=== PATIENT | female | born 1935 | race Caucasian/White ===

== ENCOUNTER 2016-05-15 14:28 | Inpatient (IN) | payer MEDICARE, BC ==
[~2016-05-15] VITALS: Ht 160 cm; Wt 133.5 kg
[~2016-05-15 14:28] MED LIST: APIX5 PO; BIOTCAP PO; BLAC20TA PO; CHRO1000 PO; CO Q200C3 PO; CRAN250T PO; DICL1GEL TOP; ISOS60TA PO; LEVO75TA3 PO; LORA0.5T PO; LUTE6TAB PO; MAGN400C2 PO; MONT10 PO; NITR0.4S SL; OCUVTAB4 PO; OMEP20TA39 PO; PLAV75TA PO; QUIN20TA22 PO; ROPI1TAB72 PO; ROSU40 PO; SELE200T18 PO; SPIR25 PO; SPIRCAP INH; TOPR50TA PO; TORS20 PO; TRAM50 PO; TURM500C3 PO; VENTAER INH; VITA-13 PO
[2016-05-15 14:29] VITALS: BP 123/58; PULSE 76; RESP 17; TEMP 97.6; O2SAT 94
[2016-05-15] MEDS ORDERED: VANCOMYCIN INJ 1,250 MG in SODIUM CHLOR 0.9% 250 ML INJ 250 ML IV ONE (18:00)
[2016-05-15] MEDS ORDERED: BACT2OIN2 TOP (18:07)
[2016-05-15] MEDS ORDERED: CURCPOW PO (18:07)
[2016-05-15] MEDS ORDERED: TRAM50TA PO (18:07)
[2016-05-15] MEDS ORDERED: AMIO200T PO (18:07)
[2016-05-15] MEDS ORDERED: VIBR100C PO (18:07)
[2016-05-15] MEDS ORDERED: TORS100T2 PO (18:12)
[2016-05-15] MEDS ORDERED: SPIRCAP INH (18:12)
[2016-05-15] MEDS ORDERED: SPIR50TA PO (18:12)
[2016-05-15] MEDS ORDERED: SELE1TAB PO (18:12)
[2016-05-15] MEDS ORDERED: ROSU20 PO (18:12)
[2016-05-15] MEDS ORDERED: ROPI1TAB72 PO (18:12)
[2016-05-15] MEDS ORDERED: MAGN400T2 PO (18:16)
[2016-05-15] MEDS ORDERED: TOPR50TA PO (18:16)
[2016-05-15] MEDS ORDERED: LUTE25CA PO (18:16)
[2016-05-15] MEDS ORDERED: NITR400A5 SL (18:16)
[2016-05-15] MEDS ORDERED: QUIN1TAB11 PO (18:16)
[2016-05-15] MEDS ORDERED: PRESCAP5 PO (18:16)
[2016-05-15] MEDS ORDERED: MONT10TA4 PO (18:16)
[2016-05-15] MEDS ORDERED: DICL1GEL7 TOPICAL (18:21)
[2016-05-15] MEDS ORDERED: PLAV75TA29 PO (18:21)
[2016-05-15] MEDS ORDERED: CRAN500C2 PO (18:21)
[2016-05-15] MEDS ORDERED: LORA-373 PO (18:21)
[2016-05-15] MEDS ORDERED: LEVO100T5 PO (18:21)
[2016-05-15] MEDS ORDERED: APIX5TAB PO (18:21)
[2016-05-15] MEDS ORDERED: ISOS60TA PO (18:21)
[2016-05-15] MEDS ORDERED: CO Q100C9 PO (18:21)
[2016-05-15] MEDS ORDERED: CHOL1TAB42 PO (18:25)
[2016-05-15] MEDS ORDERED: VENTAER INH (18:25)
[2016-05-15] MEDS ORDERED: CHRO1000 PO (18:25)
[2016-05-15] MEDS ORDERED: BIOT1CHW CHEW (18:25)
[2016-05-15] MEDS ORDERED: ESTRTAB12 PO (18:25)
[2016-05-15 18:48] LABS: AUTOMATED NEUTROPHIL # 4.7 TH/MM3 (1.8-7.7); BASOPHIL # 0.1 TH/MM3 (0-0.2); BASOPHIL % 0.7 % (0.0-2.0); EOSINOPHIL # 0.1 TH/MM3 (0-0.4); EOSINOPHIL % 1.7 % (0.0-4.0); HEMATOCRIT 42.3 % (35.0-46.0); HEMO FLAGS DIFF FINAL; LYMPH % 23.3 % (9.0-44.0); LYMPHOCYTE # 1.9 TH/MM3 (1.0-4.8); MEAN CELL VOLUME 90.6 FL (80.0-100.0); MEAN CORPUSCULAR HEMOGLOBIN 30.2 PG (27.0-34.0); MEAN CORPUSCULAR HGB CONC 33.4 % (32.0-36.0); MONO % 14.9 % (0.0-8.0); NEUT % 59.4 % (16.0-70.0); PLATELET COUNT 200 TH/MM3 (150-450); RED BLOOD COUNT 4.67 MIL/MM3 (4.00-5.30); RED CELL DISTRIBUTION WIDTH 16.4 % (11.6-17.2); WHITE BLOOD COUNT 7.9 TH/MM3 (4.0-11.0)
[2016-05-15 19:10] LABS: BICARBONATE 31.2 MEQ/L (21.0-32.0)
--- NOTE | 2016-05-15 19:26 | PD ---
HPI Chief Complaint: Edema Time Seen by Provider: 17:14 Travel History International Travel<30 days: No Contact w/Intl Traveler<30days: No Traveled to known affect area: No History of Present Illness HPI 80yo F with PMH of CHF presents with c/o worsening cellulitis of right lower extremity. Pt was prescribed doxycycline by PMD and has been taking it for 3 days. Pt states the redness is getting worst and there is clear drainage. Denies any fever, chest pain, sob, n/v, abdominal pain, weakness or numbness. Pt had recent bilateral US of bilateral lower ext that was negative for DVT at [facility]. PFSH Past Medical History Hx Anticoagulant Therapy: Yes Arthritis: Yes (idiopathic skeletal hyperostosis/ osteoarthris) Asthma: No Anxiety: Yes Cancer: Yes Cardiovascular Problems: Yes (A-FIB/CHF/3 STENTS) High Cholesterol: Yes Chemotherapy: No Chest Pain: No COPD: Yes Diabetes: Yes ("PRE DIABETES") Patient Takes Glucophage: No Diminished Hearing: No Endocrine: No Gastrointestinal Disorders: Yes (GERD; FRAGA'S ESOPHAGITIS; DIVERTICULOSIS; HX H PYLORI) Genitourinary: No Hepatitis: No Hiatal Hernia: Yes (SCHATZIKIS RING) Hypertension: Yes Immune Disorder: No Implanted Vascular Access Dvce: No Medical other: Yes (HX STOMACH ULCER;COPD) Musculoskeletal: Yes Neurologic: No Psychiatric: Yes Reproductive: No Respiratory: Yes (copd) Radiation Therapy: No Sleep Apnea: Yes Thyroid Disease: Yes Ulcer: Yes Tetanus Vaccination: Unknown Influenza Vaccination: Yes Menopausal: Yes Dilation and Curettage (D&C): Yes Past Surgical History Abdominal Surgery: No AICD: No Body Medical Devices: CARDIAC STENTS X 3; STERNAL WIRE; TOE PINS RIGHT FOOT, RIGHT ACHIL PIN Cardiac Surgery: No Coronary Stent: Yes (x3 OM, LAD, L MAIN) Ear Surgery: No Endocrine Surgery: No Eye Surgery: Yes Genitourinary Surgery: Yes Gynecologic Surgery: Yes Hysterectomy: Yes Joint Replacement: Yes (BILAT KNEES; PINS LEFT HEEL /ANKLE) Neurologic Surgery: No Oral Surgery: No Pacemaker: No Thoracic Surgery: No Other Surgery: Yes (MULTIPLE COLONOSCOPIES AND ENDOSOPIES) Social History Alcohol Use: No Tobacco Use: No Substance Use: No Allergies-Medications (Allergen,Severity, Reaction): Coded Allergies: Adhesives (Verified Allergy, Severe, steri strips causes severe skin irritation, 05/15/16) Cleocin (Verified Allergy, Severe, THRUSH, 05/15/16) ORAL THRUSH Keflex (Verified Allergy, Severe, 05/15/16) FULL BODY RASH Verapamil (Verified Allergy, Severe, SWELLING, 05/15/16) SEVERE EDEMA IN LEGS Amlodipine (Verified Allergy, Intermediate, GENERALIZED EDEMA, 05/15/16) Nonsteroidal Anti-Inflammatory Agts (Verified Allergy, Intermediate, GI , 05/15/16) Norvasc (Verified Allergy, Intermediate, EDEMA, 05/15/16) Cymbalta (Verified Allergy, Unknown, 05/15/16) Dolobid (Verified Allergy, Unknown, 05/15/16) Lexapro (Verified Allergy, Unknown, 05/15/16) Lipitor (Verified Allergy, Unknown, 05/15/16) Naprosyn (Verified Allergy, Unknown, 05/15/16) Prozac (Verified Allergy, Unknown, 05/15/16) Voltaren (Verified Allergy, Unknown, 05/15/16) Xarelto (Verified Allergy, Unknown, 05/15/16) rectal bleeding Zetia (Verified Allergy, Unknown, 05/15/16) Zocor (Verified Allergy, Unknown, 05/15/16) Uncoded Allergies: vytorin (Allergy, Unknown, 10/07/15) Reported Meds & Prescriptions Reported Meds & Active Scripts Active Reported Ventolin Hfa 18 GM Inh (Albuterol Sulfate) 90 Mcg/Act Aer 2 Puff INH BID Hair Skin & Nails (Biotin W/ Vitamins C & E) 1,250-7.5-7.5 Mcg-Mg-Unit Chew 1 Chew CHEW DAILY Estroven + Energy Maximum ([facility] Natural Products) 1 Tab Tab 1 Tab PO DAILY Vitamin D-3 (Cholecalciferol) 2,000 Unit Tab 2,000 Units PO BID Chromium Picolinate 1,000 Mcg Tab 1,000 Mcg PO DAILY Plavix (Clopidogrel Bisulfate) 75 Mg Tab 75 Mg PO DAILY Co Q 10 (Coenzyme Q10 (Ubidecarenone)) 100 Mg Cap 100 Mg PO DAILY Cranberry (Cranberry (Vaccinium Macrocarpon)) 500 Mg Cap 500 Mg PO HS Diclofenac Topical 1% Gel 1 Applic TOPICAL DIRECTED PRN Eliquis (Apixaban) 5 Mg Tab 5 Mg PO BID Isosorbide Mononitrate ER (Isosorbide Mononitrate) 60 Mg Tab 180 Mg PO DAILY Levothyroxine (Levothyroxine Sodium) 100 Mcg Tab 100 Mcg PO DAILY Lorazepam 0.5 Mg Tab 0.5 Mg PO DAILY PRN Lutein-Zeaxanthin Unknown Strength Cap Unknown Dose PO DAILY Magnesium Oxide 400 Mg Tab 400 Mg PO DAILY Toprol XL (Metoprolol Succinate) 50 Mg Tab 50 Mg PO DAILY Montelukast (Montelukast Sodium) 10 Mg Tab 10 Mg PO HS Nitroglycerin Lingual [place] (Nitroglycerin) 400 Mcg/Act [place] 1 [place] SL DIRECTED PRN ONE SPRAY NEEDED FOR CHEST PAIN, MAY REPEAT EVERY FIVE MINUTES FOR A TOTAL OF 3 DOSES OR CALL 911 IF NO RELIEF Preservision Areds 2 (Multiple Vitamins W/ Minerals) 1 Cap 1 Cap PO BID Quinapril (Quinapril HCl) 10 Mg Tab 10 Mg PO BID Requip (Ropinirole) 1 Mg Tab 1 Mg PO BID Crestor (Rosuvastatin Calcium) 20 Mg Tab 20 Mg PO HS Selenium 200 Mcg Tab 200 Mg PO DAILY Spironolactone 50 Mg Tab 50 Mg PO DAILY Spiriva [place]haler (Tiotropium Inh) 18 Mcg Cap 18 Mcg INH DAILY 1 capsule = 18 mcg Torsemide 100 Mg Tab 50 Mg PO BID Tramadol (Tramadol HCl) 50 Mg Tab 150 Mg PO BID Curcumin (Turmeric (Curcuma Longa) (Bulk) 1 Pow Pow 1,000 Mg PO DAILY Vibramycin (Doxycycline Hyclate) 100 Mg Cap 100 Mg PO BID Bactroban (Mupirocin) 2 % Oin 1 Applic TOP TID Amiodarone (Amiodarone HCl) 200 Mg Tab 200 Mg PO DAILY Review of Systems Except as stated in HPI: all other systems reviewed are Neg Physical Exam Narrative GENERAL: 80yo F not in distress. SKIN: Warm and dry. HEAD: Atraumatic. Normocephalic. EYES: Pupils equal and round. No scleral icterus. No injection or drainage. ENT: No nasal bleeding or discharge. Mucous membranes pink and moist. NECK: Trachea midline. No JVD. CARDIOVASCULAR: Regular rate and rhythm. No murmur appreciated. RESPIRATORY: No accessory muscle use. Clear to auscultation. Breath sounds equal bilaterally. GASTROINTESTINAL: Abdomen soft, non-tender, nondistended. MUSCULOSKELETAL: RLE: +Erythema right lower extremity tib/fib with erythema streaking right inner thigh. Area of small superficial ulcer with clear drainage. Left lower ext: pitting edema. DP 2+ bilaterally. NEUROLOGICAL: Awake and alert. No obvious cranial nerve deficits. Motor grossly within normal limits. Normal speech. PSYCHIATRIC: Appropriate mood and affect; insight and judgment normal. Data Data Last Documented VS Vital Signs Date Time Temp Pulse Resp B/P Pulse Ox O2 Delivery O2 Flow Rate FiO2 05/15/16 14:29 97.6 76 17 123/58 94 Orders Basic Metabolic Panel (Bmp) (05/15/16 17:48) Complete Blood Count With Diff (05/15/16 17:48) Blood Culture (05/15/16 17:48) Iv Access Insert/Monitor (05/15/16 17:48) Vancomycin Inj (Vancomycin Inj) (05/15/16 18:00) Admit Order (Ed Use Only) (05/15/16 19:42) Labs Laboratory Tests Test 05/15/16 18:25 White Blood Count 7.9 TH/MM3 Red Blood Count 4.67 MIL/MM3 Hemoglobin 14.1 GM/DL Hematocrit 42.3 % Mean Corpuscular Volume 90.6 FL Mean Corpuscular Hemoglobin 30.2 PG Mean Corpuscular Hemoglobin 33.4 % Concent Red Cell Distribution Width 16.4 % Platelet Count 200 TH/MM3 Mean Platelet Volume 7.9 FL Neutrophils (%) (Auto) 59.4 % Lymphocytes (%) (Auto) 23.3 % Monocytes (%) (Auto) 14.9 % Eosinophils (%) (Auto) 1.7 % Basophils (%) (Auto) 0.7 % Neutrophils # (Auto) 4.7 TH/MM3 Lymphocytes # (Auto) 1.9 TH/MM3 Monocytes # (Auto) 1.2 TH/MM3 Eosinophils # (Auto) 0.1 TH/MM3 Basophils # (Auto) 0.1 TH/MM3 CBC Comment DIFF FINAL Differential Comment Sodium Level 131 MEQ/L Potassium Level 4.0 MEQ/L Chloride Level 90 MEQ/L Carbon Dioxide Level 31.2 MEQ/L Anion Gap 10 MEQ/L Blood Urea Nitrogen 43 MG/DL Creatinine 1.77 MG/DL Estimat Glomerular Filtration 28 ML/MIN Rate Random Glucose 103 MG/DL Calcium Level 8.5 MG/DL [facility] Medical Decision Making Medical Screen Exam Complete: Yes Emergency Medical Condition: Yes Differential Diagnosis Cellulitis that failed outpatient treatment vs. felix vs. skin irritation Narrative Course 80yo F well appearing with bilateral lower ext edema and right lower ext erythema. States she is compliant with doxycycline but erythema worsening. Pt given vancomycin IV and labs reviewed. No leukocytosis. Mild hyponatremia and elevation in creatinine that is at baseline. Discussed with Dr. Guy for admission for observation for IV antibiotics for cellulitis that failed outpatient treatment. Pt agrees with plan. Diagnosis Primary Impression: Cellulitis Qualified Code: L03.115 - Cellulitis of right lower extremity Admitting Information Admitting Physician Requests: Eli Azar DO May 15, 2016 19:26
[2016-05-15] MEDS ORDERED: PILL SPLITTER OTHER PRN (20:30)
[2016-05-15 20:44] VITALS: BP 135/72; PULSE 65; RESP 20; O2SAT 96
[2016-05-15] MEDS ORDERED: NON-FORMULARY DRUG (Cranberry (Vaccinium Macrocarpon) (Cranberry) 500 MG) PO SCH (21:00)
[2016-05-15] MEDS: TORSEMIDE 20 MG TAB PO SCH (21:55)
[2016-05-15] MEDS: MONTELUKAST SODIUM 10 MG TAB PO SCH (21:55)
[2016-05-15] MEDS: LISINOPRIL 10 MG TAB PO SCH (21:55)
[2016-05-15] MEDS: ALBUTEROL SULFATE 90 MCG/ACT HFA 8 GM INHALER INH SCH (21:55)
[2016-05-15] MEDS: APIXABAN 5 MG TABLET PO SCH (21:55)
[2016-05-15 22:00] VITALS: BP 137/62; PULSE 68; RESP 20; O2SAT 96
--- NOTE | 2016-05-15 23:20 | HHI.HP ---
[facility] Ruba Jesus DO Admission Diagnosis Cellulitis that failed outpatient follow up Diagnoses: Chief Complaint: Bilateral lower extremity redness Travel History International Travel<30 Days: No Contact w/Intl Traveler <30 Da: No Traveled to Known Affected Are: No History of Present Illness The patient is a 80-year-old female with multiple medical problems including coronary artery disease status post CABG, COPD, anxiety, sleep apnea, obesity, diet-controlled diabetes, hypertension, hyperlipidemia. She presented to the emergency room with complaint of worsening cellulitis of the right lower extremity. She reports that she had increased swelling of the bilateral extremities that started about 3 weeks ago. The swelling has been improving. However 2 weeks ago she noticed some blisters on her bilateral lower extremities. They started draining associated redness that extend up to her thighs. The left side has improved. However the right side has been getting worse. The patient was seen by her primary care doctor and has been on doxycycline for the past 3 days but she believes does redness is getting worse on the right. She did have bilateral lower extremity ultrasound recently that was negative for DVT. She denies any fevers or chills. Review of Systems Constitutional: DENIES: Fever, Chills Respiratory: DENIES: Cough, Shortness of breath Cardiovascular: COMPLAINS OF: Lower Extremity Edema Gastrointestinal: DENIES: Nausea, Vomiting Integumentary: COMPLAINS OF: Rash Psychiatric: DENIES: Mood changes Other All other systems reviewed and are negative. Past Family Social History Past Surgical History Heart catheterization with stent placement Bilateral knee replacement Hysterectomy Multiple upper and lower endoscopy Rotator cuff surgery Allergies: Coded Allergies: Adhesives (Verified Allergy, Severe, steri strips causes severe skin irritation, 05/15/16) Cleocin (Verified Allergy, Severe, THRUSH, 05/15/16) ORAL THRUSH Keflex (Verified Allergy, Severe, 05/15/16) FULL BODY RASH Verapamil (Verified Allergy, Severe, SWELLING, 05/15/16) SEVERE EDEMA IN LEGS Amlodipine (Verified Allergy, Intermediate, GENERALIZED EDEMA, 05/15/16) Nonsteroidal Anti-Inflammatory Agts (Verified Allergy, Intermediate, GI , 05/15/16) Norvasc (Verified Allergy, Intermediate, EDEMA, 05/15/16) Cymbalta (Verified Allergy, Unknown, 05/15/16) Dolobid (Verified Allergy, Unknown, 05/15/16) Lexapro (Verified Allergy, Unknown, 05/15/16) Lipitor (Verified Allergy, Unknown, 05/15/16) Naprosyn (Verified Allergy, Unknown, 05/15/16) Prozac (Verified Allergy, Unknown, 05/15/16) Voltaren (Verified Allergy, Unknown, 05/15/16) Xarelto (Verified Allergy, Unknown, 05/15/16) rectal bleeding Zetia (Verified Allergy, Unknown, 05/15/16) Zocor (Verified Allergy, Unknown, 05/15/16) Uncoded Allergies: vytorin (Allergy, Unknown, 10/07/15) Family History Reviewed and noncontributory. Social History No alcohol, tobacco, or illicit drugs. Patient lives in an [place]. Physical Exam Vital Signs Vital Signs Date Time Temp Pulse Resp B/P Pulse Ox O2 Delivery O2 Flow Rate FiO2 05/15/16 22:00 68 20 137/62 96 Room Air 05/15/16 20:44 65 20 135/72 96 Room Air 05/15/16 14:29 97.6 76 17 123/58 94 Physical Exam GENERAL: Morbidly obese female in no acute distress. SKIN: Bilateral lower extremity with some weeping and cellulitis extended up to the knees. The right side is worse and extended up to the time. HEAD: Atraumatic. Normocephalic. EYES: Pupils equal round and reactive. Extraocular motions intact. No scleral icterus. No injection or drainage. ENT: Nose without drainage. Airway patent. NECK: Trachea midline. No JVD or lymphadenopathy. CARDIOVASCULAR: Regular rate and rhythm without murmurs, gallops, or rubs. RESPIRATORY: Clear to auscultation. Breath sounds equal bilaterally. No wheezes , rales, or rhonchi. GASTROINTESTINAL: Abdomen soft, non-tender, nondistended. MUSCULOSKELETAL: There is 2+ bilateral lower extremity edema. Per patient this has significantly improved over the past couple of weeks with torsemide. NEUROLOGICAL: Awake and alert. Five out of 5 muscle strength in all muscle groups. Normal speech. Laboratory Laboratory Tests Test 05/15/16 18:25 White Blood Count 7.9 Red Blood Count 4.67 Hemoglobin 14.1 Hematocrit 42.3 Mean Corpuscular Volume 90.6 Mean Corpuscular Hemoglobin 30.2 Mean Corpuscular Hemoglobin 33.4 Concent Red Cell Distribution Width 16.4 Platelet Count 200 Mean Platelet Volume 7.9 Neutrophils (%) (Auto) 59.4 Lymphocytes (%) (Auto) 23.3 Monocytes (%) (Auto) 14.9 Eosinophils (%) (Auto) 1.7 Basophils (%) (Auto) 0.7 Neutrophils # (Auto) 4.7 Lymphocytes # (Auto) 1.9 Monocytes # (Auto) 1.2 Eosinophils # (Auto) 0.1 Basophils # (Auto) 0.1 CBC Comment DIFF FINAL Differential Comment Sodium Level 131 Potassium Level 4.0 Chloride Level 90 Carbon Dioxide Level 31.2 Anion Gap 10 Blood Urea Nitrogen 43 Creatinine 1.77 Estimat Glomerular Filtration 28 Rate Random Glucose 103 Calcium Level 8.5 Date/Time Procedure Status Source Growth 05/15/16 18:35 Aerobic Blood Culture Received Blood Peripheral Pending 05/15/16 18:35 Anaerobic Blood Culture Received Blood Peripheral Pending Result Diagram: 05/15/16182405/15/161824 Assessment and Plan Problem List: (1) Cellulitis ICD Code: L03.90 Status: Acute (2) HTN (hypertension) ICD Code: I10 Status: Chronic (3) GERD (gastroesophageal reflux disease) ICD Code: K21.9 Status: Chronic (4) CAD (coronary artery disease) ICD Code: I25.10 Status: Chronic (5) CHF (congestive heart failure) ICD Code: I50.9 Status: Acute (6) Afib ICD Code: I48.91 Status: Acute Assessment and Plan 80-year-old female admitted with cellulitis after failing outpatient therapy. Bilateral lower extremity cellulitis: Patient failed outpatient treatment. She has been given vancomycin in the emergency room. - Continue vancomycin. Follow blood cultures. - Clean small weeping wounds. - Keep legs elevated CHF: Not in exacerbation. She does have significant lower extremity edema but this has improved over the past 2 weeks per the patient. - Continue torsemide, Aldactone, lisinopril Coronary artery disease: Continue home dose Plavix, tramadol, metoprolol Atrial fibrillation: Continue amiodarone, metoprolol, and Eliquis. The patient has many other chronic conditions listed above. Her chronic home medications has been continued. GI prophylaxis: Stool softener PRN constipation. DVT PPx: On Eliquis. Physician Certification 2 Midnight Certification Type: Admission for Inpatient Services Order for Inpatient Services The services are ordered in accordance with Medicare regulations or non- Medicare payer requirements, as applicable. In the case of services not specified as inpatient-only, they are appropriately provided as inpatient services in accordance with the 2-midnight benchmark. Estimated LOS (days): 3 days is the estimated time the patient will need to remain in the hospital, assuming treatment plan goals are met and no additional complications. Post-Hospital Plan: Not yet determined Problem Qualifiers (1) Cellulitis: Qualified Code: L03.115 - Cellulitis of right lower extremity Mana Guy MD May 15, 2016 23:20
[2016-05-15] MEDS ORDERED: Vancomycin Consult Pharmacy 1 EA XX SCH (23:45)
[2016-05-15] MEDS ORDERED: SODIUM CHLORIDE 0.9% FLUSH 5 ML FLUSH IV PRN (23:45)
[2016-05-15] MEDS ORDERED: ACETAMINOPHEN/HYDROcodone 325 MG/5 MG TAB PO PRN (23:45)
[2016-05-16] MEDS ORDERED: VANCOMYCIN INJ 1,000 MG in SODIUM CHLOR 0.9% 250 ML INJ 250 ML IV SCH ×2
[2016-05-16] MEDS: LEVOTHYROXINE SODIUM 100 MCG TAB PO SCH (05:23)
[2016-05-16 05:47] LABS: AUTOMATED NEUTROPHIL # 4.3 TH/MM3 (1.8-7.7); BASOPHIL % 0.6 % (0.0-2.0); EOSINOPHIL # 0.2 TH/MM3 (0-0.4); EOSINOPHIL % 2.6 % (0.0-4.0); HEMATOCRIT 39.6 % (35.0-46.0); HEMO FLAGS DIFF FINAL; LYMPHOCYTE # 1.5 TH/MM3 (1.0-4.8); MEAN CELL VOLUME 88.9 FL (80.0-100.0); MEAN CORPUSCULAR HEMOGLOBIN 30.2 PG (27.0-34.0); MEAN CORPUSCULAR HGB CONC 33.9 % (32.0-36.0); MONO % 16.2 % (0.0-8.0); NEUT % 59.6 % (16.0-70.0); PLATELET COUNT 168 TH/MM3 (150-450); RED BLOOD COUNT 4.45 MIL/MM3 (4.00-5.30); WHITE BLOOD COUNT 7.2 TH/MM3 (4.0-11.0)
[2016-05-16 05:48] LABS: BICARBONATE 35.3 MEQ/L (21.0-32.0); POTASSIUM 3.2 MEQ/L (3.5-5.1)
[2016-05-16 08:00] VITALS: BP 122/62; PULSE 70; RESP 20; TEMP 97.8; O2SAT 95
[2016-05-16] MEDS: APIXABAN 5 MG TABLET PO SCH ×2 (08:53→21:15)
[2016-05-16] MEDS: MAGNESIUM OXIDE 400 MG TAB PO SCH (08:53)
[2016-05-16] MEDS: METOPROLOL SUCCINATE 50 MG EXTENDED RELEASE TAB PO SCH (08:54)
[2016-05-16] MEDS: SPIRONOLACTONE 50 MG TAB PO SCH (08:55)
[2016-05-16] MEDS: TORSEMIDE 20 MG TAB PO SCH ×2 (08:55→16:27)
[2016-05-16] MEDS: ISOSORBIDE MONONITRATE 60 MG TAB PO SCH (08:55)
[2016-05-16] MEDS: AMIODARONE 200 MG TAB PO SCH (08:56)
[2016-05-16] MEDS: CLOPIDOGREL 75 MG TAB PO SCH (08:56)
[2016-05-16] MEDS: LISINOPRIL 10 MG TAB PO SCH ×2 (08:56→21:14)
[2016-05-16] MEDS: SODIUM CHLORIDE 0.9% FLUSH 5 ML FLUSH IV SCH ×2 (08:56→21:15)
[2016-05-16] MEDS: MUPIROCIN 2% OINT 22 GM TUBE TOP SCH ×4 (09:00→17:15)
--- NOTE | 2016-05-16 09:26 | HHI.PR ---
Subjective Remarks resting comfortably with no distress. afebrile and pain is controlled. says that the right leg ' looks better ' today. Objective Vitals Vital Signs Date Time Temp Pulse Resp B/P Pulse Ox O2 Delivery O2 Flow Rate FiO2 05/16/16 08:00 97.8 70 20 122/62 95 05/15/16 22:00 68 20 137/62 96 Room Air 05/15/16 20:44 65 20 135/72 96 Room Air 05/15/16 14:29 97.6 76 17 123/58 94 I/O 05/15/16 05/15/16 05/15/16 05/16/16 05/16/16 05/16/16 07:00 15:00 23:00 07:00 15:00 23:00 Intake Total 80 ml 240 ml 120 ml Output Total 700 ml Balance 80 ml -460 ml 120 ml Intake Oral 80 ml 240 ml 120 ml IV Total 0 ml Output Urine Total 700 ml # Voids 1 Result Diagram: 05/16/16 0428 05/16/168 Objective Remarks GENERAL: This is a well-nourished, well-developed patient, in no apparent distress. CARDIOVASCULAR: Regular rate and regular rhythm without murmurs, gallops, or rubs. RESPIRATORY: Clear to auscultation. Breath sounds equal bilaterally. No wheezes , rales, or rhonchi. GASTROINTESTINAL: Abdomen soft, non-tender, nondistended. Normal, active bowel sounds MUSCULOSKELETAL: erythema, warmth and swelling of the right leg. NEURO: Alert & Oriented x4 to person, place, time, situation. Moves all ext x4 Procedures none Medications and IVs Current Medications Vancomycin HCl/ Sodium Chloride (Vancomycin Inj/ NS 250 ml Inj) 262.5 ml @ 250 mls/hr ONCE ONCE IV Last administered on 05/15/16 18:47; Start 05/15/16 at 18 :00; Stop 05/15/16 at 19:02; Status DC Albuterol Sulfate (Proair Hfa Inh) 2 puff BID INH Last administered on 21:55; Start 05/15/16 at 21:00 Amiodarone HCl (Cordarone) 200 mg DAILY PO Last administered on 05/16/16 08:56 ; Start 05/16/16 at 09:00 Apixaban (Eliquis) 5 mg BID PO Last administered on 05/16/16 08:53; Start at 21:00 Clopidogrel Bisulfate (Plavix) 75 mg DAILY PO Last administered on 05/16/16 08 :56; Start 05/16/16 at 09:00 Isosorbide Mononitrate (Imdur) 180 mg DAILY PO Last administered on 05/16/16 08:55; Start 05/16/16 at 09:00 Levothyroxine Sodium (Synthroid) 100 mcg DAILY@06 PO Last administered on 05:23; Start 05/16/16 at 06:00 Lorazepam (Ativan) 0.5 mg DAILY PRN PO ANXIETY; Start 05/15/16 at 20:00 Magnesium Oxide (Mag-Ox) 400 mg DAILY PO Last administered on 05/16/16 08:53; Start 05/16/16 at 09:00 Metoprolol Succinate (Toprol Xl) 50 mg DAILY PO Last administered on 05/16/16 08:54; Start 05/16/16 at 09:00 Montelukast Sodium (Singulair) 10 mg HS PO Last administered on 05/15/16 21:55 ; Start 05/15/16 at 21:00 Mupirocin (Bactroban 2% Oint) 1 applic TID TOP ; Start 05/16/16 at 09:00 Lisinopril (Prinivil) 10 mg BID PO Last administered on 05/16/16 08:56; Start 05/15/16 at 21:00 Ropinirole HCl (Requip) 1 mg BID PO Last administered on 05/16/16 08:55; Start 05/15/16 at 21:00 Spironolactone (Aldactone) 50 mg DAILY PO Last administered on 05/16/16 08:55 ; Start 05/16/16 at 09:00 Tiotropium [place] (Spiriva Inh) 18 mcg DAILY INH ; Start 05/16/16 at 09:00 Torsemide (Demadex) 50 mg BID PO Last administered on 05/16/16 08:55; Start at 21:00 Non-Formulary Medication 500 mg HS PO ; Start 05/15/16 at 21:00; Status UNV Patient Own Medication PT OWN MED: CRESTOR... HS PO ; Start 05/15/16 at 21:00; Status Hold Miscellaneous (Pill Splitter) 1 ea UNSCH PRN OTHER SEE LABEL COMMENTS; Start at 20:30 IV Flush (NS Flush) 2 ml BID IV Last administered on 05/16/16 08:56; Start at 09:00 IV Flush 2 ml 2 ml UNSCH PRN IV FLUSH AFTER USING IV ACCESS; Start 05/15/16 at 23:45 Pharmacy Profile Note (Vancomycin Consult Pharmacy) 0 ml @ 0 mls/hr UNSCH XX ; Start 05/15/16 at 23:45 Acetaminophen/ Hydrocodone Bitart 1 tab 1 tab Q4H PRN PO PAIN GREATER THAN 5; Start 05/15/16 at 23:45 Vancomycin HCl/ Sodium Chloride (Vancomycin Inj/ NS 250 ml Inj) 250 ml @ 250 mls/hr Q12H IV Last administered on 05/16/16 01:24; Start 05/16/16 at 00:00; Stop 05/16/16 at 03:00; Status DC A/P Assessment and Plan A/P Bilateral lower extremity cellulitis: Patient failed outpatient treatment. - Continue vancomycin. Follow blood cultures. -will monitor the response - Clean small weeping wounds. - Keep legs elevated CHF ( chronic diastolic) :compensated. - Continue torsemide, Aldactone, lisinopril Coronary artery disease: Continue home dose Plavix, tramadol, metoprolol Atrial fibrillation: Continue amiodarone, metoprolol, and Eliquis. chronic renal insufficiency; will monitor hypokalemia; will replace DVT PPx: On Eliquis. Lit Davis MD May 16, 2016 09:26
[2016-05-16] MEDS ORDERED: POTASSIUM CHLORIDE 20 MEQ CONTROLLED RELEASE TAB PO ONE (10:00)
[2016-05-16 11:44] VITALS: BP 119/52; PULSE 68; RESP 20; TEMP 97.7; O2SAT 97
[2016-05-16 16:02] VITALS: BP 118/57; PULSE 69; RESP 20; TEMP 97.5; O2SAT 97
[2016-05-16] MEDS: ALBUTEROL SULFATE 90 MCG/ACT HFA 8 GM INHALER INH SCH ×2 (16:09→21:00)
[2016-05-16] MEDS: TIOTROPIUM BROMIDE 18 MCG INH INH SCH (16:09)
[2016-05-16 20:00] VITALS: BP 140/56; PULSE 66; RESP 18; TEMP 97.6; O2SAT 95
[2016-05-16] MEDS: MONTELUKAST SODIUM 10 MG TAB PO SCH (21:15)
[2016-05-16] MEDS ORDERED: traMADol HCL 50 MG TAB PO SCH ×2 (21:45→22:30)
[2016-05-17] VITALS: BP 134/60; PULSE 66; RESP 18; TEMP 98.7; O2SAT 97
[2016-05-17] MEDS ORDERED: traMADol HCL 50 MG TAB PO ONE (02:00)
[2016-05-17 05:49] LABS: BICARBONATE 33.3 MEQ/L (21.0-32.0); POTASSIUM 3.4 MEQ/L (3.5-5.1)
[2016-05-17] MEDS: LEVOTHYROXINE SODIUM 100 MCG TAB PO SCH (06:08)
[2016-05-17 08:00] VITALS: BP 135/59; PULSE 69; RESP 18; TEMP 98.8; O2SAT 95
[2016-05-17] MEDS: LISINOPRIL 10 MG TAB PO SCH ×2 (09:21→20:45)
[2016-05-17] MEDS: SPIRONOLACTONE 50 MG TAB PO SCH (09:21)
[2016-05-17] MEDS: APIXABAN 5 MG TABLET PO SCH ×2 (09:21→20:45)
[2016-05-17] MEDS: ISOSORBIDE MONONITRATE 60 MG TAB PO SCH (09:21)
[2016-05-17] MEDS: TORSEMIDE 20 MG TAB PO SCH ×2 (09:22→16:50)
[2016-05-17] MEDS: CLOPIDOGREL 75 MG TAB PO SCH (09:23)
[2016-05-17] MEDS: traMADol HCL 50 MG TAB PO SCH ×3 (09:23→16:52)
[2016-05-17] MEDS: AMIODARONE 200 MG TAB PO SCH (09:23)
[2016-05-17] MEDS: MAGNESIUM OXIDE 400 MG TAB PO SCH (09:23)
[2016-05-17] MEDS: MUPIROCIN 2% OINT 22 GM TUBE TOP SCH ×3 (09:23→16:53)
[2016-05-17] MEDS: METOPROLOL SUCCINATE 50 MG EXTENDED RELEASE TAB PO SCH (09:23)
[2016-05-17] MEDS: ALBUTEROL SULFATE 90 MCG/ACT HFA 8 GM INHALER INH SCH ×2 (09:24→20:45)
[2016-05-17] MEDS: TIOTROPIUM BROMIDE 18 MCG INH INH SCH (09:24)
[2016-05-17] MEDS: SODIUM CHLORIDE 0.9% FLUSH 5 ML FLUSH IV SCH ×2 (09:24→20:44)
--- NOTE | 2016-05-17 10:03 | HHI.PR ---
Subjective Remarks resting comfortably with no distress. no fever. pain to the right leg hasn't improved as much. Objective Vitals Vital Signs Date Time Temp Pulse Resp B/P Pulse Ox O2 Delivery O2 Flow Rate FiO2 05/17/16 08:00 98.8 69 18 135/59 95 05/17/16 00:00 98.7 66 18 134/60 97 05/16/16 20:00 97.6 66 18 140/56 95 05/16/16 16:02 97.5 69 20 118/57 97 05/16/16 11:44 97.7 68 20 119/52 97 I/O 05/16/16 05/16/16 05/16/16 05/17/16 05/17/16 05/17/16 07:00 15:00 23:00 07:00 15:00 23:00 Intake Total 240 ml 1080 ml 240 ml 480 ml Output Total 700 ml 1000 ml 350 ml 1800 ml Balance -460 ml 80 ml -110 ml -1320 ml Intake Oral 240 ml 1080 ml 240 ml 480 ml IV Total 0 ml 0 ml 0 ml Output Urine Total 700 ml 1000 ml 350 ml 1800 ml # Voids 1 # Bowel Movements 1 1 Result Diagram: 05/16/16 0428 05/17/16 0402 Objective Remarks GENERAL: This is a well-nourished, well-developed patient, in no apparent distress. CARDIOVASCULAR: Regular rate and regular rhythm without murmurs, gallops, or rubs. RESPIRATORY: Clear to auscultation. Breath sounds equal bilaterally. No wheezes , rales, or rhonchi. GASTROINTESTINAL: Abdomen soft, non-tender, nondistended. Normal, active bowel sounds MUSCULOSKELETAL: erythema, warmth and swelling of the right leg. NEURO: Alert & Oriented x4 to person, place, time, situation. Moves all ext x4 Procedures none Medications and IVs Current Medications Vancomycin HCl/ Sodium Chloride (Vancomycin Inj/ NS 250 ml Inj) 262.5 ml @ 250 mls/hr ONCE ONCE IV Last administered on 05/15/16 18:47; Start 05/15/16 at 18 :00; Stop 05/15/16 at 19:02; Status DC Albuterol Sulfate (Proair Hfa Inh) 2 puff BID INH Last administered on 09:24; Start 05/15/16 at 21:00 Amiodarone HCl (Cordarone) 200 mg DAILY PO Last administered on 05/17/16 09:23 ; Start 05/16/16 at 09:00 Apixaban (Eliquis) 5 mg BID PO Last administered on 05/17/16 09:21; Start at 21:00 Clopidogrel Bisulfate (Plavix) 75 mg DAILY PO Last administered on 05/17/16 09 :23; Start 05/16/16 at 09:00 Isosorbide Mononitrate (Imdur) 180 mg DAILY PO Last administered on 05/17/16 09:21; Start 05/16/16 at 09:00 Levothyroxine Sodium (Synthroid) 100 mcg DAILY@06 PO Last administered on 06:08; Start 05/16/16 at 06:00 Lorazepam (Ativan) 0.5 mg DAILY PRN PO ANXIETY; Start 05/15/16 at 20:00 Magnesium Oxide (Mag-Ox) 400 mg DAILY PO Last administered on 05/17/16 09:23; Start 05/16/16 at 09:00 Metoprolol Succinate (Toprol Xl) 50 mg DAILY PO Last administered on 05/17/16 09:23; Start 05/16/16 at 09:00 Montelukast Sodium (Singulair) 10 mg HS PO Last administered on 05/16/16 21:15 ; Start 05/15/16 at 21:00 Mupirocin (Bactroban 2% Oint) 1 applic TID TOP Last administered on 05/17/16 09:23; Start 05/16/16 at 09:00 Lisinopril (Prinivil) 10 mg BID PO Last administered on 05/17/16 09:21; Start 05/15/16 at 21:00 Ropinirole HCl (Requip) 1 mg BID PO Last administered on 05/17/16 09:23; Start 05/15/16 at 21:00 Spironolactone (Aldactone) 50 mg DAILY PO Last administered on 05/17/16 09:21 ; Start 05/16/16 at 09:00 Tiotropium [place] (Spiriva Inh) 18 mcg DAILY INH Last administered on 09:24; Start 05/16/16 at 09:00 Torsemide (Demadex) 50 mg BID PO Last administered on 05/16/16 16:27; Start at 21:00; Stop 05/16/16 at 16:43; Status DC Non-Formulary Medication 500 mg HS PO ; Start 05/15/16 at 21:00; Status UNV Patient Own Medication PT OWN MED: CRESTOR... HS PO ; Start 05/15/16 at 21:00; Status Hold Miscellaneous (Pill Splitter) 1 ea UNSCH PRN OTHER SEE LABEL COMMENTS; Start at 20:30 IV Flush (NS Flush) 2 ml BID IV Last administered on 05/17/16 09:24; Start at 09:00 IV Flush 2 ml 2 ml UNSCH PRN IV FLUSH AFTER USING IV ACCESS; Start 05/15/16 at 23:45 Pharmacy Profile Note (Vancomycin Consult Pharmacy) 0 ml @ 0 mls/hr UNSCH XX ; Start 05/15/16 at 23:45 Acetaminophen/ Hydrocodone Bitart 1 tab 1 tab Q4H PRN PO PAIN GREATER THAN 5; Start 05/15/16 at 23:45 Vancomycin HCl/ Sodium Chloride (Vancomycin Inj/ NS 250 ml Inj) 250 ml @ 250 mls/hr Q12H IV Last administered on 05/16/16 01:24; Start 05/16/16 at 00:00; Stop 05/16/16 at 03:00; Status DC Potassium Chloride (KCl) 20 meq ONCE ONCE PO Last administered on 05/16/16 10 :30; Start 05/16/16 at 10:00; Stop 05/16/16 at 10:01; Status DC Torsemide (Demadex) 50 mg BID@09,16 PO Last administered on 05/17/16 09:22; Start 05/17/16 at 09:00 Tramadol HCl (Ultram) 150 mg BID PO ; Start 05/16/16 at 21:45; Stop 05/16/16 at 22:30; Status DC Tramadol HCl (Ultram) 150 mg TID PO ; Start 05/16/16 at 22:30; Stop 05/17/16 at 00:06; Status DC Tramadol HCl (Ultram) 50 mg TID PO Last administered on 05/17/16 09:23; Start 05/17/16 at 09:00 Tramadol HCl (Ultram) 50 mg ONCE ONCE PO Last administered on 05/17/16t 01:53 ; Start 05/17/16 at 02:00; Stop 05/17/16 at 02:01; Status DC A/P Assessment and Plan A/P Bilateral lower extremity cellulitis: Patient failed outpatient treatment. - Continue vancomycin. blood cultures negative so far. -will monitor the response - Clean small weeping wounds. - Keep legs elevated -will consider ID evaluation if no improvement. CHF ( chronic diastolic) :compensated. - Continue torsemide, Aldactone, lisinopril Coronary artery disease: Continue home dose Plavix, tramadol, metoprolol Atrial fibrillation: Continue amiodarone, metoprolol, and Eliquis. chronic renal insufficiency; will monitor hypokalemia; replaced as needed. DVT PPx: On Eliquis. Lit Davis MD May 17, 2016 10:03
[2016-05-17 12:00] VITALS: BP 151/70; PULSE 68; RESP 17; TEMP 96.7; O2SAT 94
[2016-05-17 13:45] LABS: INDIRECT BILIRUBIN 0.5 MG/DL (0.0-0.8); TOTAL BILIRUBIN ADULT 0.7 MG/DL (0.2-1.0)
[2016-05-17] MEDS ORDERED: VANCOMYCIN INJ 1,750 MG in SODIUM CHLORID 0.9% 500 ML INJ 500 ML IV ONE (14:00)
[2016-05-17 16:00] VITALS: BP 108/46; PULSE 54; RESP 17; TEMP 96.4; O2SAT 93
[2016-05-17 20:00] VITALS: BP 106/52; PULSE 55; RESP 20; TEMP 97.5; O2SAT 94
[2016-05-17] MEDS: MONTELUKAST SODIUM 10 MG TAB PO SCH (20:45)
[2016-05-17] MEDS: CRESTOR 20 MG PO SCH (21:00)
[2016-05-18] VITALS: BP 109/38; PULSE 59; RESP 20; TEMP 98; O2SAT 94
[2016-05-18] MEDS: LEVOTHYROXINE SODIUM 100 MCG TAB PO SCH (05:17)
[2016-05-18 08:00] VITALS: BP 119/56; PULSE 57; RESP 17; TEMP 96.6; O2SAT 95
--- NOTE | 2016-05-18 08:33 | HHI.PR ---
Subjective Remarks resting comfortably with no distress. swelling and erythema over the right leg seems to be improving slowly. no fever. d/w the RN. Objective Vitals Vital Signs Date Time Temp Pulse Resp B/P Pulse Ox O2 Delivery O2 Flow Rate FiO2 05/18/16 00:00 98.0 59 20 109/38 94 05/17/16 20:00 97.5 55 20 106/52 94 05/17/16 16:00 96.4 54 17 108/46 93 05/17/16 13:36 16 05/17/16 12:00 96.7 68 17 151/70 94 I/O 05/17/16 05/17/16 05/17/16 05/18/16 05/18/16 05/18/16 07:00 15:00 23:00 07:00 15:00 23:00 Intake Total 480 ml 1800 ml 720 ml 240 ml Output Total 1800 ml 1350 ml 800 ml 400 ml Balance -1320 ml 450 ml -80 ml -160 ml Intake Oral 480 ml 1800 ml 720 ml 240 ml IV Total 0 ml Output Urine Total 1800 ml 1350 ml 800 ml 400 ml # Bowel Movements 0 1 Result Diagram: 05/16/16 0428 05/17/16 0402 Objective Remarks GENERAL: This is a well-nourished, well-developed patient, in no apparent distress. CARDIOVASCULAR: Regular rate and regular rhythm without murmurs, gallops, or rubs. RESPIRATORY: Clear to auscultation. Breath sounds equal bilaterally. No wheezes , rales, or rhonchi. GASTROINTESTINAL: Abdomen soft, non-tender, nondistended. Normal, active bowel sounds MUSCULOSKELETAL: erythema, warmth and swelling of the right leg seems to be improving slowly. NEURO: Alert & Oriented x4 to person, place, time, situation. Moves all ext x4 Procedures none Medications and IVs Current Medications Vancomycin HCl/ Sodium Chloride (Vancomycin Inj/ NS 250 ml Inj) 262.5 ml @ 250 mls/hr ONCE ONCE IV Last administered on 05/15/16 18:47; Start 05/15/16 at 18 :00; Stop 05/15/16 at 19:02; Status DC Albuterol Sulfate (Proair Hfa Inh) 2 puff BID INH Last administered on 20:45; Start 05/15/16 at 21:00 Amiodarone HCl (Cordarone) 200 mg DAILY PO Last administered on 05/17/16 09:23 ; Start 05/16/16 at 09:00 Apixaban (Eliquis) 5 mg BID PO Last administered on 05/17/16 20:45; Start at 21:00 Clopidogrel Bisulfate (Plavix) 75 mg DAILY PO Last administered on 05/17/16 09 :23; Start 05/16/16 at 09:00 Isosorbide Mononitrate (Imdur) 180 mg DAILY PO Last administered on 05/17/16 09:21; Start 05/16/16 at 09:00 Levothyroxine Sodium (Synthroid) 100 mcg DAILY@06 PO Last administered on 05:17; Start 05/16/16 at 06:00 Lorazepam (Ativan) 0.5 mg DAILY PRN PO ANXIETY; Start 05/15/16 at 20:00 Magnesium Oxide (Mag-Ox) 400 mg DAILY PO Last administered on 05/17/16 09:23; Start 05/16/16 at 09:00 Metoprolol Succinate (Toprol Xl) 50 mg DAILY PO Last administered on 05/17/16 09:23; Start 05/16/16 at 09:00 Montelukast Sodium (Singulair) 10 mg HS PO Last administered on 05/17/16 20:45 ; Start 05/15/16 at 21:00 Mupirocin (Bactroban 2% Oint) 1 applic TID TOP Last administered on 05/17/16 16:53; Start 05/16/16 at 09:00 Lisinopril (Prinivil) 10 mg BID PO Last administered on 05/17/16 20:45; Start 05/15/16 at 21:00 Ropinirole HCl (Requip) 1 mg BID PO Last administered on 05/17/16 20:45; Start 05/15/16 at 21:00 Spironolactone (Aldactone) 50 mg DAILY PO Last administered on 05/17/16 09:21 ; Start 05/16/16 at 09:00 Tiotropium [place] (Spiriva Inh) 18 mcg DAILY INH Last administered on 09:24; Start 05/16/16 at 09:00 Torsemide (Demadex) 50 mg BID PO Last administered on 05/16/16 16:27; Start at 21:00; Stop 05/16/16 at 16:43; Status DC Non-Formulary Medication 500 mg HS PO ; Start 05/15/16 at 21:00; Status UNV Patient Own Medication PT OWN MED: CRESTOR... HS PO ; Start 05/15/16 at 21:00 Miscellaneous (Pill Splitter) 1 ea UNSCH PRN OTHER SEE LABEL COMMENTS; Start at 20:30 IV Flush (NS Flush) 2 ml BID IV Last administered on 05/17/16 20:44; Start at 09:00 IV Flush 2 ml 2 ml UNSCH PRN IV FLUSH AFTER USING IV ACCESS; Start 05/15/16 at 23:45 Pharmacy Profile Note (Vancomycin Consult Pharmacy) 0 ml @ 0 mls/hr UNSCH XX ; Start 05/15/16 at 23:45 Acetaminophen/ Hydrocodone Bitart 1 tab 1 tab Q4H PRN PO PAIN GREATER THAN 5; Start 05/15/16 at 23:45 Vancomycin HCl/ Sodium Chloride (Vancomycin Inj/ NS 250 ml Inj) 250 ml @ 250 mls/hr Q12H IV Last administered on 05/16/16 01:24; Start 05/16/16 at 00:00; Stop 05/16/16 at 03:00; Status DC Potassium Chloride (KCl) 20 meq ONCE ONCE PO Last administered on 05/16/16 10 :30; Start 05/16/16 at 10:00; Stop 05/16/16 at 10:01; Status DC Torsemide (Demadex) 50 mg BID@09,16 PO Last administered on 05/17/16 16:50; Start 05/17/16 at 09:00 Tramadol HCl (Ultram) 150 mg BID PO ; Start 05/16/16 at 21:45; Stop 05/16/16 at 22:30; Status DC Tramadol HCl (Ultram) 150 mg TID PO ; Start 05/16/16 at 22:30; Stop 05/17/16 at 00:06; Status DC Tramadol HCl (Ultram) 50 mg TID PO Last administered on 05/17/16 16:52; Start 05/17/16 at 09:00; Stop 05/17/16 at 21:06; Status DC Tramadol HCl 50 mg 50 mg ONCE ONCE PO Last administered on 05/17/16 01:53; Start 05/17/16 at 02:00; Stop 05/17/16 at 02:01; Status DC Vancomycin HCl/ Sodium Chloride (Vancomycin Inj/ NS 500 ml Inj) 517.5 ml @ 258.75 mls/ hr ONCE@1400 ONCE IV Last administered on 05/17/16 14:39; Start 05/17/16 at 14:00; Stop 05/17/16 at 15:59; Status DC Tramadol HCl (Ultram) 50 mg DAILY@09,17,21 PO ; Start 05/18/16 at 09:00 A/P Assessment and Plan A/P Bilateral lower extremity cellulitis: Patient failed outpatient treatment. - Continue vancomycin. blood cultures negative so far. -will monitor the response - Clean small weeping wounds. - Keep legs elevated/ apply cami-wrap. -had venous doppler of the lower extremity as outpatient which was reportedly negative. -will consider ID evaluation if no improvement. CHF ( chronic diastolic) :compensated. - Continue torsemide, Aldactone, lisinopril Coronary artery disease: Continue home dose Plavix, tramadol, metoprolol Atrial fibrillation: Continue amiodarone, metoprolol, and Eliquis. chronic renal insufficiency; will monitor hypokalemia; replaced as needed. DVT PPx: On Eliquis. Discharge Planning case management for [facility]. Lit Davis MD May 18, 2016 08:33
--- NOTE | 2016-05-18 08:34 | HHI.FF ---
Face to Face Verification Diagnosis: (1) Cellulitis Home Health Nursing Order: Medical education Signs/symptoms of disease process Medication education-adverse effect Wound care and dressing changes I have seen patient Chelsey Goss on 05/18/16. My clinical findings support the need for the requested home health care services because: Ltd mobility - disease progression I certify that my clinical findings support that this patient is homebound because: Poor cardiac reserve Lit Davis MD May 18, 2016 08:34
[2016-05-18] MEDS: SPIRONOLACTONE 50 MG TAB PO SCH (08:36)
[2016-05-18] MEDS: CLOPIDOGREL 75 MG TAB PO SCH (08:36)
[2016-05-18] MEDS: APIXABAN 5 MG TABLET PO SCH ×2 (08:36→20:43)
[2016-05-18] MEDS: AMIODARONE 200 MG TAB PO SCH (08:36)
[2016-05-18] MEDS: ISOSORBIDE MONONITRATE 60 MG TAB PO SCH (08:37)
[2016-05-18] MEDS: MAGNESIUM OXIDE 400 MG TAB PO SCH (08:37)
[2016-05-18] MEDS: traMADol HCL 50 MG TAB PO SCH ×3 (08:37→20:43)
[2016-05-18] MEDS: LISINOPRIL 10 MG TAB PO SCH ×2 (08:37→20:43)
[2016-05-18] MEDS: METOPROLOL SUCCINATE 50 MG EXTENDED RELEASE TAB PO SCH (08:41)
[2016-05-18] MEDS: TORSEMIDE 20 MG TAB PO SCH ×2 (08:41→15:55)
[2016-05-18] MEDS: MUPIROCIN 2% OINT 22 GM TUBE TOP SCH ×3 (08:45→15:57)
[2016-05-18] MEDS: TIOTROPIUM BROMIDE 18 MCG INH INH SCH (08:45)
[2016-05-18] MEDS: ALBUTEROL SULFATE 90 MCG/ACT HFA 8 GM INHALER INH SCH ×2 (08:45→20:43)
[2016-05-18] MEDS: SODIUM CHLORIDE 0.9% FLUSH 5 ML FLUSH IV SCH ×2 (08:46→20:45)
[2016-05-18 12:00] VITALS: BP 117/57; PULSE 52; RESP 17; TEMP 97.1; O2SAT 64
[2016-05-18] MEDS: MONTELUKAST SODIUM 10 MG TAB PO SCH (20:43)
[2016-05-18] MEDS: CRESTOR 20 MG PO SCH (20:44)
[2016-05-19] VITALS: BP 111/53; PULSE 59; RESP 20; TEMP 97.8; O2SAT 94
[2016-05-19] MEDS: LORazepam 0.5 MG TAB PO PRN ×2 (03:17→21:44)
[2016-05-19 04:00] VITALS: BP 128/57; PULSE 55; RESP 20; TEMP 97.3; O2SAT 98
[2016-05-19] MEDS: LEVOTHYROXINE SODIUM 100 MCG TAB PO SCH (06:10)
[2016-05-19 08:00] VITALS: BP 112/54; PULSE 51; RESP 16; TEMP 98.1; O2SAT 97
--- NOTE | 2016-05-19 08:32 | HHI.PR ---
Subjective Remarks resting comfortably with no distress. says that had some pain of the right leg last night. remains afebrile. Objective Vitals Vital Signs Date Time Temp Pulse Resp B/P Pulse Ox O2 Delivery O2 Flow Rate FiO2 05/19/16 04:00 97.3 55 20 128/57 98 05/19/16 00:00 97.8 59 20 111/53 94 05/18/16 17:00 18 05/18/16 12:00 97.1 52 17 117/57 64 I/O 05/18/16 05/18/16 05/18/16 05/19/16 05/19/16 05/19/16 07:00 15:00 23:00 07:00 15:00 23:00 Intake Total 240 ml 900 ml 960 ml 240 ml Output Total 400 ml 900 ml 900 ml 700 ml Balance -160 ml 0 ml 60 ml -460 ml Intake Oral 240 ml 900 ml 960 ml 240 ml IV Total 0 ml Output Urine Total 400 ml 900 ml 900 ml 700 ml # Bowel Movements 1 Result Diagram: 05/16/16 0428 05/17/16 0402 Objective Remarks GENERAL: This is a well-nourished, well-developed patient, in no apparent distress. CARDIOVASCULAR: Regular rate and regular rhythm without murmurs, gallops, or rubs. RESPIRATORY: Clear to auscultation. Breath sounds equal bilaterally. No wheezes , rales, or rhonchi. GASTROINTESTINAL: Abdomen soft, non-tender, nondistended. Normal, active bowel sounds MUSCULOSKELETAL: erythema, warmth and swelling of the right leg seems to be improving slowly. NEURO: Alert & Oriented x4 to person, place, time, situation. Moves all ext x4 Procedures none Medications and IVs Current Medications Vancomycin HCl/ Sodium Chloride (Vancomycin Inj/ NS 250 ml Inj) 262.5 ml @ 250 mls/hr ONCE ONCE IV Last administered on 05/15/16 18:47; Start 05/15/16 at 18 :00; Stop 05/15/16 at 19:02; Status DC Albuterol Sulfate (Proair Hfa Inh) 2 puff BID INH Last administered on 08:45; Start 05/15/16 at 21:00 Amiodarone HCl (Cordarone) 200 mg DAILY PO Last administered on 05/18/16 08:36 ; Start 05/16/16 at 09:00 Apixaban (Eliquis) 5 mg BID PO Last administered on 05/18/16 20:43; Start at 21:00 Clopidogrel Bisulfate (Plavix) 75 mg DAILY PO Last administered on 05/18/16 08 :36; Start 05/16/16 at 09:00 Isosorbide Mononitrate (Imdur) 180 mg DAILY PO Last administered on 05/18/16 08:37; Start 05/16/16 at 09:00 Levothyroxine Sodium (Synthroid) 100 mcg DAILY@06 PO Last administered on 06:10; Start 05/16/16 at 06:00 Lorazepam (Ativan) 0.5 mg DAILY PRN PO ANXIETY Last administered on 05/19/16 03:17; Start 05/15/16 at 20:00 Magnesium Oxide (Mag-Ox) 400 mg DAILY PO Last administered on 05/18/16 08:37; Start 05/16/16 at 09:00 Metoprolol Succinate (Toprol Xl) 50 mg DAILY PO Last administered on 05/18/16 08:41; Start 05/16/16 at 09:00 Montelukast Sodium (Singulair) 10 mg HS PO Last administered on 05/18/16 20:43 ; Start 05/15/16 at 21:00 Mupirocin (Bactroban 2% Oint) 1 applic TID TOP Last administered on 05/18/16 08:45; Start 05/16/16 at 09:00 Lisinopril (Prinivil) 10 mg BID PO Last administered on 05/18/16 20:43; Start 05/15/16 at 21:00 Ropinirole HCl (Requip) 1 mg BID PO Last administered on 05/18/16 20:43; Start 05/15/16 at 21:00 Spironolactone (Aldactone) 50 mg DAILY PO Last administered on 05/18/16 08:36 ; Start 05/16/16 at 09:00 Tiotropium [place] (Spiriva Inh) 18 mcg DAILY INH Last administered on 08:45; Start 05/16/16 at 09:00 Torsemide (Demadex) 50 mg BID PO Last administered on 05/16/16 16:27; Start at 21:00; Stop 05/16/16 at 16:43; Status DC Non-Formulary Medication 500 mg HS PO ; Start 05/15/16 at 21:00; Status UNV Patient Own Medication PT OWN MED: CRESTOR... HS PO Last administered on 20:44; Start 05/15/16 at 21:00 Miscellaneous (Pill Splitter) 1 ea UNSCH PRN OTHER SEE LABEL COMMENTS; Start at 20:30 IV Flush (NS Flush) 2 ml BID IV Last administered on 05/18/16 20:45; Start at 09:00 IV Flush 2 ml 2 ml UNSCH PRN IV FLUSH AFTER USING IV ACCESS; Start 05/15/16 at 23:45 Pharmacy Profile Note (Vancomycin Consult Pharmacy) 0 ml @ 0 mls/hr UNSCH XX ; Start 05/15/16 at 23:45 Acetaminophen/ Hydrocodone Bitart 1 tab 1 tab Q4H PRN PO PAIN GREATER THAN 5; Start 05/15/16 at 23:45 Vancomycin HCl/ Sodium Chloride (Vancomycin Inj/ NS 250 ml Inj) 250 ml @ 250 mls/hr Q12H IV Last administered on 05/16/16 01:24; Start 05/16/16 at 00:00; Stop 05/16/16 at 03:00; Status DC Potassium Chloride (KCl) 20 meq ONCE ONCE PO Last administered on 05/16/16 10 :30; Start 05/16/16 at 10:00; Stop 05/16/16 at 10:01; Status DC Torsemide (Demadex) 50 mg BID@09,16 PO Last administered on 05/18/16 15:55; Start 05/17/16 at 09:00 Tramadol HCl (Ultram) 150 mg BID PO ; Start 05/16/16 at 21:45; Stop 05/16/16 at 22:30; Status DC Tramadol HCl (Ultram) 150 mg TID PO ; Start 05/16/16 at 22:30; Stop 05/17/16 at 00:06; Status DC Tramadol HCl (Ultram) 50 mg TID PO Last administered on 05/17/16 16:52; Start 05/17/16 at 09:00; Stop 05/17/16 at 21:06; Status DC Tramadol HCl 50 mg 50 mg ONCE ONCE PO Last administered on 05/17/16 01:53; Start 05/17/16 at 02:00; Stop 05/17/16 at 02:01; Status DC Vancomycin HCl/ Sodium Chloride (Vancomycin Inj/ NS 500 ml Inj) 517.5 ml @ 258.75 mls/ hr ONCE@1400 ONCE IV Last administered on 05/17/16 14:39; Start 05/17/16 at 14:00; Stop 05/17/16 at 15:59; Status DC Tramadol HCl (Ultram) 50 mg DAILY@,,21 PO Last administered on 05/18/16 20 :43; Start 05/18/16 at 09:00 A/P Assessment and Plan A/P Bilateral lower extremity cellulitis: Patient failed outpatient treatment.improving slowly - Continue vancomycin. blood cultures negative so far. -will monitor the response - Clean small weeping wounds. - Keep legs elevated/ apply cami-wrap. -had venous doppler of the lower extremity as outpatient which was reportedly negative. CHF ( chronic diastolic) :compensated. - Continue torsemide, Aldactone, lisinopril Coronary artery disease: Continue home dose Plavix, tramadol, metoprolol Atrial fibrillation: Continue amiodarone, metoprolol, and Eliquis. chronic renal insufficiency; will monitor hypokalemia; replaced as needed. DVT PPx: On Eliquis. Discharge Planning case management for [facility]. dc home within the next 24-48 hrs if continues to improve. Lit Davis MD May 19, 2016 08:32
[2016-05-19] MEDS: AMIODARONE 200 MG TAB PO SCH (09:00)
[2016-05-19] MEDS: LISINOPRIL 10 MG TAB PO SCH ×2 (09:05→21:38)
[2016-05-19] MEDS: SPIRONOLACTONE 50 MG TAB PO SCH (09:05)
[2016-05-19] MEDS: traMADol HCL 50 MG TAB PO SCH ×3 (09:05→21:38)
[2016-05-19] MEDS: METOPROLOL SUCCINATE 50 MG EXTENDED RELEASE TAB PO SCH (09:06)
[2016-05-19] MEDS: ISOSORBIDE MONONITRATE 60 MG TAB PO SCH (09:06)
[2016-05-19] MEDS: APIXABAN 5 MG TABLET PO SCH ×2 (09:06→21:38)
[2016-05-19] MEDS: MAGNESIUM OXIDE 400 MG TAB PO SCH (09:06)
[2016-05-19] MEDS: CLOPIDOGREL 75 MG TAB PO SCH (09:06)
[2016-05-19] MEDS: SODIUM CHLORIDE 0.9% FLUSH 5 ML FLUSH IV SCH ×2 (09:07→21:37)
[2016-05-19] MEDS: MUPIROCIN 2% OINT 22 GM TUBE TOP SCH ×2 (09:07→14:19)
[2016-05-19] MEDS: ALBUTEROL SULFATE 90 MCG/ACT HFA 8 GM INHALER INH SCH ×2 (09:07→21:00)
[2016-05-19] MEDS: TIOTROPIUM BROMIDE 18 MCG INH INH SCH (09:07)
[2016-05-19 12:00] VITALS: BP 100/45; PULSE 54; RESP 14; TEMP 96; O2SAT 94
[2016-05-19] MEDS: TORSEMIDE 20 MG TAB PO SCH (14:18)
[2016-05-19 16:00] VITALS: BP 110/46; PULSE 56; RESP 16; TEMP 97.1; O2SAT 95
[2016-05-19] MEDS ORDERED: VANCOMYCIN INJ 1,750 MG in SODIUM CHLORID 0.9% 500 ML INJ 500 ML IV ONE (19:00)
[2016-05-19 20:00] VITALS: BP 103/50; PULSE 52; RESP 21; TEMP 96; O2SAT 95
[2016-05-19] MEDS: MONTELUKAST SODIUM 10 MG TAB PO SCH (21:38)
[2016-05-19] MEDS: CRESTOR 20 MG PO SCH (21:39)
[2016-05-20] VITALS: BP_SYST 107; BP_SYST 111; BP_DIAS 52; BP_DIAS 59; PULSE 59; PULSE 69; RESP 18; RESP 19; TEMP 96; TEMP 96.2; O2SAT 97
[2016-05-20] MEDS: LEVOTHYROXINE SODIUM 100 MCG TAB PO SCH (05:12)
[2016-05-20 05:36] LABS: BASOPHIL % 0.6 % (0.0-2.0); EOSINOPHIL # 0.2 TH/MM3 (0-0.4); EOSINOPHIL % 2.9 % (0.0-4.0); HEMATOCRIT 38.7 % (35.0-46.0); HEMO FLAGS DIFF FINAL; LYMPH % 28.3 % (9.0-44.0); LYMPHOCYTE # 1.6 TH/MM3 (1.0-4.8); MEAN CELL VOLUME 89.3 FL (80.0-100.0); MEAN CORPUSCULAR HEMOGLOBIN 30.3 PG (27.0-34.0); MEAN CORPUSCULAR HGB CONC 33.9 % (32.0-36.0); MONO % 16.2 % (0.0-8.0); PLATELET COUNT 157 TH/MM3 (150-450); RED BLOOD COUNT 4.33 MIL/MM3 (4.00-5.30); RED CELL DISTRIBUTION WIDTH 15.6 % (11.6-17.2); WHITE BLOOD COUNT 5.8 TH/MM3 (4.0-11.0)
[2016-05-20 05:51] LABS: BICARBONATE 32.9 MEQ/L (21.0-32.0); POTASSIUM 3.8 MEQ/L (3.5-5.1)
[2016-05-20 08:00] VITALS: BP 128/62; PULSE 68; RESP 17; TEMP 98.8; O2SAT 97
[2016-05-20] MEDS: ALBUTEROL SULFATE 90 MCG/ACT HFA 8 GM INHALER INH SCH ×2 (09:09→21:00)
[2016-05-20] MEDS: TIOTROPIUM BROMIDE 18 MCG INH INH SCH (09:09)
[2016-05-20] MEDS: MUPIROCIN 2% OINT 22 GM TUBE TOP SCH (09:10)
[2016-05-20] MEDS: TORSEMIDE 20 MG TAB PO SCH ×2 (09:13→16:21)
[2016-05-20] MEDS: LISINOPRIL 10 MG TAB PO SCH ×2 (09:13→21:50)
[2016-05-20] MEDS: APIXABAN 5 MG TABLET PO SCH ×2 (09:13→21:50)
[2016-05-20] MEDS: traMADol HCL 50 MG TAB PO SCH ×3 (09:13→21:50)
[2016-05-20] MEDS: CLOPIDOGREL 75 MG TAB PO SCH (09:14)
[2016-05-20] MEDS: SPIRONOLACTONE 50 MG TAB PO SCH (09:14)
[2016-05-20] MEDS: METOPROLOL SUCCINATE 50 MG EXTENDED RELEASE TAB PO SCH (09:14)
[2016-05-20] MEDS: MAGNESIUM OXIDE 400 MG TAB PO SCH (09:14)
[2016-05-20] MEDS: ISOSORBIDE MONONITRATE 60 MG TAB PO SCH (09:14)
[2016-05-20] MEDS: AMIODARONE 200 MG TAB PO SCH (09:14)
[2016-05-20] MEDS: SODIUM CHLORIDE 0.9% FLUSH 5 ML FLUSH IV SCH ×2 (09:21→21:50)
--- NOTE | 2016-05-20 10:02 | HHI.PR ---
Subjective Remarks sitting with no distress. afebrile. pain to the right leg improved. no new complaints. Objective Vitals Vital Signs Date Time Temp Pulse Resp B/P Pulse Ox O2 Delivery O2 Flow Rate FiO2 05/20/16 08:00 98.8 68 17 128/62 97 05/20/16 00:00 96.0 59 19 111/59 97 05/19/16 20:00 96.0 52 21 103/50 95 05/19/16 16:00 97.1 56 16 110/46 95 05/19/16 12:00 96.0 54 14 100/45 94 I/O 05/19/16 05/19/16 05/19/16 05/20/16 05/20/16 05/20/16 07:00 15:00 23:00 07:00 15:00 23:00 Intake Total 240 ml 480 ml 240 ml 740 ml Output Total 700 ml 800 ml 1200 ml 1500 ml Balance -460 ml -320 ml -960 ml -760 ml Intake Oral 240 ml 480 ml 240 ml 240 ml IV Total 500 ml Output Urine Total 700 ml 800 ml 1200 ml 1500 ml # Bowel Movements 0 0 0 Result Diagram: 05/20/16 0504 05/20/16 0504 Objective Remarks GENERAL: This is a well-nourished, well-developed patient, in no apparent distress. CARDIOVASCULAR: Regular rate and regular rhythm without murmurs, gallops, or rubs. RESPIRATORY: Clear to auscultation. Breath sounds equal bilaterally. No wheezes , rales, or rhonchi. GASTROINTESTINAL: Abdomen soft, non-tender, nondistended. Normal, active bowel sounds MUSCULOSKELETAL: erythema, warmth and swelling of the right leg seems to be improving slowly. NEURO: Alert & Oriented x4 to person, place, time, situation. Moves all ext x4 Procedures none Medications and IVs Current Medications Vancomycin HCl/ Sodium Chloride (Vancomycin Inj/ NS 250 ml Inj) 262.5 ml @ 250 mls/hr ONCE ONCE IV Last administered on 05/15/16 18:47; Start 05/15/16 at 18 :00; Stop 05/15/16 at 19:02; Status DC Albuterol Sulfate (Proair Hfa Inh) 2 puff BID INH Last administered on 09:09; Start 05/15/16 at 21:00 Amiodarone HCl (Cordarone) 200 mg DAILY PO Last administered on 05/20/16 09:14 ; Start 05/16/16 at 09:00 Apixaban (Eliquis) 5 mg BID PO Last administered on 05/20/16 09:13; Start at 21:00 Clopidogrel Bisulfate (Plavix) 75 mg DAILY PO Last administered on 05/20/16 09 :14; Start 05/16/16 at 09:00 Isosorbide Mononitrate (Imdur) 180 mg DAILY PO Last administered on 05/20/16 09:14; Start 05/16/16 at 09:00 Levothyroxine Sodium (Synthroid) 100 mcg DAILY@06 PO Last administered on 05:12; Start 05/16/16 at 06:00 Lorazepam (Ativan) 0.5 mg DAILY PRN PO ANXIETY Last administered on 05/19/16 21:44; Start 05/15/16 at 20:00 Magnesium Oxide (Mag-Ox) 400 mg DAILY PO Last administered on 05/20/16 09:14; Start 05/16/16 at 09:00 Metoprolol Succinate (Toprol Xl) 50 mg DAILY PO Last administered on 05/20/16 09:14; Start 05/16/16 at 09:00 Montelukast Sodium (Singulair) 10 mg HS PO Last administered on 05/19/16 21:38 ; Start 05/15/16 at 21:00 Mupirocin (Bactroban 2% Oint) 1 applic TID TOP Last administered on 05/20/16 09:10; Start 05/16/16 at 09:00 Lisinopril (Prinivil) 10 mg BID PO Last administered on 05/20/16 09:13; Start 05/15/16 at 21:00 Ropinirole HCl (Requip) 1 mg BID PO Last administered on 05/20/16 09:12; Start 05/15/16 at 21:00 Spironolactone (Aldactone) 50 mg DAILY PO Last administered on 05/20/16 09:14 ; Start 05/16/16 at 09:00 Tiotropium [place] (Spiriva Inh) 18 mcg DAILY INH Last administered on 09:09; Start 05/16/16 at 09:00 Torsemide (Demadex) 50 mg BID PO Last administered on 05/16/16 16:27; Start at 21:00; Stop 05/16/16 at 16:43; Status DC Non-Formulary Medication 500 mg HS PO ; Start 05/15/16 at 21:00; Status UNV Patient Own Medication PT OWN MED: CRESTOR... HS PO Last administered on 21:39; Start 05/15/16 at 21:00 Miscellaneous (Pill Splitter) 1 ea UNSCH PRN OTHER SEE LABEL COMMENTS; Start at 20:30 IV Flush (NS Flush) 2 ml BID IV Last administered on 05/20/16 09:21; Start at 09:00 IV Flush 2 ml 2 ml UNSCH PRN IV FLUSH AFTER USING IV ACCESS; Start 05/15/16 at 23:45 Pharmacy Profile Note (Vancomycin Consult Pharmacy) 0 ml @ 0 mls/hr UNSCH XX ; Start 05/15/16 at 23:45 Acetaminophen/ Hydrocodone Bitart 1 tab 1 tab Q4H PRN PO PAIN GREATER THAN 5; Start 05/15/16 at 23:45 Vancomycin HCl/ Sodium Chloride (Vancomycin Inj/ NS 250 ml Inj) 250 ml @ 250 mls/hr Q12H IV Last administered on 05/16/16 01:24; Start 05/16/16 at 00:00; Stop 05/16/16 at 03:00; Status DC Potassium Chloride (KCl) 20 meq ONCE ONCE PO Last administered on 05/16/16 10 :30; Start 05/16/16 at 10:00; Stop 05/16/16 at 10:01; Status DC Torsemide (Demadex) 50 mg BID@09,16 PO Last administered on 05/20/16 09:13; Start 05/17/16 at 09:00 Tramadol HCl (Ultram) 150 mg BID PO ; Start 05/16/16 at 21:45; Stop 05/16/16 at 22:30; Status DC Tramadol HCl (Ultram) 150 mg TID PO ; Start 05/16/16 at 22:30; Stop 05/17/16 at 00:06; Status DC Tramadol HCl (Ultram) 50 mg TID PO Last administered on 05/17/16 16:52; Start 05/17/16 at 09:00; Stop 05/17/16 at 21:06; Status DC Tramadol HCl 50 mg 50 mg ONCE ONCE PO Last administered on 05/17/16 01:53; Start 05/17/16 at 02:00; Stop 05/17/16 at 02:01; Status DC Vancomycin HCl/ Sodium Chloride (Vancomycin Inj/ NS 500 ml Inj) 517.5 ml @ 258.75 mls/ hr ONCE@1400 ONCE IV Last administered on 05/17/16 14:39; Start 05/17/16 at 14:00; Stop 05/17/16 at 15:59; Status DC Tramadol HCl 50 mg 50 mg DAILY@,, PO Last administered on 05/20/16 09:13 ; Start 05/18/16 at 09:00 Vancomycin HCl/ Sodium Chloride (Vancomycin Inj/ NS 500 ml Inj) 517.5 ml @ 250 mls/hr ONCE ONCE IV Last administered on 05/19/16 21:40; Start 05/19/16 at 19 :00; Stop 05/19/16 at 21:04; Status DC A/P Assessment and Plan A/P Bilateral lower extremity cellulitis: Patient failed outpatient treatment.improving slowly - Continue vancomycin. blood cultures negative so far. - Clean small weeping wounds. - Keep legs elevated/ apply cami-wrap. -had venous doppler of the lower extremity as outpatient which was reportedly negative. CHF ( chronic diastolic) :compensated. - Continue torsemide, Aldactone, lisinopril Coronary artery disease: Continue home dose Plavix, tramadol, metoprolol Atrial fibrillation: Continue amiodarone, metoprolol, and Eliquis. chronic renal insufficiency; will monitor hypokalemia; replaced as needed. DVT PPx: On Eliquis. Discharge Planning case management for [facility]. dc home tomorrow if stable. Lit Davis MD May 20, 2016 10:02
[2016-05-20 12:00] VITALS: BP 126/68; PULSE 66; RESP 18; TEMP 98.5; O2SAT 98
[2016-05-20 20:00] VITALS: BP 109/54; PULSE 56; RESP 19; TEMP 96; O2SAT 96
[2016-05-20] MEDS: MONTELUKAST SODIUM 10 MG TAB PO SCH (21:50)
[2016-05-20] MEDS: LORazepam 0.5 MG TAB PO PRN (21:50)
[2016-05-20] MEDS: CRESTOR 20 MG PO SCH (21:50)
[2016-05-21] MEDS: LEVOTHYROXINE SODIUM 100 MCG TAB PO SCH (04:48)
[2016-05-21 08:00] VITALS: BP 109/54; PULSE 55; RESP 17; TEMP 98.3; O2SAT 97
[2016-05-21] MEDS: APIXABAN 5 MG TABLET PO SCH ×2 (08:55→21:01)
[2016-05-21] MEDS: MAGNESIUM OXIDE 400 MG TAB PO SCH (08:57)
[2016-05-21] MEDS: TORSEMIDE 20 MG TAB PO SCH ×2 (08:57→15:58)
[2016-05-21] MEDS: SPIRONOLACTONE 50 MG TAB PO SCH (08:57)
[2016-05-21] MEDS: CLOPIDOGREL 75 MG TAB PO SCH (08:57)
[2016-05-21] MEDS: TIOTROPIUM BROMIDE 18 MCG INH INH SCH (08:58)
[2016-05-21] MEDS: ALBUTEROL SULFATE 90 MCG/ACT HFA 8 GM INHALER INH SCH ×2 (08:58→21:03)
[2016-05-21] MEDS: AMIODARONE 200 MG TAB PO SCH (08:59)
[2016-05-21] MEDS: SODIUM CHLORIDE 0.9% FLUSH 5 ML FLUSH IV SCH ×2 (08:59→21:02)
[2016-05-21] MEDS: METOPROLOL SUCCINATE 50 MG EXTENDED RELEASE TAB PO SCH (09:00)
[2016-05-21] MEDS: traMADol HCL 50 MG TAB PO SCH ×4 (09:00→21:02)
[2016-05-21] MEDS: ISOSORBIDE MONONITRATE 60 MG TAB PO SCH (09:00)
[2016-05-21] MEDS: MUPIROCIN 2% OINT 22 GM TUBE TOP SCH ×3 (09:00→16:00)
[2016-05-21] MEDS: LISINOPRIL 10 MG TAB PO SCH (09:00)
--- NOTE | 2016-05-21 09:27 | HHI.PR ---
Subjective Remarks resting comfortably with no distress. afebrile. slightly lightheaded today. d/w the RN. Objective Vitals Vital Signs Date Time Temp Pulse Resp B/P Pulse Ox O2 Delivery O2 Flow Rate FiO2 05/21/16 08:00 98.3 55 17 109/54 97 05/20/16 20:00 96.0 56 19 109/54 96 05/20/16 12:00 98.5 66 18 126/68 98 I/O 05/20/16 05/20/16 05/20/16 05/21/16 05/21/16 05/21/16 07:00 15:00 23:00 07:00 15:00 23:00 Intake Total 740 ml 480 ml 240 ml 240 ml Output Total 1500 ml 1325 ml 800 ml 1750 ml Balance -760 ml -845 ml -560 ml -1510 ml Intake Oral 240 ml 480 ml 240 ml 240 ml IV Total 500 ml Output Urine Total 1500 ml 1325 ml 800 ml 1750 ml # Bowel Movements 0 1 1 0 Result Diagram: 05/20/16 0504 05/20/16 0504 Objective Remarks GENERAL: This is a well-nourished, well-developed patient, in no apparent distress. CARDIOVASCULAR: Regular rate and regular rhythm without murmurs, gallops, or rubs. RESPIRATORY: Clear to auscultation. Breath sounds equal bilaterally. No wheezes , rales, or rhonchi. GASTROINTESTINAL: Abdomen soft, non-tender, nondistended. Normal, active bowel sounds MUSCULOSKELETAL: erythema, warmth and swelling of the right leg seems to be improving slowly. NEURO: Alert & Oriented x4 to person, place, time, situation. Moves all ext x4 Procedures none Medications and IVs Current Medications Vancomycin HCl/ Sodium Chloride (Vancomycin Inj/ NS 250 ml Inj) 262.5 ml @ 250 mls/hr ONCE ONCE IV Last administered on 05/15/16 18:47; Start 05/15/16 at 18 :00; Stop 05/15/16 at 19:02; Status DC Albuterol Sulfate (Proair Hfa Inh) 2 puff BID INH Last administered on 08:58; Start 05/15/16 at 21:00 Amiodarone HCl (Cordarone) 200 mg DAILY PO Last administered on 05/20/16 09:14 ; Start 05/16/16 at 09:00 Apixaban (Eliquis) 5 mg BID PO Last administered on 05/21/16 08:55; Start at 21:00 Clopidogrel Bisulfate (Plavix) 75 mg DAILY PO Last administered on 05/21/16 08 :57; Start 05/16/16 at 09:00 Isosorbide Mononitrate (Imdur) 180 mg DAILY PO Last administered on 05/21/16 09:00; Start 05/16/16 at 09:00 Levothyroxine Sodium (Synthroid) 100 mcg DAILY@06 PO Last administered on 04:48; Start 05/16/16 at 06:00 Lorazepam (Ativan) 0.5 mg DAILY PRN PO ANXIETY Last administered on 05/20/16 21:50; Start 05/15/16 at 20:00 Magnesium Oxide (Mag-Ox) 400 mg DAILY PO Last administered on 05/21/16 08:57; Start 05/16/16 at 09:00 Metoprolol Succinate (Toprol Xl) 50 mg DAILY PO Last administered on 05/20/16 09:14; Start 05/16/16 at 09:00 Montelukast Sodium (Singulair) 10 mg HS PO Last administered on 05/20/16 21:50 ; Start 05/15/16 at 21:00 Mupirocin (Bactroban 2% Oint) 1 applic TID TOP Last administered on 05/20/16 09:10; Start 05/16/16 at 09:00 Lisinopril (Prinivil) 10 mg BID PO Last administered on 05/20/16 21:50; Start 05/15/16 at 21:00 Ropinirole HCl (Requip) 1 mg BID PO Last administered on 05/21/16 08:54; Start 05/15/16 at 21:00 Spironolactone (Aldactone) 50 mg DAILY PO Last administered on 05/21/16 08:57 ; Start 05/16/16 at 09:00 Tiotropium [place] (Spiriva Inh) 18 mcg DAILY INH Last administered on 08:58; Start 05/16/16 at 09:00 Torsemide (Demadex) 50 mg BID PO Last administered on 05/16/16 16:27; Start at 21:00; Stop 05/16/16 at 16:43; Status DC Non-Formulary Medication 500 mg HS PO ; Start 05/15/16 at 21:00; Status UNV Patient Own Medication PT OWN MED: CRESTOR... HS PO Last administered on 21:50; Start 05/15/16 at 21:00 Miscellaneous (Pill Splitter) 1 ea UNSCH PRN OTHER SEE LABEL COMMENTS; Start at 20:30 IV Flush (NS Flush) 2 ml BID IV Last administered on 05/20/16 21:50; Start at 09:00 IV Flush 2 ml 2 ml UNSCH PRN IV FLUSH AFTER USING IV ACCESS; Start 05/15/16 at 23:45 Pharmacy Profile Note (Vancomycin Consult Pharmacy) 0 ml @ 0 mls/hr UNSCH XX ; Start 05/15/16 at 23:45 Acetaminophen/ Hydrocodone Bitart 1 tab 1 tab Q4H PRN PO PAIN GREATER THAN 5; Start 05/15/16 at 23:45 Vancomycin HCl/ Sodium Chloride (Vancomycin Inj/ NS 250 ml Inj) 250 ml @ 250 mls/hr Q12H IV Last administered on 05/16/16 01:24; Start 05/16/16 at 00:00; Stop 05/16/16 at 03:00; Status DC Potassium Chloride (KCl) 20 meq ONCE ONCE PO Last administered on 05/16/16 10 :30; Start 05/16/16 at 10:00; Stop 05/16/16 at 10:01; Status DC Torsemide (Demadex) 50 mg BID@09,16 PO Last administered on 05/21/16 08:57; Start 05/17/16 at 09:00 Tramadol HCl (Ultram) 150 mg BID PO ; Start 05/16/16 at 21:45; Stop 05/16/16 at 22:30; Status DC Tramadol HCl (Ultram) 150 mg TID PO ; Start 05/16/16 at 22:30; Stop 05/17/16 at 00:06; Status DC Tramadol HCl (Ultram) 50 mg TID PO Last administered on 05/17/16 16:52; Start 05/17/16 at 09:00; Stop 05/17/16 at 21:06; Status DC Tramadol HCl 50 mg 50 mg ONCE ONCE PO Last administered on 05/17/16 01:53; Start 05/17/16 at 02:00; Stop 05/17/16 at 02:01; Status DC Vancomycin HCl/ Sodium Chloride (Vancomycin Inj/ NS 500 ml Inj) 517.5 ml @ 258.75 mls/ hr ONCE@1400 ONCE IV Last administered on 05/17/16 14:39; Start 05/17/16 at 14:00; Stop 05/17/16 at 15:59; Status DC Tramadol HCl 50 mg 50 mg DAILY@09,17,21 PO Last administered on 05/20/16 21:50 ; Start 05/18/16 at 09:00 Vancomycin HCl/ Sodium Chloride (Vancomycin Inj/ NS 500 ml Inj) 517.5 ml @ 250 mls/hr ONCE ONCE IV Last administered on 05/19/16 21:40; Start 05/19/16 at 19 :00; Stop 05/19/16 at 21:04; Status DC A/P Assessment and Plan A/P Bilateral lower extremity cellulitis: Patient failed outpatient treatment.improving slowly - Continue vancomycin. blood cultures negative so far. - Keep legs elevated/ apply cami-wrap. -had venous doppler of the lower extremity as outpatient which was reportedly negative. -will consult ID as per patient's request and in light of her multiple medication allergies. CHF ( chronic diastolic) :compensated. - Continue torsemide, Aldactone. hold lisinopril due to low-normal BP's Coronary artery disease: Continue home dose Plavix, tramadol. decrease metoprolol due to low-normal BP's Atrial fibrillation: Continue amiodarone, metoprolol, and Eliquis. chronic renal insufficiency; will monitor DVT PPx: On Eliquis. Discharge Planning case management for C. dc home- pending ID evaluation. Lit Davis MD May 21, 2016 09:27
[2016-05-21 12:00] VITALS: BP 113/68; PULSE 59; RESP 17; TEMP 98.8; O2SAT 98
[2016-05-21] MEDS ORDERED: VANCOMYCIN INJ 1,750 MG in SODIUM CHLORID 0.9% 500 ML INJ 500 ML IV ONE (12:00)
[2016-05-21 12:16] VITALS: BP 115/54; PULSE 60; RESP 18; TEMP 98.8; O2SAT 95
[2016-05-21 16:00] VITALS: BP 111/63; PULSE 63; RESP 18; TEMP 98.4; O2SAT 98
[2016-05-21] MEDS: DAPTOmycin INJ 400 MG in SODIUM CHLORIDE 0.9% INJ 100 ML IV SCH (17:25)
[2016-05-21 20:00] VITALS: BP 128/61; PULSE 73; RESP 18; TEMP 96.8; O2SAT 94
[2016-05-21] MEDS: MONTELUKAST SODIUM 10 MG TAB PO SCH (21:02)
[2016-05-21] MEDS: CRESTOR 20 MG PO SCH (21:03)
[2016-05-22] VITALS: BP 129/57; PULSE 90; RESP 20; TEMP 97.1; O2SAT 95
[2016-05-22] MEDS: LEVOTHYROXINE SODIUM 100 MCG TAB PO SCH (06:19)
[2016-05-22 08:00] VITALS: BP 131/61; PULSE 70; RESP 17; TEMP 97.7; O2SAT 96
[2016-05-22] MEDS: ISOSORBIDE MONONITRATE 60 MG TAB PO SCH (08:57)
[2016-05-22] MEDS: MAGNESIUM OXIDE 400 MG TAB PO SCH (08:57)
[2016-05-22] MEDS: MUPIROCIN 2% OINT 22 GM TUBE TOP SCH ×3 (08:57→18:00)
[2016-05-22] MEDS: ALBUTEROL SULFATE 90 MCG/ACT HFA 8 GM INHALER INH SCH ×2 (08:57→21:18)
[2016-05-22] MEDS: CLOPIDOGREL 75 MG TAB PO SCH (08:58)
[2016-05-22] MEDS: METOPROLOL SUCCINATE 25 MG EXTENDED RELEASE TAB PO SCH (08:58)
[2016-05-22] MEDS: AMIODARONE 200 MG TAB PO SCH (08:58)
[2016-05-22] MEDS: SODIUM CHLORIDE 0.9% FLUSH 5 ML FLUSH IV SCH ×2 (08:58→21:19)
[2016-05-22] MEDS: SPIRONOLACTONE 50 MG TAB PO SCH (08:58)
[2016-05-22] MEDS: APIXABAN 5 MG TABLET PO SCH ×2 (08:58→21:17)
[2016-05-22] MEDS: TORSEMIDE 20 MG TAB PO SCH ×2 (08:58→15:12)
[2016-05-22] MEDS: traMADol HCL 50 MG TAB PO SCH ×3 (08:59→21:18)
--- NOTE | 2016-05-22 09:31 | MB ---
cc: RODRIGO FRANCISCO MD DATE OF CONSULTATION 05/21/[address] Davis REASON FOR CONSULTATION Cellulitis of the left leg. Multiple antibiotic allergies. HISTORY OF PRESENT ILLNESS This is an 80-year-old white female who was evaluated in the emergency department on 05/15/2016 for edema of the legs. The patient was noted to have worsening cellulitis of the right lower extremity with erythema. She reports to me that she was having clear drainage coming from her legs. She was put on doxycycline by her primary medical doctor and took it for three days but it was not leading to improvement and therefore, she showed up for evaluation at the emergency department. She denies fever or chills. She was admitted to the hospital and has been receiving intravenous vancomycin. Because she still continues to have some erythema of the legs, this consultation is requested for infectious disease antibiotic management. The patient has no fever or chills. She has kidney disease and her estimated GFR is 27. The patient has antibiotic allergies as well. PAST MEDICAL HISTORY 1. COPD 2. Sleep apnea 3. Anxiety 4. Hypertension 5. Hyperlipidemia 6. Coronary artery disease 7. Coronary stents 8. Coronary bypass graft surgery which failed. 9. Bilateral knee replacement which was redone in 2014. 10. Hysterectomy 11. Rotator cuff surgery 12. Multiple foot surgeries on both feet. ALLERGIES VYTORIN, ZOCOR, ZETIA, XARELTO, VOLTAREN, VERAPAMIL, PROZAC, NORVASC, NONSTEROIDAL ANTI-INFLAMMATORY AGENTS, NAPROSYN, LIPITOR, LEXAPRO, DOLOBID, CYMBALTA, AMLODIPINE, CLEOCIN WHICH CAUSED BLISTERING SORES IN THE MOUTH, AND KEFLEX WHICH CAUSED RASH. SOCIAL HISTORY No alcohol. No tobacco. No illicit drugs. FAMILY HISTORY Noncontributory REVIEW OF SYSTEMS GENERAL: No weakness or fever. HEAD, EYES, EARS, NOSE, AND THROAT: No visual blurring. No diplopia. No nasal bleeding. No difficulty swallowing or soreness of the throat. NECK: No swelling or pain. CARDIOVASCULAR: No palpitations or chest pain. RESPIRATORY: No cough or shortness of breath. GASTROINTESTINAL: No nausea, vomiting. No abdominal pain. GENITOURINARY: No urgency or frequency. HEMATOLOGIC: No easy bruising or bleeding. ENDOCRINE: No polyuria or polydipsia. INTEGUMENTARY: Redness of the lower extremities and mild pain at the lower extremities. PSYCHIATRIC: No mood changes or problems with coordination. PHYSICAL EXAMINATION GENERAL: This is a morbidly obese female who is in no acute distress. She is awake and alert and oriented. VITAL SIGNS: Include a temperature of 98.8, BP 115/54, respirations 18, heart rate 60. HEENT: Head is atraumatic. Extraocular movements grossly intact. No icterus. Oropharynx moist mucosa without lesions. NECK: Supple without adenopathy or swelling. LUNGS: Clear breath sounds which are diminished at the bases. HEART: Irregular rate and rhythm. No audible murmurs. No rubs or gallops. ABDOMEN: Bowel sounds present, soft, no tenderness appreciated. Abdomen is obese. RECTAL: Not performed. EXTREMITIES: Both lower extremities have mild increased warmth and there is swelling. There is blanching erythema at the lateral aspects of both lower tibia more so on the right side. There is mild edema at the ankle which is about 1+. There are no breaks in the skin and no visible drainage. SKIN: No diffuse rash. NEUROLOGICAL: Nonfocal. PSYCHIATRIC: Patient pleasant, calm and cooperative. LABORATORY DATA WBC 5.8, platelets 157, hemoglobin 13.1. Creatinine 1.82, BUN 60, sodium 137, estimated GFR 27. Blood cultures from 05/15 showed no growth. IMPRESSION 1. Bilateral lower extremity cellulitis which is slow to respond to antibiotic treatment. However, the patient thinks that she has had some improvement. She still does have blanching erythema of both legs and there is warmth at both tibia's. 2. Multiple drug allergies including allergies to antibiotics Keflex and Cleocin. The patient also did not respond to treatment with oral tetracycline prior to admission. 3. Chronic kidney disease. RECOMMENDATIONS 1. Discontinue vancomycin and would avoid additional vancomycin given her chronic kidney disease. 2. Begin daptomycin intravenous with q48h dosing because of the patient's kidney function. 3. Monitor response to antibiotic treatment with the daptomycin. If she tolerates the daptomycin, we can opt for treating her with a course of the IV daptomycin as an outpatient. She probably will need another seven days which would be approximately three doses more of that antibiotic. 4. The patient has history of bilateral knee replacements and we should definitely try to eradicate this infection to avoid potential involvement of the knee hardware with infection. Thank you for this consultation. I will monitor her progress along with you and we will make further recommendations on followup. Rodrigo Francisco MD FD/SIDNEY /4:02 PM /9:13 AM JACKIE
[2016-05-22] MEDS: TIOTROPIUM BROMIDE 18 MCG INH INH SCH (11:05)
[2016-05-22 12:00] VITALS: BP 118/55; PULSE 68; RESP 16; TEMP 96.8; O2SAT 94
--- NOTE | 2016-05-22 12:47 | HHI.IDPN ---
Note Infectious Disease Note Patient seen for LE cellulitis 05/21/16. Feels okay. Notes that she has lesions on the tongue. Non tender. Notes that she had drainage from the right side of her back. Describes wetness which she touched and had a foul smell. No fever. No difficulty swallowing. No SOB Mild pain in legs. PAST MEDICAL HISTORY 1. COPD 2. Sleep apnea 3. Anxiety 4. Hypertension 5. Hyperlipidemia 6. Coronary artery disease 7. Coronary stents 8. Coronary bypass graft surgery which failed. 9. Bilateral knee replacement which was redone in 2014. 10. Hysterectomy 11. Rotator cuff surgery 12. Multiple foot surgeries on both feet. ALLERGIES VYTORIN, ZOCOR, ZETIA, XARELTO, VOLTAREN, VERAPAMIL, PROZAC, NORVASC, NONSTEROIDAL ANTI-INFLAMMATORY AGENTS, NAPROSYN, LIPITOR, LEXAPRO, DOLOBID, CYMBALTA, AMLODIPINE, CLEOCIN WHICH CAUSED BLISTERING SORES IN THE MOUTH, AND KEFLEX WHICH CAUSED RASH. SOCIAL HISTORY No alcohol. No tobacco. No illicit drugs. PHYSICAL EXAMINATION GENERAL: No acute distress. She is awake and alert and oriented. HEENT: Head is atraumatic. Extraocular movements grossly intact. No icterus. Oropharynx moist mucosa . No visible lesions. Mild redness of the tongue. NECK: Supple without adenopathy or swelling. LUNGS: Clear breath sounds which are diminished at the bases. HEART: Irregular rate and rhythm. No audible murmurs. No rubs or gallops. ABDOMEN: Bowel sounds present, soft, non tender. BACK - No visible lesions or break in the skin. EXTREMITIES: Both lower extremities have mild increased warmth and there is swelling. There is blanching erythema at the lateral aspects of both lower tibia but it appears decreased. There is mild edema at the ankle which is 1+. There are no breaks in the skin and no visible drainage. SKIN: No diffuse rash. NEUROLOGICAL: Nonfocal. PSYCHIATRIC: Patient pleasant, calm and cooperative. IMPRESSION 1. Bilateral lower extremity cellulitis which is slow to respond to antibiotic treatment. Looks a little better. 2. Multiple drug allergies including allergies to antibiotics Keflex and Cleocin. The patient also did not respond to treatment with oral tetracycline prior to admission. 3. Chronic kidney disease. RECOMMENDATIONS Continue Daptomycin intravenous with q48h dosing because of the patient's kidney function. PIC line or Mid line if okay with renal give her renal function. Can be arranged outpatient until 05/30/16. Case management to arrange outpatient treatment. Kameron Devlin MD May 22, 2016 12:47
--- NOTE | 2016-05-22 12:51 | HHI.FF ---
Infusion Therapy Location of Infusion Therapy: [facility] IV Infusion Order Patient Information Patient Weight 137 kg Diagnosis: (1) Cellulitis Coded Allergies: Adhesives (Verified Allergy, Severe, steri strips causes severe skin irritation, 05/15/16) Cleocin (Verified Allergy, Severe, THRUSH, 05/15/16) ORAL THRUSH Keflex (Verified Allergy, Severe, 05/15/16) FULL BODY RASH Verapamil (Verified Allergy, Severe, SWELLING, 05/15/16) SEVERE EDEMA IN LEGS Amlodipine (Verified Allergy, Intermediate, GENERALIZED EDEMA, 05/15/16) Nonsteroidal Anti-Inflammatory Agts (Verified Allergy, Intermediate, GI , 05/15/16) Norvasc (Verified Allergy, Intermediate, EDEMA, 05/15/16) Cymbalta (Verified Allergy, Unknown, 05/15/16) Dolobid (Verified Allergy, Unknown, 05/15/16) Lexapro (Verified Allergy, Unknown, 05/15/16) Lipitor (Verified Allergy, Unknown, 05/15/16) Naprosyn (Verified Allergy, Unknown, 05/15/16) Prozac (Verified Allergy, Unknown, 05/15/16) Voltaren (Verified Allergy, Unknown, 05/15/16) Xarelto (Verified Allergy, Unknown, 05/15/16) rectal bleeding Zetia (Verified Allergy, Unknown, 05/15/16) Zocor (Verified Allergy, Unknown, 05/15/16) Uncoded Allergies: vytorin (Allergy, Unknown, 10/07/15) Administer Medication Daptomycin 400 mg IV q 48 hours Start Treatment: May 23, 2016 Stop Treatment: May 30, 2016 Additional Information Venous access: Other Additional Instructions [x] Peripheral flush and dressing changes per protocol [x] Implanted port and central slack line yarder: * Implanted port: 10 ml Normal Saline followed by 5 ml Heparin 100 units/ml Heparin flush after each use and monthly to maintain. [] May leave port accessed during therapy. [] May leave peripheral site accessed for duration of therapy. [x] If patient has SOB or respiratory distress, check oxygen saturation. If less than 90% or clinical signs of respiratory distress, administer oxygen at 2 L/min. via nasal cannula and notify physician. [x] Anaphylaxis/Reaction orders: * Stop infusion. * Keep IV line open with saline flush. * Notify physician. * Monitor vital signs every 15 minutes until symptoms resolve. * Check Oxygen saturation; Oxygen at 2 L/min. via nasal cannula if less than 90% or clinical signs of respiratory distress. * Administer diphenhydramine (Benadryl) 25 mg IV STAT, (unless patient has received as pre-med). May repeat once, if necessary. * Solu-Cortef 250 mg IVP over 30-60 seconds, use 100 mg vials for each dissolution. * Epinephrine (1mg/1 ml) 0.3 mg subcutaneously or IVP now with any signs of respiratory distress. * Check with physician for new additional pre-med orders if patient is re- challenged or re-treated. [x] May remove PICC line when treatment complete, after confirming with Physician. [x] If the patient is admitted to the hospital, the ED, or transferred via [facility] , complete transfer form including medication reconciliation order sheet. Laboratory Tests Weekly Labs: BMP, Serum CK Levels Kameron Devlin MD May 22, 2016 12:51
--- NOTE | 2016-05-22 13:03 | HHI.PR ---
Subjective Remarks resting comfortably with no distress. pain is controlled. no fever. Objective Vitals Vital Signs Date Time Temp Pulse Resp B/P Pulse Ox O2 Delivery O2 Flow Rate FiO2 05/22/16 08:00 97.7 70 17 131/61 96 05/22/16 00:00 97.1 90 20 129/57 95 05/21/16 20:00 96.8 73 18 128/61 94 05/21/16 18:31 20 05/21/16 16:00 98.4 63 18 111/63 98 I/O 05/21/16 05/21/16 05/21/16 05/22/16 05/22/16 05/22/16 07:00 15:00 23:00 07:00 15:00 23:00 Intake Total 240 ml 240 ml 240 ml 240 ml Output Total 1750 ml 900 ml 3600 ml 800 ml Balance -1510 ml -660 ml -3360 ml -560 ml Intake Oral 240 ml 240 ml 240 ml 240 ml IV Total 0 ml 0 ml Output Urine Total 1750 ml 900 ml 3600 ml 800 ml # Bowel Movements 0 0 1 0 Result Diagram: 05/20/16 0504 05/22/16 0420 Objective Remarks GENERAL: This is a well-nourished, well-developed patient, in no apparent distress. CARDIOVASCULAR: Regular rate and regular rhythm without murmurs, gallops, or rubs. RESPIRATORY: Clear to auscultation. Breath sounds equal bilaterally. No wheezes , rales, or rhonchi. GASTROINTESTINAL: Abdomen soft, non-tender, nondistended. Normal, active bowel sounds MUSCULOSKELETAL: erythema, warmth and swelling of the right leg seems to be improving slowly. NEURO: Alert & Oriented x4 to person, place, time, situation. Moves all ext x4 Procedures none Medications and IVs Current Medications Vancomycin HCl/ Sodium Chloride (Vancomycin Inj/ NS 250 ml Inj) 262.5 ml @ 250 mls/hr ONCE ONCE IV Last administered on 05/15/16 18:47; Start 05/15/16 at 18 :00; Stop 05/15/16 at 19:02; Status DC Albuterol Sulfate (Proair Hfa Inh) 2 puff BID INH Last administered on 08:57; Start 05/15/16 at 21:00 Amiodarone HCl (Cordarone) 200 mg DAILY PO Last administered on 05/22/16 08:58 ; Start 05/16/16 at 09:00 Apixaban (Eliquis) 5 mg BID PO Last administered on 05/22/16 08:58; Start at 21:00 Clopidogrel Bisulfate (Plavix) 75 mg DAILY PO Last administered on 05/22/16 08 :58; Start 05/16/16 at 09:00 Isosorbide Mononitrate (Imdur) 180 mg DAILY PO Last administered on 05/22/16 08:57; Start 05/16/16 at 09:00 Levothyroxine Sodium (Synthroid) 100 mcg DAILY@06 PO Last administered on 06:19; Start 05/16/16 at 06:00 Lorazepam (Ativan) 0.5 mg DAILY PRN PO ANXIETY Last administered on 05/20/16 21:50; Start 05/15/16 at 20:00 Magnesium Oxide (Mag-Ox) 400 mg DAILY PO Last administered on 05/22/16 08:57; Start 05/16/16 at 09:00 Metoprolol Succinate (Toprol Xl) 50 mg DAILY PO Last administered on 05/20/16 09:14; Start 05/16/16 at 09:00; Stop 05/21/16 at 09:26; Status DC Montelukast Sodium (Singulair) 10 mg HS PO Last administered on 05/21/16 21:02 ; Start 05/15/16 at 21:00 Mupirocin (Bactroban 2% Oint) 1 applic TID TOP Last administered on 05/22/16 08:57; Start 05/16/16 at 09:00 Lisinopril (Prinivil) 10 mg BID PO Last administered on 05/20/16 21:50; Start 05/15/16 at 21:00; Status Hold Ropinirole HCl (Requip) 1 mg BID PO Last administered on 05/22/16 08:58; Start 05/15/16 at 21:00 Spironolactone (Aldactone) 50 mg DAILY PO Last administered on 05/22/16 08:58 ; Start 05/16/16 at 09:00 Tiotropium [place] (Spiriva Inh) 18 mcg DAILY INH Last administered on 11:05; Start 05/16/16 at 09:00 Torsemide (Demadex) 50 mg BID PO Last administered on 05/16/16 16:27; Start at 21:00; Stop 05/16/16 at 16:43; Status DC Non-Formulary Medication 500 mg HS PO ; Start 05/15/16 at 21:00; Status UNV Patient Own Medication PT OWN MED: CRESTOR... HS PO Last administered on 21:03; Start 05/15/16 at 21:00 Miscellaneous (Pill Splitter) 1 ea UNSCH PRN OTHER SEE LABEL COMMENTS; Start at 20:30 IV Flush (NS Flush) 2 ml BID IV Last administered on 05/21/16 21:02; Start at 09:00 IV Flush 2 ml 2 ml UNSCH PRN IV FLUSH AFTER USING IV ACCESS; Start 05/15/16 at 23:45 Pharmacy Profile Note (Vancomycin Consult Pharmacy) 0 ml @ 0 mls/hr UNSCH XX ; Start 05/15/16 at 23:45; Stop 05/21/16 at 15:58; Status DC Acetaminophen/ Hydrocodone Bitart 1 tab 1 tab Q4H PRN PO PAIN GREATER THAN 5; Start 05/15/16 at 23:45 Vancomycin HCl/ Sodium Chloride (Vancomycin Inj/ NS 250 ml Inj) 250 ml @ 250 mls/hr Q12H IV Last administered on 05/16/16 01:24; Start 05/16/16 at 00:00; Stop 05/16/16 at 03:00; Status DC Potassium Chloride (KCl) 20 meq ONCE ONCE PO Last administered on 05/16/16 10 :30; Start 05/16/16 at 10:00; Stop 05/16/16 at 10:01; Status DC Torsemide (Demadex) 50 mg BID@09,16 PO Last administered on 05/22/16 08:58; Start 05/17/16 at 09:00 Tramadol HCl (Ultram) 150 mg BID PO ; Start 05/16/16 at 21:45; Stop 05/16/16 at 22:30; Status DC Tramadol HCl (Ultram) 150 mg TID PO ; Start 05/16/16 at 22:30; Stop 05/17/16 at 00:06; Status DC Tramadol HCl (Ultram) 50 mg TID PO Last administered on 05/17/16 16:52; Start 05/17/16 at 09:00; Stop 05/17/16 at 21:06; Status DC Tramadol HCl 50 mg 50 mg ONCE ONCE PO Last administered on 05/17/16 01:53; Start 05/17/16 at 02:00; Stop 05/17/16 at 02:01; Status DC Vancomycin HCl/ Sodium Chloride (Vancomycin Inj/ NS 500 ml Inj) 517.5 ml @ 258.75 mls/ hr ONCE@1400 ONCE IV Last administered on 05/17/16 14:39; Start 05/17/16 at 14:00; Stop 05/17/16 at 15:59; Status DC Tramadol HCl 50 mg 50 mg DAILY@,,21 PO Last administered on 05/21/16 21:02 ; Start 05/18/16 at 09:00 Vancomycin HCl/ Sodium Chloride (Vancomycin Inj/ NS 500 ml Inj) 517.5 ml @ 250 mls/hr ONCE ONCE IV Last administered on 05/19/16 21:40; Start 05/19/16 at 19 :00; Stop 05/19/16 at 21:04; Status DC Metoprolol Succinate 25 mg 25 mg DAILY PO Last administered on 05/22/16 08:58 ; Start 05/22/16 at 09:00 Vancomycin HCl 1750 mg/Sodium Chloride 517.5 ml @ 250 mls/hr ONCE ONCE IV Last administered on 05/21/16 12:59; Start 05/21/16 at 12:00; Stop 05/21/16 at 14:04; Status DC Daptomycin/Sodium Chloride (Cubicin Inj/NS Inj) 100 ml @ 200 mls/hr Q48H IV Last administered on 05/21/16 17:25; Start 05/21/16 at 17:00 Fluconazole (Diflucan) 100 mg DAILY PO ; Start 05/22/16 at 13:00; Stop 05/27/16 at 12:59; Status UNV A/P Assessment and Plan A/P Bilateral lower extremity cellulitis: Patient failed outpatient treatment.improving slowly -had venous doppler of the lower extremity as outpatient which was reportedly negative. - ID consult appreciated; recommended IV Daptomycin- as outpatient -needs PICC line CHF ( chronic diastolic) :compensated. - Continue torsemide, Aldactone. hold lisinopril due to low-normal BP's Coronary artery disease: Continue home dose Plavix, tramadol. decrease metoprolol due to low-normal BP's Atrial fibrillation: Continue amiodarone, metoprolol, and Eliquis. chronic renal insufficiency; will consult nephrology in light of her need for PICC line DVT PPx: On Eliquis. Discharge Planning case management for C. dc home when PICC line is in place- IV antibiotic as outpatient. d/w . Lit Davis MD May 22, 2016 13:03
[2016-05-22] MEDS: FLUCONAZOLE 100 MG TAB PO SCH (15:12)
--- NOTE | 2016-05-22 15:24 | PD.CONS ---
HPI Service Nephrology Consult Requested By Primary Care Physician Ruba Jesus DO History of Present Illness Ms. Goss is an 80 year old lady with history of multiple medical problems who was admitted with bilateral lower extremity edema and cellulitis. She had failed outpatient antibiotic therapy with doxycycline. She has multiple medication allergies. She was placed on IV Vancomycin and ID was consulted. Plan is to place her on Daptomycin q48 hours. 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 UA is not available from this admission, but in 2014, UA did not reveal proteinuria or hematuria. Patient has diet controlled diabetes, and CAD. Has chronic lower extremity edema. She is on high doses of diuretics including Torsemide and Spironolactone. Review of Systems Constitutional: COMPLAINS OF: Fatigue, DENIES: Fever Respiratory: COMPLAINS OF: Snoring, DENIES: Wheezing Cardiovascular: COMPLAINS OF: Lower Extremity Edema, DENIES: Chest pain, Palpitations Gastrointestinal: DENIES: Abdominal pain, Black stools Past Family Social History Allergies: Coded Allergies: Adhesives (Verified Allergy, Severe, steri strips causes severe skin irritation, 05/15/16) Cleocin (Verified Allergy, Severe, THRUSH, 05/15/16) ORAL THRUSH Keflex (Verified Allergy, Severe, 05/15/16) FULL BODY RASH Verapamil (Verified Allergy, Severe, SWELLING, 05/15/16) SEVERE EDEMA IN LEGS Amlodipine (Verified Allergy, Intermediate, GENERALIZED EDEMA, 05/15/16) Nonsteroidal Anti-Inflammatory Agts (Verified Allergy, Intermediate, GI , 05/15/16) Norvasc (Verified Allergy, Intermediate, EDEMA, 05/15/16) Cymbalta (Verified Allergy, Unknown, 05/15/16) Dolobid (Verified Allergy, Unknown, 05/15/16) Lexapro (Verified Allergy, Unknown, 05/15/16) Lipitor (Verified Allergy, Unknown, 05/15/16) Naprosyn (Verified Allergy, Unknown, 05/15/16) Prozac (Verified Allergy, Unknown, 05/15/16) Voltaren (Verified Allergy, Unknown, 05/15/16) Xarelto (Verified Allergy, Unknown, 05/15/16) rectal bleeding Zetia (Verified Allergy, Unknown, 05/15/16) Zocor (Verified Allergy, Unknown, 05/15/16) Uncoded Allergies: vytorin (Allergy, Unknown, 10/07/15) Past Medical History Heart catheterization with stent placement x 3 Sleep apnea Diet controlled diabetes mellitus Obesity. Bilateral knee replacement Hysterectomy Multiple upper and lower endoscopy Rotator cuff surgery COPD Past Surgical History CABG that apparently failed. 3 coronary stents. Reported Medications Ventolin Hfa 18 GM Inh (Albuterol Sulfate) 90 Mcg/Act Aer 2 Puff INH BID Hair Skin & Nails (Biotin W/ Vitamins C & E) 1,250-7.5-7.5 Mcg-Mg-Unit Chew 1 Chew CHEW DAILY Estroven + Energy Maximum ([employer] Natural Products) 1 Tab Tab 1 Tab PO DAILY Vitamin D-3 (Cholecalciferol) 2,000 Unit Tab 2,000 Units PO BID Chromium Picolinate 1,000 Mcg Tab 1,000 Mcg PO DAILY Plavix (Clopidogrel Bisulfate) 75 Mg Tab 75 Mg PO DAILY Co Q 10 (Coenzyme Q10 (Ubidecarenone)) 100 Mg Cap 100 Mg PO DAILY Cranberry (Cranberry (Vaccinium Macrocarpon)) 500 Mg Cap 500 Mg PO HS Diclofenac Topical 1% Gel 1 Applic TOPICAL DIRECTED PRN Eliquis (Apixaban) 5 Mg Tab 5 Mg PO BID Isosorbide Mononitrate ER (Isosorbide Mononitrate) 60 Mg Tab 180 Mg PO DAILY Levothyroxine (Levothyroxine Sodium) 100 Mcg Tab 100 Mcg PO DAILY Lorazepam 0.5 Mg Tab 0.5 Mg PO DAILY PRN Lutein-Zeaxanthin Unknown Strength Cap Unknown Dose PO DAILY Magnesium Oxide 400 Mg Tab 400 Mg PO DAILY Toprol XL (Metoprolol Succinate) 50 Mg Tab 50 Mg PO DAILY Montelukast (Montelukast Sodium) 10 Mg Tab 10 Mg PO HS Nitroglycerin Lingual [place] (Nitroglycerin) 400 Mcg/Act [place] 1 [place] SL DIRECTED PRN ONE SPRAY NEEDED FOR CHEST PAIN, MAY REPEAT EVERY FIVE MINUTES FOR A TOTAL OF 3 DOSES OR CALL 911 IF NO RELIEF Preservision Areds 2 (Multiple Vitamins W/ Minerals) 1 Cap 1 Cap PO BID Quinapril (Quinapril HCl) 10 Mg Tab 10 Mg PO BID Requip (Ropinirole) 1 Mg Tab 1 Mg PO BID Crestor (Rosuvastatin Calcium) 20 Mg Tab 20 Mg PO HS Selenium 200 Mcg Tab 200 Mg PO DAILY Spironolactone 50 Mg Tab 50 Mg PO DAILY Spiriva Handihaler (Tiotropium Inh) 18 Mcg Cap 18 Mcg INH DAILY 1 capsule = 18 mcg Torsemide 100 Mg Tab 50 Mg PO BID Tramadol (Tramadol HCl) 50 Mg Tab 150 Mg PO BID Curcumin (Turmeric (Curcuma Longa) (Bulk) 1 Pow Pow 1,000 Mg PO DAILY Vibramycin (Doxycycline Hyclate) 100 Mg Cap 100 Mg PO BID Bactroban (Mupirocin) 2 % Oin 1 Applic TOP TID Amiodarone (Amiodarone HCl) 200 Mg Tab 200 Mg PO DAILY Active Ordered Medications Current Medications Medications (Trade) Dose Ordered Sig/Lee Route Start Time Stop Time Status Last Admin (Proair Hfa Inh) 2 puff BID INH 05/15/16 21:00 05/22/16 08:57 (Cordarone) 200 mg DAILY PO 05/16/16 09:00 05/22/16 08:58 (Eliquis) 5 mg BID PO 05/15/16 21:00 05/22/16 08:58 (Plavix) 75 mg DAILY PO 05/16/16 09:00 05/22/16 08:58 (Imdur) 180 mg DAILY PO 05/16/16 09:00 05/22/16 08:57 (Synthroid) 100 mcg DAILY@06 PO 05/16/16 06:00 05/22/16 06:19 (Ativan) 0.5 mg DAILY PRN PO 05/15/16 20:00 05/20/16 21:50 (Mag-Ox) 400 mg DAILY PO 05/16/16 09:00 05/22/16 08:57 (Singulair) 10 mg HS PO 05/15/16 21:00 05/21/16 21:02 (Bactroban 2% Oint) 1 applic TID TOP 05/16/16 09:00 05/22/16 08:57 (Prinivil) 10 mg BID PO 05/15/16 21:00 Hold 05/20/16 21:50 (Requip) 1 mg BID PO 05/15/16 21:00 05/22/16 08:58 (Aldactone) 50 mg DAILY PO 05/16/16 09:00 05/22/16 08:58 (Spiriva Inh) 18 mcg DAILY INH 05/16/16 09:00 05/22/16 11:05 Patient Own Medication PT OWN MED: CRESTOR... HS PO 05/15/16 21:00 05/21/16 21:03 (Pill Splitter) 1 ea UNSCH PRN OTHER 05/15/16 20:30 (NS Flush) 2 ml BID IV 05/16/16 09:00 05/21/16 21:02 (NS Flush) 2 ml UNSCH PRN IV 05/15/16 23:45 ([place] 5-325 Mg) 1 tab Q4H PRN PO 05/15/16 23:45 (Demadex) 50 mg BID@,16 PO 05/17/16 09:00 05/22/16 15:12 (Ultram) 50 mg DAILY@,, PO 05/18/16 09:00 05/21/16 21:02 Metoprolol Succinate 25 mg 25 mg DAILY PO 05/22/16 09:00 05/22/16 08:58 (Cubicin Inj/NS Inj) 100 ml @ 200 mls/hr Q48H IV 05/21/16 17:00 05/21/16 17:25 (Diflucan) 100 mg DAILY PO 05/22/16 13:15 05/27/16 13:14 05/22/16 15:12 Family History non contributory Social History Lives in [facility]. No tobacco, no ETOH Physical Exam Vital Signs Vital Signs Date Time Temp Pulse Resp B/P Pulse Ox O2 Delivery O2 Flow Rate FiO2 05/22/16 12:00 96.8 68 16 118/55 94 05/22/16 08:00 97.7 70 17 131/61 96 05/22/16 00:00 97.1 90 20 129/57 95 05/21/16 20:00 96.8 73 18 128/61 94 05/21/16 18:31 20 05/21/16 16:00 98.4 63 18 111/63 98 Physical Exam GENERAL: Obese, elderly, alert and oriented. SKIN: Warm and dry. HEAD: Normocephalic. EYES: No scleral icterus. No injection or drainage. NECK: Supple, trachea midline. No JVD or lymphadenopathy. CARDIOVASCULAR: Regular rate and rhythm without murmurs, gallops, or rubs. RESPIRATORY: Breath sounds equal bilaterally. No accessory muscle use. GASTROINTESTINAL: Abdomen soft, non-tender, nondistended. MUSCULOSKELETAL: No cyanosis,Bilateral knee replacements. 1 + lower extremity edema. BACK: Nontender without obvious deformity. No CVA tenderness. Laboratory Laboratory Tests Test 05/22/16 04:20 Creatinine 1.54 Estimat Glomerular Filtration 32 Rate Result Diagram: 05/20/16 0504 05/22/16 0420 Assessment and Plan Problem List: (1) Chronic kidney disease, stage III (moderate) Plan: Her GFR is low, sometimes she is in stage IV and sometimes in stage III CKD. UA in the past did not reveal proteinuria. May have nephrosclerosis from microvascular disease. Repeat UA. Also obtain renal US. Avoid nephrotoxic agents, such as NSAIDs. Dietary management discussed: modest restriction of dietary protein, low phosphorus diet. Repeat labs. Agree with avoiding Vancomycin. I would recommend to avoid piccline. Midline or tunneled Wilson in the IJ would be better options. Discussed with ID. (2) Cellulitis Plan: she is going to be on Daptomycin. (3) CHF (congestive heart failure) Plan: May have diastolic dysfunction. Echo in 10/10 revealed EF of 50-55%. She is on Spironolactone and Torsemide, apparently due to presence of edema. (4) HTN (hypertension) Plan: BP is under control. (5) Afib Plan: rate controlled. On Apixaban. (6) Diet-controlled diabetes mellitus Plan: Maintain blood glucose between 140 and 180 while hospitalized. Assessment and Plan Thanks for the consult. She can be discharged from renal standpoint. Problem Qualifiers (1) Cellulitis: Qualified Code: L03.115 - Cellulitis of right lower extremity Ned Singer MD May 22, 2016 15:24
[2016-05-22 16:00] VITALS: BP 143/65; PULSE 72; RESP 17; TEMP 96.3; O2SAT 96
[2016-05-22 18:40] LABS: BLOOD, URINE NEG (NEG); COMMENT (UR) CULT NOT INDICATED; CULTURE IF INDICATED CULT NOT INDICATED; GLUCOSE,URINE NEG (NEG); KETONE, URINE NEG (NEG); NITRITE,URINE NEG (NEG); SQUAMOUS EPITHELIAL CELL URINE <1 /hpf (0-5); URINE COLOR LIGHT-YELLOW (YELLW/STRAW)
[2016-05-22 20:00] VITALS: BP 133/60; PULSE 79; RESP 22; TEMP 98.2; O2SAT 98
[2016-05-22] MEDS: MONTELUKAST SODIUM 10 MG TAB PO SCH (21:17)
[2016-05-22] MEDS: CRESTOR 20 MG PO SCH (21:19)
--- NOTE | 2016-05-22 23:42 | RADRPT ---
EXAM DATE/TIME: 05/22/2016 22:13 CORRECTION Corrected on: June 23, 2016; Corrected spelling in INDICATIONS. [facility] COMPARISON: CT ABDOMEN & PELVIS W CONTRAST, January 04, 2015, 1:20. INDICATIONS : Increased BUN/creatinine. MEDICAL HISTORY : Congestive heart failure. Hypercholesterolemia. Emphysema. Thyroid disease. Afib. COPD. HTN. Sleep ap cisco. GERD. Garcia's esophagitis. Diverticulosis. Ulcer. Hiatal hernia. osteoarthritis. Cancer. Anti coagulant therapy. PTSD. Depression. Anxiety. SURGICAL HISTORY : Coronary artery stent. Hysterectomy. D&C. Bilateral knee replacements. Pins left heel/ankle. Colono scopies. Endoscopies. Blood transfusions. ENCOUNTER: Initial ACUITY: 1 day PAIN SCORE: 0/10 LOCATION: Bilateral flank MEASUREMENTS: RIGHT KIDNEY: 10.3 x 5.7 x 5.1 cm LEFT KIDNEY: 11.8 x 4.6 x 5.3 cm FINDINGS: RIGHT KIDNEY: Renal cortex is normal in thickness and echotexture. No hydronephrosis, stone, or mass. LEFT KIDNEY: Renal cortex is normal in thickness and echotexture. No hydronephrosis, stone, or mass. BLADDER: Not well distended and therefore not well evaluated. CONCLUSION: 1. Normal appearance of the kidneys. Bladder not well visualized. Gilberto Gamboa MD on May 22, 2016 at 23:40 Board Certified Radiologist. This report was verified electronically. DR Tee on June 23, 2016 at 8:52 Board Certified Radiologist. This report was verified electronically.
[2016-05-23] VITALS: BP 129/60; PULSE 67; RESP 20; TEMP 97.8; O2SAT 95
[2016-05-23] MEDS: LEVOTHYROXINE SODIUM 100 MCG TAB PO SCH (05:05)
[2016-05-23 08:00] VITALS: BP 133/62; PULSE 71; RESP 17; TEMP 96.8; O2SAT 93
--- NOTE | 2016-05-23 08:24 | HHI.PR ---
Subjective Remarks resting comfortably with no distress. denies pain. no fever. no new complaints. Objective Vitals Vital Signs Date Time Temp Pulse Resp B/P Pulse Ox O2 Delivery O2 Flow Rate FiO2 05/23/16 00:00 97.8 67 20 129/60 95 05/22/16 20:00 98.2 79 22 133/60 98 05/22/16 17:43 20 05/22/16 16:00 96.3 72 17 143/65 96 05/22/16 12:00 96.8 68 16 118/55 94 I/O 05/22/16 05/22/16 05/22/16 05/23/16 05/23/16 05/23/16 07:00 15:00 23:00 07:00 15:00 23:00 Intake Total 240 ml 960 ml 480 ml 480 ml Output Total 800 ml 2400 ml 1250 ml 2300 ml Balance -560 ml -1440 ml -770 ml -1820 ml Intake Oral 240 ml 960 ml 480 ml 480 ml IV Total 0 ml Output Urine Total 800 ml 2400 ml 1250 ml 2300 ml # Bowel Movements 0 1 0 0 Result Diagram: 05/20/16 0504 05/22/16 0420 Imaging Last Impressions Renal Ultrasound 05/22/16 0000 Signed Impressions: Service Date/Time: April 22:13 - CONCLUSION: 1. Normal appearance of the kidneys. Bladder not well visualized. Gilberto Gamboa MD Objective Remarks GENERAL: This is a well-nourished, well-developed patient, in no apparent distress. CARDIOVASCULAR: Regular rate and regular rhythm without murmurs, gallops, or rubs. RESPIRATORY: Clear to auscultation. Breath sounds equal bilaterally. No wheezes , rales, or rhonchi. GASTROINTESTINAL: Abdomen soft, non-tender, nondistended. Normal, active bowel sounds MUSCULOSKELETAL: erythema, warmth and swelling of the right leg seems to be improving slowly. NEURO: Alert & Oriented x4 to person, place, time, situation. Moves all ext x4 Procedures midline insertion Medications and IVs Current Medications Vancomycin HCl/ Sodium Chloride (Vancomycin Inj/ NS 250 ml Inj) 262.5 ml @ 250 mls/hr ONCE ONCE IV Last administered on 05/15/16t 18:47; Start 05/15/16 at 18 :00; Stop 05/15/16 at 19:02; Status DC Albuterol Sulfate (Proair Hfa Inh) 2 puff BID INH Last administered on 21:18; Start 05/15/16 at 21:00 Amiodarone HCl (Cordarone) 200 mg DAILY PO Last administered on 05/22/16 08:58 ; Start 05/16/16 at 09:00 Apixaban (Eliquis) 5 mg BID PO Last administered on 05/22/16 21:17; Start at 21:00 Clopidogrel Bisulfate (Plavix) 75 mg DAILY PO Last administered on 05/22/16 08 :58; Start 05/16/16 at 09:00 Isosorbide Mononitrate (Imdur) 180 mg DAILY PO Last administered on 05/22/16 08:57; Start 05/16/16 at 09:00 Levothyroxine Sodium (Synthroid) 100 mcg DAILY@06 PO Last administered on 05:05; Start 05/16/16 at 06:00 Lorazepam (Ativan) 0.5 mg DAILY PRN PO ANXIETY Last administered on 05/20/16 21:50; Start 05/15/16 at 20:00 Magnesium Oxide (Mag-Ox) 400 mg DAILY PO Last administered on 05/22/16 08:57; Start 05/16/16 at 09:00 Metoprolol Succinate (Toprol Xl) 50 mg DAILY PO Last administered on 05/20/16 09:14; Start 05/16/16 at 09:00; Stop 05/21/16 at 09:26; Status DC Montelukast Sodium (Singulair) 10 mg HS PO Last administered on 05/22/16 21:17 ; Start 05/15/16 at 21:00 Mupirocin (Bactroban 2% Oint) 1 applic TID TOP Last administered on 05/22/16 08:57; Start 05/16/16 at 09:00 Lisinopril (Prinivil) 10 mg BID PO Last administered on 05/20/16 21:50; Start 05/15/16 at 21:00; Status Hold Ropinirole HCl (Requip) 1 mg BID PO Last administered on 05/22/16 21:17; Start 05/15/16 at 21:00 Spironolactone (Aldactone) 50 mg DAILY PO Last administered on 05/22/16 08:58 ; Start 05/16/16 at 09:00 Tiotropium [place] (Spiriva Inh) 18 mcg DAILY INH Last administered on 11:05; Start 05/16/16 at 09:00 Torsemide (Demadex) 50 mg BID PO Last administered on 05/16/16 16:27; Start at 21:00; Stop 05/16/16 at 16:43; Status DC Non-Formulary Medication 500 mg HS PO ; Start 05/15/16 at 21:00; Status UNV Patient Own Medication PT OWN MED: CRESTOR... HS PO Last administered on 21:19; Start 05/15/16 at 21:00 Miscellaneous (Pill Splitter) 1 ea UNSCH PRN OTHER SEE LABEL COMMENTS; Start at 20:30 IV Flush (NS Flush) 2 ml BID IV Last administered on 05/22/16 21:19; Start at 09:00 IV Flush 2 ml 2 ml UNSCH PRN IV FLUSH AFTER USING IV ACCESS; Start 05/15/16 at 23:45 Pharmacy Profile Note (Vancomycin Consult Pharmacy) 0 ml @ 0 mls/hr UNSCH XX ; Start 05/15/16 at 23:45; Stop 05/21/16 at 15:58; Status DC Acetaminophen/ Hydrocodone Bitart 1 tab 1 tab Q4H PRN PO PAIN GREATER THAN 5; Start 05/15/16 at 23:45 Vancomycin HCl/ Sodium Chloride (Vancomycin Inj/ NS 250 ml Inj) 250 ml @ 250 mls/hr Q12H IV Last administered on 05/16/16 01:24; Start 05/16/16 at 00:00; Stop 05/16/16 at 03:00; Status DC Potassium Chloride (KCl) 20 meq ONCE ONCE PO Last administered on 05/16/16 10 :30; Start 05/16/16 at 10:00; Stop 05/16/16 at 10:01; Status DC Torsemide (Demadex) 50 mg BID@09,16 PO Last administered on 05/22/16 15:12; Start 05/17/16 at 09:00 Tramadol HCl (Ultram) 150 mg BID PO ; Start 05/16/16 at 21:45; Stop 05/16/16 at 22:30; Status DC Tramadol HCl (Ultram) 150 mg TID PO ; Start 05/16/16 at 22:30; Stop 05/17/16 at 00:06; Status DC Tramadol HCl (Ultram) 50 mg TID PO Last administered on 05/17/16 16:52; Start 05/17/16 at 09:00; Stop 05/17/16 at 21:06; Status DC Tramadol HCl 50 mg 50 mg ONCE ONCE PO Last administered on 05/17/16 01:53; Start 05/17/16 at 02:00; Stop 05/17/16 at 02:01; Status DC Vancomycin HCl/ Sodium Chloride (Vancomycin Inj/ NS 500 ml Inj) 517.5 ml @ 258.75 mls/ hr ONCE@1400 ONCE IV Last administered on 05/17/16 14:39; Start 05/17/16 at 14:00; Stop 05/17/16 at 15:59; Status DC Tramadol HCl 50 mg 50 mg DAILY@,, PO Last administered on 05/22/16 21:18 ; Start 05/18/16 at 09:00 Vancomycin HCl/ Sodium Chloride (Vancomycin Inj/ NS 500 ml Inj) 517.5 ml @ 250 mls/hr ONCE ONCE IV Last administered on 05/19/16 21:40; Start 05/19/16 at 19 :00; Stop 05/19/16 at 21:04; Status DC Metoprolol Succinate 25 mg 25 mg DAILY PO Last administered on 05/22/16 08:58 ; Start 05/22/16 at 09:00 Vancomycin HCl 1750 mg/Sodium Chloride 517.5 ml @ 250 mls/hr ONCE ONCE IV Last administered on 05/21/16 12:59; Start 05/21/16 at 12:00; Stop 05/21/16 at 14:04; Status DC Daptomycin/Sodium Chloride (Cubicin Inj/NS Inj) 100 ml @ 200 mls/hr Q48H IV Last administered on 05/21/16 17:25; Start 05/21/16 at 17:00 Fluconazole (Diflucan) 100 mg DAILY PO Last administered on 1/26/17at 15:12; Start 05/22/16 at 13:15; Stop 05/27/16 at 13:14 A/P Assessment and Plan A/P Bilateral lower extremity cellulitis: Patient failed outpatient treatment.improving slowly -had venous doppler of the lower extremity as outpatient which was reportedly negative. - ID consult appreciated; recommended IV Daptomycin- as outpatient -needs Midline for outpatient IV antibiotic therapy CHF ( chronic diastolic) :compensated. - Continue torsemide, Aldactone. hold lisinopril due to low-normal BP's Coronary artery disease: Continue home dose Plavix, tramadol. decrease metoprolol due to low-normal BP's Atrial fibrillation: Continue amiodarone, metoprolol, and Eliquis. chronic renal insufficiency; nephrology consult appreciated; ok for Midline- f/ u as outpatient. DVT PPx: On Eliquis. Discharge Planning dc home later today after Midline is in place. see med list. IV antibiotic therapy as outpatient. f/u; pcp and nephrology. d/w the patient. d/w the case management. d/w the patient. previously d/w . time spent 35 min. Lit Davis MD May 23, 2016 08:24
[2016-05-23] MEDS ORDERED: METO25TA6 PO (08:27)
--- NOTE | 2016-05-23 08:27 | HHI.DCPOC ---
Discharge Care Plan Diagnosis: (1) Cellulitis Your Health Problems Are: Inflammation Swelling Goals to Promote Your Health * To prevent worsening of your condition and complications * To maintain your health at the optimal level Directions to Meet Your Goals Take your medications as prescribed Follow your dietary instruction Follow activity as directed Keep your appointments as scheduled Take your immunizations and boosters as scheduled If your symptoms worsen call your PCP, if no PCP go to Urgent Care Center or Emergency Room Smoking is Dangerous to Your Health. Avoid second hand smoke Call the 24-hour hour crisis hotline for domestic abuse at Lit Davis MD May 23, 2016 08:27
--- NOTE | 2016-05-23 08:28 | HHI.DS ---
Discharge Summary Admission Date May 15, 2016 at 19:43 Discharge Date: May 23, 2016 Admitting Diagnosis Cellulitis that failed outpatient follow up (1) Cellulitis ICD Code: L03.90 Diagnosis: Principal Procedures midline insertion Brief History - From Admission The patient is a 80-year-old female with multiple medical problems including coronary artery disease status post CABG, COPD, anxiety, sleep apnea, obesity, diet-controlled diabetes, hypertension, hyperlipidemia. She presented to the emergency room with complaint of worsening cellulitis of the right lower extremity. She reports that she had increased swelling of the bilateral extremities that started about 3 weeks ago. The swelling has been improving. However 2 weeks ago she noticed some blisters on her bilateral lower extremities. They started draining associated redness that extend up to her thighs. The left side has improved. However the right side has been getting worse. The patient was seen by her primary care doctor and has been on doxycycline for the past 3 days but she believes does redness is getting worse on the right. She did have bilateral lower extremity ultrasound recently that was negative for DVT. She denies any fevers or chills. CBC/BMP: 05/20/16 0504 05/22/16 0420 Significant Findings Laboratory Tests Test 05/22/16 05/22/16 04:20 18:30 Creatinine 1.54 MG/DL (0.50-1.00) Estimat Glomerular Filtration 32 ML/MIN (>89) Rate Urine Turbidity HAZY (CLEAR) Imaging Last Impressions Renal Ultrasound 05/22/16 0000 Signed Impressions: Service Date/Time: April 22:13 - CONCLUSION: 1. Normal appearance of the kidneys. Bladder not well visualized. Gilberto Gamboa MD PE at Discharge GENERAL: This is a well-nourished, well-developed patient, in no apparent distress. CARDIOVASCULAR: Regular rate and regular rhythm without murmurs, gallops, or rubs. RESPIRATORY: Clear to auscultation. Breath sounds equal bilaterally. No wheezes , rales, or rhonchi. GASTROINTESTINAL: Abdomen soft, non-tender, nondistended. Normal, active bowel sounds MUSCULOSKELETAL: erythema, warmth and swelling of the right leg seems to be improving slowly. NEURO: Alert & Oriented x4 to person, place, time, situation. Moves all ext x4 Hospital Course Bilateral lower extremity cellulitis: Patient failed outpatient treatment.improving slowly -had venous doppler of the lower extremity as outpatient which was reportedly negative. - ID consult appreciated; recommended IV Daptomycin- as outpatient -needs Midline for outpatient IV antibiotic therapy CHF ( chronic diastolic) :compensated. - Continue torsemide, Aldactone. hold lisinopril due to low-normal BP's Coronary artery disease: Continue home dose Plavix, tramadol. decrease metoprolol due to low-normal BP's Atrial fibrillation: Continue amiodarone, metoprolol, and Eliquis. chronic renal insufficiency; nephrology consult appreciated; ok for Midline- f/ u as outpatient. DVT PPx: On Eliquis. Pt Condition on Discharge: Good Discharge Disposition: Disch w/ Home Health Serv Discharge Time: > 30 minutes Discharge Instructions DIET: Follow Instructions for: Heart Healthy Diet Activities you can perform: Regular-No Restrictions Follow up Referrals: Nephrology PCP Follow-up New Medications: Fluconazole (Diflucan) 100 Mg Tab 100 MG PO DAILY infection Days 5 Ref 0 TAB Metoprolol Succinate ER 24 HR (Metoprolol Succinate ER 24 HR) 25 Mg Tab 25 MG PO DAILY hypertension Days 30 Ref 0 TAB Continued Medications: Albuterol 18 GM Inh (Ventolin Hfa 18 GM Inh) 90 Mcg/Act Aer 2 PUFF INH BID Shortness of Breath #1 Ref 0 INHALER Amiodarone (Amiodarone) 200 Mg Tab 200 MG PO DAILY Regulate Heart Beat #30 Ref 0 TAB Apixaban (Eliquis) 5 Mg Tab 5 MG PO BID Blood Clot Prevention #60 Ref 0 TAB Biotin W/ Vitamins C & E (Hair Skin & Nails) 1,250-7.5-7.5 Mcg-Mg-Unit Chew 1 CHEW CHEW DAILY Cholecalciferol (Vitamin D-3) 2,000 Unit Tab 2000 UNITS PO BID Chromium Picolinate (Chromium Picolinate) 1,000 Mcg Tab 1000 MCG PO DAILY Clopidogrel (Plavix) 75 Mg Tab 75 MG PO DAILY Blood Clot Prevention #30 Ref 0 TAB Coenzyme Q10 (Ubidecarenone) (Co Q 10) 100 Mg Cap 100 MG PO DAILY Cranberry (Vaccinium Macrocarpon) (Cranberry) 500 Mg Cap 500 MG PO HS Isosorbide Mononitrate ER (Isosorbide Mononitrate ER) 60 Mg Tab 180 MG PO DAILY Prevent Chest Pain #30 Ref 0 TAB Levothyroxine (Levothyroxine) 100 Mcg Tab 100 MCG PO DAILY Thyroid #30 Ref 0 TAB Lorazepam (Lorazepam) 0.5 Mg Tab 0.5 MG PO DAILY PRN ANXIETY Ref 0 TAB Lutein-Zeaxanthin (Lutein-Zeaxanthin) Unknown Strength Cap Unknown Dose PO DAILY Magnesium Oxide (Magnesium Oxide) 400 Mg Tab 400 MG PO DAILY Nutritional Supplement Ref 0 TAB Misc Natural Products (Estroven + Energy Maximum) 1 Tab Tab 1 TAB PO DAILY Montelukast (Montelukast) 10 Mg Tab 10 MG PO HS #30 Ref 0 TAB Multiple Vitamins W/ Minerals (Preservision Areds 2) 1 Cap 1 CAP PO BID Nutritional Supplement Ref 0 CAP Mupirocin (Bactroban) 2 % Oin 1 APPLIC TOP TID TO LEGS Nitroglycerin Lingual [place] (Nitroglycerin Lingual [place]) 400 Mcg/Act [place] 1 SPRAY SL DIRECTED ONE SPRAY NEEDED FOR CHEST PAIN, MAY REPEAT EVERY FIVE MINUTES FOR A TOTAL OF 3 DOSES OR CALL 911 IF NO RELIEF PRN CHEST PAIN #1 Ref 0 CONTAINER Ropinirole (Requip) 1 Mg Tab 1 MG PO BID RLS #30 Ref 0 TAB Rosuvastatin (Crestor) 20 Mg Tab 20 MG PO HS Cholesterol Management #30 Ref 0 TAB Selenium (Selenium) 200 Mcg Tab 200 MG PO DAILY Nutritional Supplement Ref 0 TAB Spironolactone (Spironolactone) 50 Mg Tab 50 MG PO DAILY #30 Ref 0 TAB Tiotropium Inh (Spiriva Handihaler) 18 Mcg Cap 18 MCG INH DAILY 1 capsule = 18 mcg COPD #30 Ref 0 CAP Torsemide (Torsemide) 100 Mg Tab 50 MG PO BID #30 Ref 0 TAB Tramadol (Tramadol) 50 Mg Tab 50 MG PO TID Pain Management Ref 0 TAB Turmeric (Curcuma Longa) (Bulk (Curcumin) 1 Pow Pow 1000 MG PO DAILY Discontinued Medications: Diclofenac Topical (Diclofenac Topical) 1% Gel 1 APPLIC TOPICAL DIRECTED PRN PAIN #100 Ref 0 GM Doxycycline Hyclate (Vibramycin) 100 Mg Cap 100 MG PO BID Infection Ref 0 CAP Metoprolol Succinate ER 24 HR (Toprol XL) 50 Mg Tab 50 MG PO DAILY #30 Ref 0 TAB Quinapril (Quinapril) 10 Mg Tab 10 MG PO BID #60 Ref 0 TAB Lit Davis MD May 23, 2016 08:28
[2016-05-23] MEDS ORDERED: DIFL100T PO (08:31)
--- NOTE | 2016-05-23 08:35 | HHI.FF ---
Face to Face Verification Diagnosis: (1) Cellulitis Physical Therapy Order: Evaluate and Treat Home Health Nursing Order: Medical education Signs/symptoms of disease process Medication education-adverse effect Wound care and dressing changes I have seen patient Chelsey Goss on 05/23/16. My clinical findings support the need for the requested home health care services because: Ltd mobility - disease progression I certify that my clinical findings support that this patient is homebound because: Unsteady gait/balance Lit Davis MD May 23, 2016 08:35
[2016-05-23] MEDS: MUPIROCIN 2% OINT 22 GM TUBE TOP SCH ×2 (09:00→17:05)
[2016-05-23] MEDS: traMADol HCL 50 MG TAB PO SCH ×2 (09:00→17:05)
[2016-05-23] MEDS: SODIUM CHLORIDE 0.9% FLUSH 5 ML FLUSH IV SCH (09:24)
[2016-05-23] MEDS: TORSEMIDE 20 MG TAB PO SCH ×2 (09:25→17:06)
[2016-05-23] MEDS: MAGNESIUM OXIDE 400 MG TAB PO SCH (09:26)
[2016-05-23] MEDS: METOPROLOL SUCCINATE 25 MG EXTENDED RELEASE TAB PO SCH (09:26)
[2016-05-23] MEDS: AMIODARONE 200 MG TAB PO SCH (09:26)
[2016-05-23] MEDS: CLOPIDOGREL 75 MG TAB PO SCH (09:26)
[2016-05-23] MEDS: ISOSORBIDE MONONITRATE 60 MG TAB PO SCH (09:26)
[2016-05-23] MEDS: APIXABAN 5 MG TABLET PO SCH (09:27)
[2016-05-23] MEDS: SPIRONOLACTONE 50 MG TAB PO SCH (09:27)
[2016-05-23] MEDS: FLUCONAZOLE 100 MG TAB PO SCH (09:27)
[2016-05-23] MEDS: ALBUTEROL SULFATE 90 MCG/ACT HFA 8 GM INHALER INH SCH (09:30)
[2016-05-23] MEDS: TIOTROPIUM BROMIDE 18 MCG INH INH SCH (09:30)
[2016-05-23 12:00] VITALS: BP 119/86; PULSE 77; RESP 14; TEMP 97.1; O2SAT 95
--- NOTE | 2016-05-23 12:46 | HHI.FF ---
Face to Face Verification Diagnosis: (1) Cellulitis Physical Therapy Order: Evaluate and Treat Home Health Nursing Order: Medical education Signs/symptoms of disease process Medication education-adverse effect Wound care and dressing changes IV medication administration Instructions: may keep the peripheral line for five days. I have seen patient Chelsey Goss on 05/23/16. My clinical findings support the need for the requested home health care services because: Ltd mobility - disease progression I certify that my clinical findings support that this patient is homebound because: Unsteady gait/balance Lit Davis MD May 23, 2016 12:46
--- NOTE | 2016-05-23 13:15 | HHI.FF ---
Face to Face Verification Diagnosis: (1) Cellulitis Physical Therapy Order: Evaluate and Treat Home Health Nursing Order: Medical education Signs/symptoms of disease process Medication education-adverse effect Wound care and dressing changes IV medication administration Instructions: please establish a peripheral IV access for IV antibiotic administration and may keep it for five days. I have seen patient Chelsey Goss on 05/23/16. My clinical findings support the need for the requested home health care services because: Ltd mobility - disease progression I certify that my clinical findings support that this patient is homebound because: Unsteady gait/balance Lit Davis MD May 23, 2016 13:15
[2016-05-23 16:00] VITALS: BP 128/59; PULSE 69; RESP 17; TEMP 97.4; O2SAT 94
--- NOTE | 2016-05-23 16:10 | HHI.NPPN ---
Subjective Interval History patient was seen and examined. Renal function has improved. She is cleared for discharge from renal standpoint. Objective Data Data 05/22/16 05/23/16 19:00 07:00 Intake Total 960 ml 960 ml Output Total 2400 ml 3550 ml Balance -1440 ml -2590 ml Intake Oral 960 ml 960 ml Output Urine Total 2400 ml 3550 ml # Bowel Movements 1 0 Vital Signs Date Time Temp Pulse Resp B/P Pulse Ox O2 Delivery O2 Flow Rate FiO2 05/23/16 12:00 97.1 77 14 119/86 95 05/23/16 08:00 96.8 71 17 133/62 93 05/23/16 00:00 97.8 67 20 129/60 95 05/22/16 20:00 98.2 79 22 133/60 98 05/22/16 17:43 20 -: 05/20/16 0504 05/22/16 0420 Physical Exam General Appearance: Well Developed, No Acute Distress Neck Neck Exam: Neck Supple Cardiology CV Exam: Regular, Normal Sinus Rhythm Gastrointestinal/Abdomen GI Exam: Soft, Non-Tender, Bowel Sounds Present Genitourinary Exam: Clear Urine Musculoskeletal MS Exam: Joints Intact Integumentary Skin Exam: Intact Extremeties Extremities Exam: No Edema Assessment/Plan Problem List: (1) Chronic kidney disease, stage III (moderate) Plan: Likely has underlying stage III CKD. Renal function has improved. UA in the past did not reveal proteinuria. May have nephrosclerosis from microvascular disease. Renal US is unremarkable. Avoid nephrotoxic agents, such as NSAIDs. Dietary management discussed: modest restriction of dietary protein, low phosphorus diet. Agree with avoiding Vancomycin. I would recommend to avoid piccline. (2) Cellulitis Plan: she is going to be on Daptomycin. (3) CHF (congestive heart failure) Plan: May have diastolic dysfunction. Echo in 10/10 revealed EF of 50-55%. She is on Spironolactone and Torsemide, apparently due to presence of edema. (4) HTN (hypertension) Plan: BP is under control. (5) Afib Plan: rate controlled. On Apixaban. (6) Diet-controlled diabetes mellitus Plan: Maintain blood glucose between 140 and 180 while hospitalized. Plan patient can be discharged from renal standpoint. We will follow up in our office. Problem Qualifiers (1) Cellulitis: Qualified Code: L03.115 - Cellulitis of right lower extremity Ned Singer MD May 23, 2016 16:09
[2016-05-23] MEDS: DAPTOmycin INJ 400 MG in SODIUM CHLORIDE 0.9% INJ 100 ML IV SCH (17:06)
== END 2016-05-23 19:26 | disposition home health service (06) | DRG 603 ==
LOC: NEPC 14:28 → NEDA 19:43 → OBSVTOIN 19:43 → NEDA 23:44 → NEDH 05-16 00:24 → N07B 05-16 02:09
PROVIDERS: ADMIT Internal Medicine; ATTEND Internal Medicine
DX: L03.115 Cellulitis of right lower limb (principal); N18.4 Chronic kidney disease, stage 4 (severe); E11.22 Type 2 diabetes mellitus with diabetic chronic kidney disease; I13.0 Hypertensive heart and chronic kidney disease with heart failure and stage 1 through stage 4 chronic kidney disease, or unspecified chronic kidney disease; I50.32 Chronic diastolic (congestive) heart failure; I25.810 Atherosclerosis of coronary artery bypass graft(s) without angina pectoris; E87.1 Hypo-osmolality and hyponatremia; L03.116 Cellulitis of left lower limb; E78.5 Hyperlipidemia, unspecified; E87.6 Hypokalemia; G47.30 Sleep apnea, unspecified; Z95.1 Presence of aortocoronary bypass graft; I48.91 Unspecified atrial fibrillation; J44.9 Chronic obstructive pulmonary disease, unspecified; K21.9 Gastro-esophageal reflux disease without esophagitis; K22.70 Barrett's esophagus without dysplasia; M19.90 Unspecified osteoarthritis, unspecified site; Z87.11 Personal history of peptic ulcer disease; Z95.5 Presence of coronary angioplasty implant and graft; Z96.653 Presence of artificial knee joint, bilateral
CPT/HCPCS: 76775; 76937; 80048; 80076; 80202; 81001; 82565; 85025; 87040; 96365; J0878; J3370; J7040; J7050

== ENCOUNTER 2016-11-05 09:44 | Inpatient (IN) | payer MEDICARE, BC ==
[~2016-11-05] VITALS: Ht 160 cm; Wt 127.5 kg
[2016-11-05] VITALS (7 sets, daily range): BP systolic 92–110; BP diastolic 39–52; PULSE 59–80; RESP 16–26; TEMP 96.8–97.9; O2SAT 92–100
[~2016-11-05 09:44] MED LIST changes: +AMIO200T PO; -APIX5 PO; +APIX5TAB PO; +BACT2OIN2 TOP; +BIOT1CHW CHEW; -BIOTCAP PO; -BLAC20TA PO; +CHOL1TAB42 PO; +CO Q100C9 PO; -CO Q200C3 PO; -CRAN250T PO; +CRAN500C2 PO; +CURCPOW PO; -DICL1GEL TOP; +DIFL100T PO; +ESTRTAB12 PO; +LEVO100T5 PO; -LEVO75TA3 PO; +LORA-373 PO; -LORA0.5T PO; +LUTE25CA PO; -LUTE6TAB PO; -MAGN400C2 PO; +MAGN400T2 PO; +METO25TA6 PO; -MONT10 PO; +MONT10TA4 PO; -NITR0.4S SL; +NITR400A5 SL; -OCUVTAB4 PO; -OMEP20TA39 PO; -PLAV75TA PO; +PLAV75TA29 PO; +PRESCAP5 PO; -QUIN20TA22 PO; +ROSU20 PO; -ROSU40 PO; +SELE1TAB PO; -SELE200T18 PO; -SPIR25 PO; +SPIR50TA PO; -TOPR50TA PO; +TORS100T2 PO; -TORS20 PO; -TRAM50 PO; +TRAM50TA PO; -TURM500C3 PO; -VITA-13 PO
--- NOTE | 2016-11-05 10:10 | PD ---
HPI Chief Complaint: General Weakness Time Seen by Provider: 10:04 Travel History International Travel<30 days: No Contact w/Intl Traveler<30days: No Traveled to known affect area: No History of Present Illness HPI Patient is an 80-year-old female presents emergency department after her legs give out today and she lowered herself down to the ground. Patient states been feeling weak for the past week. She also relates a history that she inadvertently tripled up on her water pills last week for chronic lymphedema. She denies any chest pain shortness breath abdominal pain. States she just feels somewhat weak currently and wanted to be seen for. Denies any muscle aches denies working out in the heat. PFSH Past Medical History Hx Anticoagulant Therapy: Yes Arthritis: Yes (idiopathic skeletal hyperostosis/ osteoarthris) Asthma: No Anxiety: Yes Depression: Yes (pt states "on and off sometimes" ) Cancer: Yes (SKIN CANCER TO SCALP) Cardiovascular Problems: Yes High Cholesterol: Yes Chemotherapy: No Chest Pain: No COPD: Yes Diabetes: Yes Patient Takes Glucophage: Yes Diminished Hearing: No Endocrine: No Gastrointestinal Disorders: Yes (GERD; FRAGA'S ESOPHAGITIS; DIVERTICULOSIS; HX H PYLORI) Genitourinary: No Hepatitis: No Hiatal Hernia: Yes (SCHATZIKIS RING) Hypertension: Yes Immune Disorder: No Implanted Vascular Access Dvce: No Medical other: Yes (HX STOMACH ULCER;COPD) Musculoskeletal: Yes Neurologic: No Psychiatric: Yes Reproductive: No Respiratory: Yes Radiation Therapy: No Sleep Apnea: Yes Thyroid Disease: Yes Ulcer: Yes Tetanus Vaccination: < 5 Years ?: Not Menopausal: Yes Dilation and Curettage (D&C): Yes Past Surgical History Abdominal Surgery: No AICD: No Body Medical Devices: CARDIAC STENTS X 3; STERNAL WIRE; TOE PINS RIGHT FOOT, RIGHT ACHIL PIN Cardiac Surgery: No Coronary Stent: Yes (x3 OM, LAD, L MAIN) Ear Surgery: No Endocrine Surgery: No Eye Surgery: Yes Genitourinary Surgery: Yes Gynecologic Surgery: Yes Hysterectomy: Yes Joint Replacement: Yes (BILAT KNEES; PINS LEFT HEEL /ANKLE) Neurologic Surgery: No Oral Surgery: No Pacemaker: No Thoracic Surgery: No Other Surgery: Yes (MULTIPLE COLONOSCOPIES AND ENDOSOPIES) Social History Alcohol Use: No Tobacco Use: No Substance Use: No Allergies-Medications (Allergen,Severity, Reaction): Coded Allergies: Adhesives (Verified Allergy, Severe, steri strips causes severe skin irritation, 11/05/16) Cleocin (Verified Allergy, Severe, THRUSH, 11/05/16) ORAL THRUSH Keflex (Verified Allergy, Severe, 11/05/16) FULL BODY RASH Verapamil (Verified Allergy, Severe, SWELLING, 11/05/16) SEVERE EDEMA IN LEGS Amlodipine (Verified Allergy, Intermediate, GENERALIZED EDEMA, 11/05/16) Nonsteroidal Anti-Inflammatory Agts (Verified Allergy, Intermediate, GI , 11/05/16) Norvasc (Verified Allergy, Intermediate, EDEMA, 11/05/16) Cymbalta (Verified Allergy, Unknown, 11/05/16) Dolobid (Verified Allergy, Unknown, 11/05/16) Lexapro (Verified Allergy, Unknown, 11/05/16) Lipitor (Verified Allergy, Unknown, 11/05/16) Naprosyn (Verified Allergy, Unknown, 11/05/16) Prozac (Verified Allergy, Unknown, 11/05/16) Voltaren (Verified Allergy, Unknown, 11/05/16) Xarelto (Verified Allergy, Unknown, 11/05/16) rectal bleeding Zetia (Verified Allergy, Unknown, 11/05/16) Zocor (Verified Allergy, Unknown, 11/05/16) Uncoded Allergies: vytorin (Allergy, Unknown, 10/07/15) Reported Meds & Prescriptions Reported Meds & Active Scripts Active Metoprolol Succinate ER 24 HR (Metoprolol Succinate) 25 Mg Tab 25 Mg PO DAILY 30 Days Reported Ventolin Hfa 18 GM Inh (Albuterol Sulfate) 90 Mcg/Act Aer 2 Puff INH BID Hair Skin & Nails (Biotin W/ Vitamins C & E) 1,250-7.5-7.5 Mcg-Mg-Unit Chew 1 Chew CHEW DAILY Estroven + Energy Maximum ([facility] [place] Natural Products) 1 Tab Tab 1 Tab PO DAILY Vitamin D-3 (Cholecalciferol) 2,000 Unit Tab 2,000 Units PO BID Chromium Picolinate 1,000 Mcg Tab 1,000 Mcg PO DAILY Plavix (Clopidogrel Bisulfate) 75 Mg Tab 75 Mg PO DAILY Co Q 10 (Coenzyme Q10 (Ubidecarenone)) 100 Mg Cap 100 Mg PO DAILY Cranberry (Cranberry (Vaccinium Macrocarpon)) 500 Mg Cap 500 Mg PO HS Eliquis (Apixaban) 5 Mg Tab 5 Mg PO BID Isosorbide Mononitrate ER (Isosorbide Mononitrate) 60 Mg Tab 180 Mg PO DAILY Levothyroxine (Levothyroxine Sodium) 100 Mcg Tab 100 Mcg PO DAILY Lorazepam 0.5 Mg Tab 0.5 Mg PO DAILY PRN Lutein-Zeaxanthin Unknown Strength Cap Unknown Dose PO DAILY Montelukast (Montelukast Sodium) 10 Mg Tab 10 Mg PO HS Nitroglycerin Lingual [place] (Nitroglycerin) 400 Mcg/Act Jerome 1 Jerome SL DIRECTED PRN ONE SPRAY NEEDED FOR CHEST PAIN, MAY REPEAT EVERY FIVE MINUTES FOR A TOTAL OF 3 DOSES OR CALL 911 IF NO RELIEF Requip (Ropinirole) 1 Mg Tab 1 Mg PO BID Crestor (Rosuvastatin Calcium) 20 Mg Tab 20 Mg PO HS Spironolactone 50 Mg Tab 50 Mg PO DAILY Spiriva Handihaler (Tiotropium Inh) 18 Mcg Cap 18 Mcg INH DAILY 1 capsule = 18 mcg Torsemide 100 Mg Tab 50 Mg PO BID Amiodarone (Amiodarone HCl) 200 Mg Tab 200 Mg PO DAILY Review of Systems Except as stated in HPI: all other systems reviewed are Neg Physical Exam Narrative GENERAL: Well-developed morbidly obese in no obvious distress. SKIN: Focused skin assessment warm/dry. HEAD: Atraumatic. Normocephalic. EYES: Pupils equal and round. No scleral icterus. No injection or drainage. ENT: No nasal bleeding or discharge. Mucous membranes pink and moist. NECK: Trachea midline. No JVD. CARDIOVASCULAR: Regular rate and rhythm. No murmur appreciated. RESPIRATORY: No accessory muscle use. Clear to auscultation. Breath sounds equal bilaterally. GASTROINTESTINAL: Abdomen soft, non-tender, nondistended. Hepatic and splenic margins not palpable. MUSCULOSKELETAL: No obvious deformities. No clubbing. No cyanosis. Pitting edema bilateral lower extremities which patient states chronic. NEUROLOGICAL: Awake and alert. No obvious cranial nerve deficits. Motor grossly within normal limits. Normal speech. PSYCHIATRIC: Appropriate mood and affect; insight and judgment normal. Data Data Last Documented VS Vital Signs Date Time Temp Pulse Resp B/P Pulse Ox O2 Delivery O2 Flow Rate FiO2 11/05/16 10:13 92 Room Air 11/05/16 09:49 97.9 80 97/46 Orders Electrocardiogram (11/05/16 10:04) Ckmb (Isoenzyme) Profile (11/05/16 10:04) Complete Blood Count With Diff (11/05/16 10:04) Comprehensive Metabolic Panel (11/05/16 10:04) Magnesium (Mg) (11/05/16 10:04) Prothrombin Time / Inr (Pt) (11/05/16 10:04) Act Partial Throm Time (Ptt) (11/05/16 10:04) Troponin I (11/05/16 10:04) Chest, Single Ap (11/05/16 10:04) Ecg Monitoring (11/05/16 10:04) Iv Access Insert/Monitor (11/05/16 10:04) Oximetry (11/05/16 10:04) Oxygen Administration (11/05/16 10:04) Sodium Chloride 0.9% Flush (Ns Flush) (11/05/16 10:15) Knee, Complete (4vws) (11/05/16 ) CKMB (11/05/16 10:10) CKMB% (11/05/16 10:10) Sodium Chlorid 0.9% 500 Ml Inj (Ns 500 M (11/05/16 11:45) Admit Order (Ed Use Only) (11/05/16 ) Labs Laboratory Tests Test 11/05/16 10:10 White Blood Count 11.1 TH/MM3 Red Blood Count 4.02 MIL/MM3 Hemoglobin 12.3 GM/DL Hematocrit 36.5 % Mean Corpuscular Volume 90.7 FL Mean Corpuscular Hemoglobin 30.7 PG Mean Corpuscular Hemoglobin 33.8 % Concent Red Cell Distribution Width 14.2 % Platelet Count 237 TH/MM3 Mean Platelet Volume 9.3 FL Neutrophils (%) (Auto) 78.9 % Lymphocytes (%) (Auto) 14.1 % Monocytes (%) (Auto) 6.0 % Eosinophils (%) (Auto) 0.7 % Basophils (%) (Auto) 0.3 % Neutrophils # (Auto) 8.8 TH/MM3 Lymphocytes # (Auto) 1.6 TH/MM3 Monocytes # (Auto) 0.7 TH/MM3 Eosinophils # (Auto) 0.1 TH/MM3 Basophils # (Auto) 0.0 TH/MM3 CBC Comment AUTO DIFF Differential Total Cells 100 Counted Neutrophils % (Manual) 70 % Band Neutrophils % 1 % Lymphocytes % 20 % Monocytes % 5 % Basophils % 1 % Neutrophils # (Manual) 8.2 TH/MM3 Metamyelocytes 3 % Differential Comment FINAL DIFF MANUAL Platelet Estimate NORMAL Platelet Morphology Comment NORMAL Red Cell Morphology Comment NORMAL Prothrombin Time 13.4 SEC Prothromb Time International 1.2 RATIO Ratio Activated Partial 34.8 SEC Thromboplast Time Sodium Level 125 MEQ/L Potassium Level 4.5 MEQ/L Chloride Level 81 MEQ/L Carbon Dioxide Level 21.1 MEQ/L Anion Gap 23 MEQ/L Blood Urea Nitrogen 111 MG/DL Creatinine 8.73 MG/DL Estimat Glomerular Filtration 4 ML/MIN Rate Random Glucose 104 MG/DL Calcium Level 8.1 MG/DL Magnesium Level 2.2 MG/DL Total Bilirubin 0.7 MG/DL Aspartate Amino Transf 95 U/L (AST/SGOT) Alanine Aminotransferase 97 U/L (ALT/SGPT) Alkaline Phosphatase 180 U/L Total Creatine Kinase 1298 U/L Creatine Kinase MB 29.6 NG/ML Creatine Kinase MB % 2.3 % Troponin I 0.14 NG/ML Total Protein 6.7 GM/DL Albumin 2.6 GM/DL MDM Medical Decision Making Medical Screen Exam Complete: Yes Emergency Medical Condition: Yes Differential Diagnosis Dehydration, ACS, AMI, electro-light abnormality, rhabdomyolysis. Narrative Course Patient was roomed emergency department, initial EKG negative, the patient's CK significant elevated and she has an acute kidney injury creatinine in excess of 8. Quite well other than her obesity, she is cleared need for admission to the hospital at this time, she was discussed with the hospitalist on-call who is agreeable. We'll be consult to nephrology. Diagnosis Primary Impression: Acute kidney failure Additional Impressions: Rhabdomyolysis Uremia Admitting Information Admitting Physician Requests: Admit Condition: Stable Marcio De Leon MD Nov 05, 2016 10:09
[2016-11-05] MEDS ORDERED: SODIUM CHLORIDE 0.9% FLUSH 10 ML FLUSH IVF PRN (10:15)
[2016-11-05 10:27] LABS: AUTOMATED NEUTROPHIL # 8.8 TH/MM3 (1.8-7.7); BASOPHIL % 0.3 % (0.0-2.0); EOSINOPHIL # 0.1 TH/MM3 (0-0.4); EOSINOPHIL % 0.7 % (0.0-4.0); HEMATOCRIT 36.5 % (35.0-46.0); HEMO FLAGS AUTO DIFF; LYMPH % 14.1 % (9.0-44.0); LYMPHOCYTE # 1.6 TH/MM3 (1.0-4.8); MEAN CELL VOLUME 90.7 FL (80.0-100.0); MEAN CORPUSCULAR HEMOGLOBIN 30.7 PG (27.0-34.0); MEAN CORPUSCULAR HGB CONC 33.8 % (32.0-36.0); NEUT % 78.9 % (16.0-70.0); PLATELET COUNT 237 TH/MM3 (150-450); RED BLOOD COUNT 4.02 MIL/MM3 (4.00-5.30); RED CELL DISTRIBUTION WIDTH 14.2 % (11.6-17.2); WHITE BLOOD COUNT 11.1 TH/MM3 (4.0-11.0)
[2016-11-05 10:33] LABS: APTT (PATIENT) 34.8 SEC (24.3-30.1); INTERNATIONAL NORMALIZED RATIO 1.2 RATIO; PROTHROMBIN TIME - PATIENT 13.4 SEC (9.8-11.6)
[2016-11-05 10:56] LABS: ALKALINE PHOSPHATASE 180 U/L (45-117); ALT (GPT) 97 U/L (10-53); ANION GAP 23 MEQ/L (5-15); AST (GOT) 95 U/L (15-37); BICARBONATE 21.1 MEQ/L (21.0-32.0); BLOOD UREA NITROGEN 111 MG/DL (7-18); CHLORIDE 81 MEQ/L (98-107); CREATINE KINASE 1298 U/L (26-192); GLOMERULAR FILTRATION RATE 4 ML/MIN (>89); MAGNESIUM 2.2 MG/DL (1.5-2.5); SODIUM (NA) 125 MEQ/L (136-145); TOTAL BILIRUBIN ADULT 0.7 MG/DL (0.2-1.0)
[2016-11-05 10:57] LABS: POTASSIUM 4.5 MEQ/L (3.5-5.1)
[2016-11-05 11:10] LABS: CKMB 29.6 NG/ML (0.5-3.6)
[2016-11-05 11:21] LABS: BANDS 1 % (0-6); BASOPHILS 1 % (0-2); METAMYELOCYTES 3 % (0-1); NEUTROPHIL # MANUAL DIFF 8.2 TH/MM3 (1.8-7.7); POLYS (SEG NEUTROPHILS) 70 % (16-70); WBC DIFF SAMPLE 100
[2016-11-05 11:22] LABS: PLATELET ESTIMATE SMEAR NORMAL (NORMAL); PLATELET MORPHOLOGY NORMAL (NORMAL); SCAN/DIFF FINAL DIFF MANUAL
--- NOTE | 2016-11-05 11:27 | RADRPT ---
EXAM DATE/TIME: 11/05/2016 11:01 [facility] COMPARISON: CHEST SINGLE AP, November 05, 2016, 10:57. INDICATIONS : Weakness and fall - right knee pain. MEDICAL HISTORY : None. SURGICAL HISTORY : Total knee replacement, right. ENCOUNTER: Initial ACUITY: 1 day PAIN SCORE: 5/10 LOCATION: Right knee FINDINGS: The patient is post right knee arthroplasty. The orthopedic hardware is well-positioned. There is no evidence of acute fracture. There is swelling of the prepatellar fat. CONCLUSION: Post surgical changes. No acute fracture is identified. Sylvester Seaman MD on November 05, 2016 at 11:24 Board Certified Radiologist. This report was verified electronically.
--- NOTE | 2016-11-05 11:42 | RADRPT ---
EXAM DATE/TIME: 11/05/2016 10:57 [facility] COMPARISON: CHEST SINGLE AP, October 06, 2015, 21:00. INDICATIONS : Fall - chest pain. MEDICAL HISTORY : None. SURGICAL HISTORY : None. ENCOUNTER: Initial ACUITY: 1 day PAIN SCORE: 10 LOCATION: Bilateral chest FINDINGS: A single portable frontal view of the chest shows mild cardiomegaly. Pulmonary vascular engorgement o bserved. No infiltrate or effusion. Median sternotomy wires. Anchoring device overlies the right liset ral neck. CONCLUSION: Cardiomegaly with pulmonary vascular engorgement. No pulmonary edema appreciated. Kevin Sinclair Jr., MD on November 05, 2016 at 11:32 Board Certified Radiologist. This report was verified electronically.
[2016-11-05] MEDS ORDERED: SODIUM CHLORID 0.9% 500 ML INJ 500 ML IV ONE (11:45)
--- NOTE | 2016-11-05 13:05 | HHI.HP ---
[facility] Service [place] Primary Care Physician Ruba Jesus DO Admission Diagnosis Rhabdomyolysis, Acute Kidney Injury. Diagnoses: Chief Complaint: weakness, fall Travel History International Travel<30 Days: No Contact w/Intl Traveler <30 Da: No Traveled to Known Affected Are: No History of Present Illness Written by Ashley Page, acting as scribe for Dr. Estrada on 11/05/16 at 13: 20. 80-year-old female with history of CKD stage III, CAD s/p CABG, COPD, anxiety, CASSIE, Obesity, Diet-controlled diabetes, Hypertension, Hyperlipidemia presents with a 2 week history of bilateral leg weakness. The patient reports she has become more fatigued and weak in the legs over the past 2 weeks. She normally is able to ambulate well with a walker. This morning the patient was trying to ambulate from the bathroom and her legs became weak and she fell to the floor. She was not able to get herself off the floor. She denies loss of consciousness or hitting her head. She reports last week a similar episode occurred however not this bad and she was able to get up. The patient also reports 1 week ago she had a fever of 103 and cough/congestion. She was placed on Robitussin with codeine and azithromycin, and her symptoms have resolved. The patient reports lately she has been more confused and has accidently been taking torsemide 150mg and spironolactone 100mg. She states last week her PCP told her to discontinue her statin however she forgot to discontinue and has still been taking this. The patient states she previously urinates normally however over the past week she has had very minimal urine output. She reports decreased oral intake recently. Denies any recent vomiting or diarrhea. She follows with refrigerating oiler Dr. Singer and Joellen LAROSE. Of note, the patient reports sacral wound that is being followed by wound care as outpatient. Past Family Social History Past Medical History Atrial fibrillation CHF CKD stage III CAD s/p CABG COPD anxiety CASSIE Obesity Diet-controlled diabetes Hypertension Hyperlipidemia Past Surgical History Heart catheterization with stent placement Bilateral knee replacement Hysterectomy Multiple upper and lower endoscopy Rotator cuff surgery Left foot reconstruction, 5 foot surgeries total Reported Medications Reported Meds & Active Scripts Active Metoprolol Succinate ER 24 HR (Metoprolol Succinate) 25 Mg Tab 25 Mg PO DAILY 30 Days Reported Ventolin Hfa 18 GM Inh (Albuterol Sulfate) 90 Mcg/Act Aer 2 Puff INH BID Hair Skin & Nails (Biotin W/ Vitamins C & E) 1,250-7.5-7.5 Mcg-Mg-Unit Chew 1 Chew CHEW DAILY Estroven + Energy Maximum ([employer] Natural Products) 1 Tab Tab 1 Tab PO DAILY Vitamin D-3 (Cholecalciferol) 2,000 Unit Tab 2,000 Units PO BID Chromium Picolinate 1,000 Mcg Tab 1,000 Mcg PO DAILY Plavix (Clopidogrel Bisulfate) 75 Mg Tab 75 Mg PO DAILY Co Q 10 (Coenzyme Q10 (Ubidecarenone)) 100 Mg Cap 100 Mg PO DAILY Cranberry (Cranberry (Vaccinium Macrocarpon)) 500 Mg Cap 500 Mg PO HS Eliquis (Apixaban) 5 Mg Tab 5 Mg PO BID Isosorbide Mononitrate ER (Isosorbide Mononitrate) 60 Mg Tab 180 Mg PO DAILY Levothyroxine (Levothyroxine Sodium) 100 Mcg Tab 100 Mcg PO DAILY Lorazepam 0.5 Mg Tab 0.5 Mg PO DAILY PRN Lutein-Zeaxanthin Unknown Strength Cap Unknown Dose PO DAILY Montelukast (Montelukast Sodium) 10 Mg Tab 10 Mg PO HS Nitroglycerin Lingual [place] (Nitroglycerin) 400 Mcg/Act [place] 1 [place] SL DIRECTED PRN ONE SPRAY NEEDED FOR CHEST PAIN, MAY REPEAT EVERY FIVE MINUTES FOR A TOTAL OF 3 DOSES OR CALL 911 IF NO RELIEF Requip (Ropinirole) 1 Mg Tab 1 Mg PO BID Crestor (Rosuvastatin Calcium) 20 Mg Tab 20 Mg PO HS Spironolactone 50 Mg Tab 50 Mg PO DAILY Spiriva Handihaler (Tiotropium Inh) 18 Mcg Cap 18 Mcg INH DAILY 1 capsule = 18 mcg Torsemide 100 Mg Tab 50 Mg PO BID Amiodarone (Amiodarone HCl) 200 Mg Tab 200 Mg PO DAILY Allergies: Coded Allergies: Adhesives (Verified Allergy, Severe, steri strips causes severe skin irritation, 11/05/16) Cleocin (Verified Allergy, Severe, THRUSH, 11/05/16) ORAL THRUSH Keflex (Verified Allergy, Severe, 11/05/16) FULL BODY RASH Verapamil (Verified Allergy, Severe, SWELLING, 11/05/16) SEVERE EDEMA IN LEGS Amlodipine (Verified Allergy, Intermediate, GENERALIZED EDEMA, 11/05/16) Nonsteroidal Anti-Inflammatory Agts (Verified Allergy, Intermediate, GI , 11/05/16) Norvasc (Verified Allergy, Intermediate, EDEMA, 11/05/16) Cymbalta (Verified Allergy, Unknown, 11/05/16) Dolobid (Verified Allergy, Unknown, 11/05/16) Lexapro (Verified Allergy, Unknown, 11/05/16) Lipitor (Verified Allergy, Unknown, 11/05/16) Naprosyn (Verified Allergy, Unknown, 11/05/16) Prozac (Verified Allergy, Unknown, 11/05/16) Voltaren (Verified Allergy, Unknown, 11/05/16) Xarelto (Verified Allergy, Unknown, 11/05/16) rectal bleeding Zetia (Verified Allergy, Unknown, 11/05/16) Zocor (Verified Allergy, Unknown, 11/05/16) Uncoded Allergies: vytorin (Allergy, Unknown, 10/07/15) Active Ordered Medications Current Medications Medications (Trade) Dose Ordered Sig/Lee Route Start Time Stop Time Status Last Admin (NS Flush) 2 ml UNSCH PRN IVF 11/05/16 10:15 Family History Mother age 89, with vascular dementia, atrial fibrillation, hypertension, diabetes Father age 52, unknown cancer, possibly lung or prostate Social History Smoked tobacco 4PPD for 22years from age 14 to age 36 Denies alcohol, tobacco, or illicit drug use Lives in independent living facility at [place] Physical Exam Vital Signs Vital Signs Date Time Temp Pulse Resp B/P Pulse Ox O2 Delivery O2 Flow Rate FiO2 11/05/16 10:13 92 Room Air 11/05/16 10:13 92 Room Air 11/05/16 09:49 97.9 80 97/46 92 Laboratory Laboratory Tests Test 11/05/16 10:10 White Blood Count 11.1 Red Blood Count 4.02 Hemoglobin 12.3 Hematocrit 36.5 Mean Corpuscular Volume 90.7 Mean Corpuscular Hemoglobin 30.7 Mean Corpuscular Hemoglobin 33.8 Concent Red Cell Distribution Width 14.2 Platelet Count 237 Mean Platelet Volume 9.3 Neutrophils (%) (Auto) 78.9 Lymphocytes (%) (Auto) 14.1 Monocytes (%) (Auto) 6.0 Eosinophils (%) (Auto) 0.7 Basophils (%) (Auto) 0.3 Neutrophils # (Auto) 8.8 Lymphocytes # (Auto) 1.6 Monocytes # (Auto) 0.7 Eosinophils # (Auto) 0.1 Basophils # (Auto) 0.0 CBC Comment AUTO DIFF Differential Total Cells 100 Counted Neutrophils % (Manual) 70 Band Neutrophils % 1 Lymphocytes % 20 Monocytes % 5 Basophils % 1 Neutrophils # (Manual) 8.2 Metamyelocytes 3 Differential Comment FINAL DIFF MANUAL Platelet Estimate NORMAL Platelet Morphology Comment NORMAL Red Cell Morphology Comment NORMAL Prothrombin Time 13.4 Prothromb Time International 1.2 Ratio Activated Partial 34.8 Thromboplast Time Sodium Level 125 Potassium Level 4.5 Chloride Level 81 Carbon Dioxide Level 21.1 Anion Gap 23 Blood Urea Nitrogen 111 Creatinine 8.73 Estimat Glomerular Filtration 4 Rate Random Glucose 104 Calcium Level 8.1 Magnesium Level 2.2 Total Bilirubin 0.7 Aspartate Amino Transf 95 (AST/SGOT) Alanine Aminotransferase 97 (ALT/SGPT) Alkaline Phosphatase 180 Total Creatine Kinase 1298 Creatine Kinase MB 29.6 Creatine Kinase MB % 2.3 Troponin I 0.14 Total Protein 6.7 Albumin 2.6 Result Diagram: 11/05/16 1010 11/05/16 1010 Physician Certification Order for Inpatient Services The services are ordered in accordance with Medicare regulations or non- Medicare payer requirements, as applicable. In the case of services not specified as inpatient-only, they are appropriately provided as inpatient services in accordance with the 2-midnight benchmark. days is the estimated time the patient will need to remain in the hospital, assuming treatment plan goals are met and no additional complications. Ashley Page PA-C Nov 05, 2016 1:05 pm Result Diagram: 11/05/16 1010 11/05/16 1010 Assessment and Plan Assessment and Plan Acute Renal Failure Moderate Rhabdomyolysis Hyponatremia Elevated Troponin Code Status Full Code Physician Certification Order for Inpatient Services The services are ordered in accordance with Medicare regulations or non- Medicare payer requirements, as applicable. In the case of services not specified as inpatient-only, they are appropriately provided as inpatient services in accordance with the 2-midnight benchmark. days is the estimated time the patient will need to remain in the hospital, assuming treatment plan goals are met and no additional complications. Ashley Page PA-C Nov 05, 2016 1:05 pm
[2016-11-05] MEDS ORDERED: SODIUM CHLORIDE 0.9% FLUSH 10 ML FLUSH IV FLUSH PRN (13:15)
[2016-11-05] MEDS ORDERED: NALOXONE HCL 0.4 MG/ML AMP IV PRN (13:15)
[2016-11-05] MEDS ORDERED: LORazepam 0.5 MG TAB PO PRN (13:15)
[2016-11-05] MEDS ORDERED: SODIUM CHLOR 0.9% 1000 ML INJ 1,000 ML IV SCH (14:00)
--- NOTE | 2016-11-05 16:07 | PD.CONS ---
[facility] Service Nephrology Consult Requested By Reason for Consult Acute Renal failure on CKD Primary Care Physician Ruba Jesus, DO History of Present Illness This is an 80 y/o female who came for evaluation of progressive generalized weakness. She was feeling her usual self until approximately 2 weeks ago. At that time she reports URI symptoms including a cough, fever/chills and her PCP prescribed a 5 day course of Zithromax, which finished a few days ago. During that time she had increased confusion and made some medication errors. PMH of A fib (on Eliquis), HTN, CASSIE on CPAP, hyperlipidemia, CAD with hx of stents, and CHF. She is maintained on high doses of torsemide and Spironolactone twice daily. For several days she was taking them three times per day. She was also advised to avoid statin while taking a Z-pack for which she forgot and began to take it again. For the past few days the patient has had weakness, nausea, decreased appetite/anorexia with minimal oral intake, and her urine output had slowed considerably. On arrival she is borderline hypotensive (90s/40s) with multiple lab abnormalities. Creatinine is 8.73, BUN 111, GFR 4, Na 125, CK 1298 , troponin 0.14. Her potassium is normal at 4.5. A stark catheter was placed and she is making urine. There is no evidence of fluid overload. Looking through her records, she was admitted in April and we had seen her for MERCEDEZ in the setting of cellulitis where it was thought antibiotics may have induced renal injury at that time. In August we saw her in outpatient setting, at that time her creatinine was 1.0, GFR 54, consistent with CKD 3. We were consulted for management. (Joellen Chacon) Review of Systems Constitutional: COMPLAINS OF: Fatigue, Change in appetite, DENIES: Weight gain Ears, nose, mouth, throat: COMPLAINS OF: Nasal discharge, Throat pain, Hoarseness Respiratory: COMPLAINS OF: Cough, Shortness of breath, DENIES: Wheezing, Sputum production Cardiovascular: DENIES: Chest pain, Palpitations, Lower Extremity Edema Neurologic: COMPLAINS OF: Localized weakness, Poor Balance, DENIES: Abnormal gait, Speech Problems (Joellen Chacon) Past Family Social History Allergies: Coded Allergies: Adhesives (Verified Allergy, Severe, steri strips causes severe skin irritation, 11/05/16) Cleocin (Verified Allergy, Severe, THRUSH, 11/05/16) ORAL THRUSH Keflex (Verified Allergy, Severe, 11/05/16) FULL BODY RASH Verapamil (Verified Allergy, Severe, SWELLING, 11/05/16) SEVERE EDEMA IN LEGS Amlodipine (Verified Allergy, Intermediate, GENERALIZED EDEMA, 11/05/16) Nonsteroidal Anti-Inflammatory Agts (Verified Allergy, Intermediate, GI , 11/05/16) Norvasc (Verified Allergy, Intermediate, EDEMA, 11/05/16) Cymbalta (Verified Allergy, Unknown, 11/05/16) Dolobid (Verified Allergy, Unknown, 11/05/16) Lexapro (Verified Allergy, Unknown, 11/05/16) Lipitor (Verified Allergy, Unknown, 11/05/16) Naprosyn (Verified Allergy, Unknown, 11/05/16) Prozac (Verified Allergy, Unknown, 11/05/16) Voltaren (Verified Allergy, Unknown, 11/05/16) Xarelto (Verified Allergy, Unknown, 11/05/16) rectal bleeding Zetia (Verified Allergy, Unknown, 11/05/16) Zocor (Verified Allergy, Unknown, 11/05/16) Uncoded Allergies: vytorin (Allergy, Unknown, 10/07/15) Past Medical History CKD 3, baseline from August creatinine 1.0, GFR 57 HTN CHF A fib on Eliquis Secondary hyperparathyroidism CAD with stents and bypass, see below CASSIE on CPAP Diet controlled DM II Obesity. COPD Past Surgical History CABG x 2, apparently failed PCI with 3 stents bladder tuck 5 foot surgeries right shoulder, rotator cuff x 2 Bilateral knee replacement with revision Hysterectomy Multiple upper and lower endoscopy Reported Medications Diflucan (Fluconazole) 100 Mg Tab 100 Mg PO DAILY 5 Days Metoprolol Succinate ER 24 HR (Metoprolol Succinate) 25 Mg Tab 25 Mg PO DAILY 30 Days Ventolin Hfa 18 GM Inh (Albuterol Sulfate) 90 Mcg/Act Aer 2 Puff INH BID Hair Skin & Nails (Biotin W/ Vitamins C & E) 1,250-7.5-7.5 Mcg-Mg-Unit Chew 1 Chew CHEW DAILY Estroven + Energy Maximum ([facility] Natural Products) 1 Tab Tab 1 Tab PO DAILY Vitamin D-3 (Cholecalciferol) 2,000 Unit Tab 2,000 Units PO BID Chromium Picolinate 1,000 Mcg Tab 1,000 Mcg PO DAILY Plavix (Clopidogrel Bisulfate) 75 Mg Tab 75 Mg PO DAILY Co Q 10 (Coenzyme Q10 (Ubidecarenone)) 100 Mg Cap 100 Mg PO DAILY Cranberry (Cranberry (Vaccinium Macrocarpon)) 500 Mg Cap 500 Mg PO HS Eliquis (Apixaban) 5 Mg Tab 5 Mg PO BID Isosorbide Mononitrate ER (Isosorbide Mononitrate) 60 Mg Tab 180 Mg PO DAILY Levothyroxine (Levothyroxine Sodium) 100 Mcg Tab 100 Mcg PO DAILY Lorazepam 0.5 Mg Tab 0.5 Mg PO DAILY PRN Lutein-Zeaxanthin Unknown Strength Cap Unknown Dose PO DAILY Magnesium Oxide 400 Mg Tab 400 Mg PO DAILY Montelukast (Montelukast Sodium) 10 Mg Tab 10 Mg PO HS Nitroglycerin Lingual [place] (Nitroglycerin) 400 Mcg/Act [place] 1 [place] SL DIRECTED PRN ONE SPRAY NEEDED FOR CHEST PAIN, MAY REPEAT EVERY FIVE MINUTES FOR A TOTAL OF 3 DOSES OR CALL 911 IF NO RELIEF Requip (Ropinirole) 1 Mg Tab 1 Mg PO BID Crestor (Rosuvastatin Calcium) 20 Mg Tab 20 Mg PO HS Selenium 200 Mcg Tab 200 Mg PO DAILY Spironolactone 50 Mg Tab 50 Mg PO DAILY Spiriva [place]hal[place] (Tiotropium Inh) 18 Mcg Cap 18 Mcg INH DAILY 1 capsule = 18 mcg Torsemide 100 Mg Tab 50 Mg PO BID Tramadol (Tramadol HCl) 50 Mg Tab 50 Mg PO TID Curcumin (Turmeric (Curcuma Longa) (Bulk) 1 Pow Pow 1,000 Mg PO DAILY Amiodarone (Amiodarone HCl) 200 Mg Tab 200 Mg PO DAILY Active Ordered Medications Current Medications Medications (Trade) Dose Ordered Sig/Lee Route Start Time Stop Time Status Last Admin (NS 1000 ml Inj) 1,000 ml @ 75 mls/hr [id number] IV 11/05/16 14:00 11/06/16 16:39 11/05/16 15:20 (Cordarone) 200 mg DAILY PO 11/06/16 09:00 (Eliquis) 2.5 mg BID PO 11/05/16 21:00 (Plavix) 75 mg DAILY PO 11/06/16 09:00 (Imdur) 180 mg DAILY PO 11/06/16 09:00 (Synthroid) 100 mcg DAILY@06 PO 11/06/16 06:00 (Ativan) 0.5 mg DAILY PRN PO 11/05/16 13:15 (Toprol Xl) 25 mg DAILY PO 11/06/16 09:00 (Singulair) 10 mg HS PO 11/05/16 21:00 (Requip) 1 mg BID PO 11/05/16 21:00 (Spiriva Inh) 18 mcg DAILY INH 11/06/16 09:00 (Vitamin D3) 2,000 units BID PO 11/05/16 21:00 (NS Flush) 2 ml UNSCH PRN IV FLUSH 11/05/16 13:15 (NS Flush) 2 ml BID IV FLUSH 11/05/16 21:00 (Tylenol) 650 mg Q4H PRN PO 11/05/16 13:15 (Tylenol) 650 mg Q6H PRN PO 11/05/16 13:15 (Narcan Inj) 0.4 mg UNSCH PRN IV 11/05/16 13:15 (Qian-Colace) 1 tab BID PO 11/05/16 21:00 Family History No hx of renal disorders Social History , lives with in independent living ambulatory with walker former smoker no ETOH full code retired (Joellen Chacon) Physical Exam Vital Signs Vital Signs Date Time Temp Pulse Resp B/P Pulse Ox O2 Delivery O2 Flow Rate FiO2 11/05/16 15:25 63 16 110/51 100 Room Air 11/05/16 14:43 97.5 62 26 97/52 96 Room Air 11/05/16 10:13 92 Room Air 11/05/16 10:13 92 Room Air 11/05/16 09:49 97.9 80 97/46 92 Physical Exam GENERAL: morbidly Obese, elderly, female, awake/alert and oriented. SKIN: Warm and dry. HEAD: Normocephalic. EYES: No scleral icterus. No injection or drainage. NECK: Supple, trachea midline. No JVD or lymphadenopathy. CARDIOVASCULAR: Regular rate and rhythm without murmurs, gallops, or rubs. Midsternal incision hx of CABG RESPIRATORY: Breath sounds equal bilaterally. No accessory muscle use. She is clearing her throat, has nasal congestion; oropharynx is dry GASTROINTESTINAL: Abdomen soft, non-tender, nondistended. MUSCULOSKELETAL: No cyanosis,Bilateral knee replacements. no lower extremity edema. BACK: Nontender without obvious deformity. No CVA tenderness. Laboratory Laboratory Tests Test 11/05/16 10:10 White Blood Count 11.1 Red Blood Count 4.02 Hemoglobin 12.3 Hematocrit 36.5 Mean Corpuscular Volume 90.7 Mean Corpuscular Hemoglobin 30.7 Mean Corpuscular Hemoglobin 33.8 Concent Red Cell Distribution Width 14.2 Platelet Count 237 Mean Platelet Volume 9.3 Neutrophils (%) (Auto) 78.9 Lymphocytes (%) (Auto) 14.1 Monocytes (%) (Auto) 6.0 Eosinophils (%) (Auto) 0.7 Basophils (%) (Auto) 0.3 Neutrophils # (Auto) 8.8 Lymphocytes # (Auto) 1.6 Monocytes # (Auto) 0.7 Eosinophils # (Auto) 0.1 Basophils # (Auto) 0.0 CBC Comment AUTO DIFF Differential Total Cells 100 Counted Neutrophils % (Manual) 70 Band Neutrophils % 1 Lymphocytes % 20 Monocytes % 5 Basophils % 1 Neutrophils # (Manual) 8.2 Metamyelocytes 3 Differential Comment FINAL DIFF MANUAL Platelet Estimate NORMAL Platelet Morphology Comment NORMAL Red Cell Morphology Comment NORMAL Prothrombin Time 13.4 Prothromb Time International 1.2 Ratio Activated Partial 34.8 Thromboplast Time Sodium Level 125 Potassium Level 4.5 Chloride Level 81 Carbon Dioxide Level 21.1 Anion Gap 23 Blood Urea Nitrogen 111 Creatinine 8.73 Estimat Glomerular Filtration 4 Rate Random Glucose 104 Calcium Level 8.1 Magnesium Level 2.2 Total Bilirubin 0.7 Aspartate Amino Transf 95 (AST/SGOT) Alanine Aminotransferase 97 (ALT/SGPT) Alkaline Phosphatase 180 Total Creatine Kinase 1298 Creatine Kinase MB 29.6 Creatine Kinase MB % 2.3 Troponin I 0.14 Total Protein 6.7 Albumin 2.6 (Joellen Chacon) Result Diagram: 11/05/16 1010 11/05/16 1010 Imaging Last 72 hours Impressions Chest X-Ray 11/05/16 1004 Signed Impressions: Service Date/Time: Saturday, November 05, 2016 10:57 - CONCLUSION: Cardiomegaly with pulmonary vascular engorgement. No pulmonary edema appreciated. Kevin Sinclair Jr., MD Knee X-Ray 11/05/16 0000 Signed Impressions: Service Date/Time: Saturday, November 05, 2016 11:01 - CONCLUSION: Post surgical changes. No acute fracture is identified. Sylvester Seaman MD (Joellen Chacon) Assessment and Plan Problem List: (1) MERCEDEZ (acute kidney injury) Plan: MERCEDEZ on CKD 3, baseline from August with creatinine 1.0, GFR 54 MERCEDEZ multifactorial, from overdiuresis and poor oral intake (from nausea associated with renal failure) leading to intravascular volume depletion also her CPK is high, possibly has rhabdomyolysis from drug interaction from statin use with Zithromax. she is also hypotensive which may have worsened renal failure May progress to ATN K is normal, she is making some urine she does not require dialysis support at this time I would hold diuretics, start IVF of 0.9% NS at 75 cc/hr check UA for infection, protein (she did not have proteinuria in the past), check urine electrolytes avoid nephrotoxic substances hold antihypertensives until needed repeat renal panel in am (2) CHF (congestive heart failure) Plan: monitor fluid status diuretics on hold (3) HTN (hypertension) Plan: monitor BP and resume medications when clinically appropriate (4) Afib Plan: rate controlled on amiodarone and Eliquis for anticoagulation (5) Diet-controlled diabetes mellitus Plan: follow glucose (Joellen Chacon) Assessment and Plan patient was seen and examined. MERCEDEZ could be pre-renal, but will also have to consider urinary retention as Stark insertion resulted in 700 ml of urine, she continues to have brisk urine output. It is unclear why she is on Spironolactone: EF was about 55%. She reports that she was taking Spironolactone several times a day due to confusion. Continue fluids. No immediate indication for dialysis. Suspend diuretics. Avoid nephrotoxins. (Ned Singer MD) Joellen Chacon Nov 05, 2016 16:07 Ned Singer MD Nov 05, 2016 20:17
--- NOTE | 2016-11-05 16:33 | HHI.PR ---
Objective Objective Results - Vital Signs Date Time Temp Pulse Resp B/P Pulse Ox O2 Delivery O2 Flow Rate FiO2 11/05/16 15:25 63 16 110/51 100 Room Air 11/05/16 14:43 97.5 62 26 97/52 96 Room Air 11/05/16 10:13 92 Room Air 11/05/16 10:13 92 Room Air 11/05/16 09:49 97.9 80 97/46 92 Result Diagram: 11/05/16 1010 11/05/16 1010 A/P Assessment and Plan [id number] Evelia Prince Nov 05, 2016 16:33
[2016-11-05] MEDS: SODIUM CHLOR 0.9% 1000 ML INJ 1,000 ML IV SCH (17:00)
--- NOTE | 2016-11-05 19:37 | EKG ---
Date Performed: 11/05/2016 Time Performed: 19:20:01 PTAGE: 80 years EKG: SINUS BRADYCARDIA WITH FIRST DEGREE AV BLOCK LEFT AXIS DEVIATION LOW QRS VOLTAGE IN PRECORD IAL LEADS PROLONGED QT INTERVAL ABNORMAL ECG PREVIOUS TRACING : 10/25/2015 17.44 Compared to previous tracing, Sinus rhythm has replaced possible ectopic atrial rhythm. DOCTOR: Howard Marr Interpretating Date/Time 11/05/2016 19:36:07
[2016-11-05] MEDS: APIXABAN 2.5 MG TABLET PO SCH (20:05)
[2016-11-05] MEDS: CHOLECALCIFEROL (VIT D3) 1000 UNIT TAB PO SCH (20:06)
[2016-11-05] MEDS: DOCUSATE SODIUM 50 MG/SENNA 8.6 MG TAB PO SCH (20:06)
[2016-11-05] MEDS: SODIUM CHLORIDE 0.9% FLUSH 10 ML FLUSH IV FLUSH SCH (20:06)
[2016-11-05] MEDS: MONTELUKAST SODIUM 10 MG TAB PO SCH (20:06)
[2016-11-05 21:58] LABS: BICARBONATE 25.7 MEQ/L (21.0-32.0); POTASSIUM 3.9 MEQ/L (3.5-5.1)
[2016-11-05 22:19] LABS: CKMB 23.5 NG/ML (0.5-3.6)
[2016-11-05] MEDS: ACETAMINOPHEN 325 MG TAB PO PRN (22:59)
--- NOTE | 2016-11-05 23:11 | RADRPT ---
EXAM DATE/TIME: 11/05/2016 21:53 [facility] COMPARISON: US KIDNEY/RENAL/BLADDER, May 22, 2016, 22:13. INDICATIONS : Increased BUN and creatine. MEDICAL HISTORY : Hypercholesterolemia. Hypertension. Chronic obstructive pulmonary disease. Thyroid disease. Emphysem a. Sleep apnea. Hernia, hiatal. Arthritis. Diabetes. SURGICAL HISTORY : Hysterectomy. Total knee replacement, left. Total knee replacement, right. Coronary artery stent. Mu ltiple colonoscopies. Multiple endoscopies. ENCOUNTER: Initial ACUITY: 1 day PAIN SCORE: 4/10 LOCATION: Bilateral flank MEASUREMENTS: RIGHT KIDNEY: 10.9 x 5.7 x 7.6 cm LEFT KIDNEY: 10.06 x 5.5 x 6.0 cm FINDINGS: RIGHT KIDNEY: Portions of the right kidney are obscured due to patient body habitus and overlying bowel gas. No monica dence hydronephrosis. Otherwise grossly unremarkable. LEFT KIDNEY: Portions of the right kidney are obscured due to patient body habitus and overlying bowel gas. No monica dence hydronephrosis. Otherwise grossly unremarkable. BLADDER: Collapse. Byers catheter in place.. CONCLUSION: Portions of the kidneys are obscured. No evidence of hydronephrosis. Tip Perez MD on November 05, 2016 at 23:08 Board Certified Radiologist. This report was verified electronically.
[2016-11-06] VITALS (8 sets, daily range): BP systolic 95–139; BP diastolic 44–91; PULSE 57–85; RESP 17–20; TEMP 96.2–97.1; O2SAT 94–99
[2016-11-06 02:30] LABS: CKMB 22.1 NG/ML (0.5-3.6)
[2016-11-06] MEDS: LEVOTHYROXINE SODIUM 100 MCG TAB PO SCH (05:55)
[2016-11-06 07:10] LABS: AUTOMATED NEUTROPHIL # 6.3 TH/MM3 (1.8-7.7); BASOPHIL % 0.2 % (0.0-2.0); EOSINOPHIL # 0.1 TH/MM3 (0-0.4); EOSINOPHIL % 1.4 % (0.0-4.0); HEMATOCRIT 34.8 % (35.0-46.0); HEMO FLAGS DIFF FINAL; LYMPH % 14.4 % (9.0-44.0); LYMPHOCYTE # 1.2 TH/MM3 (1.0-4.8); MEAN CELL VOLUME 90.7 FL (80.0-100.0); MEAN CORPUSCULAR HEMOGLOBIN 30.9 PG (27.0-34.0); PLATELET COUNT 209 TH/MM3 (150-450); RED BLOOD COUNT 3.84 MIL/MM3 (4.00-5.30); RED CELL DISTRIBUTION WIDTH 14.1 % (11.6-17.2); WHITE BLOOD COUNT 8.3 TH/MM3 (4.0-11.0)
[2016-11-06 07:44] LABS: ALKALINE PHOSPHATASE 156 U/L (45-117); ALT (GPT) 82 U/L (10-53); ANION GAP 15 MEQ/L (5-15); AST (GOT) 71 U/L (15-37); BICARBONATE 25.2 MEQ/L (21.0-32.0); BLOOD UREA NITROGEN 107 MG/DL (7-18); CHLORIDE 87 MEQ/L (98-107); CREATINE KINASE 774 U/L (26-192); GLOMERULAR FILTRATION RATE 6 ML/MIN (>89); POTASSIUM 3.5 MEQ/L (3.5-5.1); SODIUM (NA) 127 MEQ/L (136-145); TOTAL BILIRUBIN ADULT 0.5 MG/DL (0.2-1.0)
[2016-11-06 08:35] LABS: CKMB 18.5 NG/ML (0.5-3.6)
--- NOTE | 2016-11-06 08:38 | MH ---
cc: DOMINICK FALLON MD DATE OF ADMISSION 11/05/2016 DATE OF 1935 CHIEF COMPLAINT Unable to ambulate, bilateral leg weakness. HISTORY OF THE PRESENT ILLNESS This is a morbidly obese 80-year-old white female who had been in her usual state of health up until the past couple weeks. She has noticed some generalized weakness especially in her legs to the point that it has affected ambulation. Today the patient was unable to stand at home and fell onto her abdomen and was brought into the emergency room for further evaluation. She denies any loss of consciousness. No dizziness. No trauma to the head. She does have multiple comorbidities which include chronic kidney disease stage III with a creatinine that is usually around 1, morbid obesity, hypertension, hyperlipidemia, diet controlled diabetes and others. The patient also had an upper respiratory infection or bronchitis this past week. She had a fever of 103, cough and congestion and was treated with Robitussin with codeine and a Z-Chema. Her symptoms got better. Fever was controlled. The patient still has a hoarse cough, nonproductive. The patient also had a decreased appetite, decreased p.o. intake and states that she has had very minimal p.o. fluids to drink over the past couple of weeks. The patient normally urinates without difficulty but states that she has had minimal urine output over the past three days. Denies any vomiting. No diarrhea. No headache. No recent weight gain or weight loss. Her chief complaints are fatigue, muscular fatigue especially in her lower extremities, decreased appetite, decreased p.o. intake. It is noted in the record the patient has a sacral wound that has just opened with some drainage over the past few days. States that it is a serous, bloody drainage. The patient also notes some altered mental status and mild confusion over the past two weeks. She states that she cannot remember simple things and what medications she is taking. She has also noted to have been hospitalized back in April of 2016 for lymphedema and cellulitis. PAST MEDICAL HISTORY 1. Chronic obstructive pulmonary disease. 2. Coronary artery disease. 3. Chronic kidney disease stage III. 4. Congestive heart failure. 5. Atrial fibrillation. 6. Anxiety. 7. Morbid obesity. 8. Obstructive sleep apnea. 9. Garcia's esophagus. 10. Diverticulosis. 11. History of H. Pylori. 12. Schatzki's ring. 13. History of stomach ulcers. 14. Idiopathic skeletal hyperostosis and osteoarthritis. 15. Depression, labile. 16. Skin cancer to the scalp. 17. Hyperlipidemia. 18. Cardiovascular disease. 19. Hypertension. 20. Thyroid disease. PAST SURGICAL HISTORY 1. Cardiac stents times three. 2. Sternal wire. 3. ____ right foot. 4. Right Achilles pin. 5. CABG. 6. Joint replacement bilateral knees. 7. Pins in the left heel and ankle. 8. Multiple colonoscopies and endoscopies. 9. Dilation and curettage. 10. Some type of eye surgery. 11. Possibly some type of genitourinary surgery. ALLERGIES ADHESIVES, AMLODIPINE, CLEOCIN, CYMBALTA, DOLOBID, KEFLEX, LEXAPRO, LIPITOR, NAPROXEN, NONSTEROIDAL ANTI-INFLAMMATORY AGENTS, NORVASC, PROZAC, VERAPAMIL, VOLTAREN, XARELTO, ZETIA, ZOCOR. VYTORIN. MEDICATIONS Active medications: 1. Flagyl. 2. Metoprolol. 3. Ventolin. 4. Biotin with vitamin E and C. 5. Vitamin D. 6. Chromium. 7. Plavix. 8. Co-Q10. 9. Cranberry. 10. Eliquis. 11. Isosorbide. 12. Levothyroxine. 13. Ativan. 14. Lutein. 15. Magnesium. 16. Montelukast. 17. Nitroglycerine. 18. Requip. 19. Crestor. 20. Selenium. 21. Spironolactone. 22. Spiriva. 23. Lasix. 24. Tramadol. 25. Tumeric. 26. . REVIEW OF SYSTEMS Positives noted in the history of present illness which include her generalized weakness and fatigue and unable to ambulate today. Mild confusion. Mild cough. Fever over the past week. Diagnosis of bronchitis and Z-Chema given in the past week. Other systems negative or unremarkable unless listed in the history of present illness. PHYSICAL EXAMINATION VITAL SIGNS: Temperature is 97.5, pulse 62-80, respiratory rate 16-26, blood pressure 97/46 and 110/51. O2 saturation 100 currently on room air. Has been as low as 92%. GENERAL: Morbidly obese white female looks to be her stated age, resting on a stretcher. She is awake, answering most questions but does have some mild pleasant confusion. SKIN: [place] mucous membranes. Warm and dry. HEENT: Atraumatic, normocephalic. Pupils equal, round, reactive to light and accommodation at 2. Mucous membranes and tongue dry. Throat shows no exudate. No erythema. NECK: Thick. Obese. Supple. CARDIOVASCULAR: S1-S2. Rhythm is regular with no murmurs, rubs, or gallops. She does have 2+ edema in her lower extremities nonpitting. Both feet are warm to touch. LUNGS: Breath sounds are distant. Volumes are adequate with deep breath, otherwise low to normal air volumes noted. No wheezing. No rhonchi. She does have some mild diminished breath sounds in her mid to lower bases. ABDOMEN: Round, soft, obese. Nondistended. Nontender. Active bowel sounds. MUSCULOSKELETAL: Her hand signal circuit designer are equal. She does move all of her extremities but she does have generalized weakness especially in her lower extremities. No obvious deformities. NEUROLOGIC: Answers simple questions. Can give some information but does seem to be forgetful to some simple things and then will remember spontaneously. Tongue is dry, midline. Speech is clear. PSYCHOLOGIC: Appropriate mood and affect. Mild anxiety. LABORATORY DATA Diagnostic data, WBC 11.1, RBC 4.02, hemoglobin 12.3, hematocrit 36.5. Neutrophil percentage auto 78.9. PT INR 1.2. Chemistry, sodium 125, potassium 4.5, chloride 81, carbon dioxide 21. BUN 111, creatinine 8.73. Anion gap 23. GFR 4. Calcium 8.1. AST 95, ALT 97, alkaline phosphatase 180. Total creatine kinase 1298. CKMB 29.6. Troponin 0.14. Total protein 6.7. Albumin 2.6. IMAGING Show a chest x-ray to have cardiomegaly with pulmonary vascular engorgement but no pulmonary edema appreciated. Knee x-ray shows post surgical changes but no fracture identified. ASSESSMENT/PLAN 1. Acute renal failure with chronic kidney disease. 2. Rhabdomyolysis. 3. Hypertension. 4. Morbid obesity with BMI 50-59. 5. COPD with some recent acute bronchitis. 6. Obstructive sleep apnea. 7. Gastroesophageal reflux disease with Garcia's esophagus. 8. Diet controlled diabetes mellitus. 9. History of atrial fibrillation. Our plan is to admit inpatient status. We will monitor her intake and output. Byers catheter in to manage intensive ins and outs for the time being. We will draw labs and start her on IV fluids. She will be on a renal diet. Sequential compression devices and TEDs for deep venous thrombosis prophylaxis as well as peptic ulcer disease prophylaxis with Protonix. We will monitor her labs in the morning. Renal consultation has been done. We appreciate their input. Case management consultation. Reconcile medications. The patient in the emergency room received a normal saline bolus but we will keep her on IV fluids with caution and continuous monitoring for any shortness of breath. We will continue to follow. Dictated by: LACHELLE Dumont MD BRENDA Wheat/IQRA /4:19 PM /8:39 AM
[2016-11-06] MEDS: CHOLECALCIFEROL (VIT D3) 1000 UNIT TAB PO SCH ×2 (08:55→21:00)
[2016-11-06] MEDS: DOCUSATE SODIUM 50 MG/SENNA 8.6 MG TAB PO SCH ×2 (08:55→21:00)
[2016-11-06] MEDS: CLOPIDOGREL 75 MG TAB PO SCH (08:55)
[2016-11-06] MEDS: APIXABAN 2.5 MG TABLET PO SCH ×2 (08:55→21:54)
[2016-11-06] MEDS: SODIUM CHLORIDE 0.9% FLUSH 10 ML FLUSH IV FLUSH SCH ×2 (08:56→21:00)
[2016-11-06] MEDS: ISOSORBIDE MONONITRATE 60 MG TAB PO SCH ×2 (09:00→12:26)
[2016-11-06] MEDS: METOPROLOL SUCCINATE 25 MG EXTENDED RELEASE TAB PO SCH (09:00)
[2016-11-06] MEDS: TIOTROPIUM BROMIDE 18 MCG INH INH SCH (09:00)
--- NOTE | 2016-11-06 11:11 | HHI.NPPN ---
Subjective General Problems: Hypertension Renal Failure: Chronic, Acute, Stage III Interval History Sitting up in bed. On IVF. Renal function is better. (Joellen Chacon) Review of Systems General Constitutional: Fatigue (Joellen Chacon) Objective Data Data 11/05/16 11/06/16 19:00 07:00 Intake Total 1104 ml Output Total 1700 ml Balance -596 ml Intake Oral 600 ml IV Total 504 ml Output Urine Total 1700 ml Vital Signs Date Time Temp Pulse Resp B/P Pulse Ox O2 Delivery O2 Flow Rate FiO2 11/06/16 08:00 96.3 57 20 139/91 96 11/06/16 04:00 96.9 60 17 103/48 96 11/06/16 00:41 21 11/06/16 00:18 16 11/06/16 00:00 96.9 64 18 102/44 96 11/05/16 20:26 59 11/05/16 20:00 96.8 59 17 103/39 97 11/05/16 18:00 97.6 76 20 92/51 96 11/05/16 15:25 63 16 110/51 100 Room Air 11/05/16 14:43 97.5 62 26 97/52 96 Room Air (Joellen Chacon) -: 11/06/16 0646 11/06/16 0646 Imaging Last 72 hours Impressions Chest X-Ray 11/05/16 1004 Signed Impressions: Service Date/Time: Saturday, November 05, 2016 10:57 - CONCLUSION: Cardiomegaly with pulmonary vascular engorgement. No pulmonary edema appreciated. Kevin Sinclair Jr., MD Renal Ultrasound 11/05/16 0000 Signed Impressions: Service Date/Time: Saturday, November 05, 2016 21:53 - CONCLUSION: Portions of the kidneys are obscured. No evidence of hydronephrosis. Tip Perez MD Knee X-Ray 11/05/16 0000 Signed Impressions: Service Date/Time: Saturday, November 05, 2016 11:01 - CONCLUSION: Post surgical changes. No acute fracture is identified. Sylvester Seaman MD (Joellen Chacon) Physical Exam General Appearance: Well Developed, Well Nourished, Comfortable, Obese (Joellen Chacon) Throat Throat Exam: Oral Mucosa [place] & Moist (Joellen Chacon) Pulmonary Resp Exam: Clear Bilaterally, Breath Sounds Equal (Joellen Chacon) Cardiology CV Exam: Regular, Normal Sinus Rhythm, Good Perfusion (Joellen Chacon) Gastrointestinal/Abdomen GI Exam: Soft, Non-Tender, Bowel Sounds Present, Positive Bowel Movement ( Joellen Chacon) Musculoskeletal MS Exam: Joints Intact, Normal Tone, Good Strength (Joellen Chacon) Integumentary Skin Exam: Clear, Warm, Dry, Intact (Joellen Chacon) Extremeties Extremities Exam: Pedal Pulses Palpable, Trace Edema (Joellen Chacon) Neurologic Neuro Exam: Alert, Awake, Oriented, Speech Clear, Moving All Extremities ( Joellen Chacon) Psychiatric Psych Exam: Appropriate Responses (Joellen Chacon) VTE Prophylaxis Device: SCDs (Joellen Chacon) Assessment/Plan Discussed Condition With: Patient Assessment Summary: MERCEDEZ/Acute Renal Failure, CHF, Hypertension Electrolyte Assessment: Hyponatremia Problem List: (1) MERCEDEZ (acute kidney injury) Plan: MERCEDEZ on CKD 3, baseline from August with creatinine 1.0, GFR 54 renal function is better MERCEDEZ multifactorial: from overdiuresis, and she may have had urinary retention component; May have progressed to ATN also her CPK was high, possibly has rhabdomyolysis from drug interaction from statin use with Zithromax. she is non oliguric continue IVF awaiting urinalysis to look for protein and infection avoid nephrotoxic substances repeat renal panel in am (2) CHF (congestive heart failure) Plan: monitor fluid status her EF was 55% and therefore Spironolactone is not indicated, advised to stop this medication torsemide on hold (3) HTN (hypertension) Plan: home medications were resumed diuretics on hold (4) Afib Plan: in NSR this admission on amiodarone and Eliquis for anticoagulation (5) Diet-controlled diabetes mellitus Plan: follow blood sugar, not in insulin therapy (Joellen Chacon) Plan patient was seen and examined. Renal function has improved. She may not need large doses of diuretics. (Ned Singer MD) Joellen Chacon [facility] Nov 06, 2016 11:11 Ned Singer MD Nov 07, 2016 14:10
[2016-11-06] MEDS: AMIODARONE 200 MG TAB PO SCH (11:15)
[2016-11-06] MEDS: SODIUM CHLOR 0.9% 1000 ML INJ 1,000 ML IV SCH (16:49)
--- NOTE | 2016-11-06 18:06 | HHI.PR ---
Subjective Interval History Sleepy, arousable, feels better, pain much improved, she told the nurse that she gets chest tightness unless she uses her indoor however her blood pressure was relatively low Review of Systems Constitutional Constitutional Remarks 10 systems reviewed and otherwise negative Vitals/Results Intake & Output 11/05/16 11/05/16 11/06/16 15:00 23:00 07:00 Intake Total 1104 ml Output Total 700 ml 1000 ml Balance -700 ml 104 ml Intake Oral 600 ml IV Total 504 ml Output Urine Total 700 ml 1000 ml Vital Signs Vital Signs Date Time Temp Pulse Resp B/P Pulse Ox O2 Delivery O2 Flow Rate FiO2 11/06/16 16:00 96.8 64 20 112/50 99 11/06/16 12:00 96.2 85 20 117/66 94 11/06/16 11:58 98/58 11/06/16 08:00 96.3 57 20 139/91 96 11/06/16 04:00 96.9 60 17 103/48 96 11/06/16 00:41 21 11/06/16 00:18 16 11/06/16 00:00 96.9 64 18 102/44 96 11/05/16 20:26 59 11/05/16 20:00 96.8 59 17 103/39 97 CBC/BMP: 11/06/16 0646 11/06/16 0646 Lab Results Laboratory Tests Test 11/05/16 11/06/16 11/06/16 20:45 01:37 06:46 Sodium Level 126 MEQ/L 127 MEQ/L Potassium Level 3.9 MEQ/L 3.5 MEQ/L Chloride Level 85 MEQ/L 87 MEQ/L Carbon Dioxide Level 25.7 MEQ/L 25.2 MEQ/L Anion Gap 15 MEQ/L 15 MEQ/L Blood Urea Nitrogen 116 MG/DL 107 MG/DL Creatinine 7.61 MG/DL 6.25 MG/DL Estimat Glomerular Filtration 5 ML/MIN 6 ML/MIN Rate Random Glucose 95 MG/DL 106 MG/DL Calcium Level 7.6 MG/DL 7.6 MG/DL Total Creatine Kinase 1039 U/L 906 U/L 774 U/L Creatine Kinase MB 23.5 NG/ML 22.1 NG/ML 18.5 NG/ML Creatine Kinase MB % 2.3 % 2.4 % 2.4 % Troponin I 0.33 NG/ML 0.25 NG/ML 0.25 NG/ML White Blood Count 8.3 TH/MM3 Red Blood Count 3.84 MIL/MM3 Hemoglobin 11.9 GM/DL Hematocrit 34.8 % Mean Corpuscular Volume 90.7 FL Mean Corpuscular Hemoglobin 30.9 PG Mean Corpuscular Hemoglobin 34.0 % Concent Red Cell Distribution Width 14.1 % Platelet Count 209 TH/MM3 Mean Platelet Volume 9.0 FL Neutrophils (%) (Auto) 76.0 % Lymphocytes (%) (Auto) 14.4 % Monocytes (%) (Auto) 8.0 % Eosinophils (%) (Auto) 1.4 % Basophils (%) (Auto) 0.2 % Neutrophils # (Auto) 6.3 TH/MM3 Lymphocytes # (Auto) 1.2 TH/MM3 Monocytes # (Auto) 0.7 TH/MM3 Eosinophils # (Auto) 0.1 TH/MM3 Basophils # (Auto) 0.0 TH/MM3 CBC Comment DIFF FINAL Differential Comment Phosphorus Level 7.2 MG/DL Total Bilirubin 0.5 MG/DL Aspartate Amino Transf 71 U/L (AST/SGOT) Alanine Aminotransferase 82 U/L (ALT/SGPT) Alkaline Phosphatase 156 U/L Total Protein 6.0 GM/DL Albumin 2.4 GM/DL Physical Exam General General Appearance: Well Developed, Well Nourished, Comfortable, Obese Throat Throat Exam: Oral Mucosa [place] & Moist Pulmonary Resp Exam: Clear Bilaterally, Breath Sounds Equal Cardiology CV Exam: Regular, Normal Sinus Rhythm, Good Perfusion Gastrointestinal/Abdomen GI Exam: Soft, Non-Tender, Bowel Sounds Present Musculoskeletal MS Exam: Normal Tone, Good Strength Integumentary Skin Exam: Clear, Warm, Dry, Intact Extremeties Extremities Exam: Pedal Pulses Palpable, Trace Edema Neurologic Neuro Exam: Alert, Awake, Oriented, Speech Clear, Moving All Extremities Psychiatric Psych Exam: Appropriate Responses VTE Prophylaxis VTE Prophylaxis Device: SCDs VTE Remarks eliquis Assessment/Plan Assessment/Plan ASSESSMENT Acute kidney injury Renal ultrasound was unremarkable Rhabdomyolysis Angina better with imdur Hypernatremia Morbid obesity History of COPD, obstructive sleep apnea, reflux disease, diabetes, atrial fibrillation Management Continue IV fluids Monitor renal indices Monitor electrolytes and replace as needed Hold blood pressure medications for systolic below 100 as needed albumin for Pressure Continue imdur Nephrology following Discussed with patient Discussed with nurse 35 minutes Discussed Condition with: Patient Paulina Mcdermott MD Nov 06, 2016 18:06
[2016-11-06] MEDS: ALBUMIN HUMAN 25% 12.5 GM/50 ML BAGP IV SCH (20:00)
[2016-11-06 20:43] LABS: BACTERIA, URINE FEW /hpf; BLOOD, URINE SMALL (NEG); COMMENT (UR) CULTURE INDICATED; CULTURE IF INDICATED CULTURE INDICATED; GLUCOSE,URINE NEG (NEG); KETONE, URINE NEG (NEG); MUCUS URINE FEW /lpf (OCC); NITRITE,URINE NEG (NEG); PH, URINE 5.5 (5.0-8.5); URINE COLOR YELLOW (YELLW/STRAW)
[2016-11-06] MEDS: MONTELUKAST SODIUM 10 MG TAB PO SCH (21:00)
[2016-11-07] VITALS (18 sets, daily range): BP systolic 94–137; BP diastolic 41–56; PULSE 57–84; RESP 16–20; TEMP 96–98.3; O2SAT 92–97
[2016-11-07] MEDS ORDERED: SODIUM CHLOR 0.9% 250 ML INJ 250 ML IV ONE (00:15)
[2016-11-07] MEDS: ALBUMIN HUMAN 25% 12.5 GM/50 ML BAGP IV SCH ×2 (04:00→12:00)
[2016-11-07] MEDS: LEVOTHYROXINE SODIUM 100 MCG TAB PO SCH (05:29)
[2016-11-07] MEDS: AMIODARONE 200 MG TAB PO SCH (09:00)
[2016-11-07] MEDS: SODIUM CHLORIDE 0.9% FLUSH 10 ML FLUSH IV FLUSH SCH ×2 (09:00→21:25)
[2016-11-07] MEDS: TIOTROPIUM BROMIDE 18 MCG INH INH SCH (09:00)
[2016-11-07] MEDS: ISOSORBIDE MONONITRATE 60 MG TAB PO SCH (09:00)
[2016-11-07] MEDS: METOPROLOL SUCCINATE 25 MG EXTENDED RELEASE TAB PO SCH (09:00)
[2016-11-07] MEDS: APIXABAN 2.5 MG TABLET PO SCH ×2 (10:17→21:25)
[2016-11-07] MEDS: CHOLECALCIFEROL (VIT D3) 1000 UNIT TAB PO SCH ×2 (10:17→21:24)
[2016-11-07] MEDS: CLOPIDOGREL 75 MG TAB PO SCH (10:17)
[2016-11-07] MEDS: DOCUSATE SODIUM 50 MG/SENNA 8.6 MG TAB PO SCH ×3 (10:17→21:24)
--- NOTE | 2016-11-07 11:21 | HHI.NPPN ---
Subjective General Problems: Hypertension Renal Failure: Chronic, Acute, Stage III Interval History Labs in process. She is wanting her radiology receptionist to be called in. Renal function had been improving. She is non oliguric, has developed some edema. ( Joellen Chacon) Review of Systems General Constitutional: Fatigue (Joellen Chacon) Cardiovascular Cardiac: Edema (Joellen Chacon) Objective Data Data 11/06/16 11/07/16 19:00 07:00 Intake Total 800 ml 240 ml Output Total 2700 ml 1400 ml Balance -1900 ml -1160 ml Intake Oral 800 ml 240 ml Output Urine Total 2700 ml 1400 ml # Bowel Movements 2 Vital Signs Date Time Temp Pulse Resp B/P Pulse Ox O2 Delivery O2 Flow Rate FiO2 11/07/16 08:00 96.3 58 16 109/52 94 11/07/16 05:27 97.7 57 16 94/50 94 11/07/16 03:57 63 11/07/16 01:28 97 21 11/07/16 00:06 66 11/07/16 00:00 96.0 62 18 103/41 95 11/06/16 20:45 60 11/06/16 20:00 97.1 68 18 95/45 95 11/06/16 16:00 96.8 64 20 112/50 99 11/06/16 12:00 96.2 85 20 117/66 94 11/06/16 11:58 98/58 (Joellen Chacon) -: 11/06/16 0646 11/06/16 0646 Microbiology 11/06/16 Urine Culture, Received Pending Imaging Last Impressions Chest X-Ray 11/05/16 1004 Signed Impressions: Service Date/Time: Saturday, November 05, 2016 10:57 - CONCLUSION: Cardiomegaly with pulmonary vascular engorgement. No pulmonary edema appreciated. Kevin Sinclair Jr., MD Renal Ultrasound 11/05/16 0000 Signed Impressions: Service Date/Time: Saturday, November 05, 2016 21:53 - CONCLUSION: Portions of the kidneys are obscured. No evidence of hydronephrosis. Tip Perez MD Knee X-Ray 11/05/16 0000 Signed Impressions: Service Date/Time: Saturday, November 05, 2016 11:01 - CONCLUSION: Post surgical changes. No acute fracture is identified. Sylvester Seaman MD Tubes & Lines: [place] (Joellen Chacon B. COMMUNITY COORDINATOR) Physical Exam General Appearance: Well Developed, Well Nourished, Comfortable, Obese (Oswaldo, Joellen B. COMMUNITY COORDINATOR) Throat Throat Exam: Oral Mucosa [place] & Moist (Oswaldo,Joellen B. COMMUNITY COORDINATOR) Pulmonary Resp Exam: Clear Bilaterally, Breath Sounds Equal (Oswaldo,Joellen B. COMMUNITY COORDINATOR) Cardiology CV Exam: Regular, Normal Sinus Rhythm, Good Perfusion (Oswaldo,Joellen B. COMMUNITY COORDINATOR) Gastrointestinal/Abdomen GI Exam: Soft, Non-Tender, Bowel Sounds Present (Joellen Chacon B. COMMUNITY COORDINATOR) Musculoskeletal MS Exam: Normal Tone, Good Strength (OswaldoJoellen B. COMMUNITY COORDINATOR) Integumentary Skin Exam: Clear, Warm, Dry, Intact (OswaldoJoellen B. COMMUNITY COORDINATOR) Extremeties Extremities Exam: Pedal Pulses Palpable, Trace Edema (OswaldoJoellen B. COMMUNITY COORDINATOR) Neurologic Neuro Exam: Alert, Awake, Oriented, Speech Clear, Moving All Extremities ( Joellen Chacon B. COMMUNITY COORDINATOR) Psychiatric Psych Exam: Appropriate Responses (Joellen Chacon B. COMMUNITY COORDINATOR) VTE Prophylaxis Device: SCDs (OswaldoJoellen B. COMMUNITY COORDINATOR) Assessment/Plan Discussed Condition With: Patient Assessment Summary: MERCEDEZ/Acute Renal Failure, CHF, Hypertension, CKD Stage III Electrolyte Assessment: Hyponatremia Problem List: (1) MERCEDEZ (acute kidney injury) Plan: MERCEDEZ on CKD 3, baseline from August with creatinine 1.0, GFR 54 MERCEDEZ multifactorial: from overdiuresis, and she may have had urinary retention component; May have progressed to ATN she is non oliguric awaiting repeat renal panel, renal function had been improving continue IVF but may taper off today as she is tolerating po maintain MAP > 65mmHg UA without protein but may have infection, culture in process avoid nephrotoxic substances (2) CHF (congestive heart failure) Plan: monitor fluid status her EF was 55% and therefore Spironolactone is not indicated, it should not be continued torsemide likely will be resumed tomorrow she has developed edema , 50 mg po BID , first dose in AM she is requesting a cardiology consult (3) HTN (hypertension) Plan: home medications were resumed, blood pressure has been borderline low hold antihypertensives if systolic < 100 (4) Afib Plan: in NSR this admission on amiodarone and Eliquis for anticoagulation (5) Diet-controlled diabetes mellitus Plan: follow blood sugar, not in insulin therapy (Joellen Chacon) Problem List: (1) MERCEDEZ (acute kidney injury) Plan: MERCEDEZ on CKD 3, baseline from August with creatinine 1.0, GFR 54 MERCEDEZ multifactorial: from overdiuresis, and she may have had urinary retention component; May have progressed to ATN she is non oliguric awaiting repeat renal panel, renal function had been improving continue IVF but may taper off today as she is tolerating po maintain MAP > 65mmHg UA without protein but may have infection, culture in process avoid nephrotoxic substances (2) CHF (congestive heart failure) Plan: monitor fluid status her EF was 55% and therefore Spironolactone is not indicated, it should not be continued torsemide likely will be resumed tomorrow she has developed edema , 50 mg po BID , first dose in AM she is requesting a cardiology consult (3) HTN (hypertension) Plan: home medications were resumed, blood pressure has been borderline low hold antihypertensives if systolic < 100 (4) Afib Plan: in NSR this admission on amiodarone and Eliquis for anticoagulation (5) Diet-controlled diabetes mellitus Plan: follow blood sugar, not in insulin therapy Plan patient was seen and examined. Instead of restarting Torsemide, stop IVF, mobilize the patient and reevaluate. Avoid excessive use of diuretics which have caused MERCEDEZ on recurrent basis. (Ned Singer MD) Joellen Chacon Nov 07, 2016 11:21 Ned Singer MD Nov 07, 2016 14:30
[2016-11-07 11:25] LABS: BICARBONATE 24.4 MEQ/L (21.0-32.0); POTASSIUM 3.6 MEQ/L (3.5-5.1)
[2016-11-07] MEDS ORDERED: TORSEMIDE 20 MG TAB PO SCH (18:00)
--- NOTE | 2016-11-07 18:44 | HHI.PR ---
Subjective Interval History Alert, oriented, feels better, refused to take IV albumin yesterday, had a 3 second pause on telemetry in the early hours of this morning, paper strips in the chart, creatinine slowly improving, lower extremity swelling, intravenous fluids discontinued Review of Systems Constitutional Constitutional Remarks 10 systems reviewed and otherwise negative Vitals/Results Intake & Output 11/06/16 11/06/16 11/07/16 15:00 23:00 07:00 Intake Total 800 ml 240 ml Output Total 1500 ml 1850 ml 750 ml Balance -700 ml -1850 ml -510 ml Intake Oral 800 ml 240 ml Output Urine Total 1500 ml 1850 ml 750 ml # Bowel Movements 2 Vital Signs Vital Signs Date Time Temp Pulse Resp B/P Pulse Ox O2 Delivery O2 Flow Rate FiO2 11/07/16 18:11 71 11/07/16 17:00 67 11/07/16 16:00 72 11/07/16 15:04 73 11/07/16 15:04 98.1 75 20 121/45 93 11/07/16 12:54 68 11/07/16 12:00 96.3 71 16 114/56 92 11/07/16 08:44 71 11/07/16 08:00 96.3 58 16 109/52 94 11/07/16 05:27 97.7 57 16 94/50 94 11/07/16 03:57 63 11/07/16 01:28 97 21 11/07/16 00:06 66 11/07/16 00:00 96.0 62 18 103/41 95 11/06/16 20:45 60 11/06/16 20:00 97.1 68 18 95/45 95 CBC/BMP: 11/06/16 0646 11/07/16 1005 Lab Results Laboratory Tests Test 11/07/16 10:05 Sodium Level 131 MEQ/L Potassium Level 3.6 MEQ/L Chloride Level 94 MEQ/L Carbon Dioxide Level 24.4 MEQ/L Anion Gap 13 MEQ/L Blood Urea Nitrogen 100 MG/DL Creatinine 3.25 MG/DL Estimat Glomerular Filtration 14 ML/MIN Rate Random Glucose 91 MG/DL Calcium Level 8.3 MG/DL Phosphorus Level 4.9 MG/DL Albumin 2.4 GM/DL Physical Exam General General Appearance: Well Developed, Well Nourished, Comfortable, Obese Throat Throat Exam: Oral Mucosa [place] & Moist Pulmonary Resp Exam: Clear Bilaterally, Breath Sounds Equal Cardiology CV Exam: Good Perfusion, Irregular Gastrointestinal/Abdomen GI Exam: Soft, Non-Tender, Bowel Sounds Present Musculoskeletal MS Exam: Normal Tone, Good Strength Integumentary Skin Exam: Clear, Warm, Dry, Intact Extremeties Extremities Exam: Pedal Pulses Palpable, Trace Edema Neurologic Neuro Exam: Alert, Awake, Oriented, Speech Clear, Moving All Extremities Psychiatric Psych Exam: Appropriate Responses VTE Prophylaxis VTE Prophylaxis Device: SCDs VTE Remarks eliquis Assessment/Plan Assessment/Plan ASSESSMENT 3 second pause Acute kidney injury, improving Rhabdomyolysis, improving Angina better with imdur Hypernatremia Morbid obesity History of COPD, obstructive sleep apnea, reflux disease, diabetes, atrial fibrillation Management Transferred to [facility] Keep transcutaneous pacer pads on chest wall Hold off beta ayden and amiodarone Consult cardiology Discussed with Dr. MONTE by phone Continue IV fluids Monitor renal indices Monitor electrolytes and replace as needed Hold blood pressure medications for systolic below 100 as needed albumin for Pressure support Continue imdur , hold if systolic below 100 Nephrology following Discussed with patient Discussed with nurse 35 minutes Paulina Mcdermott MD Nov 07, 2016 18:44
[2016-11-07] MEDS: MONTELUKAST SODIUM 10 MG TAB PO SCH (21:24)
--- NOTE | 2016-11-07 23:34 | MB ---
cc: ARELI PATTERSON M.D., MARK B. M.D. DATE OF CONSULTATION 11/07/16 I am covering for Dr. Dick. REASON FOR CONSULTATION "Three-second pause." HISTORY OF PRESENT ILLNESS Ms. Goss is a morbidly obese 80-year-old lady with history of coronary artery disease status post coronary artery bypass graft surgery and PCI in the past. History of congestive heart failure. History of atrial fibrillation, maintained mostly in sinus rhythm on amiodarone. Obstructive sleep apnea on C-PAP therapy. Chronic obstructive pulmonary disease. She was progressively being weak and unable to stand and fell and was brought to the emergency room. She feels like to her "legs gave out" and there was no dizziness or syncope. There is no significant trauma noted. She was found to be with significant renal insufficiency with a BUN of 111 and creatinine of 8.73 and her baseline creatinine is around 1.0. She had a sodium 125 as well. She was admitted for further management. She has chronic dyspnea on minimal exertion, walking a few feet. Denies palpitations, dizziness or syncope. Sleeps on one pillow but she has the head elevated because of history of GERD. She also has sleep apnea and wears a C-PAP at night. Has chronic lower extremity edema over the past 7 months. ALLERGIES KEFLEX CAUSES RASH. CLEOCIN CAUSES A FLUSH, IT IS LIKELY A SIDE EFFECT. SHE LISTS XARELTO WITH ALLERGIES FOR BLEEDING, RECTAL BLEEDING, HOWEVER, THAT IS A SIDE EFFECT. MULTIPLE OTHER ALLERGIC MEDICATIONS WERE LISTED. PAST MEDICAL AND SURGICAL HISTORY Includes as mentioned above. History of chronic renal insufficiency. History of renal artery stenosis according to her. Anxiety. Morbid obesity. Garcia's esophagitis and history of diverticulosis. History of H. pylori. Schatzki's ring. A history of peptic ulcer disease. Osteoarthritis and depression. Cancer of the skin to the scalp. History of "thyroid disease." She has had right foot surgeries in the past and pains in the left heel and ankles. CABG. Coronary stents three times. D&C in the past. multiple other ALLERGIC MEDICATIONS WERE LISTED. SOCIAL HISTORY Used to smoke but stopped in 1971 and she smoked for about 22 years prior to that. Denies EtOH abuse, recreational drug use. She is and lives with her who is Dr. Dick's patient. FAMILY HISTORY Positive for diabetes, atrial fibrillation, congestive heart failure and hypertension. Negative for cancer. MEDICATIONS Home medications include: 1. Metoprolol succinate 25 milligrams daily. 2. Amiodarone 200 milligrams p.o. daily. 3. Eliquis 5 milligrams p.o. b.i.d. 4. Spiriva inhalers. 5. Lorazepam 0.5 p.o. daily p.r.n. 6. Albuterol inhalers. 7. Requip 1 milligram p.o. b.i.d. 8. Crestor 20 milligrams p.o. q. h.s. 9. Singular 10 milligrams p.o. q. h.s. 10. Torsemide 100 milligrams p.o. daily. She was taking it at 50 milligrams b.i.d. 11. Spironolactone 50 milligrams p.o. daily. 12. Imdur 180 milligrams p.o. daily. 13. COQ10 and Biotin, cranberry and other [id number]-phhiexi medications. 14. She is also on Plavix 75 milligrams p.o. daily. 15. Levothyroxine 0.1 milligrams p.o. 16. Vitamin D supplements. REVIEW OF SYSTEMS 10-point system review was discussed as above. Otherwise noncontributory. She was treated for upper respiratory infection by her primary physician with outpatient antibiotics recently. She also had bronchitis and temperature as high as 103. LABORATORY She came with a white count of 11.1 and repeat yesterday 8.3, hemoglobin 11.9 and a platelet count of 209, BUN of 100. She came with a BUN of 111, creatinine 8.73. BUN now is down to 100 and creatinine 3.25, sodium 131, potassium of 3.6 and a phosphorous level 4.9. Troponin I was 0.14, 0.26, 0.33 and then down to 0.25. CKMB percent is normal x3. Coags are within normal limits. ELECTROCARDIOGRAMS From November 07 showed sinus rhythm with sinus arrhythmia and occasional PVCs, poor R-wave progression, nonspecific intraventricular conduction defect and nonspecific ST changes with left axis deviation. PHYSICAL EXAMINATION GENERAL: An 80-year-old lady lying in bed in no apparent distress, morbidly obese, answers questions appropriately. VITAL SIGNS: Show blood pressure is 135/74 mmHg. Pulse of 68 beats per minute and regular, respirations 14 per minute, afebrile. HEENT: Shows head is normocephalic. Pupils equal, reactive. Throat is within normal limits. NECK: Supple and thick with no jugular venous distension noted. No thyromegaly. There is faint carotid bruit more on the left. LUNGS: Diminished air entry bilaterally with few rhonchi at the bases. CARDIOVASCULAR: S1-S2 are normal and distant with an S4 gallop and 1/6 systolic murmur at the left sternal border. ABDOMEN: Exam is lax, nontender. Normoactive bowel sounds. Obese. No organomegaly or masses felt. EXTREMITIES: No clubbing, cyanosis. No edema in the lower extremities. Pulses 2+ bilaterally with faint bruit in the carotids. The distal pulses 1+. NEUROLOGIC: Grossly intact with no focal deficits. ASSESSMENT/RECOMMENDATIONS "Three-second pauses" on telemetry. She does have history of paroxysmal atrial fibrillation for which she is maintained on amiodarone. Her underlying medical derangements and electrolytes abnormalities as well as renal insufficiency can be contributing to some of her rhythms. I did not see any 3-second pauses, the maximum I saw on telemetry strips were 2.1-second. She does have some degree of sick sinus syndrome at least on her current regimen. The telemetry strips have a lot of artifact and I have asked the unit to tap the electrodes in a better way so we can be able to see telemetry findings. At this point I agree with holding metoprolol. Amiodarone is at 200 milligrams daily and this will be cut down to 100 milligrams daily. Complete set of electrolytes will be checked and as well as a TSH and free T4 levels. She does not appear to be clinically in heart failure at the present time. No evidence of congestive heart failure at the present time. She had an echocardiogram last year that showed preserved LV systolic function with no significant valve pathology. Ejection fraction at that time was 50-55% and this was about a year ago from September 2015. I agree with cautious hydration to correct her kidney function which is improving. Would hold diuretics for now. Continue on the lower dose of amiodarone and hold the metoprolol as mentioned. Continue with lower adjusted low-doses of Eliquis. Watch on telemetry. Coronary artery disease status post CABG and PCI in the past. Currently denies chest pain and no signs either by EKG or any specific enzymes elevation. ___ she had mild nonspecific troponin elevation secondary likely to her underlying kidney function. Hyperlipidemia, wants to stay off Crestor for now which is acceptable with her at the moment and this can be reintroduced a different statin if she allows it. In the meantime she is to continue on the isosorbide and further recommendations will follow. Thank you for the consultation. MD NORRIS Lopez/NADER /10:37 PM /10:58 PM
[2016-11-08] VITALS (25 sets, daily range): BP systolic 113–149; BP diastolic 48–78; PULSE 58–99; RESP 18; TEMP 97.6–98.4; O2SAT 93–98
[2016-11-08] MEDS: ACETAMINOPHEN 325 MG TAB PO PRN ×4 (02:29→21:08)
[2016-11-08] MEDS: LEVOTHYROXINE SODIUM 100 MCG TAB PO SCH (06:38)
[2016-11-08 06:49] LABS: ALKALINE PHOSPHATASE 147 U/L (45-117); ALT (GPT) 75 U/L (10-53); ANION GAP 8 MEQ/L (5-15); AST (GOT) 54 U/L (15-37); BICARBONATE 29.5 MEQ/L (21.0-32.0); BLOOD UREA NITROGEN 73 MG/DL (7-18); CHLORIDE 103 MEQ/L (98-107); FREE T4 1.25 NG/DL (0.76-1.46); GLOMERULAR FILTRATION RATE 31 ML/MIN (>89); MAGNESIUM 1.7 MG/DL (1.5-2.5); POTASSIUM 3.4 MEQ/L (3.5-5.1); SODIUM (NA) 140 MEQ/L (136-145); TOTAL BILIRUBIN ADULT 0.7 MG/DL (0.2-1.0)
[2016-11-08] MEDS: CLOPIDOGREL 75 MG TAB PO SCH (07:58)
[2016-11-08] MEDS: ISOSORBIDE MONONITRATE 60 MG TAB PO SCH (07:58)
[2016-11-08] MEDS: DOCUSATE SODIUM 50 MG/SENNA 8.6 MG TAB PO SCH ×2 (07:59→20:55)
[2016-11-08] MEDS: APIXABAN 2.5 MG TABLET PO SCH ×2 (07:59→20:55)
[2016-11-08] MEDS: AMIODARONE 200 MG TAB PO SCH (07:59)
[2016-11-08] MEDS: SODIUM CHLORIDE 0.9% FLUSH 10 ML FLUSH IV FLUSH SCH ×2 (08:00→21:00)
[2016-11-08] MEDS: CHOLECALCIFEROL (VIT D3) 1000 UNIT TAB PO SCH ×2 (08:08→20:54)
[2016-11-08] MEDS: TIOTROPIUM BROMIDE 18 MCG INH INH SCH (09:54)
--- NOTE | 2016-11-08 12:42 | HHI.NPPN ---
Subjective General Problems: Hypertension Renal Failure: Chronic, Acute, Stage III Review of Systems General Constitutional: Fatigue Cardiovascular Cardiac: Edema Objective Data Data 11/07/16 11/08/16 19:00 07:00 Intake Total 120 ml 350 ml Output Total 2250 ml 2400 ml Balance -2130 ml -2050 ml Intake Oral 120 ml 350 ml Output Urine Total 2250 ml 2400 ml # Bowel Movements 1 Vital Signs Date Time Temp Pulse Resp B/P Pulse Ox O2 Delivery O2 Flow Rate FiO2 11/08/16 12:19 66 11/08/16 11:13 98.1 74 18 113/49 93 11/08/16 11:13 74 11/08/16 10:28 80 11/08/16 09:40 18 11/08/16 09:39 87 11/08/16 09:14 98 21 11/08/16 08:02 76 11/08/16 07:26 97.7 89 18 149/78 98 11/08/16 07:26 98 Room Air 11/08/16 07:26 89 11/08/16 06:00 72 11/08/16 05:00 72 11/08/16 04:00 98.4 67 18 131/54 97 11/08/16 04:00 68 11/08/16 04:00 Room Air 11/08/16 03:29 20 11/08/16 03:00 72 11/08/16 02:00 76 11/08/16 01:00 72 11/08/16 00:00 Venturi Mask 4.00 Nasal Cannula 11/08/16 00:00 97.6 72 18 137/54 97 11/08/16 00:00 Room Air 11/08/16 00:00 58 11/07/16 23:00 84 11/07/16 22:00 82 11/07/16 21:00 76 11/07/16 20:00 98.3 72 18 137/54 97 11/07/16 20:00 Room Air 11/07/16 20:00 73 11/07/16 19:00 78 11/07/16 18:11 71 11/07/16 17:00 67 11/07/16 16:00 72 11/07/16 15:04 73 11/07/16 15:04 98.1 75 20 121/45 93 11/07/16 12:54 68 -: 11/06/16 0646 11/08/16 0521 Tubes & Lines: [place] Physical Exam General Appearance: Well Developed, Well Nourished, Comfortable, Obese Throat Throat Exam: Oral Mucosa [place] & Moist Pulmonary Resp Exam: Clear Bilaterally, Breath Sounds Equal Cardiology CV Exam: Good Perfusion, Irregular Gastrointestinal/Abdomen GI Exam: Soft, Non-Tender, Bowel Sounds Present Musculoskeletal MS Exam: Normal Tone, Good Strength Integumentary Skin Exam: Clear, Warm, Dry, Intact Extremeties Extremities Exam: Pedal Pulses Palpable, Trace Edema Neurologic Neuro Exam: Alert, Awake, Oriented, Speech Clear, Moving All Extremities Psychiatric Psych Exam: Appropriate Responses VTE Prophylaxis Device: SCDs Assessment/Plan Discussed Condition With: Patient Assessment Summary: MERCEDEZ/Acute Renal Failure, CHF, Hypertension, CKD Stage III Electrolyte Assessment: Hypokalemia Problem List: (1) MERCEDEZ (acute kidney injury) Plan: MERCEDEZ on CKD 3, baseline from August with creatinine 1.0, GFR 54 MERCEDEZ multifactorial: from overdiuresis, and she may have had urinary retention component; improved Cr 1.6 K low replace (2) CHF (congestive heart failure) Plan: monitor fluid status her EF was 55% (3) HTN (hypertension) Plan: home medications were resumed, blood pressure has been borderline low hold antihypertensives if systolic < 100 (4) Afib Plan: in NSR this admission on amiodarone and Eliquis for anticoagulation (5) Diet-controlled diabetes mellitus Plan: follow blood sugar, not in insulin therapy Abad Arango MD Nov 08, 2016 12:42
[2016-11-08] MEDS ORDERED: POTASSIUM CHLORIDE 20 MEQ CONTROLLED RELEASE TAB PO ONE ×2 (13:00→17:00)
--- NOTE | 2016-11-08 13:25 | EKG ---
Date Performed: 11/07/2016 Time Performed: 13:55:12 PTAGE: 80 years EKG: Sinus rhythm WITH OCCASIONAL VENTRICULAR PREMATURE COMPLEXES WITH MARKED RHYTHM IRREGULARITY, POSSIBLE NON-CONDUC SHAHID PAC, SA BLOCK, AV BLOCK, OR SINUS PAUSE MARKED LEFT AXIS DEVIATION LOW QRS VOLTAGE IN PRECORDIAL LEADS POSSIBLE ANTERIOR MYOCARDIAL INFARCTION , PROBABLY OLD Short pause appears to be from a blocked PAC, though a very long second degree AV block is also possible with occasional PACs are also seen A BNORMAL ECG PREVIOUS TRACING : 11/05/2016 19.20 DOCTOR: Romaine De Leon Interpretating Date/Time 11/08/2016 13:24:49
--- NOTE | 2016-11-08 16:49 | HHI.PR ---
Subjective Interval History Alert, oriented, feels better, however still having musculoskeletal pain especially left upper extremity and left lower extremity, no evidence of any cardiac cause any more today Review of Systems Constitutional Constitutional Remarks 10 systems reviewed and otherwise negative Vitals/Results Intake & Output 11/07/16 11/07/16 11/08/16 15:00 23:00 07:00 Intake Total 120 ml 350 ml Output Total 1350 ml 900 ml 2400 ml Balance -1350 ml -780 ml -2050 ml Intake Oral 120 ml 350 ml Output Urine Total 1350 ml 900 ml 2400 ml # Bowel Movements 1 Vital Signs Vital Signs Date Time Temp Pulse Resp B/P Pulse Ox O2 Delivery O2 Flow Rate FiO2 11/08/16 16:07 83 11/08/16 15:27 70 11/08/16 15:27 98.2 99 18 116/49 93 11/08/16 14:05 86 11/08/16 13:57 78 11/08/16 12:19 66 11/08/16 11:13 98.1 74 18 113/49 93 11/08/16 11:13 74 11/08/16 10:28 80 11/08/16 09:40 18 11/08/16 09:39 87 11/08/16 09:14 98 21 11/08/16 08:02 76 11/08/16 07:26 97.7 89 18 149/78 98 11/08/16 07:26 98 Room Air 11/08/16 07:26 89 11/08/16 06:00 72 11/08/16 05:00 72 11/08/16 04:00 98.4 67 18 131/54 97 11/08/16 04:00 68 11/08/16 04:00 Room Air 11/08/16 03:29 20 11/08/16 03:00 72 11/08/16 02:00 76 11/08/16 01:00 72 11/08/16 00:00 Venturi Mask 4.00 Nasal Cannula 11/08/16 00:00 97.6 72 18 137/54 97 11/08/16 00:00 Room Air 11/08/16 00:00 58 11/07/16 23:00 84 11/07/16 22:00 82 11/07/16 21:00 76 11/07/16 20:00 98.3 72 18 137/54 97 11/07/16 20:00 Room Air 11/07/16 20:00 73 11/07/16 19:00 78 11/07/16 18:11 71 11/07/16 17:00 67 CBC/BMP: 11/06/16 0646 11/08/16 0521 Lab Results Laboratory Tests Test 11/08/16 05:21 Sodium Level 140 MEQ/L Potassium Level 3.4 MEQ/L Chloride Level 103 MEQ/L Carbon Dioxide Level 29.5 MEQ/L Anion Gap 8 MEQ/L Blood Urea Nitrogen 73 MG/DL Creatinine 1.60 MG/DL Estimat Glomerular Filtration 31 ML/MIN Rate Random Glucose 106 MG/DL Calcium Level 8.4 MG/DL Magnesium Level 1.7 MG/DL Total Bilirubin 0.7 MG/DL Aspartate Amino Transf 54 U/L (AST/SGOT) Alanine Aminotransferase 75 U/L (ALT/SGPT) Alkaline Phosphatase 147 U/L Total Protein 5.8 GM/DL Albumin 2.4 GM/DL Free Thyroxine 1.25 NG/DL Thyroid Stimulating Hormone 2.190 uIU/ML 3rd Gen Physical Exam General General Appearance: Well Developed, Well Nourished, Comfortable, Obese Throat Throat Exam: Oral Mucosa [place] & Moist Pulmonary Resp Exam: Clear Bilaterally, Breath Sounds Equal Cardiology CV Exam: Good Perfusion, Irregular Gastrointestinal/Abdomen GI Exam: Soft, Non-Tender, Bowel Sounds Present Musculoskeletal MS Exam: Normal Tone, Good Strength Integumentary Skin Exam: Clear, Warm, Dry, Intact Extremeties Extremities Exam: Pedal Pulses Palpable, Trace Edema Neurologic Neuro Exam: Alert, Awake, Oriented, Speech Clear, Moving All Extremities Psychiatric Psych Exam: Appropriate Responses VTE Prophylaxis VTE Prophylaxis Device: SCDs VTE Remarks eliquis Assessment/Plan Assessment/Plan ASSESSMENT 3 second pause occurred in the early hours of 11/07/16 Acute kidney injury, much improving Rhabdomyolysis, improving Angina better with imdur Hypernatremia, improved Hypokalemia Morbid obesity History of COPD, obstructive sleep apnea, reflux disease, diabetes, atrial fibrillation Management Continue telemetry Seen by cardiology Hold off beta ayden Continue low-dose amiodarone IV fluids on hold Monitor renal indices Monitor electrolytes and replace as needed Continue imdur , hold if systolic below 100 Nephrology following Discussed with patient Discussed with nurse 35 minutes Paulina Mcdermott MD Nov 08, 2016 16:49
[2016-11-08] MEDS: MONTELUKAST SODIUM 10 MG TAB PO SCH (20:54)
[2016-11-09] VITALS (24 sets, daily range): BP systolic 131–163; BP diastolic 54–73; PULSE 39–92; RESP 18–20; TEMP 98–98.6; O2SAT 92–95
[2016-11-09] MEDS: LEVOTHYROXINE SODIUM 100 MCG TAB PO SCH (06:44)
[2016-11-09 07:19] LABS: BICARBONATE 27.8 MEQ/L (21.0-32.0); POTASSIUM 3.6 MEQ/L (3.5-5.1)
[2016-11-09] MEDS: NITROFURANTOIN MONOHYD MACROCR 100 MG CAP PO SCH ×2 (08:11→17:21)
[2016-11-09] MEDS: ISOSORBIDE MONONITRATE 60 MG TAB PO SCH (08:11)
[2016-11-09] MEDS: APIXABAN 2.5 MG TABLET PO SCH ×2 (08:11→20:23)
[2016-11-09] MEDS: AMIODARONE 200 MG TAB PO SCH (08:11)
[2016-11-09] MEDS: CLOPIDOGREL 75 MG TAB PO SCH (08:11)
[2016-11-09] MEDS: CHOLECALCIFEROL (VIT D3) 1000 UNIT TAB PO SCH ×2 (08:11→20:22)
[2016-11-09] MEDS: ACETAMINOPHEN 325 MG TAB PO PRN ×2 (08:12→13:43)
[2016-11-09] MEDS: SODIUM CHLORIDE 0.9% FLUSH 10 ML FLUSH IV FLUSH SCH ×2 (08:12→20:23)
[2016-11-09] MEDS: TIOTROPIUM BROMIDE 18 MCG INH INH SCH (08:12)
[2016-11-09] MEDS: DOCUSATE SODIUM 50 MG/SENNA 8.6 MG TAB PO SCH ×2 (08:16→20:23)
--- NOTE | 2016-11-09 16:28 | HHI.PR ---
Subjective Interval History Alert, oriented, complaining of suprapubic pain with burning while urinating, [place] catheter is just taken out, complaining of cough especially at night, without sputum, no shortness of breath, Review of Systems Constitutional Constitutional Remarks 10 systems reviewed and otherwise negative Vitals/Results Intake & Output 11/08/16 11/08/16 11/09/16 15:00 23:00 07:00 Intake Total 960 ml Output Total 1700 ml Balance -740 ml Intake Oral 960 ml Output Urine Total 1700 ml # Bowel Movements 1 Vital Signs Vital Signs Date Time Temp Pulse Resp B/P Pulse Ox O2 Delivery O2 Flow Rate FiO2 11/09/16 16:00 81 11/09/16 15:27 85 11/09/16 15:27 98.0 85 18 131/66 92 11/09/16 14:46 20 11/09/16 14:04 80 11/09/16 13:20 79 11/09/16 12:55 21 11/09/16 12:14 72 11/09/16 11:09 78 11/09/16 11:09 98.6 75 20 148/73 95 11/09/16 10:07 79 11/09/16 09:22 92 11/09/16 08:24 78 11/09/16 07:48 98.5 70 18 133/54 94 11/09/16 07:48 70 11/09/16 07:48 94 Room Air 11/09/16 06:00 76 11/09/16 06:00 87 11/09/16 05:00 63 11/09/16 04:00 64 11/09/16 03:00 76 11/09/16 02:00 63 11/09/16 01:00 75 11/09/16 00:00 64 11/08/16 23:00 97.8 64 18 122/48 94 11/08/16 23:00 78 11/08/16 22:00 64 11/08/16 21:00 79 11/08/16 20:00 81 11/08/16 19:08 21 11/08/16 19:00 98.0 92 18 122/48 94 11/08/16 19:00 71 11/08/16 19:00 96 Room Air 11/08/16 18:21 86 11/08/16 17:13 73 CBC/BMP: 11/06/16 0646 11/09/16 0640 Lab Results Laboratory Tests Test 11/09/16 06:40 Sodium Level 141 MEQ/L Potassium Level 3.6 MEQ/L Chloride Level 106 MEQ/L Carbon Dioxide Level 27.8 MEQ/L Anion Gap 7 MEQ/L Blood Urea Nitrogen 37 MG/DL Creatinine 1.01 MG/DL Estimat Glomerular Filtration 53 ML/MIN Rate Random Glucose 98 MG/DL Calcium Level 8.7 MG/DL Physical Exam General General Appearance: Well Developed, Well Nourished, Comfortable, Obese Throat Throat Exam: Oral Mucosa [place] & Moist Pulmonary Resp Exam: Clear Bilaterally, Breath Sounds Equal Cardiology CV Exam: Good Perfusion, Irregular Gastrointestinal/Abdomen GI Exam: Soft, Non-Tender, Bowel Sounds Present Musculoskeletal MS Exam: Normal Tone, Good Strength Integumentary Skin Exam: Clear, Warm, Dry, Intact Extremeties Extremities Exam: Pedal Pulses Palpable, Trace Edema Neurologic Neuro Exam: Alert, Awake, Oriented, Speech Clear, Moving All Extremities Psychiatric Psych Exam: Appropriate Responses VTE Prophylaxis VTE Prophylaxis Device: SCDs VTE Remarks eliquis Assessment/Plan Assessment/Plan ASSESSMENT Cough 3 second pause occurred in the early hours of 11/07/16 Acute kidney injury, much improving Rhabdomyolysis, improving Angina better with imdur Hyperkalemia Morbid obesity History of COPD, obstructive sleep apnea, reflux disease, diabetes, atrial fibrillation Management Stop potassium replacement Stat potassium level Continue telemetry Seen by cardiology Hold off beta ayden Continue low-dose amiodarone Monitor renal indices Monitor electrolytes and replace as needed Robitussin as needed [place] as needed Continue imdur , hold if systolic below 100 Nephrology and cardiology following Discussed with patient Discussed with nurse 35 minutes Paulina Mcdermott MD Nov 09, 2016 16:28
--- NOTE | 2016-11-09 16:59 | HHI.NPPN ---
Subjective General Problems: Hypertension Renal Failure: Chronic, Acute, Stage III Review of Systems General Constitutional: Fatigue Cardiovascular Cardiac: Edema Objective Data Data 11/08/16 11/09/16 18:59 06:59 Intake Total 960 ml Output Total 1700 ml Balance -740 ml Intake Oral 960 ml Output Urine Total 1700 ml # Bowel Movements 1 Vital Signs Date Time Temp Pulse Resp B/P Pulse Ox O2 Delivery O2 Flow Rate FiO2 11/09/16 16:00 81 11/09/16 15:27 85 11/09/16 15:27 98.0 85 18 131/66 92 11/09/16 14:46 20 11/09/16 14:04 80 11/09/16 13:20 79 11/09/16 12:55 21 11/09/16 12:14 72 11/09/16 11:09 78 11/09/16 11:09 98.6 75 20 148/73 95 11/09/16 10:07 79 11/09/16 09:22 92 11/09/16 08:24 78 11/09/16 07:48 98.5 70 18 133/54 94 11/09/16 07:48 70 11/09/16 07:48 94 Room Air 11/09/16 06:00 76 11/09/16 06:00 87 11/09/16 05:00 63 11/09/16 04:00 64 11/09/16 03:00 76 11/09/16 02:00 63 11/09/16 01:00 75 11/09/16 00:00 64 11/08/16 23:00 97.8 64 18 122/48 94 11/08/16 23:00 78 11/08/16 22:00 64 11/08/16 21:00 79 11/08/16 20:00 81 11/08/16 19:08 21 11/08/16 19:00 98.0 92 18 122/48 94 11/08/16 19:00 71 11/08/16 19:00 96 Room Air 11/08/16 18:21 86 11/08/16 17:13 73 -: 11/06/16 0646 11/09/16 0640 Tubes & Lines: [place] Physical Exam General Appearance: Well Developed, Well Nourished, Comfortable, Obese Throat Throat Exam: Oral Mucosa [place] & Moist Pulmonary Resp Exam: Clear Bilaterally, Breath Sounds Equal Cardiology CV Exam: Good Perfusion, Irregular Gastrointestinal/Abdomen GI Exam: Soft, Non-Tender, Bowel Sounds Present Musculoskeletal MS Exam: Normal Tone, Good Strength Integumentary Skin Exam: Clear, Warm, Dry, Intact Extremeties Extremities Exam: Pedal Pulses Palpable, Trace Edema Neurologic Neuro Exam: Alert, Awake, Oriented, Speech Clear, Moving All Extremities Psychiatric Psych Exam: Appropriate Responses VTE Prophylaxis Device: SCDs Assessment/Plan Discussed Condition With: Patient Assessment Summary: MERCEDEZ/Acute Renal Failure, CHF, Hypertension, CKD Stage III Electrolyte Assessment: Hypokalemia Problem List: (1) MERCEDEZ (acute kidney injury) Plan: MERCEDEZ on CKD 3, baseline from August with creatinine 1.0, GFR 54 MERCEDEZ multifactorial: from overdiuresis, and she may have had urinary retention component; resolved cardiac issues been followed [address] Singer to follow (2) CHF (congestive heart failure) Plan: monitor fluid status her EF was 55% (3) HTN (hypertension) Plan: home medications were resumed, blood pressure has been borderline low hold antihypertensives if systolic < 100 (4) Afib Plan: in NSR this admission on amiodarone and Eliquis for anticoagulation (5) Diet-controlled diabetes mellitus Plan: follow blood sugar, not in insulin therapy Abad Arango MD Nov 09, 2016 16:59
[2016-11-09] MEDS ORDERED: guaiFENesin SOLUTION 200 MG/10 ML CUP PO PRN (18:00)
[2016-11-09] MEDS: MONTELUKAST SODIUM 10 MG TAB PO SCH (20:23)
[2016-11-10] VITALS (23 sets, daily range): BP systolic 127–160; BP diastolic 53–68; PULSE 57–94; RESP 16–20; TEMP 97.6–98.8; O2SAT 94–98
[2016-11-10] MEDS: LEVOTHYROXINE SODIUM 100 MCG TAB PO SCH (04:55)
[2016-11-10] MEDS: TIOTROPIUM BROMIDE 18 MCG INH INH SCH ×2 (08:57→10:23)
[2016-11-10] MEDS: SODIUM CHLORIDE 0.9% FLUSH 10 ML FLUSH IV FLUSH SCH ×2 (08:58→21:28)
[2016-11-10] MEDS: ROPINIROLE 2 MG PO SCH ×3 (08:59→20:05)
[2016-11-10] MEDS: NITROFURANTOIN MONOHYD MACROCR 100 MG CAP PO SCH ×2 (09:01→17:39)
[2016-11-10] MEDS: ISOSORBIDE MONONITRATE 60 MG TAB PO SCH (09:01)
[2016-11-10] MEDS: DOCUSATE SODIUM 50 MG/SENNA 8.6 MG TAB PO SCH ×2 (09:01→21:28)
[2016-11-10] MEDS: APIXABAN 2.5 MG TABLET PO SCH ×2 (09:01→21:28)
[2016-11-10] MEDS: AMIODARONE 200 MG TAB PO SCH (09:01)
[2016-11-10] MEDS: CHOLECALCIFEROL (VIT D3) 1000 UNIT TAB PO SCH (09:02)
[2016-11-10] MEDS: CLOPIDOGREL 75 MG TAB PO SCH (09:02)
--- NOTE | 2016-11-10 10:34 | HHI.NPPN ---
Subjective General Problems: Hypertension Renal Failure: Chronic, Acute, Stage III Interval History She is up in chair. Tolerating diet. Insisting on repeating lab work today. Answered questions about medications. (Joellen Chacon) Review of Systems General Constitutional: Fatigue (Joellen Chacon) Cardiovascular Cardiac: Edema (Joellen Chacon) Objective Data Data 11/09/16 11/10/16 19:00 07:00 Intake Total 960 ml 480 ml Output Total 1200 ml 850 ml Balance -240 ml -370 ml Intake Oral 960 ml 480 ml Output Urine Total 1200 ml 850 ml # Voids 1 # Bowel Movements 2 0 Vital Signs Date Time Temp Pulse Resp B/P Pulse Ox O2 Delivery O2 Flow Rate FiO2 11/10/16 09:09 98.5 78 18 152/59 94 11/10/16 07:00 65 11/10/16 06:00 57 11/10/16 05:00 73 11/10/16 04:00 88 11/10/16 03:00 65 11/10/16 03:00 98.8 65 16 143/60 94 11/10/16 02:00 61 11/10/16 01:00 65 11/10/16 00:00 66 11/09/16 23:00 39 11/09/16 22:00 42 11/09/16 21:00 70 11/09/16 20:00 64 11/09/16 19:00 98.4 74 18 163/70 95 11/09/16 19:00 74 11/09/16 19:00 95 Room Air 11/09/16 18:03 78 11/09/16 17:13 78 11/09/16 16:00 81 11/09/16 15:27 85 11/09/16 15:27 98.0 85 18 131/66 92 11/09/16 14:46 20 11/09/16 14:04 80 11/09/16 13:20 79 11/09/16 12:55 21 11/09/16 12:14 72 11/09/16 11:09 78 11/09/16 11:09 98.6 75 20 148/73 95 (Joellen Chacon) -: 11/06/16 0646 11/09/16 0640 Tubes & Lines: [place] (Joellen Chacon) Physical Exam General Appearance: Well Developed, Well Nourished, Comfortable, Obese (Joellen Chacon TAPPER BIT) Throat Throat Exam: Oral Mucosa [place] & Moist (Joellen Chacon TAPPER BIT) Pulmonary Resp Exam: Clear Bilaterally, Breath Sounds Equal (Joellen Chacon TAPPER BIT) Cardiology CV Exam: Good Perfusion, Irregular (Joellen Chacon TAPPER BIT) Gastrointestinal/Abdomen GI Exam: Soft, Non-Tender, Bowel Sounds Present, Positive Bowel Movement ( Joellen Chacon TAPPER BIT) Musculoskeletal MS Exam: Joints Intact, Normal Tone, Good Strength (Joellen Chacon TAPPER BIT) Integumentary Skin Exam: Clear, Warm, Dry, Intact (Joellen Chacon TAPPER BIT) Extremeties Extremities Exam: No Edema, Pedal Pulses Palpable (Joellen Chacon TAPPER BIT) Neurologic Neuro Exam: Alert, Awake, Oriented, Speech Clear, Moving All Extremities ( Joellen Chacon) Psychiatric Psych Exam: Appropriate Responses (Joellen Chacon) VTE Prophylaxis Device: SCDs (Joellen ChaconP) Assessment/Plan Discussed Condition With: Patient Assessment Summary: MERCEDEZ/Acute Renal Failure, Dehydration, CHF, Hypertension, CKD Stage III Problem List: (1) MERCEDEZ (acute kidney injury) Plan: MERCEDEZ on CKD 3, baseline from August with creatinine 1.0, GFR 54 MERCEDEZ multifactorial: from overdiuresis, and she may have had urinary retention component she has returned to baseline no acute concerns repeat renal panel ordered off IVF, stark has been removed she is stable for discharge from our perspective (2) CHF (congestive heart failure) Plan: monitor fluid status, has negative balance her EF was 55% cardiology has evaluated, report that her diuretics were to be dosed daily, not BID they are currently on hold at this time (3) HTN (hypertension) Plan: continue Imdur, metoprolol has been held (4) Afib Plan: in NSR this admission on amiodarone and Eliquis for anticoagulation (5) Diet-controlled diabetes mellitus Plan: follow blood sugar, she has not required insulin (Joellen Chacon) Plan patient was seen and examined. Renal function has improved. She can be discharged from renal standpoint. I will sign off at this time. (Ned Singer MD) Joellen Chacon Nov 10, 2016 10:34 Ned Singer MD Nov 10, 2016 10:55
--- NOTE | 2016-11-10 13:33 | PD.WCN.NOT ---
Wound Consult Description: Seen for evaluation of open area to buttock. Also consulted for R hip and bilateral lower leg lymphedema. Communicated with: PIPER Altamirano and Doctor Sharron Recommendation: Please cleanse buttock area with soap and water and pat dry. Apply Calazime barrier cream BID and PRN.Leave buttock area open to air. Please elevate bilateral lower extremities while in bed or chair Additional Information: Patient seen on [facility] for evaluation of open area to buttock, also consulted for wound management for R hip and Bilateral lower leg lymphedema. Patient able to stand with assistance of senior technical writer for wound assessment.Wound assessment completed with senior technical writer and Luz SALDAÑA HOG CUTTER. Removed adhesive foam dressing in place to reveal resolving moisture related partial thickness skin loss to bilateral buttocks and medial gluteal cleft with surround blanchable erythema. Cleansed patient of stool with soap and water gently and patted area dry. R hip is noted with out erythema and with intact skin. Bilateral lower extremities are noted with trace edema and intact skin that is slightly erythematous.Buttock area left open to air. PIPER Altamirano to apply Calazime barrier cream. Joann Hernandez [facility] Nov 10, 2016 13:33
--- NOTE | 2016-11-10 14:13 | HHI.PR ---
Subjective Interval History Alert, oriented, up in a chair, has a superficial very small pressure area on the sacral area. Waiting for cardiology evaluation. Review of Systems Constitutional Constitutional Remarks 10 systems reviewed and otherwise negative Vitals/Results Intake & Output 11/09/16 11/09/16 11/10/16 15:00 23:00 07:00 Intake Total 960 ml 480 ml Output Total 1200 ml 850 ml Balance -240 ml -370 ml Intake Oral 960 ml 480 ml Output Urine Total 1200 ml 850 ml # Voids 1 # Bowel Movements 2 0 Vital Signs Vital Signs Date Time Temp Pulse Resp B/P Pulse Ox O2 Delivery O2 Flow Rate FiO2 11/10/16 13:00 88 11/10/16 12:00 98.5 80 18 160/68 94 11/10/16 12:00 94 11/10/16 11:00 80 11/10/16 11:00 94 Room Air 11/10/16 10:00 82 11/10/16 09:09 98.5 78 18 152/59 94 11/10/16 09:00 80 11/10/16 08:00 78 11/10/16 07:00 94 Room Air 11/10/16 07:00 65 11/10/16 07:00 66 11/10/16 06:00 57 11/10/16 05:00 73 11/10/16 04:00 88 11/10/16 03:00 65 11/10/16 03:00 98.8 65 16 143/60 94 11/10/16 02:00 61 11/10/16 01:00 65 11/10/16 00:00 66 11/09/16 23:00 39 11/09/16 22:00 42 11/09/16 21:00 70 11/09/16 20:00 64 11/09/16 19:00 98.4 74 18 163/70 95 11/09/16 19:00 74 11/09/16 19:00 95 Room Air 11/09/16 18:03 78 11/09/16 17:13 78 11/09/16 16:00 81 11/09/16 15:27 85 11/09/16 15:27 98.0 85 18 131/66 92 11/09/16 14:46 20 CBC/BMP: 11/06/16 0646 11/09/16 0640 Physical Exam General General Appearance: Well Developed, Well Nourished, Comfortable, Obese Throat Throat Exam: Oral Mucosa [place] & Moist Pulmonary Resp Exam: Clear Bilaterally, Breath Sounds Equal Cardiology CV Exam: Good Perfusion, Irregular Gastrointestinal/Abdomen GI Exam: Soft, Non-Tender, Bowel Sounds Present, Positive Bowel Movement Musculoskeletal MS Exam: Joints Intact, Normal Tone, Good Strength Integumentary Skin Exam: Clear, Warm, Dry, Intact Extremeties Extremities Exam: No Edema, Pedal Pulses Palpable Neurologic Neuro Exam: Alert, Awake, Oriented, Speech Clear, Moving All Extremities Psychiatric Psych Exam: Appropriate Responses VTE Prophylaxis VTE Prophylaxis Device: SCDs VTE Remarks eliquis Assessment/Plan Assessment/Plan ASSESSMENT Cough, improved Small pressure area over the sacrum 3 second pause occurred in the early hours of 11/07/16 Acute kidney injury, much improving Rhabdomyolysis, improving Angina better with imdur Morbid obesity History of COPD, obstructive sleep apnea, reflux disease, diabetes, atrial fibrillation Management Stat potassium level Continue telemetry Seen by cardiology, waiting for follow-up today Hold off beta ayden Continue low-dose amiodarone Monitor renal indices Monitor electrolytes and replace as needed Robitussin as needed [place] as needed Continue imdur , hold if systolic below 100 Possible discharge to rehabilitation either later today or tomorrow Discussed with patient Discussed with nurse 35 minutes Paulina Mcdermott MD Nov 10, 2016 14:13
[2016-11-10 16:42] LABS: BICARBONATE 27.5 MEQ/L (21.0-32.0); POTASSIUM 3.5 MEQ/L (3.5-5.1)
[2016-11-10] MEDS: MONTELUKAST SODIUM 10 MG TAB PO SCH (21:00)
[2016-11-11] VITALS: BP 155/97; PULSE 66; RESP 17; TEMP 97.2; O2SAT 100
[2016-11-11] MEDS: ACETAMINOPHEN 325 MG TAB PO PRN (00:10)
[2016-11-11] MEDS: ACETAMINOPHEN/HYDROcodone 325 MG/5 MG TAB PO PRN ×4 (00:14→16:16)
[2016-11-11 01:05] VITALS: BP 148/56
[2016-11-11] MEDS: LEVOTHYROXINE SODIUM 100 MCG TAB PO SCH (04:39)
[2016-11-11 08:00] VITALS: BP 125/61; PULSE 70; RESP 20; TEMP 96.4; O2SAT 97
[2016-11-11] MEDS: NITROFURANTOIN MONOHYD MACROCR 100 MG CAP PO SCH ×2 (08:38→16:21)
[2016-11-11] MEDS: APIXABAN 2.5 MG TABLET PO SCH (08:38)
[2016-11-11] MEDS: CLOPIDOGREL 75 MG TAB PO SCH (08:38)
[2016-11-11] MEDS: ISOSORBIDE MONONITRATE 60 MG TAB PO SCH (08:38)
[2016-11-11] MEDS: SODIUM CHLORIDE 0.9% FLUSH 10 ML FLUSH IV FLUSH SCH (08:39)
[2016-11-11] MEDS: AMIODARONE 200 MG TAB PO SCH (08:39)
[2016-11-11] MEDS: TIOTROPIUM BROMIDE 18 MCG INH INH SCH (08:40)
[2016-11-11] MEDS: DOCUSATE SODIUM 50 MG/SENNA 8.6 MG TAB PO SCH (08:44)
[2016-11-11] MEDS ORDERED: CHOLECALCIFEROL (VIT D3) 1000 UNIT TAB PO SCH (09:00)
--- NOTE | 2016-11-11 11:48 | HHI.PR ---
Subjective Subjective Remarks leg pain no cp no sob appetite okay no fever tired agreeable with going to [facility] Review of Systems Constitutional Constitutional Remarks 12n point ros completed, negative except as noted above Vitals/Results Intake & Output 11/10/16 11/10/16 11/11/16 15:00 23:00 07:00 Intake Total 1220 ml 480 ml Output Total 400 ml Balance 820 ml 480 ml Intake Oral 1220 ml 480 ml Output Urine Total 400 ml # Voids 1 2 # Bowel Movements 2 0 Vital Signs Vital Signs Date Time Temp Pulse Resp B/P Pulse Ox O2 Delivery O2 Flow Rate FiO2 11/11/16 08:00 96.4 70 20 125/61 97 11/11/16 03:58 21 11/11/16 01:05 148/56 11/11/16 00:00 97.2 66 17 155/97 100 11/10/16 20:00 97.6 69 17 148/64 97 11/10/16 18:00 78 11/10/16 17:50 78 11/10/16 17:00 80 11/10/16 16:00 78 11/10/16 15:00 97.8 78 20 127/53 98 11/10/16 15:00 66 11/10/16 14:21 96 11/10/16 14:00 68 11/10/16 13:00 88 11/10/16 12:00 98.5 80 18 160/68 94 11/10/16 12:00 94 CBC/BMP: 11/10/16 1536 Lab Results Laboratory Tests Test 11/10/16 15:36 Sodium Level 141 MEQ/L Potassium Level 3.5 MEQ/L Chloride Level 106 MEQ/L Carbon Dioxide Level 27.5 MEQ/L Anion Gap 8 MEQ/L Blood Urea Nitrogen 19 MG/DL Creatinine 1.22 MG/DL Estimat Glomerular Filtration 42 ML/MIN Rate Random Glucose 103 MG/DL Calcium Level 8.6 MG/DL Phosphorus Level 2.0 MG/DL Albumin 2.6 GM/DL Physical Exam General General Appearance: Well Developed, Well Nourished, Comfortable, Obese Eyes Eye Exam: Pupils Equal, Pupils Reactive Ears & Nose Ears & Nose Exam: Nasal Mucosa [place] Throat Throat Exam: Oral Mucosa [place] & Moist Pulmonary Resp Exam: Clear Bilaterally, Breath Sounds Equal Cardiology CV Exam: Good Perfusion, Irregular Gastrointestinal/Abdomen GI Exam: Soft, Non-Tender, Bowel Sounds Present, Non-Distended Musculoskeletal MS Exam: Joints Intact, Normal Tone, Good Strength Integumentary Skin Exam: Clear, Warm, Dry, Intact Extremeties Extremities Exam: Pedal Pulses Palpable, Trace Edema Neurologic Neuro Exam: Alert, Awake, Oriented, Speech Clear, Moving All Extremities, No Focal Deficits Psychiatric Psych Exam: Appropriate Responses VTE Prophylaxis VTE Prophylaxis Device: SCDs VTE Remarks Eliquis Assessment/Plan Assessment/Plan ASSESSMENT Cough, improved Small pressure area over the sacrum 3 second pause occurred in the early hours of 11/07/16 Acute kidney injury, much improving Rhabdomyolysis, improving Angina better with imdur Morbid obesity History of COPD, obstructive sleep apnea, reflux disease, diabetes, atrial fibrillation Management Continue telemetry seen by Dr. Kapoor, note pending. Had episode of bradycardia, none noted in telemetry overnight continue to hold off beta ayden Continue low-dose amiodarone Continue Eliquis Monitor renal indices appreciate renal input Monitor electrolytes and replace as needed Robitussin as needed [place] as needed Continue imdur , hold if systolic below 100 Accuchecks AC/HS with low dose ISS continue with Macrobid for UTI Continue with Eliquis for DVT prophylaxis PT and OOB daily Pain management CM for dc planning, poss to SNF in am Discussed with Dr. Mcdermott Discussed with patient Discussed with nurse This pt. was seen by myself and Dr. Mcdermott, this note is written on his behalf. Ruby Wayne Nov 11, 2016 11:48
[2016-11-11 12:00] VITALS: BP 118/53; PULSE 66; RESP 20; TEMP 96.3; O2SAT 95
[2016-11-11 12:50] VITALS: O2SAT 93
[2016-11-11 16:00] VITALS: BP 140/58; PULSE 66; RESP 20; TEMP 97.1; O2SAT 95
[2016-11-11] MEDS: ROPINIROLE 2 MG PO SCH (16:16)
[2016-11-11] MEDS ORDERED: HYDR-3516 PO (16:21)
[2016-11-11] MEDS ORDERED: LORA-392 PO (16:21)
[2016-11-11] MEDS ORDERED: COUG100S PO (16:34)
[2016-11-11] MEDS ORDERED: APIX2.5T PO (16:34)
[2016-11-11] MEDS ORDERED: AMIO200T PO (16:34)
--- NOTE | 2016-11-11 16:35 | HHI.DS ---
Discharge Summary Admission Date Nov 05, 2016 at 12:13 Discharge Date: Nov 11, 2016 Admitting Diagnosis Rhabdomyolysis, Acute Kidney Injury. (1) Acute kidney failure (2) Rhabdomyolysis (3) HTN (hypertension) (4) CHF (congestive heart failure) (5) Chronic kidney disease, stage III (moderate) (6) GERD (gastroesophageal reflux disease) (7) CAD (coronary artery disease) (8) Afib (9) Diet-controlled diabetes mellitus (10) S/P CABG (coronary artery bypass graft) CBC/BMP: 11/10/16 1536 Significant Findings Laboratory Tests Test 11/09/16 11/10/16 06:40 15:36 Blood Urea Nitrogen 37 MG/DL (7-18) 19 MG/DL (7-18) Creatinine 1.01 MG/DL 1.22 MG/DL (0.50-1.00) (0.50-1.00) Estimat Glomerular Filtration 53 ML/MIN (>89) 42 ML/MIN (>89) Rate Phosphorus Level 2.0 MG/DL (2.5-4.9) Albumin 2.6 GM/DL (3.4-5.0) Imaging Last Impressions Chest X-Ray 11/05/16 1004 Signed Impressions: Service Date/Time: Saturday, November 05, 2016 10:57 - CONCLUSION: Cardiomegaly with pulmonary vascular engorgement. No pulmonary edema appreciated. Kevin Sinclair Jr., MD Renal Ultrasound 11/05/16 0000 Signed Impressions: Service Date/Time: Saturday, November 05, 2016 21:53 - CONCLUSION: Portions of the kidneys are obscured. No evidence of hydronephrosis. Tip Perez MD Knee X-Ray 11/05/16 0000 Signed Impressions: Service Date/Time: Saturday, November 05, 2016 11:01 - CONCLUSION: Post surgical changes. No acute fracture is identified. Sylvester Seaman MD Hospital Course This is a morbidly obese 80-year-old white female who had been in her usual state of health up until the past couple of weeks. She has noticed some generalized weakness especially in her legs to the point that it has affected ambulation. On the day to admission, the patient was unable to stand at home and fell onto her abdomen and was brought into the emergency room for further evaluation. She denied any loss of consciousness. No dizziness. No trauma to the head. She does have multiple comorbidities which include chronic kidney disease stage III with a creatinine that is usually around 1, morbid obesity, hypertension, hyperlipidemia, diet controlled diabetes and others. The patient also had an upper respiratory infection poss bronchitis the past week. She had a fever of 103, cough and congestion and was treated with Robitussin with codeine and a Z-Chema. Her symptoms got better. Fever was controlled. The patient still has a hoarse cough, nonproductive. The patient also had a decreased appetite, decreased p.o. intake and states that she has had very minimal p.o. fluids to drink over the past couple of weeks. The patient normally urinates without difficulty but states that she has had minimal urine output over the past three days. Denied any vomiting. No diarrhea. No headache. No recent weight gain or weight loss. Her chief complaints are fatigue, muscular fatigue especially in her lower extremities, decreased appetite, decreased p.o. intake. It is noted in the record the patient has a sacral wound that has just opened with some drainage over the past few days. Stated that it is a serous, bloody drainage. The patient also notes some altered mental status and mild confusion over the past two weeks. She stated that she cannot remember simple things and what medications she is taking. She has also noted to have been hospitalized back in April of 2016 for lymphedema and cellulitis. LABORATORY DATA Diagnostic data, WBC 11.1, RBC 4.02, hemoglobin 12.3, hematocrit 36.5. Neutrophil percentage auto 78.9. PT INR 1.2. Chemistry, sodium 125, potassium 4.5, chloride 81, carbon dioxide 21. BUN 111, creatinine 8.73. Anion gap 23. GFR 4. Calcium 8.1. AST 95, ALT 97, alkaline phosphatase 180. Total creatine kinase 1298. CKMB 29.6. Troponin 0.14. Total protein 6.7. Albumin 2.6. IMAGING Show a chest x-ray to have cardiomegaly with pulmonary vascular engorgement but no pulmonary edema appreciated. Knee x-ray shows post surgical changes but no fracture identified. Pt. was admitted for: 1. Acute renal failure with chronic kidney disease. 2. Rhabdomyolysis. 3. Hypertension. 4. Morbid obesity with BMI 50-59. 5. COPD with some recent acute bronchitis. 6. Obstructive sleep apnea. 7. Gastroesophageal reflux disease with Garcia's esophagus. 8. Diet controlled diabetes mellitus. 9. History of atrial fibrillation. During the course of the hospitalization, the following took place: Patient require IV fluids, Byers catheter was inserted. She was put on renal diet. She was put on appropriate DVT and GI prophylaxis. Renal function was monitored closely Nephrology was consulted for evaluation, BMP was monitored. Nephrotoxic agents were avoided. Diuretics were held. IVF were continued Wound care was consulted Home medications were reviewed, some initiated as indicated Patient was put on appropriate DVT and GI prophylaxis 3 second pause occurred in the early hours of 11/07/16 Pacer pads were ordered. Beta blockers and amiodarone were held Cardiology was consulted. Beta blockers were continued to be held, recommended to continue amiodarone at 100 mg by mouth daily She was continued on Eliquis, dose was decreased due to renal dysfunction. Patient was continued on Imdur She was treated for UTI She was put on Accuchecks AC/HS with low dose ISS PT and OOB daily was ordered Pain management Patient was transferred out off [facility]. Byers was removed. She was taken off IV fluids. CM for dc planning, poss to SNF Patient's condition improved, renal function stabilize. CPK trending down. Patient was evaluated by cardiology, recommended to continue amiodarone and continue to hold beta ayden Patient was discharged to rehabilitation facility in stable condition Pt Condition on Discharge: Stable Discharge Disposition: Discharge to SNF Discharge Instructions DIET: Follow Instructions for: Heart Healthy Diet Activities you can perform: Weight Bearing as Vanna Follow up Referrals: Cardiology - [address] MONTE Nephrology - [address] VIGIL New Medications: Amiodarone (Amiodarone) 200 Mg Tab 100 MG PO DAILY atrial fibrillation #30 TAB Apixaban (Eliquis) 2.5 Mg Tab 2.5 MG PO BID atrial fibrillation #60 TAB Guaifenesin (Cough Syrup) 100 Mg/5 Ml Syrp 200 MG PO Q4H PRN cough #30 TAB Hydrocodone-Acetaminophen (Hydrocodone-Acetaminophen) 5-325 mg Tab 1 TAB PO Q4H PRN pain 5-10 #30 TAB Lorazepam (Ativan) 0.5 Mg Tab 0.5 MG PO DAILY PRN ANXIETY #30 TAB Continued Medications: Albuterol 18 GM Inh (Ventolin Hfa 18 GM Inh) 90 Mcg/Act Aer 2 PUFF INH BID Shortness of Breath #1 Ref 0 INHALER Biotin W/ Vitamins C & E (Hair Skin & Nails) 1,250-7.5-7.5 Mcg-Mg-Unit Chew 1 CHEW CHEW DAILY Cholecalciferol (Vitamin D-3) 2,000 Unit Tab 2000 UNITS PO BID Chromium Picolinate (Chromium Picolinate) 1,000 Mcg Tab 1000 MCG PO DAILY Clopidogrel (Plavix) 75 Mg Tab 75 MG PO DAILY Blood Clot Prevention #30 Ref 0 TAB Coenzyme Q10 (Ubidecarenone) (Co Q 10) 100 Mg Cap 100 MG PO DAILY Cranberry (Vaccinium Macrocarpon) (Cranberry) 500 Mg Cap 500 MG PO HS Isosorbide Mononitrate ER (Isosorbide Mononitrate ER) 60 Mg Tab 180 MG PO DAILY Prevent Chest Pain #30 Ref 0 TAB Levothyroxine (Levothyroxine) 100 Mcg Tab 100 MCG PO DAILY Thyroid #30 Ref 0 TAB Lutein-Zeaxanthin (Lutein-Zeaxanthin) Unknown Strength Cap Unknown Dose PO DAILY Misc Natural Products ([place] + Energy Maximum) 1 Tab Tab 1 TAB PO DAILY Montelukast (Montelukast) 10 Mg Tab 10 MG PO HS #30 Ref 0 TAB Nitroglycerin Lingual [place] (Nitroglycerin Lingual [place]) 400 Mcg/Act [place] 1 SPRAY SL DIRECTED ONE SPRAY NEEDED FOR CHEST PAIN, MAY REPEAT EVERY FIVE MINUTES FOR A TOTAL OF 3 DOSES OR CALL 911 IF NO RELIEF PRN CHEST PAIN #1 Ref 0 CONTAINER Ropinirole (Requip) 1 Mg Tab 1 MG PO BID RLS #30 Ref 0 TAB Rosuvastatin (Crestor) 20 Mg Tab 20 MG PO HS Cholesterol Management #30 Ref 0 TAB Tiotropium Inh (Spiriva Handihaler) 18 Mcg Cap 18 MCG INH DAILY 1 capsule = 18 mcg COPD #30 Ref 0 CAP Discontinued Medications: Amiodarone (Amiodarone) 200 Mg Tab 200 MG PO DAILY Regulate Heart Beat #30 Ref 0 TAB Apixaban (Eliquis) 5 Mg Tab 5 MG PO BID Blood Clot Prevention #60 Ref 0 TAB Lorazepam (Lorazepam) 0.5 Mg Tab 0.5 MG PO DAILY PRN ANXIETY Ref 0 TAB Metoprolol Succinate ER 24 HR (Metoprolol Succinate ER 24 HR) 25 Mg Tab 25 MG PO DAILY hypertension Days 30 Ref 0 TAB Spironolactone (Spironolactone) 50 Mg Tab 50 MG PO DAILY #30 Ref 0 TAB Torsemide (Torsemide) 100 Mg Tab 50 MG PO BID #30 Ref 0 TAB Ruby Wayne Nov 11, 2016 16:35 Ropinirole (Requip) 1 Mg Tab 1 MG PO BID RLS #30 Ref 0 TAB Rosuvastatin (Crestor) 20 Mg Tab 20 MG PO HS Cholesterol Management #30 Ref 0 TAB Tiotropium Inh (Spiriva Handihaler) 18 Mcg Cap 18 MCG INH DAILY 1 capsule = 18 mcg COPD #30 Ref 0 CAP Discontinued Medications: Amiodarone (Amiodarone) 200 Mg Tab 200 MG PO DAILY Regulate Heart Beat #30 Ref 0 TAB Apixaban (Eliquis) 5 Mg Tab 5 MG PO BID Blood Clot Prevention #60 Ref 0 TAB Lorazepam (Lorazepam) 0.5 Mg Tab 0.5 MG PO DAILY PRN ANXIETY Ref 0 TAB Metoprolol Succinate ER 24 HR (Metoprolol Succinate ER 24 HR) 25 Mg Tab 25 MG PO DAILY hypertension Days 30 Ref 0 TAB Spironolactone (Spironolactone) 50 Mg Tab 50 MG PO DAILY #30 Ref 0 TAB Torsemide (Torsemide) 100 Mg Tab 50 MG PO BID #30 Ref 0 TAB Ruby Wayne Nov 11, 2016 16:35
--- NOTE | 2016-11-11 17:12 | PD.CARD.PN ---
Subjective Subjective Remarks Still c/o painful legs. No CP or SOB. Awaiting transfer to rehab. Objective Medications Current Medications Medications (Trade) Dose Ordered Sig/Lee Route PRN Reason Start Time Stop Time Status Last Admin Dose Admin Apixaban (Eliquis) 2.5 mg BID PO 11/05/16 21:00 11/11/16 08:38 Clopidogrel Bisulfate (Plavix) 75 mg DAILY PO 11/06/16 09:00 11/11/16 08:38 Isosorbide Mononitrate (Imdur) 180 mg DAILY PO 11/06/16 09:00 11/11/16 08:38 Levothyroxine Sodium (Synthroid) 100 mcg DAILY@06 PO 11/06/16 06:00 11/11/16 04:39 Lorazepam (Ativan) 0.5 mg DAILY PRN PO ANXIETY 11/05/16 13:15 Montelukast Sodium (Singulair) 10 mg HS PO 11/05/16 21:00 11/10/16 21:00 Tiotropium [place] (Spiriva Inh) 18 mcg DAILY INH 11/06/16 09:00 11/11/16 08:40 Sodium Chloride (NS Flush) 2 ml UNSCH PRN IV FLUSH FLUSH AFTER USING IV ACCESS 11/05/16 13:15 Sodium Chloride (NS Flush) 2 ml BID IV FLUSH 11/05/16 21:00 11/11/16 08:39 Acetaminophen (Tylenol) 650 mg Q4H PRN PO TEMP > 100.4 11/05/16 13:15 11/08/16 21:08 Acetaminophen (Tylenol) 650 mg Q6H PRN PO PAIN SCALE 1 TO 4 11/05/16 13:15 11/09/16 13:43 Naloxone HCl (Narcan Inj) 0.4 mg UNSCH PRN IV SEE LABEL COMMENTS 11/05/16 13:15 Senna/Docusate Sodium (Qian-Colace) 1 tab BID PO 11/05/16 21:00 11/10/16 21:28 Amiodarone HCl (Cordarone) 100 mg DAILY PO 11/08/16 09:00 11/11/16 08:39 Nitrofurantoin Macrocrystals (Macrobid) 100 mg BIDPC PO 11/09/16 09:00 11/11/16 16:21 Guaifenesin (Robitussin Liq) 200 mg Q4H PRN PO cough 11/09/16 18:00 Acetaminophen/ Hydrocodone Bitart ([place] 5-325 Mg) 1 tab Q4H PRN PO pain 5-10 11/09/16 18:00 11/11/16 16:16 Cholecalciferol (Vitamin D3) 2,000 units DAILY PO 11/11/16 09:00 11/11/16 08:38 Patient Own Medication PT OWN MED: ROPINIR... DAILY@17 PO 11/10/16 20:05 11/11/16 16:16 Vital Signs / I&O Vital Signs Date Time Temp Pulse Resp B/P Pulse Ox O2 Delivery O2 Flow Rate FiO2 11/11/16 16:00 97.1 66 20 140/58 95 11/11/16 12:50 93 11/11/16 12:00 96.3 66 20 118/53 95 11/11/16 08:00 96.4 70 20 125/61 97 11/11/16 03:58 21 11/11/16 01:05 148/56 11/11/16 00:00 97.2 66 17 155/97 100 11/10/16 20:00 97.6 69 17 148/64 97 11/10/16 18:00 78 11/10/16 17:50 78 I/O 11/10/16 11/10/16 11/10/16 11/11/16 11/11/16 11/11/16 07:00 15:00 23:00 07:00 15:00 23:00 Intake Total 480 ml 1220 ml 480 ml 480 ml Output Total 850 ml 400 ml Balance -370 ml 820 ml 480 ml 480 ml Intake Oral 480 ml 1220 ml 480 ml 480 ml Output Urine Total 850 ml 400 ml # Voids 1 2 3 1 # Bowel Movements 0 2 0 0 0 Physical Exam VSS, afeb No JVD Lungs: CTA Heart: Irreg, S1,S2 no murmur. Ext: +1 pretibial edema bilaterally. Neuro: non-focal. Laboratory Laboratory Tests Test 11/06/16 11/08/16 11/10/16 15:20 05:21 15:36 Urine Color YELLOW Urine Turbidity CLEAR Urine pH 5.5 Urine Specific [place] 1.009 Urine Protein TRACE mg/dL Urine Glucose (UA) NEG mg/dL Urine Ketones NEG mg/dL Urine Occult Blood SMALL Urine Nitrite NEG Urine Bilirubin NEG Urine Urobilinogen LESS THAN 2.0 MG/DL Urine Leukocyte Esterase SMALL Urine RBC 3 /hpf Urine WBC 11 /hpf Urine Amorphous Sediment RARE Urine Bacteria FEW /hpf Urine Mucus FEW /lpf Urine Yeast (Budding) OCC Microscopic Urinalysis Comment CULTURE INDICATED Magnesium Level 1.7 MG/DL Total Bilirubin 0.7 MG/DL Aspartate Amino Transf 54 U/L (AST/SGOT) Alanine Aminotransferase 75 U/L (ALT/SGPT) Alkaline Phosphatase 147 U/L Total Protein 5.8 GM/DL Free Thyroxine 1.25 NG/DL Thyroid Stimulating Hormone 2.190 uIU/ML 3rd Gen Sodium Level 141 MEQ/L Potassium Level 3.5 MEQ/L Chloride Level 106 MEQ/L Carbon Dioxide Level 27.5 MEQ/L Anion Gap 8 MEQ/L Blood Urea Nitrogen 19 MG/DL Creatinine 1.22 MG/DL Estimat Glomerular Filtration 42 ML/MIN Rate Random Glucose 103 MG/DL Calcium Level 8.6 MG/DL Phosphorus Level 2.0 MG/DL Albumin 2.6 GM/DL Assessment and Plan Problem List: (1) Paroxysmal atrial fibrillation (2) CAD (coronary artery disease) (3) HTN (hypertension) (4) Chronic kidney disease, stage III (moderate) (5) Rhabdomyolysis (6) S/P CABG (coronary artery bypass graft) (7) PVC (premature ventricular contraction) Assessment and Plan Cv and arrhytmias stable. Will leave off Metoprolol for now. Continue amiodarone and other cardiac meds. Diuretics to controll peripheral edema. OK to go to rehab floor. I will see her back as outpatient in a few weeks. Discussed Condition With Patient, and Dr. Mcdermott. Kota Dick MD Nov 11, 2016 17:12
== END 2016-11-11 20:26 | DRG 683 ==
LOC: NEPE 09:44 → NEDA 12:13 → HOCB 17:54 → HCIS 11-07 14:32 → N06A 11-10 19:15
PROVIDERS: ADMIT Specialist; ATTEND Specialist
PROC: 0T9B70Z Drainage of Bladder with Drainage Device, Via Natural or Artificial Opening (ICD-10-PCS; principal; 2016-11-05)
DX: N17.9 Acute kidney failure, unspecified (principal); M62.82 Rhabdomyolysis; E11.22 Type 2 diabetes mellitus with diabetic chronic kidney disease; Z68.43 Body mass index [BMI] 50.0-59.9, adult; I13.0 Hypertensive heart and chronic kidney disease with heart failure and stage 1 through stage 4 chronic kidney disease, or unspecified chronic kidney disease; I50.9 Heart failure, unspecified; I49.5 Sick sinus syndrome; I48.0 Paroxysmal atrial fibrillation; E86.0 Dehydration; N39.0 Urinary tract infection, site not specified; E87.1 Hypo-osmolality and hyponatremia; E66.01 Morbid (severe) obesity due to excess calories; J44.9 Chronic obstructive pulmonary disease, unspecified; I89.0 Lymphedema, not elsewhere classified; M85.80 Other specified disorders of bone density and structure, unspecified site; M19.90 Unspecified osteoarthritis, unspecified site; F41.9 Anxiety disorder, unspecified; F32.9 Major depressive disorder, single episode, unspecified; Z85.828 Personal history of other malignant neoplasm of skin; E78.00 Pure hypercholesterolemia, unspecified; K22.70 Barrett's esophagus without dysplasia; Z87.11 Personal history of peptic ulcer disease; K21.9 Gastro-esophageal reflux disease without esophagitis; K57.90 Diverticulosis of intestine, part unspecified, without perforation or abscess without bleeding; E07.9 Disorder of thyroid, unspecified; Z95.5 Presence of coronary angioplasty implant and graft; Z96.653 Presence of artificial knee joint, bilateral; Z95.1 Presence of aortocoronary bypass graft; N18.3 Chronic kidney disease, stage 3 (moderate); I25.119 Atherosclerotic heart disease of native coronary artery with unspecified angina pectoris; G47.33 Obstructive sleep apnea (adult) (pediatric); E78.5 Hyperlipidemia, unspecified; W18.30XA Fall on same level, unspecified, initial encounter; Z87.891 Personal history of nicotine dependence; Z79.02 Long term (current) use of antithrombotics/antiplatelets; R33.9 Retention of urine, unspecified; Z86.19 Personal history of other infectious and parasitic diseases; N17.0 Acute kidney failure with tubular necrosis; E87.6 Hypokalemia; T50.2X5A Adverse effect of carbonic-anhydrase inhibitors, benzothiadiazides and other diuretics, initial encounter; Y92.009 Unspecified place in unspecified non-institutional (private) residence as the place of occurrence of the external cause; M62.89 Other specified disorders of muscle
CPT/HCPCS: 71010; 73564; 76775; 76937; 80048; 80053; 80069; 81001; 82550; 82552; 82570; 82948; 83735; 84100; 84300; 84439; 84443; 84484; 85007; 85025; 85027; 85610; 85730; 87077; 87086; 87186; 93005; J7030; J7040; J7050

== ENCOUNTER 2017-03-25 01:47 | Observation (INO) | payer MEDICARE, BC ==
[~2017-03-25] VITALS: Ht 160 cm; Wt 127.0 kg
[~2017-03-25 01:47] MED LIST changes: +APIX2.5T PO; -APIX5TAB PO; -BACT2OIN2 TOP; +COUG100S PO; -CURCPOW PO; -DIFL100T PO; +HYDR-3516 PO; -LORA-373 PO; +LORA-392 PO; -MAGN400T2 PO; -METO25TA6 PO; -PRESCAP5 PO; -SELE1TAB PO; -SPIR50TA PO; -TORS100T2 PO; -TRAM50TA PO
[2017-03-25 01:50] VITALS: BP 196/87; PULSE 73; RESP 22; TEMP 98.4; O2SAT 96
[2017-03-25] MEDS ORDERED: CLON0.1T PO (01:56)
[2017-03-25] MEDS ORDERED: SODIUM CHLORIDE 0.9% FLUSH 10 ML FLUSH IVF PRN (02:15)
[2017-03-25] MEDS ORDERED: ASPIRIN 81 MG CHEW TAB PO ONE (02:15)
[2017-03-25] MEDS ORDERED: MORPHINE SULFATE 4 MG/ML INJ IV PUSH ONE (02:15)
[2017-03-25] MEDS ORDERED: ONDANSETRON HCL 4 MG/2 ML VIAL IV PUSH ONE (02:15)
[2017-03-25] MEDS ORDERED: NITROGLYCERIN 2% OINT 1 GM PACKET TOP ONE (02:15)
[2017-03-25 02:21] VITALS: BP 164/68; O2SAT 96
--- NOTE | 2017-03-25 02:41 | RADRPT ---
EXAM DATE/TIME: 03/25/2017 02:11 [place] COMPARISON: CHEST SINGLE AP, November 05, 2016, 10:57. INDICATIONS : Short of breath, cough. MEDICAL HISTORY : None. SURGICAL HISTORY : CABG. ENCOUNTER: Initial ACUITY: 1 day PAIN SCORE: 0/10 LOCATION: Bilateral chest FINDINGS: The patient is status post sternotomy. The heart size is normal. There is some increased density at t he left lateral base with silhouetting the lateral aspect of the left hemidiaphragm. The right lung i s clear. There is a surgical fastener seen at the right humeral head. CONCLUSION: Mild focal areas of atelectasis or consolidation at the left lateral base. Obie Abarca MD on March 25, 2017 at 2:37 Board Certified Radiologist. This report was verified electronically.
[2017-03-25 02:43] LABS: AUTOMATED NEUTROPHIL # 2.7 TH/MM3 (1.8-7.7); BASOPHIL % 0.6 % (0.0-2.0); EOSINOPHIL # 0.2 TH/MM3 (0-0.4); EOSINOPHIL % 3.2 % (0.0-4.0); HEMATOCRIT 39.1 % (35.0-46.0); HEMO FLAGS DIFF FINAL; LYMPH % 37.6 % (9.0-44.0); LYMPHOCYTE # 2.3 TH/MM3 (1.0-4.8); MEAN CELL VOLUME 92.1 FL (80.0-100.0); MEAN CORPUSCULAR HEMOGLOBIN 31.1 PG (27.0-34.0); MEAN CORPUSCULAR HGB CONC 33.8 % (32.0-36.0); MONO % 14.4 % (0.0-8.0); NEUT % 44.2 % (16.0-70.0); PLATELET COUNT 179 TH/MM3 (150-450); RED BLOOD COUNT 4.24 MIL/MM3 (4.00-5.30); RED CELL DISTRIBUTION WIDTH 13.7 % (11.6-17.2)
--- NOTE | 2017-03-25 02:45 | PD ---
HPI Chief Complaint: Pain: Acute or Chronic Time Seen by Provider: 01:57 Travel History International Travel<30 days: No Contact w/Intl Traveler<30days: No Traveled to known affect area: No History of Present Illness HPI The patient is a 81-year-old female who presents to the emergency department via EMS from the [facility] for chest pain. The patient states she 's been having left-sided upper chest pain that radiates down the left arm, occasionally to the left hand since Thursday. The pain has been intermittent, described as dull and achy, occasionally pressure-like, with mild shortness of breath and nausea. She denies any diaphoresis. The patient has been taking sublingual nitroglycerin which does resolve the pain however, the pain does return. The patient does have a history of failed previous CABG as well as multiple previous cardiac catheterizations. The patient's occupational health physiotherapist is Dr. Gonsalez. The patient does complain of mild shortness of breath with exertion which has been worse since Thursday. The patient states that this feels like her normal angina. However, she states she is using increasing amounts of nitroglycerin with short short-duration relief of symptoms. PFSH Past Medical History Hx Anticoagulant Therapy: Yes Arthritis: Yes (idiopathic skeletal hyperostosis/ osteoarthris) Asthma: No Anxiety: Yes Depression: Yes (pt states "on and off sometimes" ) Heart Rhythm Problems: Yes Cancer: Yes (SKIN CANCER TO SCALP) Cardiovascular Problems: Yes High Cholesterol: Yes Chemotherapy: No Chest Pain: No Congestive Heart Failure: Yes COPD: Yes Cerebrovascular Accident: No Diabetes: Yes Patient Takes Glucophage: No Diminished Hearing: No Endocrine: No Gastrointestinal Disorders: Yes (GERD; FRAGA'S ESOPHAGITIS; DIVERTICULOSIS; HX H PYLORI) GERD: Yes Genitourinary: No Headaches: No Hepatitis: No Hiatal Hernia: Yes (SCHATZIKIS RING) Hypertension: Yes Immune Disorder: No Implanted Vascular Access Dvce: No Kidney Stones: No Medical other: Yes (HX STOMACH ULCER;COPD) Musculoskeletal: Yes Neurologic: No Psychiatric: Yes Reproductive: No Respiratory: Yes Migraines: No Radiation Therapy: No Renal Failure: No Seizures: No Sleep Apnea: Yes Thyroid Disease: Yes Ulcer: Yes Menopausal: Yes Dilation and Curettage (D&C): Yes Past Surgical History Abdominal Surgery: No AICD: No Body Medical Devices: CARDIAC STENTS X 3; STERNAL WIRE; TOE PINS RIGHT FOOT, RIGHT ACHIL PIN Cardiac Surgery: No Coronary Stent: Yes (x3 OM, LAD, L MAIN) Ear Surgery: No Endocrine Surgery: No Eye Surgery: Yes Genitourinary Surgery: Yes Gynecologic Surgery: Yes Hysterectomy: Yes Joint Replacement: Yes (BILAT KNEES; PINS LEFT HEEL /ANKLE) Neurologic Surgery: No Oral Surgery: No Pacemaker: No Thoracic Surgery: No Other Surgery: Yes (MULTIPLE COLONOSCOPIES AND ENDOSOPIES) Social History Alcohol Use: No Tobacco Use: No Substance Use: No Allergies-Medications (Allergen,Severity, Reaction): Coded Allergies: adhesive (Unverified Allergy, Severe, steri strips causes severe skin irritation, 03/25/17) cephalexin (Unverified Allergy, Severe, 03/25/17) FULL BODY RASH clindamycin (Unverified Allergy, Severe, THRUSH, 03/25/17) ORAL THRUSH verapamil (Unverified Allergy, Severe, SWELLING, 03/25/17) SEVERE EDEMA IN LEGS amlodipine (Unverified Allergy, Intermediate, EDEMA, 03/25/17) etodolac (Unverified Allergy, Intermediate, GI , 03/25/17) flurbiprofen (Unverified Allergy, Intermediate, GI , 03/25/17) ibuprofen (Unverified Allergy, Intermediate, GI , 03/25/17) indomethacin (Unverified Allergy, Intermediate, GI , 03/25/17) ketoprofen (Unverified Allergy, Intermediate, GI , 03/25/17) ketorolac (Unverified Allergy, Intermediate, GI , 03/25/17) naproxen (Unverified Allergy, Intermediate, GI , 03/25/17) oxaprozin (Unverified Allergy, Intermediate, GI , 03/25/17) atorvastatin (Unverified Allergy, Unknown, 03/25/17) diclofenac (Unverified Allergy, Unknown, 03/25/17) diflunisal (Unverified Allergy, Unknown, 03/25/17) duloxetine (Unverified Allergy, Unknown, 03/25/17) escitalopram (Unverified Allergy, Unknown, 03/25/17) ezetimibe (Unverified Allergy, Unknown, 03/25/17) fluoxetine (Unverified Allergy, Unknown, 03/25/17) rivaroxaban (Unverified Allergy, Unknown, 03/25/17) rectal bleeding simvastatin (Unverified Allergy, Unknown, 03/25/17) Uncoded Allergies: vytorin (Allergy, Unknown, 10/07/15) Reported Meds & Prescriptions Reported Meds & Active Scripts Active Cough Syrup (Guaifenesin) 100 Mg/5 Ml Syrp 200 Mg PO Q4H PRN Eliquis (Apixaban) 2.5 Mg Tab 2.5 Mg PO BID Amiodarone (Amiodarone HCl) 200 Mg Tab 100 Mg PO DAILY Ativan (Lorazepam) 0.5 Mg Tab 0.5 Mg PO DAILY PRN Hydrocodone-Acetaminophen 5-325 mg Tab 1 Tab PO Q4H PRN Reported Clonidine (Clonidine HCl) 0.1 Mg Tab 0.1 Mg PO BID Ventolin Hfa 18 GM Inh (Albuterol Sulfate) 90 Mcg/Act Aer 2 Puff INH BID Hair Skin & Nails (Biotin W/ Vitamins C & E) 1,250-7.5-7.5 Mcg-Mg-Unit Chew 1 Chew CHEW DAILY Estroven + Energy Maximum ([employer] Natural Products) 1 Tab Tab 1 Tab PO DAILY Vitamin D-3 (Cholecalciferol) 2,000 Unit Tab 2,000 Units PO BID Chromium Picolinate 1,000 Mcg Tab 1,000 Mcg PO DAILY Co Q 10 (Coenzyme Q10 (Ubidecarenone)) 100 Mg Cap 100 Mg PO DAILY Isosorbide Mononitrate ER (Isosorbide Mononitrate) 60 Mg Tab 180 Mg PO DAILY Levothyroxine (Levothyroxine Sodium) 100 Mcg Tab 100 Mcg PO DAILY Lutein-Zeaxanthin Unknown Strength Cap Unknown Dose PO DAILY Montelukast (Montelukast Sodium) 10 Mg Tab 10 Mg PO HS Nitroglycerin Lingual [place] (Nitroglycerin) 400 Mcg/Act [place] 1 [place] SL DIRECTED PRN ONE SPRAY NEEDED FOR CHEST PAIN, MAY REPEAT EVERY FIVE MINUTES FOR A TOTAL OF 3 DOSES OR CALL 911 IF NO RELIEF Requip (Ropinirole) 1 Mg Tab 1 Mg PO BID Crestor (Rosuvastatin Calcium) 20 Mg Tab 20 Mg PO HS Spiriva Handihaler (Tiotropium Inh) 18 Mcg Cap 18 Mcg INH DAILY 1 capsule = 18 mcg Review of Systems Except as stated in HPI: all other systems reviewed are Neg HENT: No: Lightheadedness Cardiovascular: Positive: Chest Pain or Discomfort, Dyspnea on exertion, No: Diaphoresis Respiratory: Positive: Shortness of Breath Gastrointestinal: Positive: Nausea, No: Vomiting Musculoskeletal: Positive: Weakness Neurologic: No: Dizziness Physical Exam Narrative GENERAL: Awake, alert, pleasant 81-year-old female who appears her stated age and is in no acute respiratory distress. SKIN: Focused skin assessment warm/dry. HEAD: Atraumatic. Normocephalic. EYES: Pupils equal and round. No scleral icterus. No injection or drainage. ENT: No nasal bleeding or discharge. Mucous membranes pink and moist. NECK: Trachea midline. No JVD. CARDIOVASCULAR: Regular rate and rhythm. No murmur appreciated. RESPIRATORY: No accessory muscle use. Clear to auscultation. Breath sounds equal bilaterally. GASTROINTESTINAL: Abdomen soft, obese, no rebound tenderness. MUSCULOSKELETAL: No obvious deformities. No clubbing. No cyanosis. No edema. NEUROLOGICAL: Awake and alert. No obvious cranial nerve deficits. Motor grossly within normal limits. Normal speech. PSYCHIATRIC: Appropriate mood and affect; insight and judgment normal. Data Data Last Documented VS Vital Signs Date Time Temp Pulse Resp B/P (MAP) Pulse Ox O2 Delivery O2 Flow Rate FiO2 03/25/17 02:21 96 Room Air 03/25/17 01:50 98.4 73 22 Orders Orders Electrocardiogram (03/25/17 02:03) Ckmb (Isoenzyme) Profile (03/25/17 02:03) Complete Blood Count With Diff (03/25/17 02:03) Comprehensive Metabolic Panel (03/25/17 02:03) Magnesium (Mg) (03/25/17 02:03) Prothrombin Time / Inr (Pt) (03/25/17 02:03) Act Partial Throm Time (Ptt) (03/25/17 02:03) Troponin I (03/25/17 02:03) Lipase (03/25/17 02:03) Chest, Single Ap (03/25/17 02:03) Ecg Monitoring (03/25/17 02:03) Bilateral Bp Monitoring (03/25/17 02:03) Iv Access Insert/Monitor (03/25/17 02:03) Oximetry (03/25/17 02:03) Oxygen Administration (03/25/17 02:03) Aspirin Chew (Aspirin Chew) (03/25/17 02:15) Morphine Inj (Morphine Inj) (03/25/17 02:15) Nitroglycerin 2% Oint (Nitroglycerin 2% (03/25/17 02:15) Sodium Chloride 0.9% Flush (Ns Flush) (03/25/17 02:15) Ondansetron Inj (Zofran Inj) (03/25/17 02:15) Potassium Chloride Eff (K-Lyte Cl Eff) (03/25/17 03:30) Admit Order (Ed Use Only) (03/25/17 03:28) Activity Bed Rest With Brp (03/25/17 03:34) Vital Signs (Adult) Q4H (03/25/17 03:34) Cardiac Rhythm .As Directed (03/25/17 03:34) Notify Dr: Other .PRN (03/25/17 03:34) Notify . Parameters (03/25/17 03:34) Resp Oxygen Nasal Cannula (03/25/17 ) Diet Npo (03/25/17 Breakfast) Ckmb (Isoenzyme) Profile (03/25/17 05:21) Ckmb (Isoenzyme) Profile (03/25/17 08:21) Troponin I (03/25/17 05:21) Troponin I (03/25/17 08:21) Electrocardiogram (03/25/17 03:34) Electrocardiogram (03/25/17 06:34) ^ Obtain (03/25/17 03:34) Sodium Chloride 0.9% Flush (Ns Flush) (03/25/17 03:45) Sodium Chloride 0.9% Flush (Ns Flush) (03/25/17 09:00) Acetaminophen (Tylenol) (03/25/17 03:45) Acetamin-Hydrocod 325-7.5 Mg ([place]ton 7.5 (03/25/17 03:45) Morphine Inj (Morphine Inj) (03/25/17 03:45) Nitroglycerin 2% Oint (Nitroglycerin 2% (03/25/17 06:00) Aspirin (Aspirin) (03/25/17 09:00) Hand Spring Repairer / Telemetry PAUL.Q8H (03/25/17 03:34) Vte Prophylaxis Not Indicated (03/25/17 03:34) Labs Laboratory Tests Test 03/25/17 02:21 White Blood Count 6.0 TH/MM3 Red Blood Count 4.24 MIL/MM3 Hemoglobin 13.2 GM/DL Hematocrit 39.1 % Mean Corpuscular Volume 92.1 FL Mean Corpuscular Hemoglobin 31.1 PG Mean Corpuscular Hemoglobin Concent 33.8 % Red Cell Distribution Width 13.7 % Platelet Count 179 TH/MM3 Mean Platelet Volume 8.3 FL Neutrophils (%) (Auto) 44.2 % Lymphocytes (%) (Auto) 37.6 % Monocytes (%) (Auto) 14.4 % Eosinophils (%) (Auto) 3.2 % Basophils (%) (Auto) 0.6 % Neutrophils # (Auto) 2.7 TH/MM3 Lymphocytes # (Auto) 2.3 TH/MM3 Monocytes # (Auto) 0.9 TH/MM3 Eosinophils # (Auto) 0.2 TH/MM3 Basophils # (Auto) 0.0 TH/MM3 CBC Comment DIFF FINAL Differential Comment Prothrombin Time 11.3 SEC Prothromb Time International Ratio 1.0 RATIO Activated Partial Thromboplast Time 26.8 SEC Blood Urea Nitrogen 21 MG/DL Creatinine 0.94 MG/DL Random Glucose 158 MG/DL Total Protein 6.3 GM/DL Albumin 3.2 GM/DL Calcium Level 8.1 MG/DL Magnesium Level 2.1 MG/DL Alkaline Phosphatase 212 U/L Aspartate Amino Transf (AST/SGOT) 27 U/L Alanine Aminotransferase (ALT/SGPT) 36 U/L Total Bilirubin 0.4 MG/DL Sodium Level 145 MEQ/L Potassium Level 2.7 MEQ/L Chloride Level 106 MEQ/L Carbon Dioxide Level 31.5 MEQ/L Anion Gap 8 MEQ/L Estimat Glomerular Filtration Rate 57 ML/MIN Total Creatine Kinase 94 U/L Troponin I LESS THAN 0.02 NG/ML Lipase 108 U/L MDM Medical Decision Making Medical Screen Exam Complete: Yes Emergency Medical Condition: Yes Medical Record Reviewed: Yes Interpretation(s) EKG reveals normal sinus rhythm with a rate of 71. Inverted T waves noted in lead V2. Nonspecific ST-T wave changes. Laboratory Tests Test 03/25/17 02:21 White Blood Count 6.0 TH/MM3 Red Blood Count 4.24 MIL/MM3 Hemoglobin 13.2 GM/DL Hematocrit 39.1 % Mean Corpuscular Volume 92.1 FL Mean Corpuscular Hemoglobin 31.1 PG Mean Corpuscular Hemoglobin Concent 33.8 % Red Cell Distribution Width 13.7 % Platelet Count 179 TH/MM3 Mean Platelet Volume 8.3 FL Neutrophils (%) (Auto) 44.2 % Lymphocytes (%) (Auto) 37.6 % Monocytes (%) (Auto) 14.4 % Eosinophils (%) (Auto) 3.2 % Basophils (%) (Auto) 0.6 % Neutrophils # (Auto) 2.7 TH/MM3 Lymphocytes # (Auto) 2.3 TH/MM3 Monocytes # (Auto) 0.9 TH/MM3 Eosinophils # (Auto) 0.2 TH/MM3 Basophils # (Auto) 0.0 TH/MM3 CBC Comment DIFF FINAL Differential Comment Prothrombin Time 11.3 SEC Prothromb Time International Ratio 1.0 RATIO Activated Partial Thromboplast Time 26.8 SEC Blood Urea Nitrogen 21 MG/DL Creatinine 0.94 MG/DL Random Glucose 158 MG/DL Total Protein 6.3 GM/DL Albumin 3.2 GM/DL Calcium Level 8.1 MG/DL Magnesium Level 2.1 MG/DL Alkaline Phosphatase 212 U/L Aspartate Amino Transf (AST/SGOT) 27 U/L Alanine Aminotransferase (ALT/SGPT) 36 U/L Total Bilirubin 0.4 MG/DL Sodium Level 145 MEQ/L Potassium Level 2.7 MEQ/L Chloride Level 106 MEQ/L Carbon Dioxide Level 31.5 MEQ/L Anion Gap 8 MEQ/L Estimat Glomerular Filtration Rate 57 ML/MIN Total Creatine Kinase 94 U/L Troponin I LESS THAN 0.02 NG/ML Lipase 108 U/L Last Impressions Chest X-Ray 03/25/17 0203 Signed Impressions: Service Date/Time: Saturday, March 25, 2017 02:11 - CONCLUSION: Mild focal areas of atelectasis or consolidation at the left lateral base. Obie Abarca MD Differential Diagnosis Differential diagnosis includes unstable angina, acute cardiac syndrome, angina , cardiomyopathy, deconditioning, arrhythmia. Narrative Course IV was established, labs are drawn and sent, and the patient was placed on cardiac telemetry monitoring and continuous pulse oximetry monitoring. EKG was ordered and interpreted. Chest x-ray was obtained. The patient received aspirin and Nitropaste. Chest x-ray reveals atelectasis in left lower lobe. Initial troponin and CPK are negative. The patient's potassium is 2.7, therefore, was replaced orally. The patient thinks she may have had a stress test when she was with Dr. Valderrama, prior to Dr. Costello, as an outpatient one year ago, however, is unsure. I reviewed the EMR, I do not see a stress test within the last several years. The patient thinks this is her angina with increasing symptoms. Therefore, patient will be admitted to the chest pain center for 23 hour observation serial cardiac enzymes. Physician Communication Physician Communication The patient will be 23 hour observation to the chest pain center for serial cardiac enzymes and further evaluation by cardiology. Diagnosis Primary Impression: Chest pain Qualified Codes: R07.9 - Chest pain, unspecified Additional Impression: Hypokalemia Admitting Information Admitting Physician Requests: Observation Condition: Stable Crispin Renae MD Mar 25, 2017 02:45
[2017-03-25 02:53] LABS: APTT (PATIENT) 26.8 SEC (24.3-30.1); PROTHROMBIN TIME - PATIENT 11.3 SEC (9.8-11.6)
[2017-03-25 03:18] LABS: ALKALINE PHOSPHATASE 212 U/L (45-117); ALT (GPT) 36 U/L (10-53); ANION GAP 8 MEQ/L (5-15); AST (GOT) 27 U/L (15-37); BICARBONATE 31.5 MEQ/L (21.0-32.0); BLOOD UREA NITROGEN 21 MG/DL (7-18); CHLORIDE 106 MEQ/L (98-107); GLOMERULAR FILTRATION RATE 57 ML/MIN (>89); MAGNESIUM 2.1 MG/DL (1.5-2.5); SODIUM (NA) 145 MEQ/L (136-145); TOTAL BILIRUBIN ADULT 0.4 MG/DL (0.2-1.0)
[2017-03-25 03:21] LABS: CREATINE KINASE 94 U/L (26-192)
[2017-03-25 03:23] LABS: POTASSIUM 2.7 MEQ/L (3.5-5.1)
[2017-03-25] MEDS ORDERED: POTASSIUM CHLORIDE 25 MEQ EFFERVESCENT TAB PO ONE (03:30)
[2017-03-25] MEDS ORDERED: SODIUM CHLORIDE 0.9% FLUSH 10 ML FLUSH IV FLUSH PRN (03:45)
[2017-03-25] MEDS ORDERED: ACETAMINOPHEN/HYDROcodone 325 MG/7.5 MG TAB PO PRN (03:45)
[2017-03-25] MEDS ORDERED: ACETAMINOPHEN 500 MG CPLT PO PRN (03:45)
[2017-03-25] MEDS ORDERED: MORPHINE SULFATE 4 MG/ML INJ IV PUSH PRN (03:45)
[2017-03-25 05:35] VITALS: BP 149/65; PULSE 69; RESP 19; TEMP 97.5; O2SAT 94
[2017-03-25] MEDS ORDERED: NITROGLYCERIN 2% OINT 1 GM PACKET TOP SCH (06:00)
[2017-03-25 06:01] VITALS: PULSE 73
[2017-03-25 06:24] LABS: CREATINE KINASE 103 U/L (26-192)
[2017-03-25 06:36] LABS: CKMB 1.2 NG/ML (0.5-3.6)
[2017-03-25 08:24] VITALS: BP 152/69; PULSE 64; RESP 20; TEMP 97.5; O2SAT 97
[2017-03-25] MEDS ORDERED: CRAN1TAB5 (08:56)
[2017-03-25] MEDS ORDERED: ASPIRIN 325 MG TAB PO SCH (09:00)
[2017-03-25] MEDS ORDERED: SODIUM CHLORIDE 0.9% FLUSH 10 ML FLUSH IV FLUSH SCH (09:00)
[2017-03-25 09:06] VITALS: O2SAT 98
[2017-03-25] MEDS ORDERED: TYLE325T PO (09:15)
[2017-03-25] MEDS ORDERED: OCUVTAB4 PO (09:15)
[2017-03-25] MEDS ORDERED: ROPI4TAB PO (09:15)
[2017-03-25] MEDS ORDERED: CALC0.25 PO (09:15)
[2017-03-25] MEDS ORDERED: HYDR-755 PO (09:15)
[2017-03-25] MEDS ORDERED: ASPI81TA23 PO (09:15)
[2017-03-25] MEDS ORDERED: LACTCAP8 PO (09:15)
[2017-03-25] MEDS ORDERED: SYSTSOL EACH EYE (09:15)
[2017-03-25] MEDS ORDERED: TORS20TA PO (09:15)
[2017-03-25] MEDS ORDERED: KLOR10TA PO (09:15)
[2017-03-25] MEDS ORDERED: MIRA3350 PO (09:15)
[2017-03-25] MEDS ORDERED: FLUT1SPR5 (09:22)
[2017-03-25 09:36] LABS: POTASSIUM 3.5 MEQ/L (3.5-5.1)
[2017-03-25] MEDS ORDERED: RESP: ALBUTEROL 2.5 MG/IPRATROPIUM 0.5 MG NEB (PRN) INH (09:45)
[2017-03-25] MEDS ORDERED: hydrOXYzine HCL 10 MG TAB PO PRN (09:45)
[2017-03-25 09:46] LABS: CREATINE KINASE 90 U/L (26-192)
--- NOTE | 2017-03-25 09:49 | HHI.HP ---
[facility] Primary Care Physician Ruba Jesus DO Chief Complaint Chest pain History of Present Illness This is a 81-year-old female with history of CAD that was a two-vessel bypass in 2000 with 2 grafts being included within 3 months per the patient with 3 cardiac stents since. She presents to ED with a complaint of both arms hurting. Patient states usually hits her left arm or her when she is having angina. She will take a nitroglycerin tablet and will always go away. However since Thursday the discomfort has been both arms but still the discomfort was relieved with some little nitroglycerin. She spoke with her embedded software development engineer who authorized her to have a nitroglycerin at her bedside at the rehabilitation that she resides at. States she last saw her embedded software development engineer March 10. Believes she had a stress test within the last year and that it was okay. We'll concerned her last evening was at the discomfort was in the left arm but the third nitroglycerin did not relieve her discomfort. It did eventually go away either upon arriving in the ED her little bit beforehand however it has come back and has remained for several hours. The intensity waxes and wanes but nonetheless has remained. Denies associated shortness of breath, nausea, or diaphoresis with the symptoms. Review of Systems General: Patient denies fevers, chills recent, and recent travel HEENT: Patient denies headache, sore throat, difficulty swallowing. Cardiovascular: Has the arm discomfort as mentioned above. Denies sensation of heart beating rapidly or irregularly. No syncope. Denies diaphoresis. Respiratory: Denies shortness of breath or inspirational chest discomfort. Denies coughing wheezing or hemoptysis. GI: Patient denies nausea, vomiting, diarrhea, abdominal pain, bloody stools. Musculoskeletal: Complains of arm discomforts that don't seem to be worsened with movement. Patient denies joint pain or edema. Denies calf pain but has had some edema in her legs which he takes a diuretic for. Neurovascular: Patient denies numbness, tingling, weakness in extremities. Denies headache. Endocrine: Denies polyuria and polydipsia. Hematologic: Denies easy bruising. Skin: Denies rash or itching. Past Family Social History Allergies: Coded Allergies: adhesive (Unverified Allergy, Severe, steri strips causes severe skin irritation, 03/25/17) cephalexin (Unverified Allergy, Severe, 03/25/17) FULL BODY RASH clindamycin (Unverified Allergy, Severe, THRUSH, 03/25/17) ORAL THRUSH verapamil (Unverified Allergy, Severe, SWELLING, 03/25/17) SEVERE EDEMA IN LEGS amlodipine (Unverified Allergy, Intermediate, EDEMA, 03/25/17) etodolac (Unverified Allergy, Intermediate, GI , 03/25/17) flurbiprofen (Unverified Allergy, Intermediate, GI , 03/25/17) ibuprofen (Unverified Allergy, Intermediate, GI , 03/25/17) indomethacin (Unverified Allergy, Intermediate, GI , 03/25/17) ketoprofen (Unverified Allergy, Intermediate, GI , 03/25/17) ketorolac (Unverified Allergy, Intermediate, GI , 03/25/17) naproxen (Unverified Allergy, Intermediate, GI , 03/25/17) oxaprozin (Unverified Allergy, Intermediate, GI , 03/25/17) atorvastatin (Unverified Allergy, Unknown, 03/25/17) diclofenac (Unverified Allergy, Unknown, 03/25/17) diflunisal (Unverified Allergy, Unknown, 03/25/17) duloxetine (Unverified Allergy, Unknown, 03/25/17) escitalopram (Unverified Allergy, Unknown, 03/25/17) ezetimibe (Unverified Allergy, Unknown, 03/25/17) fluoxetine (Unverified Allergy, Unknown, 03/25/17) rivaroxaban (Unverified Allergy, Unknown, 03/25/17) rectal bleeding simvastatin (Unverified Allergy, Unknown, 03/25/17) Uncoded Allergies: vytorin (Allergy, Unknown, 10/07/15) Past Medical History CAD with bypassing and stenting. Paroxysmal atrial for ablation, hypertension, chronic kidney disease, COPD, restless leg syndrome, hyperlipidemia. Denies diabetes. Past Surgical History Cardiac bypass. Multiple cardiac catheterizations with stenting and also without intervention. Right foot, right Achilles tendon, bilateral knees, and hysterectomy. Reported Medications Reported Meds & Active Scripts Active Eliquis (Apixaban) 2.5 Mg Tab 2.5 Mg PO BID Amiodarone (Amiodarone HCl) 200 Mg Tab 100 Mg PO DAILY Hydrocodone-Acetaminophen 5-325 mg Tab 1 Tab PO Q4H PRN Reported Flonase Allergy Relief (Fluticasone Propionate) 50 Mcg/Actuation [place].susp HS Tylenol (Acetaminophen) 325 Mg Tab 325 Mg PO Q6HR PRN Miralax Powder (Polyethylene Glycol 3350 Powder) 17 Gm Powd 17 Gm PO HS Mix and dissolve one measuring cap-ful (17 grams) in water or juice. Calcitriol 0.25 Mcg Cap 0.25 Mcg PO EVERY OTHER DAY Ropinirole 4 Mg Tab 4 Mg PO HS Hydroxyzine HCl 10 Mg Tab 10 Mg PO Q12HR PRN Klor-Con 10 (Potassium Chloride) 10 Meq Tab 10 Meq PO BID Systane Opth Drops (Polyethylene Glycol-Propylene Glycol Opth Drp) 0.4-0.3% Soln 1-2 Drop EACH EYE BID PRN Probiotic (Lactobacillus Acidophilus) 10 Billion Cell Cap 1 Cap PO DAILY Torsemide 20 Mg Tab 40 Mg PO DAILY Aspirin EC (Aspirin) 81 Mg Tabdr 81 Mg PO DAILY Cranberry Tablet (Cranberry Conc/C/Bacill Coag) 450 Mg-30 Mg-50 Million Cell Tablet 500 Mg HS Clonidine (Clonidine HCl) 0.1 Mg Tab 0.1 Mg PO TID Ventolin Hfa 18 GM Inh (Albuterol Sulfate) 90 Mcg/Act Aer 2 Puff INH BID Co Q 10 (Coenzyme Q10 (Ubidecarenone)) 100 Mg Cap 100 Mg PO DAILY Isosorbide Mononitrate ER (Isosorbide Mononitrate) 60 Mg Tab 180 Mg PO DAILY Levothyroxine (Levothyroxine Sodium) 100 Mcg Tab 75 Mcg PO DAILY Lutein-Zeaxanthin Unknown Strength Cap Unknown Dose PO DAILY Montelukast (Montelukast Sodium) 10 Mg Tab 10 Mg PO HS Nitroglycerin Lingual [place] (Nitroglycerin) 400 Mcg/Act [place] 1 [place] SL DIRECTED PRN ONE SPRAY NEEDED FOR CHEST PAIN, MAY REPEAT EVERY FIVE MINUTES FOR A TOTAL OF 3 DOSES OR CALL 911 IF NO RELIEF Spiriva Handihaler (Tiotropium Inh) 18 Mcg Cap 18 Mcg INH DAILY 1 capsule = 18 mcg Active Ordered Medications Current Medications Medications (Trade) Dose Ordered Sig/Lee Route Start Time Stop Time Status Last Admin (NS Flush) 2 ml UNSCH PRN IV FLUSH 03/25/17 03:45 (NS Flush) 2 ml BID IV FLUSH 03/25/17 09:00 03/25/17 08:35 (Tylenol) 500 mg Q4H PRN PO 03/25/17 03:45 ([place] 7.5-325 Mg) 1 tab Q4H PRN PO 03/25/17 03:45 (Morphine Inj) 2 mg Q4H PRN IV PUSH 03/25/17 03:45 (Nitroglycerin 2% Oint) 1 inch Q6HR TOP 03/25/17 06:00 03/25/17 06:06 (Aspirin) 325 mg DAILY PO 03/25/17 09:00 03/25/17 08:35 (Duoneb Neb) 1 ampule Q4HR NEB PRN INH 03/25/17 09:45 UNV (Cordarone) 100 mg DAILY PO 03/25/17 09:45 UNV (Eliquis) 2.5 mg BID PO 03/25/17 09:45 UNV (Catapres) 0.1 mg TID PO 03/25/17 13:00 UNV (Atarax) 10 mg Q12HR PRN PO 03/25/17 09:45 UNV (Imdur) 180 mg DAILY PO 03/25/17 09:45 UNV (Synthroid) 75 mcg DAILY PO 03/25/17 09:45 UNV (Singulair) 10 mg HS PO 03/25/17 21:00 UNV (KCl) 10 meq BID PO 03/25/17 09:45 UNV (Spiriva Inh) 18 mcg DAILY INH 03/25/17 09:45 UNV (Demadex) 40 mg DAILY PO 03/25/17 09:45 UNV Non-Formulary Medication 4 mg HS PO 03/25/17 21:00 UNV Family History There is family history of CAD. Social History Patient quit smoking cigarettes in 1971 but prior to that she smoked up to 4 packs of cigarettes daily for 22 years. Has had no alcohol since 1990. Denies illicit drugs. Currently residing in [facility] Physical Exam Vital Signs Vital Signs Date Time Temp Pulse Resp B/P (MAP) Pulse Ox O2 Delivery O2 Flow Rate FiO2 03/25/17 09:06 98 03/25/17 08:24 97.5 64 20 152/69 (96) 97 03/25/17 06:01 73 03/25/17 05:35 97.5 69 19 149/65 (93) 94 03/25/17 04:33 03/25/17 02:21 96 Room Air 03/25/17 02:21 97 Room Air 03/25/17 02:21 164/68 (100) 03/25/17 01:50 98.4 73 22 196/87 (123) 96 Physical Exam GENERAL: This is a well-nourished, well-developed patient, in no apparent distress. Patient speaks in clear complete sentences. Patient is pleasant. HEENT: Head is atraumatic and normocephalic. Neck is supple without lymphadenopathy and trachea is midline. No JVD or carotid bruits. CARDIOVASCULAR: Regular rate and rhythm without murmurs, gallops, or rubs. RESPIRATORY: Clear to auscultation. Breath sounds equal bilaterally. No wheezes , rales, or rhonchi. Chest wall is nontender. No use of accessory muscles. GASTROINTESTINAL: Abdomen is nontender, nondistended. Abdomen soft. No obvious pulsatile mass or bruit. No CVA tenderness. Strong femoral pulses bilaterally. Normal bowel sounds in all quadrants. MUSCULOSKELETAL: Patient is moving upper and lower extremities freely. Mild edema bilateral lower extremities. No calf tenderness and no Homans sign. Strong pulses in upper and lower extremities. NEUROLOGICAL: Patient is alert and oriented. Cranial nerves 2-12 are grossly intact. No focal deficits and speech is clear. SKIN: No rash and turgor is normal. Laboratory Laboratory Tests Test 03/25/17 02:21 03/25/17 05:30 03/25/17 08:30 White Blood Count 6.0 Red Blood Count 4.24 Hemoglobin 13.2 Hematocrit 39.1 Mean Corpuscular Volume 92.1 Mean Corpuscular Hemoglobin 31.1 Mean Corpuscular Hemoglobin Concent 33.8 Red Cell Distribution Width 13.7 Platelet Count 179 Mean Platelet Volume 8.3 Neutrophils (%) (Auto) 44.2 Lymphocytes (%) (Auto) 37.6 Monocytes (%) (Auto) 14.4 Eosinophils (%) (Auto) 3.2 Basophils (%) (Auto) 0.6 Neutrophils # (Auto) 2.7 Lymphocytes # (Auto) 2.3 Monocytes # (Auto) 0.9 Eosinophils # (Auto) 0.2 Basophils # (Auto) 0.0 CBC Comment DIFF FINAL Differential Comment Prothrombin Time 11.3 Prothromb Time International Ratio 1.0 Activated Partial Thromboplast Time 26.8 Blood Urea Nitrogen 21 22 Creatinine 0.94 0.98 Random Glucose 158 112 Total Protein 6.3 Albumin 3.2 Calcium Level 8.1 8.4 Magnesium Level 2.1 Alkaline Phosphatase 212 Aspartate Amino Transf (AST/SGOT) 27 Alanine Aminotransferase (ALT/SGPT) 36 Total Bilirubin 0.4 Sodium Level 145 142 Potassium Level 2.7 3.5 Chloride Level 106 105 Carbon Dioxide Level 31.5 32.0 Anion Gap 8 5 Estimat Glomerular Filtration Rate 57 54 Total Creatine Kinase 94 103 Troponin I LESS THAN 0.02 LESS THAN 0.02 Lipase 108 Creatine Kinase MB 1.2 Result Diagram: 03/25/1722003/25/17829 Imaging Last 48 hours Impressions Chest X-Ray 03/25/17202 Signed Impressions: Service Date/Time: Saturday, March 25, 2017 02:11 - CONCLUSION: Mild focal areas of atelectasis or consolidation at the left lateral base. Obie Abarca MD Course EKGs have sinus rhythm without significant ST segment depressions or elevations. Caprini VTE Risk Assessment Caprini VTE Risk Assessment: Mod/High Risk (score >= 2) Caprini Risk Assessment Model Point Value = 1 Point Value = 2 Point Value = 3 Point Value = 5 Age 41-60 Minor surgery BMI > 25 kg/m2 Swollen legs Varicose veins or History of unexplained or recurrent spontaneous Oral contraceptives or hormone replacement Sepsis (< 1 month) Serious lung disease, including pneumonia (< 1 month) Abnormal pulmonary function Acute myocardial infarction Congestive heart failure (< 1 month) History of inflammatory bowel disease Medical patient at bed rest Age 61-74 Arthroscopic surgery Major open surgery (> 45 min) Laparoscopic surgery (> 45 min) Malignancy Confined to bed (> 72 hours) Immobilizing plaster cast Central venous access Age >= 75 History of VTE Family history of VTE Factor V Leiden Prothrombin [id number] Lupus anticoagulant Anticardiolipin antibodies Elevated serum homocysteine Heparin-induced thrombocytopenia Other congenital or acquired thrombophilia Stroke (< 1 month) Elective arthroplasty Hip, pelvis, or leg fracture Acute spinal cord injury (< 1 month) Prophylaxis Regimen Total Risk Factor Score Risk Level Prophylaxis Regimen 0-1 Low Early ambulation 2 Moderate Order ONE of the following: *Sequential Compression Device (SCD) *Heparin 5000 units SQ BID 3-4 Higher Order ONE of the following medications: *Heparin 5000 units SQ TID *Enoxaparin/Lovenox 40 mg SQ daily (WT < 150 kg, CrCl > 30 mL/min) *Enoxaparin/Lovenox 30 mg SQ daily (WT < 150 kg, CrCl > 10-29 mL/min) *Enoxaparin/Lovenox 30 mg SQ BID (WT < 150 kg, CrCl > 30 mL/min) AND/OR *Sequential Compression Device (SCD) 5 or more Highest Order ONE of the following medications: *Heparin 5000 units SQ TID (Preferred with Epidurals) *Enoxaparin/Lovenox 40 mg SQ daily (WT < 150 kg, CrCl > 30 mL/min) *Enoxaparin/Lovenox 30 mg SQ daily (WT < 150 kg, CrCl > 10-29 mL/min) *Enoxaparin/Lovenox 30 mg SQ BID (WT < 150 kg, CrCl > 30 mL/min) AND *Sequential Compression Device (SCD) Assessment and Plan Assessment and Plan * Chest pain: Patient will continue to have serial cardiac enzymes and EKGs for ruling out purposes. He has been seen by Dr. Christopher Steele. I discussed this patient with her embedded software development engineer Dr. Dick. States he'll follow with the patient. No need for stress testing at this time with long-lasting discomfort and normal enzymes. Third troponin is pending. Patient will be discharged home with instructions follow-up with her embedded software development engineer and primary care physician once her potassium normalizes. * CAD: Continue current medications. Follow-up with her embedded software development engineer. * Hypokalemia: Patient was given potassium supplementation in the ED. Awaiting repeat lab. * Hypertension: Continue current medication. * Hyperlipidemia: Patient states she does not tolerate statins. She should discuss this with her embedded software development engineer. * Chronic kidney disease: Continue follow-up with her PCP. * Paroxysmal atrial for ablation: She has been in sinus rhythm and the chest pain center. Continue her medications and follow-up with her embedded software development engineer. * COPD: Continue current medications. Patient is stable at this time. She is agreeable to this plan. Manohar Rosario Mar 25, 2017 09:49
--- NOTE | 2017-03-25 09:59 | HHI.DCPOC ---
Discharge Care Plan Diagnosis: (1) Chest pain (2) CAD (coronary artery disease) (3) S/P CABG (coronary artery bypass graft) (4) H/O heart artery stent (5) HTN (hypertension) (6) Hyperlipidemia (7) Chronic kidney disease (CKD) (8) COPD (chronic obstructive pulmonary disease) (9) Hypokalemia (10) Paroxysmal atrial fibrillation Goals to Promote Your Health * To prevent worsening of your condition and complications * To maintain your health at the optimal level Directions to Meet Your Goals Take your medications as prescribed Follow your dietary instruction Follow activity as directed Keep your appointments as scheduled Take your immunizations and boosters as scheduled If your symptoms worsen call your PCP, if no PCP go to Urgent Care Center or Emergency Room Smoking is Dangerous to Your Health. Avoid second hand smoke Call the 24-hour hour crisis hotline for domestic abuse at Manohar Rosario Mar 25, 2017 09:59
[2017-03-25] MEDS ORDERED: LEVOTHYROXINE SODIUM 75 MCG TAB PO SCH (11:00)
[2017-03-25] MEDS ORDERED: AMIODARONE 200 MG TAB PO SCH (11:22)
[2017-03-25] MEDS ORDERED: APIXABAN 2.5 MG TABLET PO SCH (11:25)
[2017-03-25] MEDS ORDERED: ISOSORBIDE MONONITRATE 60 MG TAB PO SCH (11:30)
[2017-03-25] MEDS ORDERED: PILL SPLITTER OTHER PRN (11:30)
[2017-03-25] MEDS ORDERED: TIOTROPIUM BROMIDE 18 MCG INH INH SCH (11:30)
[2017-03-25] MEDS ORDERED: TORSEMIDE 20 MG TAB PO SCH (11:30)
[2017-03-25] MEDS ORDERED: cloNIDine HCL 0.1 MG TAB PO SCH (13:00)
--- NOTE | 2017-03-25 13:53 | EKG ---
Date Performed: 03/25/2017 Time Performed: 09:01:02 PTAGE: 81 years EKG: Sinus rhythm WITH SINUS ARRHYTHMIA WITH FIRST DEGREE AV BLOCK BORDERLINE RIGHT AXIS DEVIATION LOW QRS VOLTAGE IN PRECORDIAL LEADS MODERATE INTRAVENTRICULAR CONDUCTION DELAY NONSPECIFIC T-WAVE ABNORMALITY ABNORMAL E CG PREVIOUS TRACING : 03/25/2017 05.42 Compared to previous tracing, T wave changes inferiorly are new DOCTOR: Christopher Steele Interpretating Date/Time 03/25/2017 13:51:59
--- NOTE | 2017-03-25 13:54 | EKG ---
Date Performed: 03/25/2017 Time Performed: 05:42:36 PTAGE: 81 years EKG: Sinus rhythm WITH FIRST DEGREE AV BLOCK MARKED LEFT AXIS DEVIATION LOW QRS VOLTAGE IN PRECORDIAL LEADS MODERATE I NTRAVENTRICULAR CONDUCTION DELAY NONSPECIFIC T-WAVE ABNORMALITY ABNORMAL ECG PREVIOUS TRACING : 03/25/2017 01.57 Since previous tracing, no significant change noted DOCTOR: Christopher Steele Interpretating Date/Time 03/25/2017 13:52:16
--- NOTE | 2017-03-25 13:55 | EKG ---
Date Performed: 03/25/2017 Time Performed: 01:57:51 PTAGE: 81 years EKG: Sinus rhythm MARKED LEFT AXIS DEVIATION MODERATE INTRAVENTRICULAR CONDUCTION DELAY NONSPECIFIC ST & T-WAVE ABNORM ALITY ABNORMAL ECG PREVIOUS TRACING : 11/07/2016 13.55 Since previous tracing, no significant change noted DOCTOR: Christopher Steele Interpretating Date/Time 03/25/2017 13:52:47
[2017-03-25] MEDS ORDERED: MONTELUKAST SODIUM 10 MG TAB PO SCH (21:00)
[2017-03-25] MEDS ORDERED: POTASSIUM CHLORIDE 10 MEQ CONTROLLED RELEASE TAB PO SCH (21:00)
== END 2017-03-25 12:14 ==
LOC: NEPE 01:47 → NEDA 03:29 → NEPGCP 04:29
PROVIDERS: ADMIT Internal Medicine Interventional Cardiology; ATTEND Internal Medicine Interventional Cardiology
DX: R07.9 Chest pain, unspecified (principal); I25.10 Atherosclerotic heart disease of native coronary artery without angina pectoris; I12.9 Hypertensive chronic kidney disease with stage 1 through stage 4 chronic kidney disease, or unspecified chronic kidney disease; N18.9 Chronic kidney disease, unspecified; I48.0 Paroxysmal atrial fibrillation; J44.9 Chronic obstructive pulmonary disease, unspecified; E78.5 Hyperlipidemia, unspecified; E87.6 Hypokalemia; G25.81 Restless legs syndrome; J98.11 Atelectasis; Z95.1 Presence of aortocoronary bypass graft; Z95.5 Presence of coronary angioplasty implant and graft; Z87.891 Personal history of nicotine dependence
CPT/HCPCS: 71010; 80053; 82550; 82552; 83690; 83735; 84484; 85025; 85610; 85730; 93005; 96374; 96375; 96376; 99285; G0378; J2270; J2405; 80048

== ENCOUNTER → 2017-06-22 | Day surgery (SDC) | payer MEDICARE, BC ==
[~2017-06-22] MED LIST changes: +ASPI81TA23 PO; -BIOT1CHW CHEW; +CALC0.25 PO; -CHOL1TAB42 PO; -CHRO1000 PO; +CLON0.1T PO; -COUG100S PO; +CRAN1TAB5; -CRAN500C2 PO; -ESTRTAB12 PO; +FLUT1SPR5; +HYDR-755 PO; +KLOR10TA PO; +LACTCAP8 PO; -LORA-392 PO; +MIRA3350 PO; -PLAV75TA29 PO; +PROPOFOL 500 MG/50 ML BTL IV ONE; -ROPI1TAB72 PO; +ROPI4TAB PO; -ROSU20 PO; +SYSTSOL EACH EYE; +TORS20TA PO; +TYLE325T PO
== END | disposition home or self-care (01) ==
LOC: ESDC 11:15
PROVIDERS: ATTEND Internal Medicine Gastroenterology
DX: R13.10 Dysphagia, unspecified (principal); K22.2 Esophageal obstruction; K31.9 Disease of stomach and duodenum, unspecified
CPT/HCPCS: 88305; 88312

== ENCOUNTER 2018-04-12 21:51 | Inpatient (IN) ==
[2018-04-12] MEDS ORDERED: Acetaminophen 325 MG Tablet PO ONE (22:20)
--- NOTE | 2018-04-12 22:20 | ED ---
HPI General Chief Complaint: Shortness of Breath/Dyspnea Stated Complaint: Resp Time Seen by Provider: 04/12/18 21:55 Source: patient and EMS Mode of arrival: EMS Limitations: no limitations History of Present Illness 82-year-old female complains of coughing congestion wheezing and shortness of breath. Resides at a local longterm. Patient states that she started having wheezing intermittently with shortness of breath and cough and congestion for the past 3 weeks. Patient started having fever up to 103 degree since yesterday. Patient states a copy persistent and productive. Patient denies any chest pain. Patient complained of shortness of breath. EMS was called tonight. Patient was given DuoNeb treatment x3 and Solu-Medrol 125 mg IV prior to arrival. O2 saturation prior to treatment was 87%. Patient has history of COPD, paroxysmal atrial fibrillation status post ablation, chronic kidney disease, hyperlipidemia, hypertension, hypokalemia, CAD status post CABG and stent placement. MD Complaint: Reports shortness of breath Onset (ago): day(s) Severity: severe Consistency/Duration: constant and progressively worsening Relieving factors: oxygen and bronchodilators Exacerbating factors: nothing Known history of: Reports COPD Associated symptoms: Reports fever, cough, wheezing and sputum production Treatment prior to arrival: Reports oxygen and bronchodilator Related Data Home Medications Medication Instructions Recorded Confirmed Lactobacillus rhamnosus GG 1 cap PO DAILY 04/12/18 04/12/18 [Culturelle] acetaminophen 325 mg PO Q6H PRN 04/12/18 04/12/18 albuterol sulfate [Ventolin HFA] 2 puff INHALATION Q6H PRN 04/12/18 04/12/18 apixaban [Eliquis] 5 mg PO BID 04/12/18 04/12/18 aspirin [Aspir-Low] 81 mg PO DAILY 04/12/18 04/12/18 biotin 5,000 mcg SUBLINGUAL DAILY 04/12/18 04/12/18 budesonide-formoterol [Symbicort] 2 puff INHALATION BID 04/12/18 04/12/18 calcitriol 0.25 mcg PO Q OTHER DAY 04/12/18 04/12/18 clonidine HCl 0.1 mg PO TID 04/12/18 04/12/18 coenzyme Q10 [Co Q-10] 100 mg PO DAILY 04/12/18 04/12/18 cranberry fruit [cranberry] 450 mg PO DAILY 04/12/18 04/12/18 dextran 70-hypromellose 2 drp OPHTHALMIC (EYE) Q12H 04/12/18 04/12/18 [Artificial Tears([id number])] dextromethorphan-guaifenesin 15 ml PO Q4-8H PRN 04/12/18 04/12/18 [Robitussin Cough-Chest Carlo DM] doxycycline monohydrate 100 mg PO BID 04/12/18 04/12/18 ipratropium-albuterol 3 ml INHALATION Q6-8H PRN 04/12/18 04/12/18 isosorbide mononitrate 120 mg PO QAM 04/12/18 04/12/18 levothyroxine 75 mcg PO DAILY 04/12/18 04/12/18 loratadine 10 mg PO DAILY 04/12/18 04/12/18 metoprolol succinate 50 mg PO DAILY 04/12/18 04/12/18 montelukast 10 mg PO QPM 04/12/18 04/12/18 nitroglycerin [Nitrolingual] 1 spray TRANSLINGUAL Q3-5M PRN 04/12/18 04/12/18 phenazopyridine 100 mg PO TID PRN 04/12/18 04/12/18 polyethylene glycol 3350 [Miralax] 17 g PO DAILY PRN 04/12/18 04/12/18 potassium chloride 20 meq PO BID 04/12/18 04/12/18 ropinirole [Requip XL] 4 mg PO BID 04/12/18 04/12/18 sennosides-docusate sodium [Senna 1 tab PO BID PRN 04/12/18 04/12/18 Laxative-Stool Softener] tiotropium bromide [Spiriva with 1 cap INHALATION DAILY 04/12/18 04/12/18 HandiHaler] torsemide 20 mg PO DAILY 04/12/18 04/12/18 vitamins A,C,[id number] 1 cap PO BID 04/12/18 04/12/18 [PreserVision AREDS] Allergies Allergy/AdvReac Type Severity Reaction Status Date / Time adhesive Allergy Severe steri Verified 04/12/18 22:02 strips causes severe skin irritation cephalexin Allergy Severe Hives Verified 04/12/18 22:02 clindamycin Allergy Severe THRUSH Verified 04/12/18 22:02 verapamil Allergy Severe SWELLING Verified 04/12/18 22:02 amlodipine Allergy Intermediate EDEMA Verified 04/12/18 22:02 etodolac Allergy Intermediate GI Verified 04/12/18 22:02 flurbiprofen Allergy Intermediate GI Verified 04/12/18 22:02 ibuprofen Allergy Intermediate GI Verified 04/12/18 22:02 indomethacin Allergy Intermediate GI Verified 04/12/18 22:02 ketoprofen Allergy Intermediate GI Verified 04/12/18 22:02 ketorolac Allergy Intermediate GI Verified 04/12/18 22:02 naproxen Allergy Intermediate GI Verified 04/12/18 22:02 oxaprozin Allergy Intermediate GI Verified 04/12/18 22:02 atorvastatin Allergy Unknown Hives Verified 04/12/18 22:02 diclofenac Allergy Unknown Hives Verified 04/12/18 22:02 diflunisal Allergy Unknown Hives Verified 04/12/18 22:02 duloxetine Allergy Unknown Hives Verified 04/12/18 23:44 escitalopram Allergy Unknown Hives Verified 04/12/18 23:44 ezetimibe Allergy Unknown Hives Verified 04/12/18 23:44 fluoxetine Allergy Unknown Hives Verified 04/12/18 23:44 rivaroxaban Allergy Unknown Hives Verified 04/12/18 23:44 simvastatin Allergy Unknown Hives Verified 04/12/18 23:44 vytorin Allergy Unknown Hives Uncoded 04/12/18 22:02 Review of Systems ROS: all other systems reviewed are negative PMFSH History History 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 Medical History Medical History Anxiety (Acute) Atrial fibrillation (Acute) CHF (congestive heart failure) (Acute) COPD (chronic obstructive pulmonary disease) (Acute) Cardiac arrhythmia (Acute) Essential (primary) hypertension (Acute) Hyperlipidemia (Acute) Hypertension (Acute) Surgical History Surgical History History of carpal tunnel release (Acute) History of knee surgery (Acute) History of shoulder surgery (Acute) Status post coronary artery bypass graft (Acute) Family History Family History Other Coronary artery disease Diabetes mellitus Social History Social History Substance History: No History of Abuse Second Hand Smoke Exposure: No Smoking Status: Former smoker How Often Do You Have a Drink Containing Alcohol: 2 to 4 times a month Recent Travel in [facility] within the Last 8 Weeks: No Recent Out of Country Travel within the Last 8 Weeks: No Exam Narrative Exam Narrative: GENERAL: Well-nourished, well-developed patient. SKIN: Focused skin assessment warm/dry. HEAD: Normocephalic. EYES: No scleral icterus. No injection or drainage. NECK: Supple, trachea midline. No JVD or lymphadenopathy. CARDIOVASCULAR: Regular rate and rhythm without murmurs, gallops, or rubs. RESPIRATORY: Patient has moderate expiratory wheezes bilaterally with few rhonchi at the bases. GASTROINTESTINAL: Abdomen soft, non-tender, nondistended. MUSCULOSKELETAL: No cyanosis, or edema. BACK: Nontender without obvious deformity. No CVA tenderness. Neurologic exam normal. Course Initial Documented Vital Signs Temperature 103.1 F H 04/12/18 22:02 Pulse Rate 114 H 04/12/18 22:02 Respiratory Rate 30 H 04/12/18 22:02 Blood Pressure 195/84 H 04/12/18 22:02 Pulse Oximetry 96 04/12/18 22:02 Last Documented Vital Signs Temperature 99.2 F 04/12/18 23:22 Pulse Rate 89 04/13/18 00:16 Respiratory Rate 24 04/13/18 00:16 Blood Pressure 174/77 H 04/13/18 00:16 Pulse Oximetry 94 L 04/13/18 00:16 Medical Decision Making [facility] Narrative Medical decision making narrative: 82-year-old female with fever, cough and congestion, wheezing, shortness of breath. History of COPD. Albuterol with Atrovent unit dose treatment x3. Solu-Medrol 125 mg IV. Tylenol 650 mg p.o. given for fever. Patient care assumed by ks Dr. De Leon from Dr. Dixon at 2300, this is an 82-year- old female presented emergency department with low oxygen saturations in the low 80s. She is placed on oxygen, breathing treatments, chest x-ray does not show any significant infiltrate or effusion but very limited study. CT PE protocol was added which showed no pulmonary embolism and no obvious infiltrates or effusions. She does have some chronic scarring. History of COPD. Appears to be a COPD exacerbation with hypoxia. Patient is tolerating nasal cannula just fine. After discussion with Dr. sanchez at sign out we have added Levaquin to her treatment regimen. Patient was ultimately discussed with Dr. Blanton for admission for hypoxic respiratory failure and COPD exacerbation Medical Screen Exam Complete: Yes Emergency Medical Condition: Yes Lab Data Result diagrams: 04/12/18 22:18 04/12/18 22:18 Lab Results 04/12/18 04/12/1818 Range/Units 22:18 22:18 22:18 WBC 12.4 H (4.0-11.0) th/mm3 RBC 4.52 (4.00-5.30) mil/mm3 Hgb 14.4 (11.6-15.3) gm/dL Hct 43.1 (35.0-46.0) % MCV 95.3 (80.0-100.0) fL MCH 31.8 (27.0-34.0) pg MCHC 33.4 (32.0-36.0) % RDW 14.0 (11.6-17.2) % Plt Count 144 L (150-450) th/mm3 MPV 8.5 (7.0-11.0) fL Neut % (Auto) 78.1 H (16.0-70.0) % Lymph % (Auto) 11.5 (9.0-44.0) % Noble % (Auto) 9.9 H (0.0-8.0) % Eos % (Auto) 0.2 (0.0-4.0) % Baso % (Auto) 0.3 (0.0-2.0) % Neut # (Auto) 9.7 H (1.8-7.7) th/mm3 Lymph # (Auto) 1.4 (1.0-4.8) th/mm3 Noble # (Auto) 1.2 H (0.0-0.9) th/mm3 Eos # (Auto) 0.0 (0.0-0.4) th/mm3 Baso # (Auto) 0.0 (0.0-0.2) th/mm3 WBC Differential . Differential Comment Auto diff final PT (9.8-11.6) sec INR Ratio APTT (23.4-31.7) sec Sodium 142 (136-145) meq/L Potassium 2.8 L* (3.5-5.1) meq/L Chloride 98 (98-107) meq/L Carbon Dioxide 36.2 H (21.0-32.0) meq/L Anion Gap 8 (5-15) meq/L BUN 19 H (7-18) mg/dL Creatinine 1.41 H (0.50-1.00) mg/dL Estimated GFR 36 L (>89) mL/min Random Glucose 161 H (74-106) mg/dL Lactic Acid (0.4-2.0) mmol/L Calcium 7.8 L (8.5-10.1) mg/dL Total Bilirubin 1.0 (0.2-1.0) mg/dL AST 75 H (15-37) U/L ALT 42 (10-53) U/L Alkaline Phosphatase 161 H (45-117) U/L B-Natriuretic Peptide 72 (0-100) pg/mL Total Protein 7.5 (6.4-8.2) g/dL Albumin 3.5 (3.4-5.0) g/dL Urine Color (Yellw/Straw) Urine Clarity (Clear) Urine pH (5.0-8.5) Ur Specific Blackstone (1.002-1.035) Urine Protein (Neg-Trace) mg/dL Urine Glucose (UA) (Negative) mg/dL Urine Ketones (Negative) mg/dL Urine Occult Blood (Negative) Urine Nitrate (Negative) Urine Bilirubin (Negative) Urine Urobilinogen (Less than 2) mg/dL Ur Leukocyte Esterase (Negative) Urine RBC (0-3) /hpf Urine WBC (0-5) /hpf Hyaline Casts (0-3) /lpf Urine Mucus (Occasional) /lpf Micro UA Comment Ur Microscopic Review Urine Culture Comments 04/12/18 04/12/18 04/12/18 Range/Units 22:18 22:29 23:22 WBC (4.0-11.0) th/mm3 RBC (4.00-5.30) mil/mm3 Hgb (11.6-15.3) gm/dL Hct (35.0-46.0) % MCV (80.0-100.0) fL MCH (27.0-34.0) pg MCHC (32.0-36.0) % RDW (11.6-17.2) % Plt Count (150-450) th/mm3 MPV (7.0-11.0) fL Neut % (Auto) (16.0-70.0) % Lymph % (Auto) (9.0-44.0) % Noble % (Auto) (0.0-8.0) % Eos % (Auto) (0.0-4.0) % Baso % (Auto) (0.0-2.0) % Neut # (Auto) (1.8-7.7) th/mm3 Lymph # (Auto) (1.0-4.8) th/mm3 Noble # (Auto) (0.0-0.9) th/mm3 Eos # (Auto) (0.0-0.4) th/mm3 Baso # (Auto) (0.0-0.2) th/mm3 WBC Differential Differential Comment PT 13.5 H (9.8-11.6) sec INR 1.3 Ratio APTT 31.5 (23.4-31.7) sec Sodium (136-145) meq/L Potassium (3.5-5.1) meq/L Chloride (98-107) meq/L Carbon Dioxide (21.0-32.0) meq/L Anion Gap (5-15) meq/L BUN (7-18) mg/dL Creatinine (0.50-1.00) mg/dL Estimated GFR (>89) mL/min Random Glucose (74-106) mg/dL Lactic Acid 1.4 (0.4-2.0) mmol/L Calcium (8.5-10.1) mg/dL Total Bilirubin (0.2-1.0) mg/dL AST (15-37) U/L ALT (10-53) U/L Alkaline Phosphatase (45-117) U/L B-Natriuretic Peptide (0-100) pg/mL Total Protein (6.4-8.2) g/dL Albumin (3.4-5.0) g/dL Urine Color Yellow (Yellw/Straw) Urine Clarity Clear (Clear) Urine pH 6.0 (5.0-8.5) Ur Specific Blackstone 1.008 (1.002-1.035) Urine Protein Negative (Neg-Trace) mg/dL Urine Glucose (UA) Negative (Negative) mg/dL Urine Ketones Negative (Negative) mg/dL Urine Occult Blood Negative (Negative) Urine Nitrate Negative (Negative) Urine Bilirubin Negative (Negative) Urine Urobilinogen Less than 2 (Less than 2) mg/dL Ur Leukocyte Esterase Negative (Negative) Urine RBC 2 (0-3) /hpf Urine WBC 1 (0-5) /hpf Hyaline Casts 1 (0-3) /lpf Urine Mucus Few H (Occasional) /lpf Micro UA Comment Culture not ind Ur Microscopic Review Not Reportable Urine Culture Comments Culture not ind Imaging Data Radiologist's impression: Chest X-Ray 04/12/18 22:10 CONCLUSION: Limited single view exam demonstrating cardiomegaly with scarring and no definite pulmonary edema. Chest CTA 04/13/18 00:40 CONCLUSION: 1. The study is negative for pulmonary embolism. 2. Stable chronic infiltrates and scarring within the right middle lobe and lingula. Discharge Plan Discharge Disposition Patient Disposition: ED Admit(ED Internal Use Only) Discharge Condition Condition: Stable Discharge Order Discharge Orders: ED Use Only Admit Order (Routine); Ordered 04/13/18 Ordered By: Marcio De Leon Discharge Details Diagnosis: Acute respiratory failure with hypoxia, COPD exacerbation Physicians Team ED Provider: Marcio De Leon Primary Care Provider: UNKNOWN, Attending Provider: Priscila Blanton Discharge Interventions Interventions: Vital Signs Last Done: 04/13/18 00:16 Status ED Status: Admitted Patient
--- NOTE | 2018-04-12 22:26 | XR ---
EXAM DATE: 04/12/2018 10:22 PM EST AGE/SEX: 82 years / Female INDICATIONS: Short of breath. CLINICAL DATA: This is the patient's initial encounter. Patient reports that signs and symptoms have been present for 1 day and indicates a pain score of 0/10. MEDICAL/SURGICAL HISTORY: None. CABG. COMPARISON: [facility], XR CHEST PA AND LAT, 11/18/2017. . FINDINGS: A single AP portable erect view of the chest was obtained and again demonstrates the patient is statu s post median sternotomy. The heart size is moderately enlarged with globular heart configuration. Th ere is streaky scarring again noted in the left perihilar region. No new confluent infiltrates or eff usions are identified. Lung bases are not well-visualized due to the patient's body habitus. The bony structures appear intact. CONCLUSION: Limited single view exam demonstrating cardiomegaly with scarring and no definite pulmonary edema. Electronically signed by: Mike Hannon MD Board Certified Radiologist 04/12/2018 10:25 PM BELKIS Lechuga
[2018-04-12 22:51] LABS: Baso % (Auto) 0.3 % (0.0-2.0); Eos % (Auto) 0.2 % (0.0-4.0); Hematocrit 43.1 % (35.0-46.0); Hemoglobin 14.4 gm/dL (11.6-15.3); Lymph # (Auto) 1.4 th/mm3 (1.0-4.8); Lymph % (Auto) 11.5 % (9.0-44.0); Mean Corpuscular HGB Conc 33.4 % (32.0-36.0); Mean Corpuscular Hemoglobin 31.8 pg (27.0-34.0); Mean Corpuscular Volume 95.3 fL (80.0-100.0); Mean Platelet Volume 8.5 fL (7.0-11.0); Mono # (Auto) 1.2 th/mm3 (0.0-0.9); Mono % (Auto) 9.9 % (0.0-8.0); Neut # (Auto) 9.7 th/mm3 (1.8-7.7); Neut % (Auto) 78.1 % (16.0-70.0); Platelet Count 144 th/mm3 (150-450); Red Blood Count 4.52 mil/mm3 (4.00-5.30); White Blood Count 12.4 th/mm3 (4.0-11.0)
[2018-04-12 23:05] LABS: Activated Partial Thrombo Time 31.5 sec (23.4-31.7); INR 1.3 Ratio; Prothrombin Time 13.5 sec (9.8-11.6)
[2018-04-12 23:24] LABS: Alanine Aminotransferase 42 U/L (10-53); Albumin 3.5 g/dL (3.4-5.0); Alkaline Phosphatase 161 U/L (45-117); Anion Gap 8 meq/L (5-15); Aspartate Aminotransferase 75 U/L (15-37); Blood Urea Nitrogen 19 mg/dL (7-18); Calcium 7.8 mg/dL (8.5-10.1); Carbon Dioxide 36.2 meq/L (21.0-32.0); Chloride 98 meq/L (98-107); Glomerular Filtration Rate 36 mL/min (>89); Glucose,Random 161 mg/dL (74-106); Sodium 142 meq/L (136-145); Total Protein 7.5 g/dL (6.4-8.2)
[2018-04-12 23:27] LABS: Potassium 2.8 meq/L (3.5-5.1)
[2018-04-12 23:37] LABS: Bilirubin,Urine Negative (Negative); Clarity,Urine Clear (Clear); Color,Urine Yellow (Yellw/Straw); Glucose,Urine (UA) Negative (Negative); Hyaline Casts,Urine 1 /lpf (0-3); Leukocyte Esterase,Urine Negative (Negative); Mucus,Urine Few /lpf (Occasional); Nitrite,Urine Negative (Negative); Specific Gravity,Urine 1.008 (1.002-1.035)
[2018-04-12] MEDS: Potassium Chlor 20 mEq Premix 20 MEQ/100 ML PIGGYBACK IV.SIG SCH (23:40)
[2018-04-12] MEDS ORDERED: Sodium Chlor 0.9% Inj 500 ML IV.SIG SCH (23:45)
[2018-04-13] MEDS ORDERED: Acetaminophen 325 MG Tablet PO PRN (01:22)
[2018-04-13] MEDS ORDERED: Bisacodyl 10 MG Supp RECTAL PRN (01:22)
[2018-04-13] MEDS ORDERED: Heparin - SQ 10,000 UNITS/ML Vial SQ SCH (01:30)
--- NOTE | 2018-04-13 01:39 | P.HP ---
History of Present Illness Service: [facility] Primary Care Physician: UNKNOWN History of Present Illness: 82-year-old female with a past medical history significant for atrial fibrillation, anticoagulated on Eliquis, COPD, hypertension, hypothyroidism, hyperlipidemia and congestive heart failure presents to the emergency department for the evaluation of shortness of breath. The patient reports she has been suffering intermittent bouts of shortness of breath since Thanksgiving however her symptoms acutely worsened yesterday. She is not on home oxygen however does have BiPAP for her obstructive sleep apnea. She endorses approximately 2-3 weeks of intermittent fever/chills and a nonproductive cough. She denies any chest pain. No abdominal pain. No nausea/vomiting/diarrhea. No focal neurologic deficits. Inpatient Certification: I certify that the inpatient services were ordered in accordance with Medicare regulations governing the order. This includes certification that hospital inpatient services are reasonable and necessary and in the case of services not specified as inpatient-only under 42 CFR 419.22(n), that they are appropriately provided as inpatient services in accordance to with the 2-midnight benchmark under 43 CFR 412.3(e) Estimated Total Length of Stay (Days): 2 Plans for Post Hospital Care: Not yet determined Review of Systems All other systems reviewed negative except as stated in HPI [facility] - History History Provided By: Patient, Latcher / EMT - Medical History Medical History: Medical History (Last Updated 04/13/18 @ 01:30 by Priscila Blanton MD) Anxiety Atrial fibrillation CHF (congestive heart failure) COPD (chronic obstructive pulmonary disease) Cardiac arrhythmia Essential (primary) hypertension Hyperlipidemia Hypertension - Surgical History Surgical History: Surgical History (Last Updated 04/13/18 @ 01:31 by Priscila Blanton MD) History of carpal tunnel release History of knee surgery History of shoulder surgery Status post coronary artery bypass graft - Family History Family History: Family History (Last Updated 04/13/18 @ 01:31 by Priscila Blanton MD) Other Coronary artery disease Diabetes mellitus - Social History I have reviewed the patient's Social History: Yes - Tobacco History Second Hand Smoke Exposure: No Tobacco Use In Past 30 Days: No Smoking Status: Former smoker - Alcohol History How Often Do You Have a Drink Containing Alcohol: 2 to 4 times a month - Substance Use History Substance History: No History of Abuse - Travel History Recent Travel in the [place] Within the Last 8 Weeks: No Recent Travel Out of the Country Within the Last 8 Weeks: No - Immunization History Tetanus Immunization: <5 Years Medications and Allergies Active Medications: Active Medications Potassium Chloride (Kcl 20 Meq Premix Inj) 20 meq in 100 mls @ 50 mls/hr IV.SIG Q2H FLORINA Stop: 04/13/18 03:29 Last Admin: 04/12/18 23:40 Dose: 50 mls/hr Allergies Allergy/AdvReac Type Severity Reaction Status Date / Time adhesive Allergy Severe steri Verified 04/12/18 22:02 strips causes severe skin irritation cephalexin Allergy Severe Hives Verified 04/12/18 22:02 clindamycin Allergy Severe THRUSH Verified 04/12/18 22:02 verapamil Allergy Severe SWELLING Verified 04/12/18 22:02 amlodipine Allergy Intermediate EDEMA Verified 04/12/18 22:02 etodolac Allergy Intermediate GI Verified 04/12/18 22:02 flurbiprofen Allergy Intermediate GI Verified 04/12/18 22:02 ibuprofen Allergy Intermediate GI Verified 04/12/18 22:02 indomethacin Allergy Intermediate GI Verified 04/12/18 22:02 ketoprofen Allergy Intermediate GI Verified 04/12/18 22:02 ketorolac Allergy Intermediate GI Verified 04/12/18 22:02 naproxen Allergy Intermediate GI Verified 04/12/18 22:02 oxaprozin Allergy Intermediate GI Verified 04/12/18 22:02 atorvastatin Allergy Unknown Hives Verified 04/12/18 22:02 diclofenac Allergy Unknown Hives Verified 04/12/18 22:02 diflunisal Allergy Unknown Hives Verified 04/12/18 22:02 duloxetine Allergy Unknown Hives Verified 04/12/18 23:44 escitalopram Allergy Unknown Hives Verified 04/12/18 23:44 ezetimibe Allergy Unknown Hives Verified 04/12/18 23:44 fluoxetine Allergy Unknown Hives Verified 04/12/18 23:44 rivaroxaban Allergy Unknown Hives Verified 04/12/18 23:44 simvastatin Allergy Unknown Hives Verified 04/12/18 23:44 vytorin Allergy Unknown Hives Uncoded 04/12/18 22:02 Home Medications Medication Instructions Recorded Confirmed Type Lactobacillus rhamnosus GG 1 cap PO DAILY 04/12/18 04/12/18 History [Culturelle] acetaminophen 325 mg PO Q6H PRN 04/12/18 04/12/18 History albuterol sulfate [Ventolin HFA] 2 puff INHALATION Q6H PRN 04/12/18 04/12/18 History apixaban [Eliquis] 5 mg PO BID 04/12/18 04/12/18 History aspirin [Aspir-Low] 81 mg PO DAILY 04/12/18 04/12/18 History biotin 5,000 mcg SUBLINGUAL DAILY 04/12/18 04/12/18 History budesonide-formoterol [Symbicort] 2 puff INHALATION BID 04/12/18 04/12/18 History calcitriol 0.25 mcg PO Q OTHER DAY 04/12/18 04/12/18 History clonidine HCl 0.1 mg PO TID 04/12/18 04/12/18 History coenzyme Q10 [Co Q-10] 100 mg PO DAILY 04/12/18 04/12/18 History cranberry fruit [cranberry] 450 mg PO DAILY 04/12/18 04/12/18 History dextran 70-hypromellose 2 drp OPHTHALMIC (EYE) Q12H 04/12/18 04/12/18 History [Artificial Tears([id number])] dextromethorphan-guaifenesin 15 ml PO Q4-8H PRN 04/12/18 04/12/18 History [Robitussin Cough-Chest Carlo DM] doxycycline monohydrate 100 mg PO BID 04/12/18 04/12/18 History ipratropium-albuterol 3 ml INHALATION Q6-8H PRN 04/12/18 04/12/18 History isosorbide mononitrate 120 mg PO QAM 04/12/18 04/12/18 History levothyroxine 75 mcg PO DAILY 04/12/18 04/12/18 History loratadine 10 mg PO DAILY 04/12/18 04/12/18 History metoprolol succinate 50 mg PO DAILY 04/12/18 04/12/18 History montelukast 10 mg PO QPM 04/12/18 04/12/18 History nitroglycerin [Nitrolingual] 1 spray TRANSLINGUAL Q3-5M PRN 04/12/18 04/12/18 History phenazopyridine 100 mg PO TID PRN 04/12/18 04/12/18 History polyethylene glycol 3350 [Miralax] 17 g PO DAILY PRN 04/12/18 04/12/18 History potassium chloride 20 meq PO BID 04/12/18 04/12/18 History ropinirole [Requip XL] 4 mg PO BID 04/12/18 04/12/18 History sennosides-docusate sodium [Senna 1 tab PO BID PRN 04/12/18 04/12/18 History Laxative-Stool Softener] tiotropium bromide [Spiriva with 1 cap INHALATION DAILY 04/12/18 04/12/18 History HandiHaler] torsemide 20 mg PO DAILY 04/12/18 04/12/18 History vitamins A,C,Q-otmm-vujqvk 1 cap PO BID 04/12/18 04/12/18 History [PreserVision AREDS] Exam Vital signs: Vital Signs 04/12/18 22:02 04/12/18 22:10 04/12/18 22:15 Temperature 103.1 F H 103.1 F H Pulse Rate 114 H 105 H Respiratory Rate 30 H 30 H Blood Pressure 195/84 H 212/80 H Pulse Oximetry 96 95 96 04/12/18 23:03 04/12/18 23:06 04/12/18 23:22 Temperature 99.2 F Pulse Rate 99 H 91 H 93 H Respiratory Rate 24 24 26 H Blood Pressure 189/78 H 158/98 H Pulse Oximetry 91 L 95 95 04/13/18 00:16 Temperature Pulse Rate 89 Respiratory Rate 24 Blood Pressure 174/77 H Pulse Oximetry 94 L Intake & Output 04/12/18 04/12/18 04/13/18 06:59 18:59 06:59 Intake Total 750 / 750 Balance 750 / 750 Weight 133.81 kg Intake: IV 750 / 750 Levaquin 750 mg Premix Inj 150 250 / 250 ML @ 100 mls/hr IV.SIG ONCE ONE Rx#:[id number] NS Inj 500 ML @ 1000 mls/hr IV. 500 / 500 SIG BOLUS FLORINA Rx#:[id number] Narrative: Gen.: No acute distress Head: Normocephalic. Atraumatic. EENT: Pupils equal round and reactive to light. Nose without drainage. Airway intact. Throat without injection. Cardiovascular: Regular rate and rhythm. No murmurs, rubs or gallops. Respiratory: Poor air movement. Bilateral wheezes and rhonchi. Abdomen: Soft, nontender, nondistended. No peritoneal signs. Musculoskeletal: No gross deformities. No edema. Skin: No obvious rashes or erythema. Neuro: Sensory and motor grossly intact. Cranial nerves II through XII grossly intact. Results - Labs CBC & Chem 7: 04/12/18 22:18 04/12/18 22:18 Labs: Laboratory Results - last 24 hr 04/12/18 04/12/18 04/12/18 22:18 22:18 22:18 WBC 12.4 H RBC 4.52 Hgb 14.4 Hct 43.1 MCV 95.3 MCH 31.8 MCHC 33.4 RDW 14.0 Plt Count 144 L MPV 8.5 Neut % (Auto) 78.1 H Lymph % (Auto) 11.5 Vernon % (Auto) 9.9 H Eos % (Auto) 0.2 Baso % (Auto) 0.3 Neut # (Auto) 9.7 H Lymph # (Auto) 1.4 Vernon # (Auto) 1.2 H Eos # (Auto) 0.0 Baso # (Auto) 0.0 WBC Differential . Differential Comment Auto diff final PT INR APTT Sodium 142 Potassium 2.8 L* Chloride 98 Carbon Dioxide 36.2 H Anion Gap 8 BUN 19 H Creatinine 1.41 H Estimated GFR 36 L Random Glucose 161 H Lactic Acid Calcium 7.8 L Total Bilirubin 1.0 AST 75 H ALT 42 Alkaline Phosphatase 161 H B-Natriuretic Peptide 72 Total Protein 7.5 Albumin 3.5 Urine Color Urine Clarity Urine pH Ur Specific [place] Urine Protein Urine Glucose (UA) Urine Ketones Urine Occult Blood Urine Nitrate Urine Bilirubin Urine Urobilinogen Ur Leukocyte Esterase Urine RBC Urine WBC Hyaline Casts Urine Mucus Micro UA Comment Ur Microscopic Review Urine Culture Comments 04/12/18 04/12/18 04/12/18 22:18 22:29 23:22 WBC RBC Hgb Hct MCV MCH MCHC RDW Plt Count MPV Neut % (Auto) Lymph % (Auto) Vernon % (Auto) Eos % (Auto) Baso % (Auto) Neut # (Auto) Lymph # (Auto) Vernon # (Auto) Eos # (Auto) Baso # (Auto) WBC Differential Differential Comment PT 13.5 H INR 1.3 APTT 31.5 Sodium Potassium Chloride Carbon Dioxide Anion Gap BUN Creatinine Estimated GFR Random Glucose Lactic Acid 1.4 Calcium Total Bilirubin AST ALT Alkaline Phosphatase B-Natriuretic Peptide Total Protein Albumin Urine Color Yellow Urine Clarity Clear Urine pH 6.0 Ur Specific [place] 1.008 Urine Protein Negative Urine Glucose (UA) Negative Urine Ketones Negative Urine Occult Blood Negative Urine Nitrate Negative Urine Bilirubin Negative Urine Urobilinogen Less than 2 Ur Leukocyte Esterase Negative Urine RBC 2 Urine WBC 1 Hyaline Casts 1 Urine Mucus Few H Micro UA Comment Culture not ind Ur Microscopic Review Not Reportable Urine Culture Comments Culture not ind - Imaging Impressions Chest X-Ray 04/12/18 22:10 CONCLUSION: Limited single view exam demonstrating cardiomegaly with scarring and no definite pulmonary edema. Caprini VTE Risk Assessment Caprini VTE Risk Assessment: Moderate/High Risk (score >= 2) Caprini Risk Assessment Model: Point Value = 1 Point Value = 2 Point Value = 3 Point Value = 5 Age 41-60 Minor surgery BMI > 25 kg/m2 Swollen legs Varicose veins or History of unexplained or recurrent spontaneous Oral contraceptives or hormone replacement Sepsis (< 1 month) Serious lung disease, including pneumonia (< 1 month) Abnormal pulmonary function Acute myocardial infarction Congestive heart failure (< 1 month) History of inflammatory bowel disease Medical patient at bed rest Age 61-74 Arthroscopic surgery Major open surgery (> 45 min) Laparoscopic surgery (> 45 min) Malignancy Confined to bed (> 72 hours) Immobilizing plaster cast Central venous access Age >= 75 History of VTE Family history of VTE Factor V Leiden Prothrombin [id number] Lupus anticoagulant Anticardiolipin antibodies Elevated serum homocysteine Heparin-induced thrombocytopenia Other congenital or acquired thrombophilia Stroke (< 1 month) Elective arthroplasty Hip, pelvis, or leg fracture Acute spinal cord injury (< 1 month) Prophylaxis Regimen: Total Risk Factor Score Risk Level Prophylaxis Regimen 0-1 Low Early ambulation 2 Moderate Order ONE of the following: *Sequential Compression Device (SCD) *Heparin 5000 units SQ BID 3-4 Higher Order ONE of the following medications: *Heparin 5000 units SQ TID *Enoxaparin/Lovenox 40 mg SQ daily (WT < 150 kg, CrCl > 30 mL/min) *Enoxaparin/Lovenox 30 mg SQ daily (WT < 150 kg, CrCl > 10-29 mL/min) *Enoxaparin/Lovenox 30 mg SQ BID (WT < 150 kg, CrCl > 30 mL/min) AND/OR *Sequential Compression Device (SCD) 5 or more Highest Order ONE of the following medications: *Heparin 5000 units SQ TID (Preferred with Epidurals) *Enoxaparin/Lovenox 40 mg SQ daily (WT < 150 kg, CrCl > 30 mL/min) *Enoxaparin/Lovenox 30 mg SQ daily (WT < 150 kg, CrCl > 10-29 mL/min) *Enoxaparin/Lovenox 30 mg SQ BID (WT < 150 kg, CrCl > 30 mL/min) AND *Sequential Compression Device (SCD) Assessment and Plan - Plan Assessment/plan: 1. COPD exacerbation/shortness of breath/? Pneumonia/sepsis Chest x-ray limited, CT pending Blood cultures pending Patient febrile, tachycardic with leukocytosis Levaquin for probable pneumonia IV steroids Supplemental oxygen as needed Continue home Symbicort, Spiriva Duo nebs 2. Hypokalemia Potassium 2.8 Status post p.o. supplementation Monitor BMP 3. Atrial fibrillation Continue anticoagulation with Eliquis Continue home medications 4. Acute kidney injury Creatinine 1.41, baseline 0.98 Holding IV fluids secondary to CHF Monitor renal function 5. CHF/hypertension/hyperlipidemia Continue home medication FEN Cardiac diet Electrolytes: As above Eliquis
--- NOTE | 2018-04-13 01:42 | CT ---
EXAM DATE: 04/13/2018 1:30 AM EST AGE/SEX: 82 years / Female INDICATIONS: Chest pain, shortness of breath. CLINICAL DATA: This is the patient's initial encounter. Patient reports that signs and symptoms have been present for 3 days and indicates a pain score of 4/10. MEDICAL/SURGICAL HISTORY: Cardiovascular disease. Chronic obstructive pulmonary disease. Hyperten roselyn. AFIB CABG. RADIATION DOSE: 10.84 CTDI (mGy) COMPARISON: POI, CT CHEST W/O CONTRAST, 11/30/2017. . TECHNIQUE: Volumetric scanning was performed using a multi-row detector CT scanner during bolus infu roselyn of 48 ml Visipaque 320 (iodixanol) nonionic water-soluble contrast as a single exam dose. The d melanie was post processed with a variety of visualization algorithms including full volume maximum inten sity projection and sliding thin slab reformation. Using automated exposure control and adjustment of the mA and/or kV according to patient size, radiation dose was kept as low as reasonably achievable to obtain optimal diagnostic quality images. DICOM format image data is available electronically for review and comparison. FINDINGS: Pulmonary Arteries: No filling defects are seen in the pulmonary arteries out to the subsegmental ve ssels. The left and right pulmonary arteries are normal in diameter. Lung: Stable appearance to chronic infiltrates in the medial right middle lobe, lateral left midlung , and subpleural left midlung, unchanged from prior CT in November 2017. Effusion: None. Mediastinum: No evidence of mediastinal or hilar adenopathy. Other: Prior median sternotomy. CONCLUSION: 1. The study is negative for pulmonary embolism. 2. Stable chronic infiltrates and scarring within the right middle lobe and lingula. Electronically signed by: Kevin Rodríguez MD Board Certified Radiologist 04/13/2018 1:41 AM EST
[2018-04-13] MEDS: Potassium Chlor 20 mEq Premix 20 MEQ/100 ML PIGGYBACK IV.SIG SCH (02:40)
[2018-04-13] MEDS: MethylPREDNISolone Sod Succinate Inj 40 MG/ML Vial IV.PUSH SCH ×4 (02:41→23:50)
[2018-04-13] MEDS: Levothyroxine 75 MCG Tablet PO SCH (05:56)
[2018-04-13] MEDS: Senna/Docusate Sodium 8.6/50 MG Tablet PO SCH ×2 (08:45→23:51)
[2018-04-13] MEDS ORDERED: Torsemide 20 MG Tablet PO SCH ×2 (09:00→18:00)
[2018-04-13] MEDS ORDERED: ROPINIROLE 4 MG PO SCH (09:00)
[2018-04-13] MEDS: Isosorbide Mononitrate 60 MG ER 24HR Tablet (Imdur) PO SCH (12:47)
[2018-04-13] MEDS: Budesonide-Formoterol 160/4.5 MCG 6 GM Inhaler INH SCH ×2 (14:05→23:51)
[2018-04-13] MEDS: Tiotropium Bromide 18 MCG/ACT Inhaler INH SCH (14:05)
[2018-04-13 14:33] LABS: Calcium 8.2 mg/dL (8.5-10.1); Carbon Dioxide 32.9 meq/L (21.0-32.0); Potassium 3.7 meq/L (3.5-5.1)
--- NOTE | 2018-04-13 16:18 | ECG ---
Date Performed: 04/12/2018 Time Performed: 22:03:22 PTAGE: 82 years EKG: Indeterminate rhythm, due to basdeline wandering artifact Left anterior fasicular block. Pr emature ventricular contractions. ABNORMAL ECG PREVIOUS TRACING : 03/25/2017 09.01 DOCTOR: Moustapha Tran Interpretating Date/Time 04/13/2018 16:17:37
[2018-04-14] MEDS: MethylPREDNISolone Sod Succinate Inj 40 MG/ML Vial IV.PUSH SCH ×4 (04:25→21:08)
[2018-04-14] MEDS: Levothyroxine 75 MCG Tablet PO SCH (05:09)
[2018-04-14 08:48] LABS: Baso % (Auto) 0.1 % (0.0-2.0); Hematocrit 40.1 % (35.0-46.0); Hemoglobin 13.7 gm/dL (11.6-15.3); Lymph # (Auto) 0.7 th/mm3 (1.0-4.8); Lymph % (Auto) 4.9 % (9.0-44.0); Mean Corpuscular HGB Conc 34.1 % (32.0-36.0); Mean Corpuscular Hemoglobin 33.1 pg (27.0-34.0); Mean Platelet Volume 8.8 fL (7.0-11.0); Mono # (Auto) 0.6 th/mm3 (0.0-0.9); Mono % (Auto) 4.8 % (0.0-8.0); Neut # (Auto) 12.2 th/mm3 (1.8-7.7); Neut % (Auto) 90.2 % (16.0-70.0); Platelet Count 123 th/mm3 (150-450); Red Blood Count 4.13 mil/mm3 (4.00-5.30); Red Cell Distribution Width 14.2 % (11.6-17.2); White Blood Count 13.5 th/mm3 (4.0-11.0)
[2018-04-14 09:07] LABS: Calcium 8.5 mg/dL (8.5-10.1); Carbon Dioxide 32.5 meq/L (21.0-32.0); Magnesium 2.2 mg/dL (1.5-2.5); Potassium 3.3 meq/L (3.5-5.1)
[2018-04-14 09:08] LABS: Phosphorus 2.8 mg/dL (2.5-4.9)
[2018-04-14 09:11] LABS: Total Protein 6.7 g/dL (6.4-8.2)
[2018-04-14] MEDS ORDERED: Isosorbide Mononitrate 60 MG ER 24HR Tablet (Imdur) PO SCH (09:22)
--- NOTE | 2018-04-14 09:29 | P.PNIM ---
Subjective Interval history: f/u; COPD exacerbation with mild respiratory distress and on oxygen via N/C. still with bilateral wheezing and cough. no fever. Physical Exam Vital signs: Last Vital Signs Temp 98.6 F 04/14/18 04:00 Pulse 78 04/14/18 06:15 Resp 18 04/14/18 06:00 BP 148/66 H 04/14/18 06:00 Pulse Ox 95 04/14/18 06:00 Intake & Output 04/12/18 04/13/18 04/14/18 04/15/18 06:59 06:59 06:59 06:59 Intake Total 1000 / 1000 600 / 600 Output Total 300 / 300 1000 / 1000 Balance 700 / 700 -400 / -400 Weight 130.5 kg 133.3 kg Constitutional mild distress Routine Respiratory Exam Present prolonged expiratory phase and respiratory distress Routine Cardiovascular Exam Present RRR Routine Abdominal Exam Present soft Routine Extremities Exam Comments: mild bilateral pedal edema. Routine Neurological Exam Present alert and oriented X3 Results Labs CBC & Chem 7: 04/14/18 07:31 04/14/18 07:31 Labs: Microbiology 04/12/18 22:18 Blood - Peripheral Aerobic Blood Culture - Preliminary No growth in 1 day 04/12/18 22:18 Blood - Peripheral Anaerobic Blood Culture - Preliminary No growth in 1 day 04/12/18 22:13 Blood - Peripheral Aerobic Blood Culture - Preliminary No growth in 1 day 04/12/18 22:13 Blood - Peripheral Anaerobic Blood Culture - Preliminary No growth in 1 day Assessment and Plan Plan 1. COPD exacerbation/shortness of breath sepsis due to possible pneumonia acute hypoxemic respiratory failure Chest x-ray limited, CT with no PE Blood cultures pending continue Levaquin ,IV steroids Supplemental oxygen as needed Continue home Symbicort, Spiriva Duo nebs consult Pulmonary 2. Hypokalemia Potassium 2.8 Status post p.o. supplementation Monitor BMP 3. Atrial fibrillation Continue anticoagulation with Eliquis Continue home medications 4. Acute kidney injury Creatinine 1.41, baseline 0.98 Holding IV fluids secondary to CHF Monitor renal function 5. CHF/hypertension/hyperlipidemia Continue home medication 6- morbid oobesity. FEN Cardiac diet Electrolytes: As above Eliquis consult PT. Discharge Planning: back to SNF when medically stable.
[2018-04-14] MEDS: Senna/Docusate Sodium 8.6/50 MG Tablet PO SCH ×2 (09:46→21:09)
[2018-04-14] MEDS ORDERED: Torsemide 20 MG Tablet PO ONE (12:30)
[2018-04-14] MEDS ORDERED: Isosorbide Mononitrate 60 MG ER 24HR Tablet (Imdur) PO ONE (12:30)
[2018-04-14] MEDS: Tiotropium Bromide 18 MCG/ACT Inhaler INH SCH (12:35)
[2018-04-14] MEDS: Budesonide-Formoterol 160/4.5 MCG 6 GM Inhaler INH SCH ×2 (12:35→21:13)
[2018-04-14] MEDS ORDERED: Torsemide 20 MG Tablet PO SCH (18:00)
[2018-04-14] MEDS: Isosorbide Mononitrate 60 MG ER 24HR Tablet (Imdur) PO SCH (19:00)
--- NOTE | 2018-04-14 19:15 | MB ---
cc: Nikhil Dyer MD, R Steven MD DATE: 04/14/2018 REASON FOR CONSULTATION: COPD exacerbation. HISTORY OF PRESENT ILLNESS: Ms. Goss is a pleasant 82-year-old female with a history of COPD, hypertension, mixed sleep apnea, atrial fibrillation, coronary artery disease, status post coronary artery bypass grafting. The patient lives in a [facility]ci for the last year or so; before that she was in [facility]. She was brought to the hospital with a fever. She says that since the day after Thanksgi, she has been having cough, but over the last few days, she started having fever. At one time, fever went up to 103. Oxygen saturation was low and she was hallucinating, that is why they brought her here.Her platelet count 123. Sodium is 138, potassium 3.3, chloride 99, CO2 32, BUN 33, creatinine 1.58. Her INR is 1.3. PAST MEDICAL HISTORY: Significant for history of coronary artery disease, status post CABG, history of multiple stents placed, history of atrial fibrillation, congestive heart failure, lymphedema of the legs, cellulitis of the leg, history of mixed obstructive sleep apnea, hypertension, diabetes mellitus. MEDICATIONS: She is currently takin. Nebulizer treatment with DuoNeb. 2. Eliquis 5 mg twice a day. 3. Ecotrin 81 mg a day. 4. Symbicort 160/4.5 two puffs twice a day. 5. Catapres 0.1 mg 3 times a day. 6. Isosorbide mononitrate 180 mg a day. 7. Levaquin 750 mg every 48 hours. 8. Levothyroxine 75 mcg a day. 9. Solu-Medrol 60 mg q.6 hours. 10. Metoprolol XL 50 mg a day. 12. Zofran p.r.n. 13. Potassium 20 mEq a day. 14. Senokot once a day. 15. Spiriva once a day. 16. Demadex 40 mg a day. ALLERGIES: 1. ADHESIVE TAPE. 2. CEPHALEXIN. 3. CLINDAMYCIN. 4. VERAPAMIL. 5. AMLODIPINE. 6. ETODOLAC. SOCIAL HISTORY: She is for 62 years. 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 She has history of smoking, which she quit a long time ago. She drinks moderately socially. FAMILY HISTORY: She is and lives with her at [facility]. She had 5 children, 1 with coronary artery disease. Heart disease runs in both sides of her family. REVIEW OF SYSTEMS: She walks a short distance with the help of a walker, has swelling in her legs. No DVT or pulmonary embolism. No seizure, stroke or epilepsy. No malignancy other than skin cancer. Weight is stable. She uses CPAP machine with ASV mode at nighttime. PHYSICAL EXAMINATION: GENERAL: Obese female, not in any acute distress. VITAL SIGNS: Blood pressure is 137/66, heart rate 74, respirations 18, temperature 97.9. HEENT: Pupils are equal and reactive to light. Oral mucosa and nasal mucosa normal. NECK: Supple. JVP not raised. CHEST: Symmetrical bilaterally. No rhonchi. HEART: S1, S2 normal. ABDOMEN: Soft, nontender. Bowel sounds are present. EXTREMITIES: She has swelling in the legs with mild redness in the left leg. CENTRAL NERVOUS SYSTEM: She is alert, oriented x 3. No focal deficit. IMPRESSION: 1. Chronic obstructive pulmonary disease with mild exacerbation. 2. Chronic infiltrate in the right middle lobe and lingula. 3. Obstructive sleep apnea. 4. Obesity. 5. Diabetes mellitus. 6. Hypertension. 7. Coronary artery disease, status post CABG and multiple stent placements. 8. Atrial fibrillation. PLAN: We discussed with the patient that we will continue antibiotic, IV Solu-Medrol, aerosol treatment, wean her oxygen, and will evaluate her for need for home oxygen therapy if needed. Monitor her renal functions. The patient follows with Dr. Isiah Gaytan. She will follow up with him after the discharge. Further treatment pending the course in the hospital. Thank you, Dr. Davis, for this consult. MD FELY Reis/doreen/do , 05:25 PM , 05:38 PM JACKIE
[2018-04-15] MEDS: MethylPREDNISolone Sod Succinate Inj 40 MG/ML Vial IV.PUSH SCH ×2 (01:38→09:04)
[2018-04-15] MEDS: Levothyroxine 75 MCG Tablet PO SCH (05:27)
[2018-04-15] MEDS: Isosorbide Mononitrate 60 MG ER 24HR Tablet (Imdur) PO SCH (06:29)
[2018-04-15] MEDS: Torsemide 20 MG Tablet PO SCH ×2 (06:29→14:19)
[2018-04-15] MEDS: Senna/Docusate Sodium 8.6/50 MG Tablet PO SCH ×2 (09:05→20:55)
[2018-04-15] MEDS: Budesonide-Formoterol 160/4.5 MCG 6 GM Inhaler INH SCH ×2 (09:10→20:57)
[2018-04-15] MEDS: Tiotropium Bromide 18 MCG/ACT Inhaler INH SCH (09:11)
--- NOTE | 2018-04-15 10:58 | P.PNIM ---
Subjective Interval history: f/u; COPD exacerbation in no acute distress. sob has improved. no fever. Physical Exam Vital signs: Last Vital Signs Temp 98.1 F 04/15/18 08:00 Pulse 89 04/15/18 10:07 Resp 18 04/15/18 08:00 BP 163/62 H 04/15/18 10:07 Pulse Ox 92 L 04/15/18 08:00 Intake & Output 04/13/18 04/14/18 04/15/18 04/16/18 06:59 06:59 06:59 06:59 Intake Total 1000 / 1000 600 / 600 1110 / 1110 Output Total 300 / 300 1000 / 1000 1050 / 1050 Balance 700 / 700 -400 / -400 60 / 60 Weight 130.5 kg 133.3 kg 135 kg Constitutional no acute distress Routine Respiratory Exam Present CTA bilaterally and wheezes Comments: wheezing has improved. Routine Cardiovascular Exam Present RRR Routine Abdominal Exam Present soft Routine Extremities Exam Comments: bilateral pedal edema with chronic erythema on both legs. Routine Neurological Exam Present alert and oriented X3 Results Labs CBC & Chem 7: 04/14/18 07:31 04/14/18 07:31 Labs: Microbiology 04/12/18 22:13 Blood - Peripheral Aerobic Blood Culture - Preliminary Staphylococcus coag negative 04/12/18 22:13 Blood - Peripheral Anaerobic Blood Culture - Preliminary No growth in 2 days 04/12/18 22:18 Blood - Peripheral Aerobic Blood Culture - Preliminary No growth in 2 days 04/12/18 22:18 Blood - Peripheral Anaerobic Blood Culture - Preliminary No growth in 2 days Assessment and Plan Plan 1. COPD exacerbation/shortness of breath- improving slowly. sepsis due to possible pneumonia acute hypoxemic respiratory failure Chest x-ray limited, CT with no PE will follow the Blood cultures. continue Levaquin ,IV steroids Supplemental oxygen as needed Continue home Symbicort, Spiriva Duo nebs Pulmonary consult appreciated. 2. Hypokalemia Status post p.o. supplementation Monitor BMP 3. Atrial fibrillation Continue anticoagulation with Eliquis Continue home medications 4. Acute kidney injury Creatinine 1.41, baseline 0.98 Holding IV fluids secondary to CHF Monitor renal function 5. CHF/hypertension/hyperlipidemia Continue home medication 6- morbid obesity. FEN Cardiac diet Electrolytes: As above Eliquis consulted PT. Discharge Planning: back to SNF when medically stable.
[2018-04-15] MEDS ORDERED: MethylPREDNISolone Sod Succinate Inj 40 MG/ML Vial IV.PUSH SCH (17:00)
--- NOTE | 2018-04-15 17:48 | P.PNPL ---
Subjective Interval history: 82 YOWF with COPD, CASSIE,AF Breathing better Cough, small amount of sp No Fever Anxious," in NH, had fall and hallucinating" Physical Exam Vital signs: Vital Signs 04/14/18 19:37 04/14/18 20:00 04/14/18 23:44 Temperature 97.4 F L Pulse Rate 78 77 78 Respiratory Rate 20 20 Blood Pressure 140/63 Pulse Oximetry 94 L 04/14/18 23:46 04/15/18 00:00 04/15/18 03:45 Temperature 98.1 F Pulse Rate 77 82 71 Respiratory Rate 25 H 22 Blood Pressure 122/65 Pulse Oximetry 97 97 04/15/18 04:00 04/15/18 07:37 04/15/18 08:00 Temperature 98.1 F 98.1 F Pulse Rate 70 76 79 Respiratory Rate 20 16 18 Blood Pressure 147/73 H 103/55 L Pulse Oximetry 95 94 L 92 L 04/15/18 09:00 04/15/18 10:07 04/15/18 12:00 Temperature 98.2 F Pulse Rate 71 89 83 Respiratory Rate 20 Blood Pressure 163/62 H 164/74 H Pulse Oximetry 94 L 04/15/18 12:21 04/15/18 17:12 Temperature Pulse Rate 66 82 Respiratory Rate 16 16 Blood Pressure Pulse Oximetry Intake & Output 04/14/18 04/15/18 04/15/18 18:59 06:59 18:59 Intake Total 720 / 720 390 / 390 Output Total 500 / 500 550 / 550 Balance 220 / 220 -160 / -160 Weight 135 kg Intake: IV 150 / 150 Levaquin 750 mg Premix Inj 150 150 / 150 ML @ 100 mls/hr IV.SIG Q48H [place] Rx#:[id number] Oral 720 / 720 240 / 240 Output: Urine 500 / 500 550 / 550 Other: # Urine Diapers 2 Date of Last Bowel Movement 04/12/18 04/14/18 04/14/18 # Bowel Movements 0 1 GENERAL: Obese WF,NAD, on RA SKIN: Warm and dry. HEAD: Normocephalic. EYES: No scleral icterus. No injection or drainage. NECK: Supple, trachea midline. No JVD or lymphadenopathy. CARDIOVASCULAR: Regular rate and rhythm without murmurs, gallops, or rubs. RESPIRATORY: Breath sounds equal bilaterally. No accessory muscle use. End exp rhonchi GASTROINTESTINAL: Abdomen soft, non-tender, nondistended. MUSCULOSKELETAL: No cyanosis, or edema. BACK: Nontender without obvious deformity. No CVA tenderness. Assessment and Plan - Plan IMPRESSION: 1. Methicillin-resistant Staphylococcus aureus. 2. Urinary tract infection. 3. Sepsis. 4. Hemoptysis. 5. Respiratory distress status post extubation. 6. Increased liver enzymes. 7. Thrombocytopenia. 8. The patient is homeless. 9. Nicotine use. 10. Alcohol use. PLAN: Aerosol Nebs Symbicort 2 puffs bid DC Solumedrol pred 20 mg bid Cont ABX CPAP/ASV at night Eliquis 5 mg bid.
[2018-04-15] MEDS: predniSONE 20 MG Tablet PO SCH (20:54)
[2018-04-16] MEDS: Levothyroxine 75 MCG Tablet PO SCH (04:53)
[2018-04-16] MEDS: Torsemide 20 MG Tablet PO SCH ×2 (06:17→14:46)
[2018-04-16] MEDS: Isosorbide Mononitrate 60 MG ER 24HR Tablet (Imdur) PO SCH (06:17)
[2018-04-16] MEDS: predniSONE 20 MG Tablet PO SCH ×2 (08:39→20:14)
[2018-04-16] MEDS: Senna/Docusate Sodium 8.6/50 MG Tablet PO SCH ×2 (08:40→20:15)
[2018-04-16] MEDS: Tiotropium Bromide 18 MCG/ACT Inhaler INH SCH (08:40)
[2018-04-16] MEDS: Budesonide-Formoterol 160/4.5 MCG 6 GM Inhaler INH SCH ×2 (08:40→22:35)
--- NOTE | 2018-04-16 10:26 | P.PNIM ---
Subjective Interval history: f/u; COPD exacerbation looks and feels better today. sob is improving. no fever. Physical Exam Vital signs: Last Vital Signs Temp 98 F 04/16/18 04:00 Pulse 79 04/16/18 04:00 Resp 20 04/16/18 04:00 BP 137/63 04/16/18 04:00 Pulse Ox 96 04/16/18 04:00 Intake & Output 04/14/18 04/15/18 04/16/18 04/17/18 06:59 06:59 06:59 06:59 Intake Total 600 / 600 1110 / 1110 2039 / 2039 Output Total 1000 / 1000 1050 / 1050 2049 Balance -400 / -400 60 / 60 -10 / -10 Weight 133.3 kg 135 kg 133 kg Constitutional no acute distress Routine Respiratory Exam Present CTA bilaterally Routine Cardiovascular Exam Present RRR Routine Abdominal Exam Present soft Routine Extremities Exam Comments: mild bilateral pedal edema. Routine Neurological Exam Present alert and oriented X3 Results Labs CBC & Chem 7: 04/14/18 07:31 04/14/18 07:31 Labs: Microbiology 04/14/18 13:13 Blood - Peripheral Aerobic Blood Culture - Preliminary No growth in 1 day 04/14/18 13:13 Blood - Peripheral Anaerobic Blood Culture - Preliminary No growth in 1 day 04/12/18 22:18 Blood - Peripheral Aerobic Blood Culture - Preliminary No growth in 3 days 04/12/18 22:18 Blood - Peripheral Anaerobic Blood Culture - Preliminary No growth in 3 days 04/12/18 22:13 Blood - Peripheral Aerobic Blood Culture - Preliminary Staphylococcus coag negative 04/12/18 22:13 Blood - Peripheral Anaerobic Blood Culture - Preliminary No growth in 3 days Assessment and Plan Plan 1. COPD exacerbation/shortness of breath- improving slowly. sepsis due to possible pneumonia acute hypoxemic respiratory failure Chest x-ray limited, CT with no PE Blood cultures negative so far. continue Levaquin , steroids Supplemental oxygen as needed Continue home Symbicort, Spiriva Duo nebs Pulmonary following. 2. Hypokalemia Status post p.o. supplementation Monitor BMP 3. Atrial fibrillation Continue anticoagulation with Eliquis Continue home medications 4. Acute kidney injury Creatinine 1.41, baseline 0.98 Holding IV fluids secondary to CHF Monitor renal function 5. CHF/hypertension/hyperlipidemia Continue home medication 6- morbid obesity. FEN Cardiac diet Electrolytes: As above Eliquis consulted PT. Discharge Planning: back to SNF tomorrow if remains stable.
--- NOTE | 2018-04-16 17:00 | P.PNPL ---
Subjective Interval history: 82 YOWF with COPD, CASSIE,AF Breathing better Cough, small amount of sp No Fever Feels better today has hoarseness of voice, no thrush Physical Exam Vital signs: Vital Signs 04/15/18 17:12 04/15/18 20:00 04/15/18 20:18 Temperature 98 F Pulse Rate 82 82 81 Respiratory Rate 16 20 20 Blood Pressure 128/60 Pulse Oximetry 91 L 91 L 04/15/18 23:41 04/16/18 00:00 04/16/18 03:28 Temperature Pulse Rate 91 H 92 H 78 Respiratory Rate 17 18 Blood Pressure Pulse Oximetry 04/16/18 03:49 04/16/18 04:00 04/16/18 07:50 Temperature 98 F Pulse Rate 78 79 105 H Respiratory Rate 20 20 Blood Pressure 137/63 Pulse Oximetry 96 04/16/18 08:00 04/16/18 11:00 04/16/18 12:00 Temperature 97.8 F 97.9 F Pulse Rate 87 68 77 Respiratory Rate 20 20 19 Blood Pressure 168/86 H 141/63 H Pulse Oximetry 95 92 L 04/16/18 15:30 Temperature Pulse Rate 88 Respiratory Rate 20 Blood Pressure Pulse Oximetry Intake & Output 04/15/18 04/16/18 04/16/18 18:59 06:59 18:59 Intake Total 1320 / 1320 720 / 720 Output Total 850 / 850 1200 / 1200 Balance 470 / 470 -480 / -480 Weight 133 kg Intake: Oral 1320 / 1320 720 / 720 Output: Urine 850 / 850 1200 / 1200 Urine/Stool Mix 0 / 0 Other: Date of Last Bowel Movement 04/15/18 04/15/18 # Bowel Movements 1 GENERAL: Obese WF,NAD SKIN: Warm and dry. HEAD: Normocephalic. EYES: No scleral icterus. No injection or drainage. NECK: Supple, trachea midline. No JVD or lymphadenopathy. CARDIOVASCULAR: Regular rate and rhythm without murmurs, gallops, or rubs. RESPIRATORY: Breath sounds equal bilaterally. No accessory muscle use. GASTROINTESTINAL: Abdomen soft, non-tender, nondistended. MUSCULOSKELETAL: No cyanosis, or edema. BACK: Nontender without obvious deformity. No CVA tenderness. Assessment and Plan - Plan IMPRESSION: 1. Methicillin-resistant Staphylococcus aureus. 2. Urinary tract infection. 3. Sepsis. 4. Hemoptysis. 5. Respiratory distress status post extubation. 6. Increased liver enzymes. 7. Thrombocytopenia. 8. The patient is homeless. 9. Nicotine use. 10. Alcohol use. PLAN: Aerosol Nebs Symbicort 2 puffs bid pred 20 mg bid Cont ABX CPAP/ASV at night Eliquis 5 mg bid. DC Plans for home She will FU with.
[2018-04-17] MEDS: Isosorbide Mononitrate 60 MG ER 24HR Tablet (Imdur) PO SCH (05:10)
[2018-04-17] MEDS: Levothyroxine 75 MCG Tablet PO SCH (05:11)
[2018-04-17] MEDS: Torsemide 20 MG Tablet PO SCH ×2 (05:11→13:13)
[2018-04-17] MEDS: predniSONE 20 MG Tablet PO SCH ×2 (09:24→21:30)
[2018-04-17] MEDS: Senna/Docusate Sodium 8.6/50 MG Tablet PO SCH ×2 (09:24→21:30)
[2018-04-17] MEDS: Tiotropium Bromide 18 MCG/ACT Inhaler INH SCH (09:25)
[2018-04-17] MEDS: Budesonide-Formoterol 160/4.5 MCG 6 GM Inhaler INH SCH ×2 (09:25→21:32)
--- NOTE | 2018-04-17 09:47 | P.PNIM ---
Subjective Interval history: in no acute distress. but says that her sob is a little worse today and complaining of sore throat. no fever. Physical Exam Vital signs: Last Vital Signs Temp 97.8 F 04/17/18 04:00 Pulse 69 04/17/18 04:00 Resp 18 04/17/18 04:00 BP 139/64 04/17/18 04:00 Pulse Ox 94 L 04/17/18 04:00 Intake & Output 04/15/18 04/16/18 04/17/18 04/18/18 06:59 06:59 06:59 06:59 Intake Total 1110 / 1110 2040 / 2040 1230 / 1230 Output Total 1050 / 1050 2049 / 0 2250 / 2250 Balance 60 / 60 -10 / -10 -1020 / -1020 Weight 135 kg 133 kg 132.8 kg Constitutional no acute distress Routine HEENT Exam Comments: no pharyngeal exudate. Routine Respiratory Exam Present CTA bilaterally Routine Cardiovascular Exam Present RRR Routine Abdominal Exam Present soft Routine Extremities Exam Comments: no pedal edema. Routine Neurological Exam Present alert and oriented X3 Results Labs CBC & Chem 7: 04/14/18 07:31 04/14/18 07:31 Labs: Microbiology 04/14/18 13:13 Blood - Peripheral Aerobic Blood Culture - Preliminary No growth in 2 days 04/14/18 13:13 Blood - Peripheral Anaerobic Blood Culture - Preliminary No growth in 2 days 04/12/18 22:18 Blood - Peripheral Aerobic Blood Culture - Preliminary No growth in 4 days 04/12/18 22:18 Blood - Peripheral Anaerobic Blood Culture - Preliminary No growth in 4 days 04/12/18 22:13 Blood - Peripheral Aerobic Blood Culture - Preliminary Staphylococcus coag negative 04/12/18 22:13 Blood - Peripheral Anaerobic Blood Culture - Preliminary No growth in 4 days Assessment and Plan Plan 1. COPD exacerbation/shortness of breath- improving slowly. sepsis due to possible pneumonia acute hypoxemic respiratory failure- improving. Chest x-ray limited, CT with no PE Blood cultures negative so far. continue Levaquin , steroids Supplemental oxygen as needed Continue home Symbicort, Spiriva Duo nebs Pulmonary following. 2. Hypokalemia Status post p.o. supplementation Monitor BMP 3. Atrial fibrillation Continue anticoagulation with Eliquis Continue home medications 4. Acute kidney injury Creatinine 1.41, baseline 0.98 Holding IV fluids secondary to CHF Monitor renal function 5. CHF/hypertension/hyperlipidemia Continue home medication 6- morbid obesity. FEN Cardiac diet Electrolytes: As above Manju consulted PT. Discharge Planning: back to SNF tomorrow if remains stable.
[2018-04-18] MEDS: Levothyroxine 75 MCG Tablet PO SCH (04:19)
[2018-04-18] MEDS: Isosorbide Mononitrate 60 MG ER 24HR Tablet (Imdur) PO SCH (05:29)
[2018-04-18] MEDS: Torsemide 20 MG Tablet PO SCH ×2 (05:29→13:03)
--- NOTE | 2018-04-18 08:41 | P.PNIM ---
Subjective Interval history: f/u; copd exacerbation in no acute distress. sitting comfortable. wheezing has almost resolved. no fever. Physical Exam Vital signs: Last Vital Signs Temp 97.8 F 04/18/18 04:00 Pulse 58 L 04/18/18 07:38 Resp 16 04/18/18 07:38 BP 144/70 H 04/18/18 04:00 Pulse Ox 94 L 04/18/18 07:38 Intake & Output 04/16/18 04/17/18 04/18/18 04/19/18 06:59 06:59 06:59 06:59 Intake Total 2039 / 2039 1230 / 1230 720 / 720 Output Total 2049 / 2049 2250 / 2250 1800 / 1800 Balance -10 / -10 -1020 / -1020 -1080 / -1080 Weight 133 kg 132.8 kg 131 kg Constitutional no acute distress Routine Respiratory Exam Present CTA bilaterally Routine Cardiovascular Exam Present RRR Routine Abdominal Exam Present soft Routine Extremities Exam Comments: bilateral pedal edema with chronic skin erythema Routine Neurological Exam Present alert and oriented X3 Results Labs CBC & Chem 7: 04/14/18 07:31 04/14/18 07:31 Labs: Microbiology 04/14/18 13:13 Blood - Peripheral Aerobic Blood Culture - Preliminary No growth in 3 days 04/14/18 13:13 Blood - Peripheral Anaerobic Blood Culture - Preliminary No growth in 3 days 04/12/18 22:18 Blood - Peripheral Aerobic Blood Culture - Final No growth in 5 days 04/12/18 22:18 Blood - Peripheral Anaerobic Blood Culture - Final No growth in 5 days 04/12/18 22:13 Blood - Peripheral Aerobic Blood Culture - Final Staphylococcus hominis-hominis 04/12/18 22:13 Blood - Peripheral Anaerobic Blood Culture - Final No growth in 5 days Procedures Procedures: none Assessment and Plan Plan 1. COPD exacerbation/shortness of breath- improved. sepsis due to possible pneumonia acute hypoxemic respiratory failure- resolved. Chest x-ray limited, CT with no PE Blood cultures negative so far. continue Levaquin , steroids Supplemental oxygen as needed Continue home Symbicort, Spiriva Duo nebs Pulmonary follow up appreciated. 2. Hypokalemia Status post p.o. supplementation Monitor BMP 3. Atrial fibrillation Continue anticoagulation with Eliquis Continue home medications 4. chronic renal insufficiency Holding IV fluids secondary to CHF Monitor renal function 5. CHF/hypertension/hyperlipidemia Continue home medication 6- morbid obesity. FEN Cardiac diet Electrolytes: As above Manju consulted PT. Discharge Planning: dc to SNF this afternoon. see med list. f/u; pcp. d/w the patient. time spent 35 min.
--- NOTE | 2018-04-18 08:45 | P.DS ---
DS: Providers Date of admission: 04/13/18 00:47 Primary care physician: UNKNOWN Consults: 04/13/18 11:42 HUB Only Consult Order Routine Consulting Provider: [employer] 04/14/18 09:25 Consult to Pulmonology Routine Consulting Provider: Nikhil Dyer Patient known to:: Isiah Gaytan Reason for Consultation: COPD exacerbation Notified:: Office Spoke with:: Jules Date Notified:: 04/14/18 Time Notified:: 09:30 Comments:: Dr Gaytan out of town per [facility] service Ordering Provider: JUSTIN Brief History from admission: 82-year-old female with a past medical history significant for atrial fibrillation, anticoagulated on Eliquis, COPD, hypertension, hypothyroidism, hyperlipidemia and congestive heart failure presents to the emergency department for the evaluation of shortness of breath. The patient reports she has been suffering intermittent bouts of shortness of breath since [place] however her symptoms acutely worsened yesterday. She is not on home oxygen however does have BiPAP for her obstructive sleep apnea. She endorses approximately 2-3 weeks of intermittent fever/chills and a nonproductive cough. She denies any chest pain. No abdominal pain. No nausea/vomiting/diarrhea. No focal neurologic deficits. DS: Summary 1. COPD exacerbation/shortness of breath- improved. sepsis due to possible pneumonia acute hypoxemic respiratory failure- resolved. Chest x-ray limited, CT with no PE Blood cultures negative so far. continue Levaquin , steroids Supplemental oxygen as needed Continue home Symbicort, Spiriva Duo nebs Pulmonary follow up appreciated. 2. Hypokalemia Status post p.o. supplementation Monitor BMP 3. Atrial fibrillation Continue anticoagulation with Eliquis Continue home medications 4. chronic renal insufficiency Holding IV fluids secondary to CHF Monitor renal function 5. CHF/hypertension/hyperlipidemia; resume home meds. Time Spent with Patient Total time spent providing and/or coordinating discharge services: Greater than 30 minutes Specific discharge activities: 35 min. Exam Narrative Exam Narrative: patient in no acute distress. on lung exam,wheezing has almost resolved. abdomen is soft/ nontender. she has bilateral pedal edema and chronic skin erythema bilaterally. Results Procedures completed during hospitalization: none Labs on day of discharge: Preliminary micro results at discharge 04/14/18 13:13 Aerobic Blood Culture - Preliminary Blood - Peripheral No growth in 3 days Anaerobic Blood Culture - Preliminary No growth in 3 days Impressions ITS Impressions Chest X-Ray 04/12/18 22:10 CONCLUSION: Limited single view exam demonstrating cardiomegaly with scarring and no definite pulmonary edema. Chest CTA 04/13/18 00:40 CONCLUSION: 1. The study is negative for pulmonary embolism. 2. Stable chronic infiltrates and scarring within the right middle lobe and lingula. Discharge Plan Discharge Disposition Patient Disposition: Discharge to SNF Discharge Condition Condition: Stable Discharge Order Discharge Orders: Discharge Order (Routine); Ordered 04/18/18 Ordered By: Tez Davis Physicians Team Primary Care Provider: UNKNOWN, Attending Provider: Tez Davis Other Providers: [employer] ; Nikhil Dyer Rxs /Orders / Referrals /Forms Prescriptions: New isosorbide mononitrate 60 mg Tablet Extended Release 24 Hr 180 mg PO DAILY@0600 Qty: 30 RF: 0 levofloxacin [Levaquin] 500 mg tablet 500 mg PO DAILY 3 Days Qty: 3 RF: 0 prednisone 5 mg tablet 5 mg PO DIRECTED Qty: 26 RF: 0 Continue clonidine HCl 0.1 mg Tablet 0.1 mg PO TID RF: 0 acetaminophen 325 mg Tablet 325 mg PO Q6H PRN (Reason: Pain) RF: 0 ipratropium-albuterol 0.5 mg-3 mg(2.5 mg base)/3 mL Solution For Nebulization 3 ml INHALATION Q6-8H PRN (Reason: Shortness Of Breath Or Wheezing) RF: 0 torsemide 20 mg Tablet 20 mg PO DAILY RF: 0 polyethylene glycol 3350 [Miralax] 17 gram Powder In Packet 17 g PO DAILY PRN (Reason: Constipation) RF: 0 metoprolol succinate 50 mg Tablet Extended Release 24 Hr 50 mg PO DAILY RF: 0 sennosides-docusate sodium [Senna Laxative-Stool Softener] 8.6-50 mg Tablet 1 tab PO BID PRN (Reason: Constipation) RF: 0 potassium chloride 10 mEq Tablet Extended Release 20 meq PO BID RF: 0 aspirin [Aspir-Low] 81 mg Tablet,Delayed Release (Dr/Ec) 81 mg PO DAILY RF: 0 phenazopyridine 100 mg Tablet 100 mg PO TID PRN (Reason: Urinary Retention) RF: 0 nitroglycerin [Nitrolingual] 400 mcg/spray [place],Non-Aerosol 1 spray TRANSLINGUAL Q3-5M PRN (Reason: Chest Pain) RF: 0 montelukast 10 mg Tablet 10 mg PO QPM RF: 0 dextromethorphan-guaifenesin [Robitussin Cough-Chest Carlo DM] 5-100 mg/5 mL Liquid 15 ml PO Q4-8H PRN (Reason: Cough) RF: 0 albuterol sulfate [Ventolin HFA] 90 mcg/actuation Hfa Aerosol Inhaler 2 puff INHALATION Q6H PRN (Reason: Shortness Of Breath) RF: 0 calcitriol 0.25 mcg Capsule 0.25 mcg PO Q OTHER DAY RF: 0 loratadine 10 mg Tablet 10 mg PO DAILY RF: 0 dextran 70-hypromellose [Artificial Tears([id number])] Drops 2 drp OPHTHALMIC (EYE) Q12H RF: 0 coenzyme Q10 [Co Q-10] 100 mg Capsule 100 mg PO DAILY RF: 0 tiotropium bromide [Spiriva with HandiHaler] 18 mcg Capsule, W/Inhalation Device 1 cap INHALATION DAILY RF: 0 vitamins A,C,[id number] [PreserVision AREDS] [id number] [id number] Capsule 1 cap PO BID RF: 0 budesonide-formoterol [Symbicort] 160-4.5 mcg/actuation Hfa Aerosol Inhaler 2 puff INHALATION BID RF: 0 ropinirole [Requip XL] 4 mg Tablet Extended Release 24 Hr 4 mg PO BID RF: 0 levothyroxine 75 mcg Capsule 75 mcg PO DAILY RF: 0 cranberry fruit [cranberry] 450 mg Tablet 450 mg PO DAILY RF: 0 apixaban [Eliquis] 5 mg Tablet 5 mg PO BID RF: 0 Lactobacillus rhamnosus GG [Culturelle] 15 billion cell Capsule, Sprinkle 1 cap PO DAILY RF: 0 biotin 5,000 mcg Tablet, Sublingual 5,000 mcg SUBLINGUAL DAILY RF: 0 Discontinued isosorbide mononitrate 60 mg Tablet Extended Release 24 Hr 120 mg PO QAM RF: 0 doxycycline monohydrate 100 mg Capsule 100 mg PO BID RF: 0 Referrals: UNKNOWN, [Primary Care Provider] - See Instructions Discharge Instructions Patient Printed Instructions: Isosorbide Dinitrate (By mouth), Prednisone (By mouth), Levofloxacin (By mouth) Post Discharge Care Plan Care Plan Goals: Discharge Care Plan Goals for COPD You have been diagnosed with chronic obstructive pulmonary disease (COPD). This is a name given to a group of diseases that limit the flow of air in and out of your lungs. This makes it harder to breathe. With COPD, you are also more likely to get lung infections. COPD includes chronic bronchitis and emphysema. COPD is most often caused by heavy, long-term cigarette smoking. Directions to Meet your Goals: 1. Quit smoking: * If you smoke, quit. It is the best thing you can do for your COPD and your overall health. * Join a stop-smoking program. There are even telephone, text message, and Internet programs to help you quit. * Ask your doctor about medicines or other methods to help you quit. * Ask family members to quit smoking as well. * Don't allow people to smoke in your home, in your car, or when they are around you. 2. Protect yourself from infection: * Wash your hands often. Do your best to keep your hands away from your face. Most germs are spread from your hands to your mouth. * Get a flu shot every year. Also ask your provider about pneumonia vaccines. * Avoid crowds. It's especially important to do this in the winter when more people have colds and flu. * To stay healthy, get enough sleep, exercise regularly, and eat a balanced diet. You should: -Get about 8 hours of sleep every night. -Try to exercise for at least 30 minutes on most days. -Have healthy foods including fruits and vegetables, 100% whole grains, lean meats and fish, and low-fat dairy products. -Try to stay away from foods high in fats and sugar. 3. Take your medicines: * Take your medicines exactly as directed. Don't skip doses. 4. Manage you stress: Stress can make COPD worse. Use this stress management technique: * Find a quiet place and sit or lie in a comfortable position. * Close your eyes and perform breathing exercises for several minutes. 5. Pulmonary rehabilitation: * Pulmonary rehab can help you feel better. These programs include exercise, breathing techniques, information about COPD, counseling, and help for smokers. * Ask your doctor or your local hospital about programs in your area. 6. When to call your doctor: Call doctor immediately if you have any of the following: Shortness of breath, wheezing, or coughing Increased mucus Yellow, green, bloody, or smelly mucus Fever or chills Tightness in your chest that does not go away with rest or medicine An irregular heartbeat or a feeling that your heart is beating very fast Swollen ankles 7. Follow-up: Do Not miss your follow-up appointment. Keep up with all your appointments and yearly check ups Status ED Status: Left Department Discharge Information Discharge Date/Time: 04/18/18 16:36
[2018-04-18] MEDS: predniSONE 20 MG Tablet PO SCH (09:19)
[2018-04-18] MEDS: Senna/Docusate Sodium 8.6/50 MG Tablet PO SCH (09:19)
[2018-04-18] MEDS: Budesonide-Formoterol 160/4.5 MCG 6 GM Inhaler INH SCH (09:20)
[2018-04-18] MEDS: Tiotropium Bromide 18 MCG/ACT Inhaler INH SCH (09:20)
[2018-04-18] MEDS ORDERED: guaiFENesin/Dextromethorphan 200 MG/20 MG 10 ML UDC PO PRN (11:29)
== END 2018-04-18 16:36 ==
LOC: NEPE 21:51 → NEDA 04-13 00:47 → HCIS 04-13 04:45 → N04 04-14 06:12
PROVIDERS: ADMIT Internal Medicine; ATTEND Internal Medicine